=== PATIENT | female | born 1940 | race Caucasian/White ===

== ENCOUNTER → 2017-12-19 09:36 | Outpatient (CLI) | payer SELFPAY ==
--- NOTE | 2017-12-19 09:44 | HPBD_ITS ---
STUDY: DUAL ENERGY X-RAY ABSORPTIOMETRY / DXA REASON FOR EXAM: Female, 77 years old. The patient is postmenopausal. Loss of height. TECHNIQUE: Bone Mineral Density (BMD) measurements of lumbar spine and bilateral hips were obtained. COMPARISON: None. FINDINGS: Lumbar Spine (L1-L4): g/cm2 (1.072) / T-score (-0.8) / Z-score (1.0) Findings are suggestive of normal bone density with a low fracture risk. Left Femur Total: g/cm2 (0.995) / T-score (-0.1) / Z-score (1.9) Left Femoral Neck: g/cm2 (0.841) / T-score (-1.4) / Z-score (0.7) Right Femur Total: g/cm2 (0.965) / T-score (-0.3) / Z-score (1.6) Right Femoral Neck: g/cm2 (0.889) / T-score (-1.1) / Z-score (1.1) HPBD/Dexa Bone Density Study (HP) IMPRESSION: The patient is considered osteopenic as outlined below according to World Carlos Alberto Organization (WHO) criteria with a moderate fracture risk. Reference Information: The T-score is the number of standard deviations above or below the standard which is normal for young adults at their peak bone mineral density. The World Health Organization (WHO) interprets the T-scores as follows: Above -1 Normal bone density Between -1 and -2.5 Osteopenia Equal to / or below -2.5 Osteoporosis As a practical clinical guideline, osteopenia may be graded as follows: Mild -1 through -1.5 Moderate -1.6 through -2.0 Severe -2.1 through -2.4 The Z-score is the number of standard deviations above or below age-matched controls. A Z-score of less than -1.5 would be considered abnormal. References: 1. NIH Osteoporosis and Related Bone Diseases http://www.osteo.org 2. International Society for Clinical Densitometry http://www.iscd.org 3. National Osteoporosis Foundation http://www.nof.org Electronically Signed: Chad Wilkins MD at 15:25 EST Tel [phone], Service support ,
== END ==
PROVIDERS: Family Provider Internal Medicine; PCP Internal Medicine; Visit Provider Internal Medicine
DX: Z78.0 Asymptomatic menopausal state (principal)
CPT/HCPCS: 77080

== ENCOUNTER 2018-01-12 07:02 | Day surgery (SDC) | payer MEDICARE, OTHER, SELFPAY ==
[2017-12-14 15:01] VITALS: BP 157/77; BMI 29.6
--- NOTE | 2018-01-12 | IMM_PTH ---
PATIENT: FARHAD LOPEZ LOC: EN U#:[id number] AGE/SX: 77/F ROOM: RE01/12/[address]: Dr. Chaparro John MD : 1940 BED: DIS: 01/12/2018 SPEC #: [id number] RECD: 01/15/18 11:25 STATUS: BRITTANY REBECCA #: [id number] OTTO: 01/12/18 00:[address]: Chaparro John DEPT: IMMUNOHISTOCHEMISTRY RECD BY: Nathalie Stokes ENTERED: 01/15/18 11:26 SP TYPE: IMMUNO OTHR DR: Dr. Xiomara Do MD Tissues: A - Stomach, NOS B - Stomach, NOS Procedures: H Pylori (initial) PHYSICIAN & [place] [id number] SPECIMEN INFORMATION: Tissue Source: A ? Antral biopsy, B ? Cardia biopsy Clinical Info: GERD, epigastric pain Specimen Number: [id number] A & B CPT code: 96956 x2 METHODOLOGY: Deparaffinized sections of prefer/formalin-fixed tissue or PAP/DQ stained slides are incubated with monoclonal/polyclonal antibodies/oligonucleotide probes. Localization is made via biotin free immunoperoxidase method. Appropriate controls are performed and reacted as expected. Results on target cell population are indicated in the following table: RESULTS: ANTIBODY / CLONE RESULT Block A H Pylori (polyclonal) negative Block B H Pylori (polyclonal) negative These tests were developed and their performance characteristics determined by [facility]. They may not have been cleared or approved by the U.S. Food and Drug Administration. The FDA has determined that such clearance or approval is not necessary. INTERPRETATION: A. Antral biopsy: Negative for Helicobacter pylori organisms. B. Cardia biopsy: Negative for Helicobacter pylori organisms. SJ:ebenezer 01/16/18
[2018-01-12 07:26] VITALS: BP 143/87; PULSE 125; RESP 18; TEMP 36.9; O2SAT 100; BMI 28.6
--- NOTE | 2018-01-12 08:20 | GASB_PTH ---
PATIENT: FARHAD LOPEZ LOC: EN U#:[id number] AGE/SX: 77/F ROOM: RE01/12/[address]: Dr. Chaparro John MD : 1940 BED: DIS: 01/12/2018 SPEC #: [id number] RECD: 01/12/18 11:21 STATUS: BRITTANY REBECCA #: [id number] OTTO: 01/12/18 08:[address]: Chaparro John DEPT: SURGICAL PATHOLOGY RECD BY: Ran Diamond ENTERED: 01/12/18 12:11 SP TYPE: Gastric Bx OTHR DR: Dr. Xiomara Do MD Tissues: A - Gastric mucous membrane B - Cardioesophageal junction C - Gastric mucous membrane D - Esophageal mucous membrane Procedures: Special Stain Group II Special Stain Group I Surgery Specimen Level IV GMS Stain (control) Alcian Blue/PAS (control) HEADER OPERATION: EGD with biopsy PRE-OP DIAGNOSIS: GERD, epigastric pain TISSUE SUBMITTED: A ? Antral biopsy for H. pylori and path, B ? Cardia biopsy, C ? Gastric polyp biopsy, D ? Distal esophagus biopsy MICROSCOPIC DIAGNOSIS A. Antral biopsy: Mild gastritis. B. Cardia, biopsy: Fragments of gastroesophageal mucosa with acute and chronic inflammation. Focal intestinal metaplasia (goblet cell metaplasia) is noted. Special stain for fungi is negative for organisms; matched control is appropriate. C. Gastric polyp, biopsy: Fundic gland polyp. D. Distal esophagus, biopsy: Fragments of squamous epithelium with mild acute and chronic inflammation. Special stain for fungi is negative for organisms; matched control is appropriate. SJ:ebenezer 01/15/18 COMMENT A & B. The results of immunohistochemistry for Helicobacter pylori will be reported separately ([id number]). B. Alcian blue/PAS stain with matched control is used in the evaluation of the specimen. MICROSCOPIC DESCRIPTION Slides are reviewed. A. The specimen shows fragments of gastric mucosa with chronic inflammatory cell infiltrates in the lamina propria consisting of lymphocytes and plasma cells, consistent with mild chronic gastritis. GROSS DESCRIPTION A - Received in fixative is one container labeled with the patient's name and designated antral biopsy. The specimen consists of one irregular fragment of light edmonds soft tissue that measures 0.3 x 0.2 x 0.1 cm. The specimen is totally submitted in one cassette. B - Received in fixative is one container labeled with the patient's name and designated cardia biopsy. The specimen consists of two irregular fragments of light edmonds soft tissue that in aggregate measure 0.3 x 0.2 x 0.1 cm. The specimen is totally submitted in one cassette. C - Received in fixative is one container labeled with the patient's name and designated gastric polyp. The specimen consists of one irregular fragment of light edmonds soft tissue that measures 0.4 x 0.2 x 0.1 cm. The specimen is totally submitted in one cassette. D - Received in fixative is one container labeled with the patient's name and designated distal esophagus. The specimen consists of multiple irregular fragments of light edmonds soft tissue that in aggregate measure 0.5 x 0.5 x 0.1 cm. The specimen is totally submitted in one cassette. / AM:ebenezer 01/12/18 TC:2 CPT: 78735 x4, 94536 x2, 18787
[2018-01-12 08:46] VITALS: BP 107/48; BP 143/87; PULSE 80; RESP 18; TEMP 36.3; O2SAT 90
--- NOTE | 2018-01-12 08:48 | PCM.OPRPT ---
Problem List (1) GERD (gastroesophageal reflux disease) Status: Acute (2) Personal history of colonic polyps Status: Acute (3) Family history of colon cancer in mother Status: Acute Report of Operation Date of Procedure: 01/12/18 Pre-Operative Diagnosis: GERD, personal history of colon polyps, family history of colon cancer in her mother Post-Operative Diagnosis: Large hiatal hernia with severe reflux esophagitis, antral gastritis, gastric polyps, pancolonic diverticulosis Surgery/Procedure Performed:: Esophagogastroduodenoscopy with antral and cardia and distal esophageal biopsies and gastric polyp biopsy. Colonoscopy Description of Surgical Findings:: Timeout and informed consent was obtained. 77-year-old female was taken to the endoscopy suite. Her oropharynx anesthetized with Topex. Throughout both the upper and lower endoscopy she received 100 mg of Demerol and 50 minute micrograms of fentanyl and 5 mg of Versed is intravenous sedation. GIF video gastroscope was inserted and soft line night. Proximal mid esophagus not remarkable. EG junction was only at 33 cm. A large hiatal hernia noted. There are findings consistent with severe reflux esophagitis. The scope was advanced into the stomach antral erythema noted. Gastric fundic polyps noted. The scope was advanced through the pylorus the first and second portion of the duodenum were inspected this was not remarkable. The scope was withdrawn back into the stomach antral biopsy was obtained. The scope was retroflexed and the large hiatal hernia noted. There appear to be some inflammation of the cardia as well. There were some scattered gastric fundic polyps. Antral biopsy was obtained. Biopsy was obtained of the gastric fundic polyps. Biopsy was obtained of the cardia adjacent to the e.g. junction. Then excess fluid and air was aspirated free. The scope was withdrawn to the distal esophagus and distal esophageal biopsies were obtained. Hemostasis was intact the scope was withdrawn without additional abnormality. Digital rectal exam performed. Slightly lax anal tone. Moderate internal and external hemorrhoids. No active bleeding. Flexible C1 scope was inserted into the rectum advanced to a quite tortuous sigmoid colon extensively involved with diverticulosis. The scope was then advanced through the transverse colon into the ascending colon. The cecum ileocecal valve area was nicely achieved. Bowel prep was quite good. The scope was carefully withdrawn from the ascending transverse descending and sigmoid colon. Extensive pancolonic diverticulosis was identified with severe diverticulosis of the sigmoid colon. I did not see any evidence of acute inflammation. No evidence for recurrent polyps. The scope was retroflexed within the rectum hemorrhoidal changes noted. Excess fluid and air was aspirated free the procedure was completed with the patient tolerating it well. Impression Hiatal hernia severe reflux esophagitis. Antral gastritis. Gastric fundic polyps. The patient will be prescribed omeprazole 40 mg daily while awaiting biopsies. Pancolonic diverticulosis. No evidence of recurrent polyps. Previous colonoscopy July 02, 2013. Recommendations The patient will be notified of her upper endoscopy pathology results and any additional treatment recommendations. Follow-up colonoscopy tentatively at 5 years pending her health at that time. Cc: Dr. Do Medications initially given at 0815. Upper scope started 0817. The upper scope completed at 0824. Colonoscopy initiated at 0828. The cecum was reached at 0836.35. The procedure was completed at 0841.58. Chaparro John M.D., F.A.C.S. Type of Anesthesia:: IV Sedation
[2018-01-12 09:01] VITALS: BP 143/87; BP 97/53; PULSE 77; RESP 18; O2SAT 95
[2018-01-12 09:10] VITALS: BP 100/49; BP 143/87; PULSE 76; RESP 18; O2SAT 92
[2018-01-12 09:16] VITALS: BP 102/57; BP 143/87; PULSE 78; RESP 18; TEMP 36.4; O2SAT 95
[2018-01-12 09:28] VITALS: BP 143/87
== END 2018-01-12 10:04 | disposition home or self-care (01) ==
LOC: EN 07:04 → AC 07:04
PROVIDERS: Family Provider Internal Medicine; PCP Internal Medicine; Visit Provider Surgery
PROC: 0DJD8ZZ Inspection of Lower Intestinal Tract, Via Natural or Artificial Opening Endoscopic (ICD-10-PCS; CPT 45378; principal; 2018-01-12 07:55)
DX: K31.7 Polyp of stomach and duodenum (principal); K44.9 Diaphragmatic hernia without obstruction or gangrene; K21.0 Gastro-esophageal reflux disease with esophagitis; I10 Essential (primary) hypertension; K64.4 Residual hemorrhoidal skin tags; K29.50 Unspecified chronic gastritis without bleeding; K57.30 Diverticulosis of large intestine without perforation or abscess without bleeding; Z86.010 Personal history of colon polyps; Z80.0 Family history of malignant neoplasm of digestive organs
CPT/HCPCS: 43239; 45378; 88305; 88312; 88313; 88342; J3010; J7120

== ENCOUNTER → 2018-04-03 10:26 | Outpatient (CLI) | payer MEDICARE, OTHER, SELFPAY ==
[2018-04-03 11:20] LABS: D-Dimer Quantitative (DVT/PE) 1.52 FEU/ug/m (0.27-0.49)
[2018-04-03 11:23] LABS: Anion Gap 12 (5-15); BUN 13 mg/dL (7-18); BUN/Creat Ratio 18.1 RATIO (10-20); Calcium,Total 9.6 mg/dL (8.5-10.1); Chloride 102 mmol/L (98-107); Creatinine, Serum 0.72 mg/dL (0.55-1.02); EST Glomerular Filtration Rate 83 mL/min (>60); Est Glom Filt Rate - Afr Amer 100 mL/min (>60); Glucose 95 mg/dL (74-106); Sodium Level 140 mmol/L (136-145); T4 Free Direct 1.09 ng/dL (0.76-1.46); Thyroid Stim Hormone (TSH) 2.45 uIU/mL (0.358-3.74)
== END ==
PROVIDERS: Family Provider Internal Medicine; PCP Internal Medicine; Visit Provider Internal Medicine
DX: R00.0 Tachycardia, unspecified (principal)
CPT/HCPCS: 80048; 84439; 84443; 84484; 85379

== ENCOUNTER → 2018-04-03 14:52 | Outpatient (CLI) | payer MEDICARE, OTHER, SELFPAY ==
--- NOTE | 2018-04-03 14:58 | CT_ITS ---
STUDY: CTA CHEST REASON FOR EXAM: Female, 77 years old. Elevated d-dimer. Tachycardia. RADIATION DOSAGE (If Supplied By Facility): CTDIvol = ( 9.47 ) mGy, DLP = ( 418.77 ) mGycm TECHNIQUE: The examination was performed with the intravenous administration of 75 ml of Isovue 370 contrast material. Post-processing of the angiographic images was performed, with multiplanar reformation and 3D reconstruction. Individualized dose optimization techniques were used for this CT. COMPARISON: None. FINDINGS: Normal enhancement of the main pulmonary artery and right and left pulmonary arteries. Normal enhancement of the bilateral peripheral pulmonary arteries. There is no demonstrated pulmonary embolism. Normal thoracic aorta and visualized great vessels. There is no demonstrated aortic dissection. Normal heart and pericardium. Normal mediastinum. Normal hilar regions. Normal visualized trachea and bronchi. The lungs are well expanded. Mild degree of increased markings in the left lower lobe with areas of bronchiectasis and scarring in the medial aspect of the left lower lobe. Mild increased markings in the right lower lobe. Normal pleura. Normal chest wall structures. There are degenerative changes of thoracic spine. Moderate sized hiatal hernia. CT/Chest W/WO Contrast IMPRESSION: No evidence of pulmonary. Findings suggestive of scarring in the lower lobes more prominent on the left side. Hiatal hernia. Electronically Signed: Chad Wilkins MD at 15:45 EDT Tel [phone], Service support ,
== END ==
PROVIDERS: Family Provider Internal Medicine; PCP Internal Medicine; Visit Provider Internal Medicine
DX: R79.89 Other specified abnormal findings of blood chemistry (principal); R00.0 Tachycardia, unspecified
CPT/HCPCS: 71270; 80048; 84439; 84443; 84484; 85379; Q9967

== ENCOUNTER → 2018-04-04 11:22 | Outpatient (CLI) | payer MEDICARE, OTHER, SELFPAY | PROVIDERS: Family Provider Internal Medicine; PCP Internal Medicine; Visit Provider Internal Medicine | DX: R00.0 Tachycardia, unspecified (principal) | CPT/HCPCS: 93225; 93226 ==

== ENCOUNTER 2018-05-29 10:30 | Outpatient (RCR) | payer MEDICARE, OTHER, SELFPAY ==
--- NOTE | 2018-04-24 13:00 | HP.PTEVAL_ITS ---
Patient's Visit Information FARHAD LOPEZ is a 77 year old F referred to Physical Therapy by Xiomara Do with a diagnosis of L1 compression fracture. Date of Evaluation: 04/24/18 Physical Therapist: Roberto Oliveros DPT, OC - Visit Plan Frequency: 2x /Week Duration: 4-6 Weeks Plan: 2x/week x 2 weeks in pool to teach hip flexor and quad stretching, core strength and general strength program that patient can do in her friends pool with pics. Then 2x/week for 2 weeks for land based hip flexor stretches, quad stretches andcore strength and return to machine based exercises. Will need to work on L/S flexion at some point. - Subjective Subjective: Wants to get back into activity. Fractured vertebrae(compression) March 16. 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 MRI showed this. Ortho surgeon the next day and given brace which she is now weaning out of, still sleeps with it. No bending or twisting allowed. saw doc last Monday in [place] and [facility] and sent for outpatient as she has been doing HEP sink exercises at home(home health). Pain is very little at this point. Back gets tired if stands still for too long. Can walk without discomfort. Sleeps without pain. Is tight in the mroning but can walk that off. Can do all basic ADLs but is avoiding carrying heavy things. Had someone with her the last 5 weeks but is now on her own. 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 Careful bending forward but does all ADLs, has repositioned things int he house. Is not gardening. Checked for bone density prior and it was fine, was just hard a fall. Wants to get back to walk 2-3 miles and is currently at one mile. wears brace for that. Back gets tired with too much work. Needs to be stronger. Wants to get back to water aerobics. Enjoys the pool. Wants to get back to regular ex program to lose weight. - Objective Walking well and I, trasnfers are I on mat and chair without pain. VOR walking is slow but safe. LE AROM WFL, hip ext mod limited with hip flexor tightness mod(8 degrees) and Min quad tightness. LB AROM Mod limited in extension anensation LE WNL to gross light touch.d SB and flexion NT today. LE strength 4 +/5 without pain except hip flexion gives slight transient LBP. Hip abductiona nd rotators are 4-/5 as is extension. reflexes 2/3 in ppatella and achilles - Balance Scores Functional Gait Assessment Score: 27 % Disability: 10.0000 - Goals Goal 1:: Get back to full LB ROM without pain and good hip flexor flexibility without pain. Goal Time Frame: 4-6 Weeks Goal 2:: Back to 100% activity including pool based ex program and gym exercises without pain. Goal Time Frame: 4-6 Weeks Goal 3:: Pt feel 95% back to normal. Goal Time Frame: 4-6 Weeks Goal 4:: Walk 3 miles without increased pain or fatigue in back. Goal Time Frame: 4-6 Weeks - Rehabilitation Potential Physical Therapy Diagnosis: Compression fracture Rehabilitation Potential: Good - Anticipated Interventions Patient/Client Instruction: Educate patient on: Condition, Plan of Care For the Purpose of:: To increase ROM, To improve muscle performance and motor function, To improve ability of physical actions for home/community/work/leisure Therapeutic Exercise to Include: Strength training, Endurance training, Flexibilty training, Passive ROM, Active ROM For the Purpose of:: To increase ROM, To improve nutrient delivery to tissue, To increase oxygenation perfusion, To improve muscle performance and motor function, To improve ability of physical actions for home/community/work/leisure , To improve gait and locomotor functions Thank you for the opportunity to evaluate your patient. For Medicare and Medicare HMO plans, please review the plan of care and approve it. It will need to be FAXED BACK to us at [phone] for Medicare purposes. Please let me know if there are questions or concerns regarding this plan of care. Physician Signature: Date:
--- NOTE | 2018-05-29 11:28 | HP.PTDCSUM ---
HP - PT D/C Summary It has been my pleasure to treat FARHAD LOPEZ under orders from Xiomara Do, for the diagnosis of L1 compression fracture for a total of 10 visit(s). Discharge Date: 05/29/18 Please see the following information for a summary of their discharge status. - Subjective Subjective: Going the right way. Stretching has helped LE especially gastroc. Plan is to join now and continue with current exercises which are helping. Back is stronger and gets no pain. Tired at end of day. Will continue stretches before getting out of bed in the morning. Getting on and off floor for yoga stretches OK, getting up is not easy but doable and improving. Activities are normal, has modified gardening. To doctor Do in one week and to Dr. Kumar next week. - Overall Improvement % Improvement: 95 - Objective Objective/Function: ext mod limited and slightly centrally oainful, SB are hesitant but decent motion , flexion is full and painfree. Walking is normal and balance is good with VOR and ec. OVERALL PT HAPPY WITH PROGRESS AND DOING WELL. - Goals Goal 1:: Get back to full LB ROM without pain and good hip flexor flexibility without pain. Goal Progress: Goal Met Goal 2:: Back to 100% activity including pool based ex program and gym exercises without pain. Goal Progress: Goal Met Goal 3:: Pt feel 95% back to normal. Goal Progress: Goal Met Goal 4:: Walk 3 miles without increased pain or fatigue in back. Goal Progress: Goal Met - Plan Plan: D/C - D/C Information Discharge Comments: Doing great. Will f/u with doctors next week. Will continue HEP of strength, stretch and pool ex. I have educated her on weaning back to golfing. If there are questions or concerns regarding this patient's physical therapy, please feel free to call me at [phone]. Thank you for the referral of this patient. Sincerely, Roberto Oliveros, DPT, OC
== END 2018-05-29 19:00 | disposition home or self-care (01) ==
LOC: PT 10:30
PROVIDERS: Family Provider Internal Medicine; PCP Internal Medicine; Visit Provider Internal Medicine
DX: S32.019D Unspecified fracture of first lumbar vertebra, subsequent encounter for fracture with routine healing (principal)
CPT/HCPCS: 97110; 97113; 97162; 97530

== ENCOUNTER → 2018-06-19 08:29 | Outpatient (CLI) | payer MEDICARE, OTHER, SELFPAY | PROVIDERS: Family Provider Internal Medicine; PCP Internal Medicine; Visit Provider Orthopaedic Surgery | DX: M54.16 Radiculopathy, lumbar region (principal) | CPT/HCPCS: 72114 ==

== ENCOUNTER → 2018-06-21 07:09 | Outpatient (CLI) | payer MEDICARE, OTHER, SELFPAY ==
--- NOTE | 2018-06-21 19:00 | STRESSREP ---
Stress Test Report Date: 06/21/2018 Procedure: Exercise tolerance test/imaging study Indications: Premature ventricular contractions Consent: Per the patient Procedure: The patient exercised on a Mark protocol for 7 minutes completing Stage 2 and 1 minute of Stage III achieving a peak heart rate of 162 bpm (115 % predicted maximal heart rate) with a peak blood pressure 170/80 mmHg and a peak MET capacity of 8 METs. The baseline ECG demonstrated normal sinus rhythm; PVCs. The peak exercise ECG demonstrated somatic/motion artifact with no obvious ECG changes. There were occasional PVCs pretest, during exercise, and recovery. The functional capacity was considered good. There was no complaint of chest discomfort during exercise or recovery. The examination was discontinued secondary to dyspnea. Impression: 1. Technically adequate (percent predicted maximal heart rate greater than 85%) exercise tolerance test 2. Peak exercise ECG demonstrated somatic/motion artifact with no obvious ECG changes 3. There were occasional PVCs pretest, during exercise, and recovery. 4. Nuclear images pending Myocardial perfusion imaging study: Technique: The patient was injected with 11.8 mCi of technetium 99m Cardiolite and subsequently rest SPECT Cardiolite nuclear imaging was obtained in the horizontal long, vertical long, and short axis views. The patient exercised on a Mark protocol for 7 minutes completing Stage 2 and 1 minute of Stage III achieving a peak heart rate of 162 bpm (115 % predicted maximal heart rate) with a peak blood pressure 170/80 mmHg and a peak MET capacity of 8 METs. The patient was injected with 31.3 mCi of technetium 99m Cardiolite and subsequently stress SPECT Cardiolite nuclear imaging was obtained in the horizontal long, vertical long, and short axis views. A gated Cardiolite study at peak stress was obtained. Interpretation: Rest and stress SPECT Cardiolite nuclear imaging status post realignment, normalization, and attenuation correction, demonstrates the appearance of relative uniform tracer uptake and myocardial perfusion appearing within normal limits. There is end systolic thickening and brightening. The gated Cardiolite study demonstrates myocardial thickening and inward wall motion. The reported LVEF is 57 %. Impression: 1. Rest and stress SPECT Cardiolite nuclear imaging demonstrate relative uniform tracer uptake and myocardial perfusion appearing within normal limits. 2. The gated Cardiolite study reports an LVEF of 57 %. This note was generated with [employer] software. It may contain incorrect words, spelling, and punctuation that were not noted in checking the note before signing.
== END ==
PROVIDERS: Family Provider Internal Medicine; PCP Internal Medicine; Visit Provider Internal Medicine
DX: R06.02 Shortness of breath (principal); I49.3 Ventricular premature depolarization
CPT/HCPCS: 78452; 93017; A9500; A4216

== ENCOUNTER → 2018-09-12 08:14 | Outpatient (CLI) | payer MEDICARE, OTHER, SELFPAY ==
--- NOTE | 2018-09-12 08:16 | BI_ITS ---
MAMMOGRAPHY - BILATERAL SCREENING REASON FOR EXAM: Female, 78 years old. Routine annual screening examination. PERTINENT HISTORY: Non-contributory. Remote right excisional breast biopsy. TECHNIQUE: Digital bilateral breast jasmeet (3D mammographic acquisition) in the CC and MLO projections. 2-D mediolateral oblique (MLO) and craniocaudad (CC) views of both breasts were obtained. CAD: Full Field Digital Mammography with Computer Added Detection was performed. COMPARISON: Comparison is made with prior outside examination dated August 16, 2017. FINDINGS: Breast Composition: There are scattered areas of fibroglandular density. There are no dominant masses or suspicious calcifications. Stable small bilateral axillary lymph nodes. No other significant abnormalities are identified. There has been no significant change since the prior study. BI/SCREENING MAMM (CAD), BILAT IMPRESSION: Stable bilateral screening mammogram. Yearly follow-up mammogram recommended. (A) ASSESSMENT CATEGORY: BIRADS Category 2: Benign. A letter regarding these results will be sent to the patient by the facility within 30 days. Approximately 10% of breast cancers are not detected by mammography. A normal mammogram should not delay biopsy of a clinically suspicious abnormality. [id number] Electronically Signed: Chad Wilkins MD at 11:12 EST Tel [phone], Service support ,
== END ==
PROVIDERS: Family Provider Internal Medicine; PCP Internal Medicine; Visit Provider Internal Medicine
DX: Z12.31 Encounter for screening mammogram for malignant neoplasm of breast (principal)
CPT/HCPCS: 77063; 77067

== ENCOUNTER → 2018-11-22 12:32 | Outpatient (CLI) | payer SELFPAY ==
[2018-10-13 10:08] VITALS: BMI 29.6
--- NOTE | 2018-11-22 12:45 | CT_ITS ---
STUDY: CT CHEST WITHOUT CONTRAST REASON FOR EXAM: Female, 78 years old. Calcium scoring examination. This is a radiology over read examination. RADIATION DOSAGE (If Supplied By Facility): CTDIvol = ( 12.19 ) mGy, DLP = ( 195.04 ) mGycm TECHNIQUE: Transaxial imaging was performed without the administration of intravenous contrast material. Individualized dose optimization techniques were used for this CT. COMPARISON: Comparison is made with prior study dated April 03, 2018. FINDINGS: Stable mild increased markings at the left lung base suggestive of scarring. There is no demonstrated pleural abnormality. There are calcifications of the coronary arteries. There are multiple small lymph nodes within the mediastinum, which are normal in size and morphology most compatible with reactive lymph hyperplasia. Normal hilar regions. Normal unenhanced pulmonary arteries. Normal aorta arch and descending thoracic aorta. There are degenerative changes of the thoracic spine. Moderate sized hiatal hernia. CT/Limited Chest CT w/CCTA IMPRESSION: Findings suggestive scarring at the left lung base. Coronary artery calcification. Moderate hiatal hernia. Electronically Signed: Chad Wilkins MD at 13:04 EST Tel [phone], Service support ,
[2018-11-22 12:52] VITALS: BP 163/84; PULSE 72; RESP 16; TEMP 37; O2SAT 100; BMI 27.6
[2018-11-22 13:11] VITALS: BP 159/65; PULSE 74
[2018-11-22] MEDS: Metoprolol Tartrate 5 MG/5 ML Vial IV (13:11)
[2018-11-22 13:15] VITALS: BP 168/63; PULSE 694; RESP 16; O2SAT 100
[2018-11-22 13:26] VITALS: BP 163/76; PULSE 73; RESP 16; O2SAT 100
--- NOTE | 2018-11-27 08:58 | CA.SCORE ---
Calcium Scoring Date of Study:: 11/27/18 Coronary Calcium Scoring: Total calcium score of 0 Conclusion: Total calcium score of 0 is below the 25th percentile for women over the age of 74. (Exact percentile calculated to be 0%; this means 0% of the population has similar calcium score at 99% of the population has a higher calcium score than this patient.) Results: AGATSTON SCORE BREAKDOWN: LM: 0 LAD:0 LCX: 0 RCA: 0 Total Agatston score:0 Impression: Impression: No identifiable atherosclerotic plaquing. Very low cardiovascular disease risk. Less than 5% chance of presence of coronary artery disease. Essentially negative examination. A full evaluation of cardiac risk should include an assessment of all conventional risk factors, and the scores and percentile ranking is reported herein should be evaluated in this context.
--- OUTSIDE RECORDS SUMMARY | 2019-01-27 04:39 | XMS RPT_ITS | Continuity of Care Document ---
:1940 Author Organization [facility] Address [address] [facility] [address] [place] [address] Phone Care Team Providers Name Role Phone Xiomara Do MD Unavailable Chaparro John MD Unavailable Unavailable Unavailable Problems Name Dates Details Abnormal glucose (Renamed from Abnormal glucose level) (R73.09, 790.29) Status: Active BMI 28.0-28.9,adult (Z68.28, V85.24) Status: Active BMI 29.0-29.9,adult (Z68.29, V85.25) Status: Active BMI 30.0-30.9,adult (Z68.30, V85.30) Status: Active Current nonsmoker (Renamed from Current non-smoker) (Z78.9, V49.89) Status: Active D-dimer, elevated (R79.89, 790.92) Status: Active Deliveries (Parity) Comments: 4 Status: Active Dizziness (R42, 780.4) Status: Active Encounter for screening colonoscopy (Z12.11, V76.51) Status: Active Encounter for screening mammogram for breast cancer (Renamed from Encounter for screening mammogram for malignant neoplasm of breast) (Z12.31, V76.12) Status: Active Encounter for well adult exam with abnormal findings (Z00.01, V70.0) Comments: 12-18 [facility]: MOCA=26/30, PHQ-9=1, A1c=5.4%, colonscopy 3-18 (plan 5 years) derm check Dr Michael HUNG yearly mammo 09-23 BD 12-24 yearly with [facility]. Status: Active Erosive esophagitis (K22.10, 530.19) Comments: EGD 10-[address] John to have rescope 12-24-18 Status: Active Fall at home (W19.XXXA, E888.9) Status: Active Family history of colon cancer in mother (Z80.0, V16.0) Comments: later years of her life 84 years old Status: Active Family history of dementia (Z81.8, V17.2) Status: Active GERD (gastroesophageal reflux disease) (K21.9, 530.81) Comments: EGD 2012, Hpylori neg. biopsy mild gastritis like spicy. worse when travel. eating later. Status: Active Head trauma, subsequent encounter (S09.90XD, V58.89) Comments: no isseu not think need imaged Status: Active Headache (R51, 784.0) Status: Active Hearing loss of left ear, unspecified hearing loss type (H91.92, 389.9) Comments: will get back to Dr. painting Status: Active Hiatal hernia (K44.9, 553.3) Comments: large Status: Active History of nonmelanoma skin cancer (Z85.828, V10.83) Comments: SCC and BCC gets yearly exam Status: Active Hospital discharge follow-up (Z09, V67.59) Comments: low hgb in [facility] in [place] Status: Active Hyperlipidemia (E78.5, 272.4) Comments: reveiwed with patient and good. breakdown great only on lipitor wice weekly really watn to see need Status: Active Hypertension (I10, 401.9) Comments: in past used another medication and changed because still high. talk about weight loss, salt restriction, decrease etoh and exercise first not want more meds Status: Active Iron deficiency anemia (D50.9, 280.9) Comments: from the esophagitis. 09-23 9.1 on iron. will see what hgb is in 6 weeks. if not climbing as should then to heme. Status: Active Laceration of right forearm, sequela (S51.811S, 906.1) Comments: will get surures out in about another week had tetanus 2014 Status: Active Leukopenia, unspecified type (D72.819, 288.50) Status: Active Need for prophylactic vaccination and inoculation against influenza (Renamed from Need for immunization against influenza) (Z23, V04.81) Status: Active Obesity (BMI 30.0-34.9) (E66.9, 278.00) Comments: start after retire. 165 lbs. she willstart exercise, limit wine and watch starches hs limited whine will start [employer] told if not see weight drop log my fitness pal Status: Active Pneumococcal vaccination given (Z23, V06.6) Status: Active Postmenopausal (Renamed from Postmenopausal status) (Z78.0, V49.81) Status: Active Pregnancies () Comments: 4 Status: Active PVC (premature ventricular contraction) (I49.3, 427.69) Comments: sr jerilyn worked up in past stress was negative. had 6-18 when in mist of stress with fracture will have sgtress test before incfreasee exercise no other signs and symptoms Status: Active SOB (shortness of breath) (R06.02, 786.05) Comments: some better withincreae hgb and stress n egatiove. will do echo with tachy. and PVCS and CCTA Status: Active Tachycardia (R00.0, 785.0) Comments: she still contiues even with a good hemoglobulin to have some talk about chycardia the SOB think related to low hg but worth checking echol. Status: Active Upper GI bleed (K92.2, 578.9) Comments: in apst not now. she was in hospital 11-18 hg 6. iron def. willhave her hold ASA because not for secondary preventation. on PPI now stay on. Status: Active Medications Name Dates Details AmLODIPine Besylate 5 MG Oral Tablet 1 (one) Tablet qd for 0 days Quantity: 30 {Tablet} Refills: 7 Ordered:13-Sep-2018 Hi RAMON, Xiomara Delacruz MD, Xiomara Mcdonald Start : 13-Sep-2018 Active Calcium Carbonate 600 MG Oral Tablet 1 qd (600 MG) Active Carafate 1 GM Oral Tablet 1 (one) Tablet Tablet 4 times a day, 1 hr before meals and bedtime for 30 days Quantity: 120 {Tablet} Refills: 3 Ordered:24-Mar-2018 Xiomara Do MD, MD, Dana M Start : 21-Mar-2018 Active Comments:called to Raj [phone] - cmanchak 03/21 CoQ-10 100 MG Oral Capsule Extended Release 1 (one) Capsule qd for 0 days Quantity: 30 {Capsule} Refills: 6 Ordered:05-Oct-2018 Xiomara Do MD, MD, Dana M Start : 05-Oct-2018 Active Ferrous Sulfate 325 (65 Fe) MG Oral Tablet Delayed Release 1 (one) Tablet bid with food for 0 days Quantity: 60 {Tablet} Refills: 7 Ordered:03-Oct-2018 Xiomara Do MD, MD, Dana M Start : 03-Oct-2018 Active Comments:get with vitamin C Lipitor 10 MG Oral Tablet 1 (one) Tablet qd for 0 days Quantity: 30 {Tablet} Refills: 6 Ordered:11-Sep-2018 Xiomara Do MD, MD, Dana M Start : 11-Sep-2018 Active Dispense as Written Comments:LEILA no generic Miacalcin 200 UNIT/ACT Nasal Solution one spray daily alternate nostrils (200 UNIT/ACT) Active Multi Vitamin Daily Oral Tablet 1 (one) Tablet Tablet qd for 0 days Quantity: 30 {Tablet} Refills: 0 Ordered:15-Sep-2017 Xiomara Do MD, MD, Dana M Start : 31-Aug-2017 Active Omeprazole 20 MG Oral Capsule Delayed Release 1 (one) Capsule qd for 0 days Quantity: 30 {Capsule} Refills: 0 Ordered:22-Oct-2018 Xiomara Do MD, MD, Dana M Start : 22-Oct-2018 Active Omeprazole 40 MG Oral Capsule Delayed Release in am (40 MG) Active Spironolactone 50 MG Oral Tablet 1 (one) Tablet qd for 0 days Quantity: 30 {Tablet} Refills: 7 Ordered:03-Oct-2018 Xiomara Do MD, MD, Dana M Start : 03-Oct-2018 Active Tylenol Extra Strength 500 MG Oral Tablet 1 (one) Tablet Tablet tid for 30 days Quantity: 150 {Tablet} Refills: 3 Ordered:17-May-2018 Xiomara Do MD, MD, Dana M Start : 03-Apr-2018 Active Zantac 150 Maximum Strength 150 MG Oral Tablet 1 (one) Tablet in am and before dinner for 0 days Quantity: 60 {Tablet} Refills: 5 Ordered:05-Jun-2018 Xiomara Do MD, MD, Dana M Start : 05-Jun-2018 Active Omeprazole 40 MG Oral Capsule Delayed Release 1 (one) Capsule Capsule qd for 0 days Quantity: 30 {Capsule} Refills: 0 Ordered:24-Mar-2018 Xiomara Do MD, MD, Dana M Start : 12-Jan-2018 End : 24-Mar-2018 Inactive Comments:Dr. john Zithromax Z-Nas 250 MG Oral Tablet uad Tablet until gone for 0 days Quantity: 1 {Package} Refills: 0 Ordered:21-Dec-2017 LATONIA Casanova Start : 16-Nov-2017 End : 21-Dec-2017 Inactive Aspirin Adult Low Dose 81 MG Oral Tablet Delayed Release 1 (one) Tablet qd for 0 days Quantity: 30 {Tablet} Refills: 0 Ordered:03-Oct-2018 Xiomara Do MD, MD, Dana M Start : 03-Oct-2018 End : 03-Oct-2018 Discontinued Comments:add back in 2 weeks Atorvastatin Calcium 10 MG Oral Tablet 1 (one) Tablet qd for 0 days Quantity: 30 {Tablet} Refills: 0 Ordered:15-Sep-2017 Xiomara Do MD, MD, Dana M Start : 15-Sep-2017 End : 15-Sep-2017 Discontinued Protonix 40 MG Oral Tablet Delayed Release 1 (one) Tablet qd for 30 days Quantity: 30 {Tablet} Refills: 3 Ordered:17-May-2018 Xiomara Do MD, MD, Dana M Start : 17-May-2018 End : 17-May-2018 Discontinued Allergies and Adverse Reactions Name Dates Details Adhesive Tape (Allergy) Status: Active Neosporin + Pain Relief Max St *DERMATOLOGICALS* (Allergy) Status: Active Comments: rash Past Medical History Name Dates Details Bronchitis (J40, 490) Status: Resolved as of 21-May-2018 Fracture of L1 vertebra due to fall of 12 feet, with routine healing, subsequent encounter (S32.019D, V54.17) Comments: sheis slowly getting better. pain is good tylenol 3 a day. take brace off few hours a day watch what do wear inbed. PT cames and doing leg exercise. eating well adn BM well. Status: Resolved as of 22-Oct-2018 Hypercalcemia (E83.52, 275.42) Comments: better with one calcium a day Status: Resolved as of 21-Dec-2017 Need for prophylactic vaccination and inoculation against influenza (Renamed from Need for immunization against influenza) (Z23, V04.81) Status: Resolved as of 21-Dec-2017 Right anterior shoulder pain (M25.511, 719.41) Comments: suprasinatis tendonitis to PT tylenol at night maybe nsaid but pt not want yet better with PT better now wtih wtarer therapy Status: Resolved as of 25-Jun-2018 Right hip pain (M25.551, 719.45) Comments: hip bursa tyeno ant tnight to PT better with PT Status: Resolved as of 21-Dec-2017 Viral infection (B34.9, 079.99) Comments: slowly getting better no have signs and symptoms of bacterial infection explainto pt what to look for. willuse advil mucinex humidfier and lots of water. Status: Resolved as of 21-Dec-2017 Procedures Procedure Dates Details Dermoid cyst Completed Comments: removed x2 Hysterectomy; Total Completed Skin cancer Completed Comments: basal cell and squamous cell vascular surgery: venous pooling and Completed valve issue [facility] 2001 Date Value Details 18-Oct-2018 Surgery Visit Report Result: Comments: See Note; NOTES: [facility] [address] [place] [address]. [address] [place] [address] OFFICE VISIT Date of Service: 10/13/18 MR#: [id number] Acct: [id number] Name: FARHAD GLEZ Rep #: [id number] : 1940 Provider: Chaparro John MD Age/Sex: 78/F Location: [facility] Status: Signed with Addenda ADDENDUM by Chaparro John MD on 1 12/19/17 at 1531 Addendum entered and electronically signed by Chaparro John MD 10/18/18 15:31: October 18, 2018. I now have laboratory that was obtained locally on October 09, 2018. BUN is 22 and creatinine 0.81. Liver function tests were normal. Urinalysis was not remarkable. Her white blood cell count was 3.5 with a hemoglobin of 9.1 and hematocrit of 28.9 and a platelet count of 399,000. That is improved over posttransfusion level of 8. Her upper endoscopy performed at [facility] in [place] it suggested grade C erosive esophagitis and a large hiatal hernia. It was felt likely that this was the source of her blood loss. Follow-up endoscopy at 2 months was recommended. The patient was placed on a proton pump inhibitor. The biopsies obtained at the time of that EGD however demonst rates normal mucosa. I can only hypothesize that the actual area of inflammation was not sampled. My recommendations remain consistent with previously discussed in my note. I would consider follow-up u pper endoscopy in 2 months. The patient may additionally consider tertiary referral for repair of her large hiatal hernia. Chaparro John M.D., F.A.C.S. Intake Chief Complaint: anemia Allergies baci tracin [From Polysporin] Allergy (Intermediate, Verified 10/13/18 09:29) rash Latex, Natural Rubber Allergy (Intermediate, Verified 10/13/18 09:29) rash polymyxin B [From Polysporin] Allergy (Intermedia te, Verified 10/13/18 09:29) rash Medications amlodipine 2.5 mg tablet 2.5 mg PO QDAY 12/14/17 [History Confirmed 10/13/18] ascorbate calcium 500 mg tablet 500 mg PO QDAY 12/14/17 [History Confirmed 10/13/18] atorvastatin 10 mg tablet 10 mg PO QDAY 12/14/17 [History Confirmed 10/13/18] coenzyme Q10 100 mg capsule 100 mg PO QDAY 12/14/17 [History Confirmed 10/13/18] multivitamin capsule 1 cap PO QDA Y 12/14/17 [History Confirmed 10/13/18] spironolactone 50 mg tablet 50 mg PO QDAY 12/14/17 [History Confirmed 10/13/18] Omeprazole 40 mg PO DAILY #60 capsule. 01/12/18 [Rx Confirmed 10/13/18] Asse ssment AND Plan Problems 1. Acute blood loss anemia D62 Plan - Chaparro John MD 78-year-old female who was briefly hospitalized in [place] with what appeared to be an acute blood loss anemia. Stool was Hemoccult negative. BUN was normal also somewhat curious as otherwise based upon the information currently available it is suggested that she likely had an upper GI bleed perhaps related to her lar ge hiatal hernia. She is currently on iron supplementation. She has recently had laboratory rechecked and that was sent to lab cor. The patient had been on omeprazole initially after my upper endoscopy demonstrating her active reflux esophagitis and then after appropriate treatment she was converted to ranitidine twice daily. Upon this recent hospitalization she was converted back to omeprazole 40 mg daily. She states that she currently feels normal. She denies abdominal pain or chest pain or current shortness of breath. Her stools are dark but that is secondary to the iron supplementation. My zaheer n of approach will be to obtain records regarding her most recent laboratory and obtain her operative note regarding her a esophagogastroduodenoscopy performed in [place]. Then with that information a t hand I would pursue recommendations for follow-up esophagogastroduodenoscopy. Moreover I have had a discussion with the patient today regarding my recommendations for a tertiary referral because of h er large hiatal hernia. My previous operative note reflected that the EG junction was only at 33 cm. This could require esophageal lengthening if a hiatal hernia repair were to be considered. At age 78 she is enjoying a very high quality of life and I think that tertiary level consultation regarding this as an option would be pertinent. She has had an opportunity to ask and have questions answered. W e will we contact her with additional recommendations once we have information reviewed. CC: Dr. Xiomara John M.D., F.A.C.S. 10/18/18 1531 <Electronically signed by Chaparro John MD> Date Chaparro John MD cc: Xiomara Do MD * Signed Intake Vital Signs10/13/18 Body Mass Index (BMI) 29.6 12/04/18 Body Mass Index (BMI) 29.6 Intake Visit Reasons: Hiatal Hernia Chief Complaint: anemia Classifier Operator Required: No Is patient in pain?: No Allergies bacitracin [From Polysporin] Allergy (Intermediate, Verified 10/13/18 09:29) rash Latex, Natural Rubber Allergy (Intermediate, Verified 10/13/18 09:29) rash polymyxin B [From Polysporin] Allergy (Intermediate, Verified 10/13/18 09:29) rash Medications amlodipine 2.5 m g tablet 2.5 mg PO QDAY 12/14/17 [History Confirmed 10/13/18] ascorbate calcium 500 mg tablet 500 mg PO QDAY 12/14/17 [History Confirmed 10/13/18] atorvastatin 10 mg tablet 10 mg PO QDAY 12/14/17 [Histo ry Confirmed 10/13/18] coenzyme Q10 100 mg capsule 100 mg PO QDAY 12/14/17 [History Confirmed 10/13/18] multivitamin capsule 1 cap PO QDAY 12/14/17 [History Confirmed 10/13/18] spironolactone 50 mg tabl et 50 mg PO QDAY 12/14/17 [History Confirmed 10/13/18] Omeprazole 40 mg PO DAILY #60 capsule. 01/12/18 [Rx Confirmed 10/13/18] Is last menstrual period known: No Post menopausal: Yes Patient pregnan t: No PFSH Medical History Acute blood loss anemia (Acute) Acid reflux (Acute) Anemia (Acute) Hemorrhoids (Acute) Hiatal hernia (Acute) History of hystere ctomy (Acute) Hyperlipidemia (Acute) Hypertension (Chronic) Surgical History History of colonoscopy (Acute 06/2013) History of esophagogastroduodenoscop y (EGD) (Acute) Family History Mother Colon cancer Father Heart disease Sister Skin cancer Social History Smoking Status: Never smoker alcohol intake: c urrent alcohol intake frequency: a few times a month substance use type: does not use HPI HPI HPI: FARHAD GLEZ, is a 78 F who presents to the office today for surgical consultation regarding a rece nt episode of severe anemia. The patient claims that the etiology to her anemia was not determined. She was hospitalized overnight in [facility]. She presented with shortnes s of breath. BUN was 8 and creatinine 0.82. Folate was 66. Vitamin B12 was 433. Her lowest hemoglobin was 6.6 with an hematocrit of 21.2. MCV was 78 low normal. MCH 24.2 low. MCHC 31.1 low. Platelet cou nt 377,000. Differential were normal. Stool for Hemoccult was negative. Liver function panel normal. Urinalysis was normal. On September 28, [address] scan of the abdomen and pelvis was obtained. There is a rounded calcification in the left medial chest base. There is a large hiatal hernia. There are several sub-centimeters lesions consistent with suspected liver cysts. There is L1 compression deformi ty 75% loss of height. The discharge summary suggests that the patient was hospitalized because of back pain and low hemoglobin related to esophagitis. The patient however presents today stating that t here was not a clear etiology to her anemia. On October 03, 2018 she received a note from Dr Bruce Blackman from [facility] suggesting that the results of her upper endoscopy biopsies we re normal esophagus. Recommendations were follow-up EGD in 2 months. The patient is being referred today by her primary care physician Dr. Xiomara Do for surgical consultation regarding what appears to be a report of a normal esophagus with and recommendations for follow-up endoscopy at 2 months. The patient did receive 2 units of blood transfusion while she was there. Hemoglobin most recently was at a high of 8. There is very recent laboratory still pending from . I do not currently have access to the official upper endoscopy surgical report that was performed and [place]. I prev iously saw the patient in the office on December 14, 2017. Her presenting history is as follows: HPI: FARHAD GLEZ, is a 77 F who presents to the office today for surgical consultation regarding colonos copy. October 1998 patient had a colonoscopy per Dr. Iggy Bey with some biopsy showing melanosis coli. More recently July 02, 2013 the patient had a upper and lower endoscopy. The patient has had s ome reflux symptoms. On the esophagogastroduodenoscopy she was noted to have some slight erythema consistent with reflux. A small hiatal hernia. Some slight redness of the stomach. On the colonoscopy francisco javier granger had a diminutive polyp in the mid ascending colon. H. pylori was negative. The distal esophagus showed findings consistent with reflux esophagitis with no evidence of Cochran's. The colon polyp was a tubular adenoma. It is of additional note that the patient has a direct family member i.e. mother who developed colon cancer in her 80s. Subsequently I performed a combined esophagogastroduodenoscop y with biopsy and colonoscopy with operative note to follow: [facility] Medical Records Department [address] [place] [address] Operative Report 01/12/18 0848 MR#: [id number] Name: FARHAD GLEZ #:[id number] : [id number]: Chaparro John MD PCP:Xiomara Do MD Status:REG [facility] Location: [place] [address] Problem List (1) GERD (gastroesophageal reflux diseas e) Status: Acute (2) Personal history of colonic polyps Status: Acute (3) Family history of colon cancer in mother Status: Acute Report of Operation Date of Procedure: 01/12/18 Pre-Operative Diagnosi s: GERD, personal history of colon polyps, family history of colon cancer in her mother Post-Operative Diagnosis: Large hiatal hernia with severe reflux esophagitis, antral gastritis, gastric polyps, pa ncolonic diverticulosis Surgery/Procedure Performed:: Esophagogastroduodenoscopy with antral and cardia and distal esophageal biopsies and gastric polyp biopsy. Colonoscopy Description of Surgical Findi ngs:: Timeout and informed consent was obtained. 77-year-old female was taken to the endoscopy suite. Her oropharynx anesthetized with Topex. Throughout both the upper and lower endoscopy she received 100 mg of Demerol and 50 minute micrograms of fentanyl and 5 mg of Versed is intravenous sedation. GIF video gastroscope was inserted and soft line night. Proximal mid esophagus not remarkable. EG junct ion was only at 33 cm. A large hiatal hernia noted. There are findings consistent with severe reflux esophagitis. The scope was advanced into the stomach antral erythema noted. Gastric fundic polyps not ed. The scope was advanced through the pylorus the first and second portion of the duodenum were inspected this was not remarkable. The scope was withdrawn back into the stomach antral biopsy was obtain ed. The scope was retroflexed and the large hiatal hernia noted. There appear to be some inflammation of the cardia as well. There were some scattered gastric fundic polyps. Antral biopsy was obtained. Biopsy was obtained of the gastric fundic polyps. Biopsy was obtained of the cardia adjacent to the e.g. junction. Then excess fluid and air was aspirated free. The scope was withdrawn to the distal eso phagus and distal esophageal biopsies were obtained. Hemostasis was intact the scope was withdrawn without additional abnormality. Digital rectal exam performed. Slightly lax anal tone. Moderate legal summer intern al and external hemorrhoids. No active bleeding. Flexible C1 scope was inserted into the rectum advanced to a quite tortuous sigmoid colon extensively involved with diverticulosis. The scope was then ad vanced through the transverse colon into the ascending colon. The cecum ileocecal valve area was nicely achieved. Bowel prep was quite good. The scope was carefully withdrawn from the ascending transver se descending and sigmoid colon. Extensive pancolonic diverticulosis was identified with severe diverticulosis of the sigmoid colon. I did not see any evidence of acute inflammation. No evidence for rec urrent polyps. The scope was retroflexed within the rectum hemorrhoidal changes noted. Excess fluid and air was aspirated free the procedure was completed with the patient tolerating it well. Impressio n Hiatal hernia severe reflux esophagitis. Antral gastritis. Gastric fundic polyps. The patient will be prescribed omeprazole 40 mg daily while awaiting biopsies. Pancolonic diverticulosis. No evidenc e of recurrent polyps. Previous colonoscopy July 02, 2013. Recommendations The patient will be notified of her upper endoscopy pathology results and any additional treatment recommendations. Follow -up colonoscopy tentatively at 5 years pending her health at that time. Cc: Dr. Do Medications initially given at 0815. Upper scope started 0817. The upper scope completed at 0824. Colonoscopy in itiated at 0828. The cecum was reached at 0836.35. The procedure was completed at 0841.58. Chaparro John M.D., F.A.C.S. Type of Anesthesia:: IV Sedation 01/12/18 0855<Electronically signed by Chaparro John MD> Date Chaparro John MD CC: Xiomara Do MD; Chaparro John MD Signed MICROSCOPIC DIAGNOSIS A. Antral biopsy:Mild gastritis.B . Cardia, biopsy:Fragments of gastroesophageal mucosa with acute and chronic inflammation.Focal intestinal metaplasia (goblet cell metaplasia) is noted.Special stain for fungi is negative for organisms; matched control is appropriate.C. Gastric polyp, biopsy:Fundic gland polyp.D. Distal esophagus, biopsy:Fragments of squamous epithelium with mild acute and chronic inflammation.Special stain for fungi is negative for organisms. H pylori: Negative [facility] Cardiovascular Services [address] [place] [address] MR#: [id number] Name: FARHAD GLEZ #:[id number] : 1940 78From: Johnson Bird MD Primary Care: Hi RAMON,[place]: REG CLI Ordering Dr: Sex: FC Stress Test Report Date: 06/21/2018 Procedure: Exercise tolerance test/imaging study I ndications: Premature ventricular contractions Consent: Per the patient Procedure: The patient exercised on a Mark protocol for 7 minutes completing Stage 2 and 1 minute of Stage III achieving a pea k heart rate of 162 bpm (115 % predicted maximal heart rate) with a peak blood pressure 170/80 mmHg and a peak MET capacity of 8 METs. The baseline ECG demonstrated normal sinus rhythm; PVCs. The peak exercise ECG demonstrated somatic/motion artifact with no obvious ECG changes. There were occasional PVCs pretest, during exercise, and recovery. The functional capacity was considered good. There wa s no complaint of chest discomfort during exercise or recovery. The examination was discontinued secondary to dyspnea. Impression: 1. Technically adequate (percent predicted maximal heart rate greate r than 85%) exercise tolerance test 2. Peak exercise ECG demonstrated somatic/motion artifact with no obvious ECG changes 3. There were occasional PVCs pretest, during exercise, and recovery. 4. Nuclear images pending Myocardial perfusion imaging study: Technique: The patient was injected with 11.8 mCi of technetium 99m Cardiolite and subsequently rest SPECT Cardiolite nuclear imaging was obtained in the horizontal long, vertical long, and short axis views. The patient exercised on a Mark protocol for 7 minutes completing Stage 2 and 1 minute of Stage III achieving a peak heart rate of 162 bpm ( 115 % predicted maximal heart rate) with a peak blood pressure 170/80 mmHg and a peak MET capacity of 8 METs. The patient was injected with 31.3 mCi of technetium 99m Cardiolite and subsequently stress SPECT Cardiolite nuclear imaging was obtained in the horizontal long, vertical long, and short axis views. A gated Cardiolite study at peak stress was obtained. Interpretation: Rest and stress SPECT C ardiolite nuclear imaging status post realignment, normalization, and attenuation correction, demonstrates the appearance of relative uniform tracer uptake and myocardial perfusion appearing within norm al limits. There is end systolic thickening and brightening. The gated Cardiolite study demonstrates myocardial thickening and inward wall motion. The reported LVEF is 57 %. Impression: 1. Rest and st ress SPECT Cardiolite nuclear imaging demonstrate relative uniform tracer uptake and myocardial perfusion appearing within normal limits. 2. The gated Cardiolite study reports an LVEF of 57 %. This not e was generated with Artspaceation software. It may contain incorrect words, spelling, and punctuation that were not noted in checking the note before signing. 06/21/181903<Electronically signed by Johnson Bird MD> Date Johnson Bird MD ROS General General: No weight change, appetite, fatigue, colon cancer, breast canc er or weakness HEENT HEENT: No difficulty swallowing, eye injury, eye surgery, swollen glands or hoarseness Endo Endocrine: No thyroid disease, diabetes mellitus, thyroid cancer, Hair loss, heat intoler ance or cold intolerance Skin Skin: No rash or changing moles Breast Breast: No left breast lump, right breast lump, nipple discharge, breast pain, abnormal mammogram, abnormal US or breast enlargement Musc Musculoskeletal: No back problems, arthritis, rheumatoid arthritis, gout or joint pain Cardio Cardiovascular: Yes high blood pressure; no murmur, pacemaker, heart disease, atrial fibrillation, hear t attack, heart stent, palpitations, shortness of breat with exertion or chest pain Psych Psychiatric: No depression, anxiety or hearing voices Resp Respiratory: No shortness of breath, No sleep apnea, Yes cough, No COPD, No asthma, No emphysema, No wheezing Gastro Gastrointestinal: No abdominal pain, No nausea or vomiting, No diarrhea, No constipation, No blood in stool, Yes acid reflux, Yes hemorrho ids, No ulcers, No gallbladder problem, No black,tarry stools Hemal Hematologic: No blood thinners, No blood disorders, No bleeding, No anemia, No blood clots Neuro Neurologic: No weakness Exam Chest B reast Palpation: No nipple discharge Cardio Heart Sounds: no murmurs Assessment AND Plan Problems 1. Acute blood loss anemia D62 Plan 78-year-old female who was briefly hospitalized in [place] with what appeared to be an acute blood loss anemia. Stool was Hemoccult negative. BUN was normal also somewhat curious as otherwise based upon the information currently available it is suggested that she denise justice had an upper GI bleed perhaps related to her large hiatal hernia. She is currently on iron supplementation. She has recently had laboratory rechecked and that was sent to lab cor. The patient had been on omeprazole initially after my upper endoscopy demonstrating her active reflux esophagitis and then after appropriate treatment she was converted to ranitidine twice daily. Upon this recent hosp italization she was converted back to omeprazole 40 mg daily. She states that she currently feels normal. She denies abdominal pain or chest pain or current shortness of breath. Her stools are dark but that is secondary to the iron supplementation. My plan of approach will be to obtain records regarding her most recent laboratory and obtain her operative note regarding her a esophagogastroduodenoscop y performed in [place]. Then with that information at hand I would pursue recommendations for follow-up esophagogastroduodenoscopy. Moreover I have had a discussion with the patient today regarding m y recommendations for a tertiary referral because of her large hiatal hernia. My previous operative note reflected that the EG junction was only at 33 cm. This could require esophageal lengthening if a hiatal hernia repair were to be considered. At age 78 she is enjoying a very high quality of life and I think that tertiary level consultation regarding this as an option would be pertinent. She has sainz d an opportunity to ask and have questions answered. We will we contact her with additional recommendations once we have information reviewed. CC: Dr. Xiomara John M.D., F.A.C.S. Co ding Level of Care Code Detailed, Low Diagnoses Acute blood loss anemia D62 25min 10/13/18 1111 <Electronically signed by Chaparro John MD> Date Chaparro John MD Cosigner Signature: Date (if applicable) CC: Xiomara Do MD 13-Oct-2018 Surgery Visit Report Result: Comments: See Note; NOTES: [facility] [address] [place] [address] OFFICE VISIT Date of Service: 10/13/18 MR#: [id number] Acct: [id number] Name: FARHAD GLEZ Rep #: [id number] : 1940 Provider: Chaparro John MD Age/Sex: 78/F Location: [facility] Status: Signed Intake Vital Signs10/13/18 Body Mass Index (B CA) 29.6 10/09/18 Body Mass Index (BMI) 29.6 Intake Visit Reasons: Hiatal Hernia Chief Complaint: anemia Classifier Operator Required: No Is patient in pain?: No Allergies bacitracin [From Polysporin] Allerg y (Intermediate, Verified 10/13/18 09:29) rash Latex, Natural Rubber Allergy (Intermediate, Verified 10/13/18 09:29) rash polymyxin B [From Polysporin] Allergy (Intermediate, Verified 10/13/18 09:29) ra sh Medications amlodipine 2.5 mg tablet 2.5 mg PO QDAY 12/14/17 [History Confirmed 10/13/18] ascorbate calcium 500 mg tablet 500 mg PO QDAY 12/14/17 [History Confirmed 10/13/18] atorvastatin 10 mg ta blet 10 mg PO QDAY 12/14/17 [History Confirmed 10/13/18] coenzyme Q10 100 mg capsule 100 mg PO QDAY 12/14/17 [History Confirmed 10/13/18] multivitamin capsule 1 cap PO QDAY 12/14/17 [History Confirmed 1 12/14/17] spironolactone 50 mg tablet 50 mg PO QDAY 12/14/17 [History Confirmed 10/13/18] Omeprazole 40 mg PO DAILY #60 capsule. 01/12/18 [Rx Confirmed 10/13/18] Is last menstrual period known: No Po st menopausal: Yes Patient : No PFSH Medical History Acute blood loss anemia (Acute) Acid reflux (Acute) Anemia (Acute) Hemorrhoids (Acute) Hiatal hernia (Acute) History of hysterectomy (Acute) Hyperlipidemia (Acute) Hypertension (Chronic) Surgical History History of colonoscopy (Acute 06/2013) Hi story of esophagogastroduodenoscopy (EGD) (Acute) Family History Mother Colon cancer Father Heart disease Sister Skin cancer Social History Smoking Stat us: Never smoker alcohol intake: current alcohol intake frequency: a few times a month substance use type: does not use HPI HPI HPI: FARHAD GLEZ, is a 78 F who presents to the office today for surg ical consultation regarding a recent episode of severe anemia. The patient claims that the etiology to her anemia was not determined. She was hospitalized overnight in [facility]. She presented with shortness of breath. BUN was 8 and creatinine 0.82. Folate was 66. Vitamin B12 was 433. Her lowest hemoglobin was 6.6 with an hematocrit of 21.2. MCV was 78 low normal. MCH 24. 2 low. MCHC 31.1 low. Platelet count 377,000. Differential were normal. Stool for Hemoccult was negative. Liver function panel normal. Urinalysis was normal. On September 28, [address] scan of the abdom en and pelvis was obtained. There is a rounded calcification in the left medial chest base. There is a large hiatal hernia. There are several sub-centimeters lesions consistent with suspected liver cyst s. There is L1 compression deformity 75% loss of height. The discharge summary suggests that the patient was hospitalized because of back pain and low hemoglobin related to esophagitis. The patient how ever presents today stating that there was not a clear etiology to her anemia. On October 03, 2018 she received a note from Dr Bruce Blackman from [facility] suggesting that the results of her upper endoscopy biopsies were normal esophagus. Recommendations were follow- up EGD in 2 months. The patient is being referred today by her primary care physician Dr. Xiomara Do for surgical co nsultation regarding what appears to be a report of a normal esophagus with and recommendations for follow-up endoscopy at 2 months. The patient did receive 2 units of blood transfusion while she was t here. Hemoglobin most recently was at a high of 8. There is very recent laboratory still pending from mid week. I do not currently have access to the official upper endoscopy surgical report that was p [place] and [place]. I previously saw the patient in the office on December 14, 2017. Her presenting history is as follows: HPI: FARHAD GLEZ, is a 77 F who presents to the office today for surgi leanna consultation regarding colonoscopy. October 1998 patient had a colonoscopy per Dr. Iggy Bey with some biopsy showing melanosis coli. More recently July 02, 2013 the patient had a upper and lowe r endoscopy. The patient has had some reflux symptoms. On the esophagogastroduodenoscopy she was noted to have some slight erythema consistent with reflux. A small hiatal hernia. Some slight redness of the stomach. On the colonoscopy she had a diminutive polyp in the mid ascending colon. H. pylori was negative. The distal esophagus showed findings consistent with reflux esophagitis with no evidence of Cochran's. The colon polyp was a tubular adenoma. It is of additional note that the patient has a direct family member i.e. mother who developed colon cancer in her 80s. Subsequently I performed a combined esophagogastroduodenoscopy with biopsy and colonoscopy with operative note to follow: [facility] Medical Records Department [address] [place] [address] Operative Report 01/12/18 0848 MR#: [id number]:[id number] Name: FARHAD GLEZ #:[id number] : [id number]: Chaparro John MD PCP:Xiomara Do MD Status:REG [facility] Location: [facility]29-1 Problem List (1) GE RD (gastroesophageal reflux disease) Status: Acute (2) Personal history of colonic polyps Status: Acute (3) Family history of colon cancer in mother Status: Acute Report of Operation Date of Procedur e: 01/12/18 Pre-Operative Diagnosis: GERD, personal history of colon polyps, family history of colon cancer in her mother Post-Operative Diagnosis: Large hiatal hernia with severe reflux esophagitis, an tral gastritis, gastric polyps, pancolonic diverticulosis Surgery/Procedure Performed:: Esophagogastroduodenoscopy with antral and cardia and distal esophageal biopsies and gastric polyp biopsy. Colonos copy Description of Surgical Findings:: Timeout and informed consent was obtained. 77-year-old female was taken to the endoscopy suite. Her oropharynx anesthetized with Topex. Throughout both the upper and lower endoscopy she received 100 mg of Demerol and 50 minute micrograms of fentanyl and 5 mg of Versed is intravenous sedation. GIF video gastroscope was inserted and soft line night. Proximal mid esophagus not remarkable. EG junction was only at 33 cm. A large hiatal hernia noted. There are findings consistent with severe reflux esophagitis. The scope was advanced into the stomach antral erythem a noted. Gastric fundic polyps noted. The scope was advanced through the pylorus the first and second portion of the duodenum were inspected this was not remarkable. The scope was withdrawn back into th e stomach antral biopsy was obtained. The scope was retroflexed and the large hiatal hernia noted. There appear to be some inflammation of the cardia as well. There were some scattered gastric fundic po lyps. Antral biopsy was obtained. Biopsy was obtained of the gastric fundic polyps. Biopsy was obtained of the cardia adjacent to the e.g. junction. Then excess fluid and air was aspirated free. The sco pe was withdrawn to the distal esophagus and distal esophageal biopsies were obtained. Hemostasis was intact the scope was withdrawn without additional abnormality. Digital rectal exam performed. Sligh tly lax anal tone. Moderate internal and external hemorrhoids. No active bleeding. Flexible C1 scope was inserted into the rectum advanced to a quite tortuous sigmoid colon extensively involved with div erticulosis. The scope was then advanced through the transverse colon into the ascending colon. The cecum ileocecal valve area was nicely achieved. Bowel prep was quite good. The scope was carefully wit hdrawn from the ascending transverse descending and sigmoid colon. Extensive pancolonic diverticulosis was identified with severe diverticulosis of the sigmoid colon. I did not see any evidence of acute inflammation. No evidence for recurrent polyps. The scope was retroflexed within the rectum hemorrhoidal changes noted. Excess fluid and air was aspirated free the procedure was completed with the mariza ent tolerating it well. Impression Hiatal hernia severe reflux esophagitis. Antral gastritis. Gastric fundic polyps. The patient will be prescribed omeprazole 40 mg daily while awaiting biopsies. Mckeon colonic diverticulosis. No evidence of recurrent polyps. Previous colonoscopy July 02, 2013. Recommendations The patient will be notified of her upper endoscopy pathology results and any additional treatment recommendations. Follow-up colonoscopy tentatively at 5 years pending her health at that time. Cc: Dr. Do Medications initially given at 0815. Upper scope started 0817. The upper scope completed at 0824. Colonoscopy initiated at 0828. The cecum was reached at 0836.35. The procedure was completed at 0841.58. Chaparro John M.D., F.A.C.S. Type of Anesthesia:: IV Sedation 01/12/18 0 855<Electronically signed by Chaparro John MD> Date Chaparro John MD CC: Xiomara Do MD; Chaparro John MD Signed MICROSCOPIC DIAGNOSIS A. Antral biopsy:Mild gastritis.B. Cardia, biopsy:Fragments of gastroesophageal mucosa with acute and chronic inflammation.Focal intestinal metaplasia (goblet cell metaplasia) is noted.Special stain fo r fungi is negative for organisms; matched control is appropriate.C. Gastric polyp, biopsy:Fundic gland polyp.D. Distal esophagus, biopsy:Fragments of squamous epithelium with mild acute and chronic inf lammation.Special stain for fungi is negative for organisms. H pylori: Negative [facility] Cardiovascular Services [address] [place] [address] MR#: [id number] Name: FARHAD GLEZ Noah #:[id number] : 1940 78From: Johnson Bird MD Primary Care: Hi RAMON,DanaStatus: REG CLI Ordering Dr: Sex: FC Stress Test Report Date: 06/21/2018 Procedure: Exerci se tolerance test/imaging study Indications: Premature ventricular contractions Consent: Per the patient Procedure: The patient exercised on a Mark protocol for 7 minutes completing Stage 2 and 1 m inute of Stage III achieving a peak heart rate of 162 bpm (115 % predicted maximal heart rate) with a peak blood pressure 170/80 mmHg and a peak MET capacity of 8 METs. The baseline ECG demonstrated no rmal sinus rhythm; PVCs. The peak exercise ECG demonstrated somatic/motion artifact with no obvious ECG changes. There were occasional PVCs pretest, during exercise, and recovery. The functional capac ity was considered good. There was no complaint of chest discomfort during exercise or recovery. The examination was discontinued secondary to dyspnea. Impression: 1. Technically adequate (percent p redicted maximal heart rate greater than 85%) exercise tolerance test 2. Peak exercise ECG demonstrated somatic/motion artifact with no obvious ECG changes 3. There were occasional PVCs pretest, during exercise, and recovery. 4. Nuclear images pending Myocardial perfusion imaging study: Technique: The patient was injected with 11.8 mCi of technetium 99m Cardiolite and subsequently rest SPECT Cardio lite nuclear imaging was obtained in the horizontal long, vertical long, and short axis views. The patient exercised on a Mark protocol for 7 minutes completing Stage 2 and 1 minute of Stage III achiev ing a peak heart rate of 162 bpm (115 % predicted maximal heart rate) with a peak blood pressure 170/80 mmHg and a peak MET capacity of 8 METs. The patient was injected with 31.3 mCi of technetium 99m C ardiolite and subsequently stress SPECT Cardiolite nuclear imaging was obtained in the horizontal long, vertical long, and short axis views. A gated Cardiolite study at peak stress was obtained. Interp retation: Rest and stress SPECT Cardiolite nuclear imaging status post realignment, normalization, and attenuation correction, demonstrates the appearance of relative uniform tracer uptake and myocardi al perfusion appearing within normal limits. There is end systolic thickening and brightening. The gated Cardiolite study demonstrates myocardial thickening and inward wall motion. The reported LVEF is 57 %. Impression: 1. Rest and stress SPECT Cardiolite nuclear imaging demonstrate relative uniform tracer uptake and myocardial perfusion appearing within normal limits. 2. The gated Cardiolite study reports an LVEF of 57 %. This note was generated with Artspaceation software. It may contain incorrect words, spelling, and punctuation that were not noted in checking the note before signing. 4470<Electronically signed by Johnson Bird MD> Date Johnson Bird MD ROS General General: No weight change, appetite, fatigue, colon cancer, breast cancer or weakness HEENT HEENT: No difficulty swallowing, eye injury, eye surgery, swollen glands or hoarseness Endo Endocrine: No thyroid disease, diabetes mellitus, thyro id cancer, Hair loss, heat intolerance or cold intolerance Skin Skin: No rash or changing moles Breast Breast: No left breast lump, right breast lump, nipple discharge, breast pain, abnormal mammogram, abnormal US or breast enlargement Musc Musculoskeletal: No back problems, arthritis, rheumatoid arthritis, gout or joint pain Cardio Cardiovascular: Yes high blood pressure; no murmur, pacemaker, heart disease, atrial fibrillation, heart attack, heart stent, palpitations, shortness of breat with exertion or chest pain Psych Psychiatric: No depression, anxiety or hearing voices Resp Respiratory: No morro rtness of breath, No sleep apnea, Yes cough, No COPD, No asthma, No emphysema, No wheezing Gastro Gastrointestinal: No abdominal pain, No nausea or vomiting, No diarrhea, No constipation, No blood in st ool, Yes acid reflux, Yes hemorrhoids, No ulcers, No gallbladder problem, No black,tarry stools Hemal Hematologic: No blood thinners, No blood disorders, No bleeding, No anemia, No blood clots Neuro Neur ologic: No weakness Exam Chest Breast Palpation: No nipple discharge Cardio Heart Sounds: no murmurs Assessment AND Plan Problems 1. Acute blood loss anemia D62 Plan 78-year-old female who was brie fly hospitalized in [place] with what appeared to be an acute blood loss anemia. Stool was Hemoccult negative. BUN was normal also somewhat curious as otherwise based upon the information currently av ailable it is suggested that she likely had an upper GI bleed perhaps related to her large hiatal hernia. She is currently on iron supplementation. She has recently had laboratory rechecked and that wa s sent to lab cor. The patient had been on omeprazole initially after my upper endoscopy demonstrating her active reflux esophagitis and then after appropriate treatment she was converted to ranitidine twice daily. Upon this recent hospitalization she was converted back to omeprazole 40 mg daily. She states that she currently feels normal. She denies abdominal pain or chest pain or current shortness o f breath. Her stools are dark but that is secondary to the iron supplementation. My plan of approach will be to obtain records regarding her most recent laboratory and obtain her operative note regardi ng her a esophagogastroduodenoscopy performed in [place]. Then with that information at hand I would pursue recommendations for follow-up esophagogastroduodenoscopy. Moreover I have had a discussion with the patient today regarding my recommendations for a tertiary referral because of her large hiatal hernia. My previous operative note reflected that the EG junction was only at 33 cm. This could re quire esophageal lengthening if a hiatal hernia repair were to be considered. At age 78 she is enjoying a very high quality of life and I think that tertiary level consultation regarding this as an opti on would be pertinent. She has had an opportunity to ask and have questions answered. We will we contact her with additional recommendations once we have information reviewed. CC: Dr. Xiomara John M.D., F.A.C.S. Coding Level of Care Code Detailed, Low Diagnoses Acute blood loss anemia D62 25min 10/13/18 1111 <Electronically signed by Chaparro John MD> Date _ Chaparro John MD Cosigner Signature: Date (if applicable) CC: Xiomara Do MD 21-Sep-2018 Orthopedic Visit Report Result: Comments: See Note; NOTES: [facility] [address] [place] [id number] OFFICE VISIT Date of Service: 09/18/18 MR#: [id number] Acct: [id number] Name: FARHAD GLEZ Rep #: [id number] : 1940 Provider: Nae Kumar MD Age/Sex: 78/F Location: [facility] Status: Signed Intake Intake Visit Reasons: Back pain Is patient in pain?: No Allergi es bacitracin [From Polysporin] Allergy (Intermediate, Verified 09/18/18 11:08) rash Latex, Natural Rubber Allergy (Intermediate, Verified 09/18/18 11:08) rash polymyxin B [From Polysporin] Allergy (In termediate, Verified 09/18/18 11:08) rash Medications amlodipine 2.5 mg tablet 2.5 mg PO QDAY 12/14/17 [History Confirmed 12/14/17] ascorbate calcium 500 mg tablet 500 mg PO QDAY 12/14/17 [History Co nfirmed 12/14/17] atorvastatin 10 mg tablet 10 mg PO QDAY 12/14/17 [History Confirmed 12/14/17] coenzyme Q10 100 mg capsule 100 mg PO QDAY 12/14/17 [History Confirmed 12/14/17] losartan 100 mg-hydrochlo rothiazide 25 mg tablet 1 tab PO QDAY 12/14/17 [History Confirmed 12/14/17] multivitamin capsule 1 cap PO QDAY 12/14/17 [History Confirmed 12/14/17] spironolactone 50 mg tablet 50 mg PO QDAY 12/14/17 [H istory Confirmed 12/14/17] Omeprazole 40 mg PO DAILY #60 capsule. 01/12/18 [Rx] PFSH Medical History Acid reflux (Acute) Hemorrhoids (Acute) History of hysterectomy (Acute) Hypertension (Chronic) Surgical History History of colonoscopy (Acute 06/2013) Family History Mother Colon cancer Father Heart disease Sister Skin cancer Social History Smoking Status: Never smoker alcohol intake: cur rent alcohol intake frequency: a few times a month substance use type: does not use HPI Back pain: Details: FARHAD GLEZ is a 78 year old F here today for a followup on her low back compression frac ture at L1 on 03/14/2018 after she fell off a ladder. Patient notes that she is doing well. She has been participating in a stretch and tone class. She has pain when she does sit ups. She has completed ph ysical therapy. Patient does a lot of walking, if she does a lot of activities her pain increases. She states she has intermittent hurtado splints. She denies recurrent falls. She denies any radiating pain. Denies numbness, tingling or other associated symptoms. She feels improved from her last visit and is pleased. ROS Const Reports system reviewed and no additional complaints, except as docu Eyes Reports system reviewed and no additional complaints, except as docu ENT Reports system reviewed and no additional complaints, except as docu Card Reports system reviewed and no additional complaints, except as docu Resp Reports system reviewed and no additional complaints, except as docu GI Reports system reviewed and no additional complaints, except as docu Reports system reviewed an d no additional complaints, except as docu Musc Reports back pain Skin/Breast Reports system reviewed and no additional complaints, except as docu Neuro Yes system reviewed and no additional complaints, except as docu Psych Reports system reviewed and no additional complaints, except as docu Endo Reports system reviewed and no additional complaints, except as docu Ortho Exam Spine Neuro: Yes Straigh t Leg Raise (negative bilaterally) and Martino's (negative bilaterally) General: alert, oriented x3 Capillary Refill <2sec: Yes Gait: normal gait, other (heel and toe walk intact) Motor: strengt h 5/5 throughout Sensory Exam: no sensory deficits noted DTR's: Rt Patellar: 2+, Lt Patellar: 2+, Rt Ankle: 2+, Lt Ankle: 2+ Coordination: tandem gait normal, Romberg test normal SPINE TESTING CERVICAL THORACIC LUMBAR SLR: Negative Musculoskeletal General: Yes normal gait Thoracic/Lumbar Spine: thoraco-lumbar ROM normal, straight leg raise negative bilaterally, other (no significant tenderness through out the lumbar spine) Strength 0=absent - 5=normal R Hip Flexor (L1-3): 5, L Hip Flexor (L1-3): 5, R Quadriceps (L2-4): 5, L Quadriceps (L2-4): 5, R Anterior Tibialis (L4-5): 5, L Anterior Tibialis (L4- 5): 5, R Hamstrings (L5-S1): 5, L Hamstrings (L5-S1): 5, GS (S1): 5, L GS (S1): 5, R Peroneals (S1): 5, L Peroneals (S1): 5 Assessment AND Plan 1. Compression fracture of L1 lumbar vertebra with routi ne healing S32.010D Plan I/R/P: 1. L1 compression fracture 03/14/2018 2. bilateral calf pain, resolved Ms. Glez is doing well. She has completed physical therapy and has been increasing her activities a s tolerated. Follow up as needed. Plan of care discussed. All questions answered. She is in understanding. Coding Level of Care Code Off vis,est,level 4 Diagnoses Compression fracture of L1 lumbar ve rtebra with routine healing S32.010D 09/21/18 1602 <Electronically signed by Nae Kumar MD> Date Nae Kumar MD Cosigner Signat ure: Date (if applicable) CC: Xiomara Do MD 12-Sep-2018 SCREENING MAMM (CAD), BILAT Result: Comments: See Note; NOTES: [facility] Imaging Services [address] [place] [address] SCREENING MAMM (CAD), BILAT MR#: [id number] Acct: [id number] Name: FARHAD GLEZ Rep #: [id number] : 1940 F 78 From: Chad Wilkins MD PCP: Xiomara Do MD Status: [facility] CLI Study: SCREENING MAMM (CAD), BILAT Date of Exam: 09/12/18 Exam# [id number] Ordering Dr: Xiomara Do MD M AMMOGRAPHY - BILATERAL SCREENING REASON FOR EXAM: Female, 78 years old. Routine annual screening examination. PERTINENT HISTORY: Non-contributory. Remote right excisional breast biopsy. TECHNIQUE: Di gital bilateral breast jasmeet (3D mammographic acquisition) in the CC and MLO projections. 2-D mediolateral oblique (MLO) and craniocaudad (CC) views of both breasts were obtained. CAD: Full Field Digital Mammography with Computer Added Detection was performed. COMPARISON: Comparison is made with prior outside examination dated August 16, 2017. FINDINGS: Breast Com position: There are scattered areas of fibroglandular density. There are no dominant masses or suspicious calcifications. Stable small bilateral axillary lymph nodes. No other significant abnormalitie s are identified. There has been no significant change since the prior study. BI/SCREENING MAMM (CAD), BILAT IMPRESSION: Stable bilateral screeni ng mammogram. Yearly follow-up mammogram recommended. (A) ASSESSMENT CATEGORY: BIRADS Category 2: Benign. A letter regarding these results will be sent to the [place] by the facility within 30 days. Approximately 10% of breast cancers are not detected by mammography. A normal mammogram should not delay biopsy of a clinically suspicious abnormality. [id number] Elect ronically Signed: Chad Wilkins MD at 11:12 EST Tel [phone], Service support , CC: Xiomara Do MD Shirt Marker: Signed 21-Jun-2018 Stress Report Result: Comments: See Note; NOTES: [facility] Cardiovascular Services [address] [place] [address] MR#: [id number] Acct: [id number] Name: FARHAD GLEZ Rep #: [id number] : [birth year] 78 From: Johnson Bird MD Primary Care: Xiomara Do MD Status: REG CLI Ordering Dr: Sex: F C Stress Test Report Date: 06/21/2018 Procedure: Exercise tolerance test/imaging study Indication s: Premature ventricular contractions Consent: Per the patient Procedure: The patient exercised on a Mark protocol for 7 minutes completing Stage 2 and 1 minute of Stage III achieving a peak heart r ate of 162 bpm (115 % predicted maximal heart rate) with a peak blood pressure 170/80 mmHg and a peak MET capacity of 8 METs. The baseline ECG demonstrated normal sinus rhythm; PVCs. The peak exercise ECG demonstrated somatic/motion artifact with no obvious ECG changes. There were occasional PVCs pretest, during exercise, and recovery. The functional capacity was considered good. There was no comp laint of chest discomfort during exercise or recovery. The examination was discontinued secondary to dyspnea. Impression: 1. Technically adequate (percent predicted maximal heart rate greater than 85 %) exercise tolerance test 2. Peak exercise ECG demonstrated somatic/motion artifact with no obvious ECG changes 3. There were occasional PVCs pretest, during exercise, and recovery. 4. Nuclear images p ending Myocardial perfusion imaging study: Technique: The patient was injected with 11.8 mCi of technetium 99m Cardiolite and subsequently rest SPECT Cardiolite nuclear imaging was obtained in the ho rizontal long, vertical long, and short axis views. The patient exercised on a Mark protocol for 7 minutes completing Stage 2 and 1 minute of Stage III achieving a peak heart rate of 162 bpm (115 % pre dicted maximal heart rate) with a peak blood pressure 170/80 mmHg and a peak MET capacity of 8 METs. The patient was injected with 31.3 mCi of technetium 99m Cardiolite and subsequently stress SPECT Car diolite nuclear imaging was obtained in the horizontal long, vertical long, and short axis views. A gated Cardiolite study at peak stress was obtained. Interpretation: Rest and stress SPECT Cardiolite nuclear imaging status post realignment, normalization, and attenuation correction, demonstrates the appearance of relative uniform tracer uptake and myocardial perfusion appearing within normal limits . There is end systolic thickening and brightening. The gated Cardiolite study demonstrates myocardial thickening and inward wall motion. The reported LVEF is 57 %. Impression: 1. Rest and stress SPEC T Cardiolite nuclear imaging demonstrate relative uniform tracer uptake and myocardial perfusion appearing within normal limits. 2. The gated Cardiolite study reports an LVEF of 57 %. This note was gen erated with Artspaceation software. It may contain incorrect words, spelling, and punctuation that were not noted in checking the note before signing. 06/21/18 0665 <Electronically signed by Johnson Bird MD> Date Johnson Bird MD CC: Xiomara Do MD Date Dictated: 06/21/181899 Date Transcribed: 06/21/181899 Shirt Marker: PM Signed 20-Jun-2018 Orthopedic Visit Report Result: Comments: See Note; NOTES: [facility] Orthopaedics AND Sports Medicine [address] [place], [place] [id number] OFFICE VISIT Date of Service: 06/19/18 MR#: [id number] Acct: [id number] Name: FARHAD GLEZ Rep #: [id number] : 1940 Provider: Nae Kumar MD Age/Sex: 78/F Location: [facility] [place] Status: Signed Intake Intake Visit Reasons: low back Is patient in pain?: Yes Pain sc carl (1-10): 1 Allergies bacitracin [From Polysporin] Allergy (Intermediate, Verified 12/14/17 15:03) rash Latex, Natural Rubber Allergy (Intermediate, Verified 12/14/17 15:02) rash polymyxin B [From Po lysporin] Allergy (Intermediate, Verified 12/14/17 15:03) rash Medications amlodipine 2.5 mg tablet 2.5 mg PO QDAY 12/14/17 [History Confirmed 12/14/17] ascorbate calcium 500 mg tablet 500 mg PO QDAY 12/14/17 [History Confirmed 12/14/17] atorvastatin 10 mg tablet 10 mg PO QDAY 12/14/17 [History Confirmed 12/14/17] coenzyme Q10 100 mg capsule 100 mg PO QDAY 12/14/17 [History Confirmed 12/14/17] losa rtan 100 mg-hydrochlorothiazide 25 mg tablet 1 tab PO QDAY 12/14/17 [History Confirmed 12/14/17] multivitamin capsule 1 cap PO QDAY 12/14/17 [History Confirmed 12/14/17] spironolactone 50 mg tablet 50 m g PO QDAY 12/14/17 [History Confirmed 12/14/17] Omeprazole 40 mg PO DAILY #60 capsule. 01/12/18 [Rx] PFSH Medical History Acid reflux (Acute) Hemorrhoids (Acute) Hypertension (Chronic) Surgical History History of colonoscopy (Acute 06/2013) History of hysterectomy (Acute) Family History Mother Colon cancer Father Heart disease Sister Skin cancer Social History Smoking Status: Never smoke r alcohol intake: current alcohol intake frequency: a few times a month substance use type: does not use HPI low back: Details: FARHAD GLEZ is a 78 year old RHD F referred by Dr. Do for fol low up of L1 compression fracture sustained on 03/14/2018 after she fell off a ladder onto her buttock. She denies loss of consciousness. She states she went to the couch and had back pain. She then went to the ER 2-3 hours after the fall. She underwent a CT and was found to have a L1 compression fracture. She was treated by a physician at [place] with a brace. She wore the brace for 6 weeks and wa s then cleared to start physical therapy and aqua therapy. She is 100% improved since her injury. She currently complains of bilateral laterla calf pain that started about 2 months ago when she started physical therapy. This has improved since 2 months ago. She states it is worse with laying and improved with walking. She denies bowel or bladder issues, gait instability or bowel or bladder issues. She takes tylenol rarely. She is currently doing therapy and a home exercise program. This helps. She recently flown to [place] as well. She has HTN, h/o skin cancer without metastasis. She takes calcium and vit D and had a DEXA scan last year, which she states was normal. She is retired. She does not smoke. Ortho Exam Spine Neuro: Yes Clonus (none bilaterally), Martino's (negative bilaterally), [place] i (downgoing bilaterally) and Straight Leg Raise (negative bilaterally) General: alert, oriented x3 Skin: Yes dysraphism (none) Capillary Refill <2sec: Yes Palpable Pulses: 2+ dp/pt pulses Gait: normal gait, other (heel and toe walk intact. ) Motor: strength 5/5 throughout Sensory Exam: no sensory deficits noted DTR's: Rt Triceps: 2+, Lt Triceps: 2+, Rt Biceps: 2+, Lt Biceps: 2+, Rt Brachiorad ialis: 2+, Lt Brachioradialis: 2+, Rt Patellar: 2+, Lt Patellar: 2+, Rt Ankle: 2+, Lt Ankle: 2+ Plantar Reflexes: Downgoing: bilateral Coordination: tandem gait normal, Romberg test normal SPINE TESTING CERVICAL THORACIC LUMBAR SLR: Negative Musculoskeletal General: Yes normal gait and normal posture Cervical Spine: cervical ROM normal Thoracic/Lumbar Spine: thoraco-lumbar ROM normal, other (no tender ness to palpation throughout the thoracolumbar spine) Strength 0=absent - 5=normal Deltoid R (C5): 5, Deltoid L (C5): 5, R Bicep (C5-6): 5, L Bicep (C5-6): 5, R Wrist Extensor (C6): 5, L Wrist Extensor (C6): 5, R Tricep (C7): 5, L Tricep (C7): 5, R Finger Flexors (C8): 5, L Finger Flexors (C8): 5, R First Dorsal Interossei (C8): 5, L First Dorsal Interossei (C8): 5, R Hip Flexor (L1-3): 5, L Hip Flexo r (L1-3): 5, R Quadriceps (L2-4): 5, L Quadriceps (L2-4): 5, R Anterior Tibialis (L4-5): 5, L Anterior Tibialis (L4-5): 5, R Hamstrings (L5-S1): 5, L Hamstrings (L5-S1): 5, GS (S1): 5, L GS (S1): 5, R P eroneals (S1): 5, L Peroneals (S1): 5 Assessment AND Plan Problems 1. Closed compression fracture of first lumbar vertebra, initial encounter S32.010A Plan Imaging: XR lumbar spine 06/19/2018 L1 compr ession fracture, diffuse spondylosis CT lumbar spine 03/14/2018 CD L1 compression fracture, stable from printed XR L spine pictures 03/16/2018 I/R/P: 1. L1 compression fracture 2. bilateral calf pain Ms. Glez presents with a healed L1 compression fracture. She has nondermatomal bilateral calf pain that is improving with physical therapy. Recommend continued therapy. Follow up in 4-6 weeks for reevalua tion or sooner if issues arise. Plan of care discussed. All questions answered. She is in understanding. Orders Orders: Coding Level of Care Code Off vis,new,level 4 Diagnoses Closed compression fra cture of first lumbar vertebra, initial encounter S32.010A Encounter type: initial encounter Fracture type: closed 06/20/18 1240 <Electronically signed by Nae Kumar MD> Date Nae Kumar MD Cosigner Signature: Date (if applicable) CC: Xiomara Do MD 19-Jun-2018 L/S Spine w Bend Min 6 Vw Result: Comments: See Note; NOTES: [facility] Imaging Services [address] [place] [address] L/S Spine w Bend Min 6 Vw MR#: [id number] Acct: [id number] Name: FARHAD GLEZ Rep #: [id number] : 1940 F 78 From: Luis Jefferson MD PCP: Xiomara Do MD Status: REG CLI Study: L/S Spine w Bend Min 6 Vw Date of Exam: 06/19/18 Exam# [id number] Ordering Dr: Nae Kumar MD STUDY: X-RAY - LUMBOSACRAL SPINE REASON FOR EXAM: Female, 78 years old. History of L1 fracture x3-4 months, low back pain TECHNIQUE: 6 view(s) of the lumbosacral spine were obtained. COMPARISON: None FINDINGS: Normal lumbar lordosis. There is no substantial scoliosis. There is normal alignment of the vertebrae. The bones are osteopenic. There is diffuse endplate spon dylosis. There is severe compression deformity with anterior wedging of L1, appearing old. There is multi-level degenerative disc disease with multi-level disc space narrowing. Normal bilateral sacral ala, sacroiliac joints, and visualized sacrum. Normal visualized soft tissue structures. RAD/L/S Spine w Bend Min 6 Vw IMPRESSION: Old severe co mpression deformity with anterior wedging of L1. No prior studies are available for comparison. Generalized osteopenia. Diffuse endplate spondylosis. Multilevel degenerative disc disease with multile chris disc space narrowing. There is no evidence of acute fracture, spondylolysis, or spondylolisthesis. Electronically Signed: Luis Jefferson MD at 19:45 EDT , Service s upport , CC: Xiomara Do MD; Nae Kumar MD Shirt Marker: Signed 30-May-2018 PT D/C Summary (1) Result: Comments: See Note; NOTES: [facility] [address] [place], [place] [address] Fax REHABILITATION SERVICES [facility] SUMMARY MR#: [id number] Acct: [id number] Name: FARHAD GLEZ Rep #: [id number] : 1940 78 From: Roberto Oliveros DPT, OCS, CSCS Referring Dr.: Xiomara Do MD Status: REG RCR Insurance: MEDICA RE PART A B [employer] HP - PT D/C Summary It has been my pleasure to treat FARHAD GLEZ under orders from Xiomara Do, for the diagnosis of L1 compression fracture for a total of 10 visit(s). [facility] [place] Date: 05/29/18 Please see the following information for a summary of their discharge status. - Subjective Subjective: Going the right way. Stretching has helped LE especially gastroc. Plan is to j oin now and continue with current exercises which are helping. Back is stronger and gets no pain. Tired at end of day. Will continue stretches before getting out of bed in the morning. Getting on and of f floor for yoga stretches OK, getting up is not easy but doable and improving. Activities are normal, has modified gardening. To doctor Do in one week and to Dr. Kumar next week. - Overall Improveme nt % Improvement: 95 - Objective Objective/Function: ext mod limited and slightly centrally oainful, SB are hesitant but decent motion , flexion is full and painfree. Walking is normal and balance is g ood with VOR and ec. OVERALL PT HAPPY WITH PROGRESS AND DOING WELL. - Goals Goal 1:: Get back to full LB ROM without pain and good hip flexor flexibility without pain. Goal Progress: Goal Met Goal 2:: Back to 100% activity including pool based ex program and gym exercises without pain. Goal Progress: Goal Met Goal 3:: Pt feel 95% back to normal. Goal Progress: Goal Met Goal 4:: Walk 3 miles without i ncreased pain or fatigue in back. Goal Progress: Goal Met - Plan Plan: D/C - D/C Information Discharge Comments: Doing great. Will f/u with doctors next week. Will continue HEP of strength, stretch an d pool ex. I have educated her on weaning back to golfing. If there are questions or concerns regarding this patient's physical therapy, please feel free to call me at [phone]. Thank you for the re ferral of this patient. Sincerely, Roberto Oliveros DPT, OC <Electronically signed by Roberto Oliveros DPT, NEPTALI, CSCS> 05/30/18 0716 CC: Xiomara Do MD EBG Signed 26-Apr-2018 Inital Evaluation (1) - PT Result: Comments: See Note; NOTES: [facility] [address] [place] [address]. [address] [place] [address] Fax REHABILITATION SERVICES INITIAL EVALUATION MR#: [id number] Acct: [id number] Name: FARHAD GLEZ Rep #: [id number] : 1940 77 From: Roberto Oliveros DPT, NEPTALI, CSCS Referring Dr.: Xiomara Do MD Status: REG RCR Insurance: MEDIC ARE PART A B [facility] Patient's Visit Information FARHAD GLEZ is a 77 year old F referred to Physical Therapy by Xiomara Do with a diagnosis of L1 compression fracture. Date of Evaluation: 8 Physical Therapist: Roberto Oliveros DPT, OC - Visit Plan Frequency: 2x /Week Duration: 4-6 Weeks Plan: 2x/week x 2 weeks in pool to teach hip flexor and quad stretching, core strength and general stren gth program that patient can do in her friends pool with pics. Then 2x/week for 2 weeks for land based hip flexor stretches, quad stretches andcore strength and return to machine based exercises. Will n eed to work on L/S flexion at some point. - Subjective Subjective: Wants to get back into activity. Fractured vertebrae(compression) March 16. Was on a ladder cleaning high shelves and fell landing on re ar end and getting L1 comp fracture. MRI showed this. Ortho surgeon the next day and given brace which she is now weaning out of, still sleeps with it. No bending or twisting allowed. saw doc last y in [place] and released to driving and sent for outpatient as she has been doing HEP sink exercises at home(home health). Pain is very little at this point. Back gets tired if stands still for too lo ng. Can walk without discomfort. Sleeps without pain. Is tight in the mroning but can walk that off. Can do all basic ADLs but is avoiding carrying heavy things. Had someone with her the last 5 weeks bu t is now on her own. 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 Careful bending forward but does all ADLs, has repositioned things int he house. Is not gardening. Checked for bone density prior and it was fine , was just hard a fall. Wants to get back to walk 2-3 miles and is currently at one mile. wears brace for that. Back gets tired with too much work. Needs to be stronger. Wants to get back to water aerob ics. Enjoys the pool. Wants to get back to regular ex program to lose weight. - Objective Walking well and I, trasnfers are I on mat and chair without pain. VOR walking is slow but safe. LE AROM WFL, h ip ext mod limited with hip flexor tightness mod(8 degrees) and Min quad tightness. LB AROM Mod limited in extension anensation LE WNL to gross light touch.d SB and flexion NT today. LE strength 4+/5 wi thout pain except hip flexion gives slight transient LBP. Hip abductiona nd rotators are 4-/5 as is extension. reflexes 2/3 in ppatella and achilles - Balance Scores Functional Gait Assessment Score: 2 7 % Disability: 10.0000 - Goals Goal 1:: Get back to full LB ROM without pain and good hip flexor flexibility without pain. Goal Time Frame: 4-6 Weeks Goal 2:: Back to 100% activity including pool base d ex program and gym exercises without pain. Goal Time Frame: 4-6 Weeks Goal 3:: Pt feel 95% back to normal. Goal Time Frame: 4-6 Weeks Goal 4:: Walk 3 miles without increased pain or fatigue in back. G oal Time Frame: 4-6 Weeks - Rehabilitation Potential Physical Therapy Diagnosis: Compression fracture Rehabilitation Potential: Good - Anticipated Interventions Patient/Client Instruction: Educate pat ient on: Condition, Plan of Care For the Purpose of:: To increase ROM, To improve muscle performance and motor function, To improve ability of physical actions for home/community/work/leisure Therapeuti c Exercise to Include: Strength training, Endurance training, Flexibilty training, Passive ROM, Active ROM For the Purpose of:: To increase ROM, To improve nutrient delivery to tissue, To increase oxy[place] perfusion, To improve muscle performance and motor function, To improve ability of physical actions for home/community/work/leisure, To improve gait and locomotor functions Thank you for the opportunity to evaluate your patient. For Medicare and Medicare HMO plans, please review the plan of care and approve it. It will need to be FAXED BACK to us at [phone] ease let me know if there are questions or concerns regarding this plan of care. Physician Signature: Date: <Electronically signed by Roberto Oliveros DPT, OCS, CSCS> 04/26/18 0907 CC: Xiomara Do MD EBG Signed For Medicare only, by signing this I certify the plan of care. Physicians Signature Date 03-Apr-2018 Chest W/WO Contrast Result: Comments: See Note; NOTES: [facility] Imaging Services [address] [place] [address] Chest W/WO Contrast MR#: [id number] Acct: [id number] Name: FARHAD GLEZ Rep #: [id number] : 1940 F 77 From: Chad Wilkins MD PCP: Xiomara Do MD Status: REG CLI Study: Chest W/WO Contrast Date of Exam: 04/03/18 Exam# [id number] Ordering Dr: Xiomara Do MD STUDY: CTA CHEST REASON FOR EXAM: Female, 77 years old. Elevated d-dimer. Tachycardia. RADIATION DOSAGE (If Supplied By Facility): CTDIvol = ( 9.47 ) mGy, DLP = ( 418.77 ) mGycm TECHNIQUE: The examination was perfor med with the intravenous administration of 75 ml of Isovue 370 contrast material. Post-processing of the angiographic images was performed, with multiplanar reformation and 3D reconstruction. Individua lized dose optimization techniques were used for this CT. COMPARISON: None. FINDINGS: Normal enhancement of the main pulmonary artery and right and left pulmonary arteries. Normal enhancement of the bilateral peripheral pulmonary arteries. There is no demonstrated pulmonary embolism. Normal thoracic aorta and visualized great vessels. There is no demonstrated a ortic dissection. Normal heart and pericardium. Normal mediastinum. Normal hilar regions. Normal visualized trachea and bronchi. The lungs are well expanded. Mild degree of increased markings in the left lower lobe with areas of bronchiectasis and scarring in the medial aspect of the left lower lobe. Mild increased markings in the right lower lobe. Normal pleura. Normal chest wall structures. T here are degenerative changes of thoracic spine. Moderate sized hiatal hernia. CT/Chest W/WO Contrast IMPRESSION: No evidence of pulmonary. Find ings suggestive of scarring in the lower lobes more prominent on the left side. Hiatal hernia. Electronically Signed: Chad Wilkins MD at 15:45 EDT Tel [phone], Service support [phone], CC: Xiomara Do MD Shirt Marker: Signed 12-Jan-2018 Operative Report Result: Comments: See Note; NOTES: [facility] Medical Records Department [address] [place] [address] Operative Report 01/12/18 0848 MR#: [id number] Acct: [id number] Name: FARHAD GLEZ Rep #: [id number] : 1940 77 From: Chaparro John MD PCP: Xiomara Do MD Status: REG UTC Y Location: [place] [address] Problem List (1) GERD (gastroesophageal reflux disease) Status: Acute (2) Pe rsonal history of colonic polyps Status: Acute (3) Family history of colon cancer in mother Status: Acute Report of Operation Date of Procedure: 01/12/18 Pre- Operative Diagnosis: GERD, personal histor y of colon polyps, family history of colon cancer in her mother Post-Operative Diagnosis: Large hiatal hernia with severe reflux esophagitis, antral gastritis, gastric polyps, pancolonic diverticulosis Surgery/Procedure Performed:: Esophagogastroduodenoscopy with antral and cardia and distal esophageal biopsies and gastric polyp biopsy. Colonoscopy Description of Surgical Findings:: Timeout and infor med consent was obtained. 77-year-old female was taken to the endoscopy suite. Her oropharynx anesthetized with Topex. Throughout both the upper and lower endoscopy she received 100 mg of Demerol and 50 minute micrograms of fentanyl and 5 mg of Versed is intravenous sedation. GIF video gastroscope was inserted and soft line night. Proximal mid esophagus not remarkable. EG junction was only at 33 cm. A large hiatal hernia noted. There are findings consistent with severe reflux esophagitis. The scope was advanced into the stomach antral erythema noted. Gastric fundic polyps noted. The scope was advanc ed through the pylorus the first and second portion of the duodenum were inspected this was not remarkable. The scope was withdrawn back into the stomach antral biopsy was obtained. The scope was retrof lexed and the large hiatal hernia noted. There appear to be some inflammation of the cardia as well. There were some scattered gastric fundic polyps. Antral biopsy was obtained. Biopsy was obtained of t he gastric fundic polyps. Biopsy was obtained of the cardia adjacent to the e.g. junction. Then excess fluid and air was aspirated free. The scope was withdrawn to the distal esophagus and distal esopha geal biopsies were obtained. Hemostasis was intact the scope was withdrawn without additional abnormality. Digital rectal exam performed. Slightly lax anal tone. Moderate internal and external hemorrho ids. No active bleeding. Flexible C1 scope was inserted into the rectum advanced to a quite tortuous sigmoid colon extensively involved with diverticulosis. The scope was then advanced through the trans verse colon into the ascending colon. The cecum ileocecal valve area was nicely achieved. Bowel prep was quite good. The scope was carefully withdrawn from the ascending transverse descending and sigmoi d colon. Extensive pancolonic diverticulosis was identified with severe diverticulosis of the sigmoid colon. I did not see any evidence of acute inflammation. No evidence for recurrent polyps. The scope was retroflexed within the rectum hemorrhoidal changes noted. Excess fluid and air was aspirated free the procedure was completed with the patient tolerating it well. Impression Hiatal hernia severe reflux esophagitis. Antral gastritis. Gastric fundic polyps. The patient will be prescribed omeprazole 40 mg daily while awaiting biopsies. Pancolonic diverticulosis. No evidence of recurrent polyps. P revious colonoscopy July 02, 2013. Recommendations The patient will be notified of her upper endoscopy pathology results and any additional treatment recommendations. Follow-up colonoscopy tentativ ida at 5 years pending her health at that time. Cc: Dr. Do Medications initially given at 0815. Upper scope started 0817. The upper scope completed at 0824. Colonoscopy initiated at 0828. The cec um was reached at 0836.35. The procedure was completed at 0841.58. Chaparro John M.D., F.A.C.S. Type of Anesthesia:: IV Sedation 01/12/18 0855 <Electronically signed by Chaparro John MD&am p;#62; Date Chaparro John MD CC: Xiomara Do MD; Chaparro John MD Signed 19-Dec-2017 Dexa Bone Density Study (HP) Result: Comments: See Note; NOTES: [facility] Imaging Services [address] [place] [address] Dexa Bone Density Study (HP) MR#: [id number] Acct: [id number] Name: FARHAD GLEZ Rep #: [id number] : 1940 F 77 From: Chad Wilkins MD PCP: Xiomara Do MD Status: REG CLI Study: Dexa Bone Density Study (HP) Date of Exam: 12/19/17 Exam# [id number] Ordering Dr: Xiomara Do MD STUDY: DUAL ENERGY X-RAY ABSORPTIOMETRY / DXA REASON FOR EXAM: Female, 77 years old. The patient is postmenopausal. Loss of height. TECHNIQUE: Bone Mineral Density (BMD) measurements of lumbar spine and bilateral hips were obtained. COMPARISON: None. FINDINGS: Lumbar Spine (L1-L4): g/cm2 (1.072) / T-score (-0.8) / Z-score (1.0) Findings are suggestive of norm al bone density with a low fracture risk. Left Femur Total: g/cm2 (0.995) / T- score (-0.1) / Z-score (1.9) Left Femoral Neck: g/cm2 (0.841) / T-score (-1.4) / Z-score (0.7) Right Femur Total: g/cm2 (0. 965) / T-score (-0.3) / Z-score (1.6) Right Femoral Neck: g/cm2 (0.889) / T-score (-1.1) / Z-score (1.1) 0004 HPBD/Dexa Bone Density Study (HP) IMPRE SSION: The patient is considered osteopenic as outlined below according to World Carlos Alberto Organization (WHO) criteria with a moderate fracture risk. Reference Informat ion: The T-score is the number of standard deviations above or below the standard which is normal for young adults at their peak bone mineral density. The World Health Organization (WHO) interprets the T-scores as follows: Above -1 Normal bone density Between -1 and -2.5 Osteopenia Equal to / or below -2.5 Osteoporosis As a practical clinical guideline, osteopenia may be graded as follows: Mild -1 t hrough -1.5 Moderate -1.6 through -2.0 Severe -2.1 through -2.4 The Z-score is the number of standard deviations above or below age-matched controls. A Z- score of less than -1.5 would be considered abn ormal. References: 1. NIH Osteoporosis and Related Bone Diseases http://www.osteo.org 2. International Society for Clinical Densitometry http://www.iscd.org 3. National Osteoporosis Foundation http://w ww.nof.org Electronically Signed: Chad Wilkins MD at 15:25 EST Tel [phone], Service support , CC: Xiomara Do MD Shirt Marker: Signed 14-Dec-2017 Surgery Visit Report Result: Comments: See Note; NOTES: [facility] [address] [place] [address] OFFICE VISIT Date of Service: 12/14/17 MR#: [id number] Acct: [id number] Name: NELLIE CHERRYELISJacinto Bunch Rep #: [id number] : 1940 Provider: Chaparro John MD Age/Sex: 77/F Location: [facility] Status: Signed Intake Vital Signs12/14/17 Height 5 ft 5 in 12/14/17 Weight: 178 lb Intake Visit Reasons: FAMILY HX OF COLON CA Classifier Operator Required: No Is patient in pain?: No Allergies bacitracin [From Polysporin] Allergy (Intermediate, Verified 12/14/17 15:03) rash Latex, Natural Rubber Allerg y (Intermediate, Verified 12/14/17 15:02) rash polymyxin B [From Polysporin] Allergy (Intermediate, Verified 12/14/17 15:03) rash Medications amlodipine 2.5 mg tablet 2.5 mg PO QDAY 12/14/17 [History Confirmed 12/14/17] ascorbate calcium 500 mg tablet 500 mg PO QDAY 12/14/17 [History Confirmed 12/14/17] atorvastatin 10 mg tablet 10 mg PO QDAY 12/14/17 [History Confirmed 12/14/17] coenzyme Q10 100 m g capsule 100 mg PO QDAY 12/14/17 [History Confirmed 12/14/17] losartan 100 mg- hydrochlorothiazide 25 mg tablet 1 tab PO QDAY 12/14/17 [History Confirmed 12/14/17] multivitamin capsule 1 cap PO QDAY 06/23 [History Confirmed 12/14/17] spironolactone 50 mg tablet 50 mg PO QDAY 12/14/17 [History Confirmed 12/14/17] PFSH Medical History Acid reflux (Acute ) Hemorrhoids (Acute) Hypertension (Chronic) Surgical History History of colonoscopy (Acute 06/2013) History of hysterectomy (Acute) Family History Moth er Colon cancer Father Heart disease Sister Skin cancer Social History Smoking Status: Never smoker alcohol intake: current alcohol intake frequency: a few times a month substance use type: does not use HPI HPI HPI: FARHAD GLEZ, is a 77 F who presents to the office today for surgical consultation regarding colonoscopy. October 1998 patient had a colonoscopy per Dr. Iggy Bey with some biop sy showing melanosis coli. More recently July 02, 2013 the patient had a upper and lower endoscopy. The patient has had some reflux symptoms. On the esophagogastroduodenoscopy she was noted to have so me slight erythema consistent with reflux. A small hiatal hernia. Some slight redness of the stomach. On the colonoscopy she had a diminutive polyp in the mid ascending colon. H. pylori was negative. Th e distal esophagus showed findings consistent with reflux esophagitis with no evidence of Cochran's. The colon polyp was a tubular adenoma. It is of additional note that the patient has a direct family member i.e. mother who developed colon cancer in her 80s. Fortunately the patient currently is without symptoms. She denies bright red blood per rectum or melena. Weight has been stable. No change in bowel habits. ROS General General: No weight change, appetite, fatigue, colon cancer, breast cancer or weakness HEENT HEENT: No difficulty swallowing, eye injury, eye surgery, swollen glands or hoars eness Endo Endocrine: No thyroid disease, diabetes mellitus, thyroid cancer, Hair loss, heat intolerance or cold intolerance Skin Skin: No rash or changing moles Breast Breast: No left breast lump, righ t breast lump, nipple discharge, breast pain, abnormal mammogram, abnormal US or breast enlargement Musc Musculoskeletal: No back problems, arthritis, rheumatoid arthritis, gout or joint pain Cardio Car diovascular: Yes high blood pressure; no murmur, pacemaker, heart disease, atrial fibrillation, heart attack, heart stent, palpitations, shortness of breat with exertion or chest pain Psych Psychiatric: No depression, anxiety or hearing voices Resp Respiratory: No shortness of breath, No sleep apnea, Yes cough, No COPD, No asthma, No emphysema, No wheezing Gastro Gastrointestinal: No abdominal pain, N o nausea or vomiting, No diarrhea, No constipation, No blood in stool, Yes acid reflux, Yes hemorrhoids, No ulcers, No gallbladder problem, No black,tarry stools Hemal Hematologic: No blood thinners, No blood disorders, No bleeding, No anemia, No blood clots Neuro Neurologic: No system reviewed and no additional complaints, except as docu, No as per HPI, No abnormal walking, No abnormal hearing, No abn ormal movements, No abnormal speech, No behavioral changes, No burning sensations, No confusion, No seizure-like activity, No unsteadiness, No dizziness, No localized weakness, No frequent falls, No hea dache(s), No lack of coordination, No loss of vision, No memory loss, No numbness, No other visual disturbances, No radiating pain, No restless legs, No sensory deficit, No fainting, No tingling, No guero mor(s), No weakness, No other Exam Const General: healthy appearing [facility] Head: normal to inspection Eyes General: appearance normal, both eyes and all related structures Neck Neck: normal visual insp ection Chest Chest palpation AND inspection: normal inspection of the chest Breast Palpation: No nipple discharge Resp Auscultation: clear to auscultation bilaterally Cardio Rate: regular rate Rhythm: r egular rhythm Heart Sounds: no murmurs GI Palpation: soft, no hepatosplenomegaly Neuro Cranial Nerves: CN's II-XI intact bilaterally Extrem General: no calf tenderness Psych Affect: normal affect Asse ssment AND Plan 1. Personal history of colonic polyps Z86.010 2. Family history of colon cancer in mother Z80.0 Plan 77-year-old female who enjoys a very high quality of life. She has a personal histor y of tubular adenoma of the colon and she has a family history in her mother who had colon cancer. I am recommending to the patient a colonoscopy with possible biopsy or polypectomy is indicated. Mariposa bunch has had an opportunity to ask and have questions answered. We will plan for MiraLAX split prep. We will proceed at her discretion. Cc: Dr. Hi John M.D., F.A.C.S. Coding Level of Care Code Off vis,new,level 2 Diagnoses Personal history of colonic polyps Z86.010 Family history of colon cancer in mother Z80.0 12/14/17 1614 <Electronically signed by Chaparro John MD&a mp;#62; Date Chaparro John MD Cosigner Signature: Date (if applicable) CC: Xiomara Do MD 24-Oct-2017 PT D/C Summary (1) Result: Comments: See Note; NOTES: [facility] [address] [place] [address]. [address] [place], [place] [address] Fax REHABILITATION SERVICES DISCHAR SUMMARY MR#: [id number] Acct: [id number] Name: FARHAD GLEZ Rep #: [id number] : 1940 77 From: Riya Kraft PT, Cert. MDT Referring DrHu: Xiomara Do MD Status: REG RCR Insurance: MEDICA RE PART A B [employer] HP - PT D/C Summary It has been my pleasure to treat FARHAD GLEZ under orders from Xiomara Do, for the diagnosis of RIGHT HIP BURSITIS AND RIGHT ROTATOR CUFF STRAIN for a total of 9 visit(s). Discharge Date: Please see the following information for a summary of their discharge status. - Subjective Subjective: PATIENT REPORTS IT HAS BEEN AMAZING HOW THE WATER EX HAS HELPED HER. SHE REPORTS HER SHOULDER IS MUCH BETTER AND IT IS NO LONGER CLICKING. SHE STATES HER HIP IS BETTER TOO AND SHE IS PLEASANTLY SURPRISED. SHE STATES SHE WILL BE TRAVELING FOR A FEW WEEKS NOW. SHE RE PORTS SHE WOULD LIKE TO TRY TO DEVELOP MORE STRENGTH IN HER ARMS AND LEGS ON LAND. - Overall Improvement % Improvement: 90 - Objective Objective/Function: PATIENT MAY BENEFIT FROM FORMAL PT ON LAND AF TER RETURN FROM TRAVELING. SHE REALLY LIKES THE WATER AND IT WOULD BE GOOD FOR HER TO CONTINUE HER WATER PROGRAM INDEP'LY. Motor deficit: JOSEPH UE STRENGTH WFL EXCEPT JOSEPH SHOULDS AND HIPS. RIGHT HIP AND S HOULDER WEAKER THAN LEFT. RIGHT SHOULDER: FLEX 4-/5, ABD 3+/5, IR 5/5, ER 3-/5. LEFT SHOULDER: FLEX 4/5, ABD 4/5, IR 5/5, ER 3+/5. RIGHT HIP 4-/5, LEFT HIP 4/5. Sensory deficit: JOSEPH UE AND LE LIGHT TOUC H SENSATION INTACT AND SYMMETRICAL. ROM deficit: JOSEPH UE ROM WFL NOW. Lumbar mvmt loss: flex - NIL. ext - CALVIN. R SG - MOD. L SG - MOD. CERVICAL MVMT LOSS: FLEX - NIL, PRO - NIL, EXT - MOD, RET - CALVIN, JOSEPH ROT - MOD, JOSEPH SB - MOD TO CALVIN. CERVICAL AND LUMBAR ROM TESTING DO NOT PROVOKE C/O EXTREMITY SX'S. Core strength: POOR. Palpation: NO SPINAL, HIP OR SHOULDER LOCALIZED TENDERNESS RIGHT > LEFT T LOULOU. INCREASED MUSCLE TONE OF PARASPINALS THROUGHOUT. OTHER: RIGHT SHOULDER ROM AND STRENGTH TESTING DOES NOT PROVOKES RIGHT SHOULDER PAIN. - Goals Goal 1:: DECREASE C/O RIGHT HIP PAIN Goal Progress: Goal Met Goal 2:: DECREASE C/O RIGHT SHOULDER PAIN Goal Progress: Goal Met Goal 3:: IMRPOVE REACHING, LIFTING, STANDING, WALKING, ADL AND LEISURE FUNCTION Goal Progress: Goal Met Goal 4:: INDEP HEP Goal Progress: Goal Met - Plan Plan: D/C TO INDEP POOL PROGRAM AT THIS TIME. PATIENT IS AGREEABLE. - D/C Information If there are questions or concerns regarding this patient's physical therapy, please fe el free to call me at [phone]. Thank you for the referral of this patient. Sincerely, Riya Kraft <Electronically signed by Riya Kraft PT, MDT> 10/24/17 1135 CC: Xiomara Do MD EMMANUEL Signed 22-Sep-2017 Inital Evaluation (1) - PT Result: Comments: See Note; NOTES: [facility] [address] [place], [place] [address] Fax REHABILITATION SERVICES INITIAL EVALUATION MR#: [id number] Acct: [id number] Name: FARHAD GLEZ Rep #: [id number] : 1940 77 From: Riya Kraft PT, Cert. RAMONT Referring Dr.: Xiomara Do MD Status: REG RCR Insurance: MEDIC ARE PART A B [facility] Patient's Visit Information FARHAD GLEZ is a 77 year old F referred to Physical Therapy by Xiomara Do with a diagnosis of RIGHT HIP BURSITIS AND RIGHT ROTATOR CUFF STRAIN. Da te of Evaluation: 09/22/17 Physical Therapist: Riya Kraft - Visit Plan Frequency: 2-3x /Week Duration: 4-6 Weeks Plan: AQUATIC THERPAY FOR CORE, HIP AND SHOULDER ROM, STRETCHING AND STRENGTHEING. PO STURE CORRECTION/STRENGTHENING, INSTRUCTION IN APPROPRIATE BODY MECHANICS AND ACTIVITY MODIFICATIONS. DLS STARTING WITH A NEUTRAL SPINE PROGRESSING ROM TOLERATED. HEP INSTRUCTION. *THIS THERAPIST FOR GOT TO GIVE PATIENT POOL PAPERWORK. 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 Disability: NO. Present symptoms: RIGHT SHOULDER. RIGHT UPPER ARM PAIN TOO BUT NO NUMBNESS OR TINGLING IN THE RIGHT UE. SOME JOSEPH NECK PAIN. SOMETIMES SHOULDER CLICKS WHEN BRINGING ARM DOWN. RIGHT HIP PAIN. NO RADIATING PAIN, NUMBNESS OR TINGLING DOWN THE RIGHT LE. CURRENTLY NO LOW BACK PAIN. RIGHT HIP CLICKS S OMETIMES TOO. Present since: RIGHT SHOULDER PAIN FLARED UP ABOUT 6 WEEKS. RIGHT HIP PAIN ALSO STARTED ABOUT 6 WEEKS AGO. Pain Scale: RIGHT SHOULDER PAIN AT WORST IS 5/10, LEAST 0/10. RIGHT HIP PAIN AT W ORST 5/10, LEAST 0/10. Currently: 0/10 RIGHT SHOULDER AND HIP. Commenced as a result of: TRANSPORTING HEAVY LUGGAGE IN AND OUT OF TRUCK AND HOTEL WHILE TRAVELING - SHOULDER. LOTS OF WALKING ABOUT 6 WEEK S AGO WITH POSSIBLE WRONG SHOES MIGHT HAVE PROVOKED HIP. Symptoms at onset: RIGHT SHOULDER AND RIGHT HIP. Worse: SHOULDER - REACHING OVER HEAD DURING THE DAY OR AT NIGHT, BLOWING HAIR DRY. RIGHT HIP - S TEPS. Better: BRINGING ARM DOWN. HIP - CHIRO. Disturbed sleep: YES. Previous history/Previous treatment: RIGHT SHOULDER PT ABOUT 10 YEARS AGO AND ORTHO CONSULT WITH DX OF ROTATOR CUFF ISSUES. RIGHT HIP - NO PRIOR TREATMENT. Coughing/sneezing/straining: NEGATIVE. Gait: NO AD'S. Difficulty initiating urinatin: NO. Accidents: NO. Unexplained weight loss: NO. Imaging: NONE. PMH: HTN. Recent major surgery: UNREMARKABLE - Objective Sitting Posture: POOR. Standing Posture: POOR. Lordosis: REDUCED. Lateral shift: NO. Relevant shift: N/A. Active Correction of posture: NE. Other Observations: POOR BODY MECHA NICS. INDEP GAIT INTO PT WITHOUT AD OR LOB NOTED. INDEP SIT TO STAND WITHOUT UE ASSIST. Motor deficit: JOSEPH UE STRENGTH WFL EXCEPT JOSEPH SHOULDS AND HIPS. RIGHT HIP AND SHOULDER WEAKER THAN LEFT. RIGHT MORRO ULDER: FLEX 3+/5, ABD 3+/5, IR 5/5, ER 2+/5. LEFT SHOULDER: FLEX 4-/5, ABD 4-/5, IR 5/5, ER 3-/5. RIGHT HIP 4-/5, LEFT HIP 4/5. Sensory deficit: JOSEPH UE AND LE LIGHT TOUCH SENSATION INTACT AND SYMMETRICA L. ROM deficit: JOSEPH SHOULDER 25%. Lumbar mvmt loss: flex - NIL. ext - CALVIN. R SG - MOD. L SG - MOD. CERVICAL MVMT LOSS: FLEX - NIL, PRO - NIL, EXT - MOD, RET - CALVIN, JOSEPH ROT - MOD, JOSEPH SB - MOD TO CALVIN. CE RVICAL AND LUMBAR ROM TESTING DO NOT PROVOKE C/O EXTREMITY SX'S. Core strength: POOR. Palpation: NO SPINAL, HIP OR SHOULDER LOCALIZED TENDERNESS RIGHT > LEFT TODAY. INCREASED MUSCLE TONE OF PARA SPINALS THROUGHOUT. OTHER: RIGHT SHOULDER ROM AND STRENGTH TESTING PROVOKES RIGHT SHOULDER PAIN. - Goals Goal 1:: DECREASE C/O RIGHT HIP PAIN Goal Time Frame: 4-6 Weeks Goal 2:: DECREASE C/O RIGHT SHOU LDER PAIN Goal Time Frame: 4-6 Weeks Goal 3:: IMRPOVE REACHING, LIFTING, STANDING, WALKING, ADL AND LEISURE FUNCTION Goal Time Frame: 4-6 Weeks Goal 4:: INDEP HEP Goal Time Frame: 4-6 Weeks - Rehabilit ation Potential Rehabilitation Potential: Fair - Anticipated Interventions Patient/Client Instruction: Educate patient on: Condition, Plan of Care, Risk Factors, Benefits of Fitness Program For the Pur pose of:: To improve self management Therapeutic Exercise to Include: Strength training, Body mechanics, Postural training, Flexibilty training, In an aquatic setting, Active ROM, Amy gladys Lumbar Stabilization, Scapular Strength/Stabilization For the Purpose of:: To improve ability of physical actions for home/community/work/leisure Thank you for the opportunity to evaluate your p atient. For Medicare and Medicare HMO plans, please review the plan of care and approve it. It will need to be FAXED BACK to us at [phone] for Medicare purposes. Please let me know if there are questions or concerns regarding this plan of care. Physician Signature: Date: <Electronically signed by Riya Kraft PT, Cert. MDT > 09/22/17 1104 CC: Xiomara Do MD EMMANUEL Signed For Medicare only, by signing this I certify the plan of care. Physicians Signature Date Immunization Name Dates Details Hep A, adult on: Dec-2014 Comments: ANABELL diaz Pneumococcal conjugate vaccine, 13 valent, IM on: Dec-2014 Comments: ANABELL Diaz Tdap (7 years and up) on: Dec-2014 Comments: ANABELL Diaz Family History Unknown Family Member Name Dates Details Brother 1 Comments: hearing loss Status: Active Brother 2 Comments: Varicose veins, heart disease (angiplasty, stents) Status: Active cousing breast cancer 30's Status: Active Father Comments: heart disease, [place] age 58 Status: Active Mother Comments: Alzheimer's/dementia 80's, anemia, colon cancer 85 yo Status: Active Sister 1 Comments: Skin cancer/melanoma Status: Active Social History Name Dates Details Alcohol Use Comments: 2 beers q weekly 7 glasses of wine q weekly does realize little too much Status: Active Caffeine Use Comments: 3 cups coffee 1 soda per day Status: Active Current Work/Study Status Comments: 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 grew up in [place] Status: Active Exercise History: Exercises regularly. Comments: [facility] membership. Status: Active Living Situation: Lives alone. Comments: divorce in 's Anant and he 8-17. 18 years. Status: Active No Drug Use Status: Active Non Smoker/No Tobacco Use Status: Active nutrition Comments: egg for breakfast not snacker, eat alot veggies, eat chicken fish salmon Status: Active Vital Signs Date Test Result Details :09 Pulse 72 /min Comments: Pattern: Regular Respiration Rate 16 /min Comments: Pattern: Unlabored BP Systolic 144 mm[Hg] Comments: Patient Position: Sitting; Cuff Location: Left Arm; Cuff Size: Standard BP Diastolic 78 mm[Hg] Comments: Patient Position: Sitting; Cuff Location: Left Arm; Cuff Size: Standard Weight 170 lb Height 64.8 in Body Mass Index Calculated 28.46 kg/m2 Body Surface Area Calculated 1.84 m2 [id number] BP Systolic 130 mm[Hg] Comments: Patient Position: Sitting BP Diastolic 82 mm[Hg] Comments: Patient Position: Sitting :14 Temperature 97.9 f Comments: Method: Temporal Pulse 110 /min Comments: Pattern: Regular Respiration Rate 20 /min Comments: Pattern: Unlabored O2 SAT 98 % Comments: Room air BP Systolic 160 mm[Hg] Comments: Patient Position: Sitting; Cuff Location: Left Arm; Cuff Size: Standard BP Diastolic 100 mm[Hg] Comments: Patient Position: Sitting; Cuff Location: Left Arm; Cuff Size: Standard Weight 170 lb Height 64.8 in Body Mass Index Calculated 28.46 kg/m2 Body Surface Area Calculated 1.84 m2 :27 Temperature 97.9 f Comments: Method: Temporal Pulse 92 /min Comments: Pattern: Regular Respiration Rate 20 /min Comments: Pattern: Unlabored O2 SAT 97 % Comments: Room air BP Systolic 120 mm[Hg] Comments: Patient Position: Sitting; Cuff Location: Left Arm; Cuff Size: Standard BP Diastolic 70 mm[Hg] Comments: Patient Position: Sitting; Cuff Location: Left Arm; Cuff Size: Standard Weight 169 lb Height 64.8 in Body Mass Index Calculated 28.3 kg/m2 Body Surface Area Calculated 1.84 m2 :01 Temperature 97.8 f Comments: Method: Temporal Pulse 74 /min Comments: Pattern: Regular Respiration Rate 20 /min Comments: Pattern: Unlabored O2 SAT 98 % Comments: Room air BP Systolic 122 mm[Hg] Comments: Patient Position: Sitting; Cuff Location: Left Arm; Cuff Size: Standard BP Diastolic 76 mm[Hg] Comments: Patient Position: Sitting; Cuff Location: Left Arm; Cuff Size: Standard Weight 172 lb Height 64.8 in Body Mass Index Calculated 28.8 kg/m2 Body Surface Area Calculated 1.85 m2 :21 Pulse 94 /min Comments: Pattern: Regular :49 Pulse 109 /min Comments: Pattern: Regular Respiration Rate 16 /min Comments: Pattern: Unlabored O2 SAT 96 % Comments: Room air BP Systolic 122 mm[Hg] Comments: Patient Position: Sitting; Cuff Location: Left Arm; Cuff Size: Standard BP Diastolic 78 mm[Hg] Comments: Patient Position: Sitting; Cuff Location: Left Arm; Cuff Size: Standard Weight 179 lb Height 64.8 in Body Mass Index Calculated 29.97 kg/m2 Body Surface Area Calculated 1.88 m2 :30 Temperature 97.1 f Comments: Method: Oral Pulse 76 /min Comments: Pattern: Regular Respiration Rate 18 /min O2 SAT 98 % Comments: Room air BP Systolic 124 mm[Hg] Comments: Patient Position: Sitting BP Diastolic 82 mm[Hg] Comments: Patient Position: Sitting :06 Temperature 97.9 f Comments: Method: Temporal Pulse 78 /min Comments: Pattern: Regular Respiration Rate 20 /min Comments: Pattern: Unlabored O2 SAT 98 % Comments: Room air BP Systolic 122 mm[Hg] Comments: Patient Position: Sitting; Cuff Location: Left Arm; Cuff Size: Standard BP Diastolic 82 mm[Hg] Comments: Patient Position: Sitting; Cuff Location: Left Arm; Cuff Size: Standard Weight 182 lb Height 64.8 in Body Mass Index Calculated 30.47 kg/m2 Body Surface Area Calculated 1.9 m2 :33 Temperature 97.9 f Comments: Method: Temporal Pulse 86 /min Comments: Pattern: Regular Respiration Rate 20 /min Comments: Pattern: Unlabored O2 SAT 98 % Comments: Room air BP Systolic 124 mm[Hg] Comments: Patient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 instructions. Current medication use: no side effects and compliant with dosing reg End: 17-May-2018 10:52 imen. Patient sleeps 7 hours per night. Impact of disease: emotional impact-moderate. Nutrition: balanced diet and supplemental vitamins. The medical issues the patient is following up for include other (back fx./physical therapy). Encounter Diagnosis: BMI 28.0-28.9,adult, Current nonsmoker (Renamed from Current non-smoker), Fracture of L1 vertebra due to fall of 12 feet, with routine healing, subsequent encounter, Hypertension, GERD (gastroesophageal reflux disease), Upper GI bleed, PVC (premature ventricular contraction) [facility] Annotation/Addendum On: 03-Apr-2018 16:18 Encounter Diagnosis: Tachycardia End: 03-Apr-2018 16:19 [facility] Annotation/Addendum On: 03-Apr-2018 12:54 Encounter Diagnosis: D-dimer, elevated End: 03-Apr-2018 13:04 [facility] Office Visit On: 03-Apr-2018 8:49 Encounter Reason: Follow up for chronic medical issues - The patient feels well with minor complaints, has good energy level and is sleeping well. Patient has been compliant with instructions. Current medication use: no End: 03-Apr-2018 15:20 side effects, compliant with dosing regimen and considered effective by patient. Patient sleeps 7 hours per night. Impact of disease: emotional impact-moderate. Nutrition: balanced diet and supplemental vitamins. The medical issues the patient is following up for include cardiac issues, gastric reflux, high blood pressure and high cholesterol.Encounter Diagnosis: BMI 29.0-29.9,adult, Current nonsmoker (Renamed from Current non-smoker), Fracture of L1 vertebra due to fall of 12 feet, with routine healing, subsequent encounter, Tachycardia [facility] Office Visit On: 24-Mar-2018 8:56 Encounter Diagnosis: GERD (gastroesophageal reflux disease), Upper GI bleed, Current nonsmoker (Renamed from Current non-smoker), Family history of colon cancer in mother, Abnormal glucose (Renamed from Abnormal glucose level), End: 27-Mar-2018 6:19 Postmenopausal (Renamed from Postmenopausal status), BMI 30.0-30.9,adult, Hearing loss of left ear, unspecified hearing loss type, History of nonmelanoma skin cancer, Family history of dementia, Hypertension, Head trauma, subsequent encounter, Right anterior shoulder pain, Headache, Fall at home, Hyperlipidemia, Annual Medicare Physical (Renamed from Medicare annual wellness visit, subsequent), Leukopenia, unspecified type, Obesity (BMI 30.0-34.9), Laceration of right forearm, sequela, Fracture of L1 vertebra due to fall of 12 feet, with routine healing, subsequent encounter [facility] Phone Encounter On: 21-Mar-2018 11:41 Encounter Diagnosis: GERD (gastroesophageal reflux disease) End: 21-Mar-2018 11:58 [facility] Phone Encounter On: 15-Mar-2018 15:03 Encounter Diagnosis: Headache, Dizziness End: 15-Mar-2018 15:05 [facility] Phone Encounter On: 15-Mar-2018 11:43 Encounter Diagnosis: Fall at home End: 15-Mar-2018 11:51 [facility] Office Visit On: 05-Mar-2018 9:25 Encounter Diagnosis: GERD (gastroesophageal reflux disease), Head trauma, subsequent encounter, Laceration of right forearm, sequela End: 05-Mar-2018 9:45 [facility] Phone Encounter On: 12-Jan-2018 13:23 Encounter Diagnosis: GERD (gastroesophageal reflux disease) End: 12-Jan-2018 13:26 [facility] Lab Order On: 27-Dec-2017 14:08 Encounter Diagnosis: Hyperlipidemia End: 27-Dec-2017 14:11 [facility] Phone Encounter On: 21-Dec-2017 11:19 Encounter Diagnosis: Abnormal glucose (Renamed from Abnormal glucose level) End: 21-Dec-2017 11:20 [facility] Office Visit On: 21-Dec-2017 10:05 Encounter Reason: Follow up for chronic medical issues - The patient feels well with minor complaints, has good energy level and is sleeping well. Patient has been compliant with instructions. Current medication use: no End: 21-Dec-2017 10:57 side effects, compliant with dosing regimen and considered effective by patient. Patient sleeps 7 hours per night. Impact of disease: emotional impact-moderate. Nutrition: balanced diet and supplemental vitamins. The medical issues the patient is following up for include cardiac issues, gastric reflux, high blood pressure and high cholesterol.Encounter Diagnosis: BMI 30.0-30.9,adult, Current nonsmoker (Renamed from Current non-smoker), Abnormal glucose (Renamed from Abnormal glucose level), Family history of colon cancer in mother, Hearing loss of left ear, unspecified hearing loss type, Annual Medicare Physical (Renamed from Medicare annual wellness visit, subsequent), Obesity (BMI 30.0-34.9), History of nonmelanoma skin cancer, Family history of dementia, Hypertension, Right anterior shoulder pain, Hypercalcemia, Postmenopausal (Renamed from Postmenopausal status), GERD (gastroesophageal reflux disease), Leukopenia, unspecified type, Hyperlipidemia, Bronchitis, Right hip pain [facility] Phone Encounter On: 16-Nov-2017 11:32 Encounter Diagnosis: Bronchitis End: 16-Nov-2017 11:34 [facility] Office Visit On: 13-Nov-2017 9:33 Encounter Reason: Cough - The last clinic visit was 5 day(s) ago. Symptoms include cough and runny nose.Encounter Diagnosis: Viral infection End: 13-Nov-2017 9:54 [facility] Historical Summary On: 20-Oct-2017 8:06 Encounter Diagnosis: Annual Medicare Physical (Renamed from Medicare annual wellness visit, subsequent) End: 20-Oct-2017 8:09 [facility] Office Visit On: 15-Sep-2017 6:33 Encounter Reason: Physical female exam - Last seen between 1-3 months ago. General health: feels well with minor complaints, has decreased energy level and is sleeping well. The patient's appetite is normal. Nutrition: n End: 18-Sep-2017 12:53 ormal/adequate. Exercises 3 days per week. Sleeps on average 8 hours per night. Elimination problems include urinary frequency (nocturia). Safety measures include appropriate use of safety belts and carlos e smoke detectors. Current emotional problems include anxiety. screening, colonoscopy (Due June 2018), screening, mammography (2017 (Dr. Keane)) and screening, Pap smear (hx. total hysterectomy).Encounter Diagnosis: Annual Medicare Physical (Renamed from Medicare annual wellness visit, subsequent), Current nonsmoker (Renamed from Current non-smoker), BMI 30.0-30.9,adult, Hyperlipidemia, Hypertension, GERD (gastroesophageal reflux disease), Encounter for screening colonoscopy, Family history of colon cancer in mother, Right anterior shoulder pain, Right hip pain, Family history of dementia, History of nonmelanoma skin cancer, Obesity (BMI 30.0-34.9), Postmenopausal (Renamed from Postmenopausal status), Hypercalcemia, Leukopenia, unspecified type, Hearing loss of left ear, unspecified hearing loss type [facility] Phone Encounter On: 31-Aug-2017 11:54 Encounter Diagnosis: Hyperlipidemia, Hypertension, GERD (gastroesophageal reflux disease) End: 31-Aug-2017 12:00 [facility] Office Visit On: 22-Aug-2017 14:26 Encounter Reason: Injections - The medication the patient is here to receive is other (quad flu).Encounter Diagnosis: Need for prophylactic vaccination and inoculation against influenza (Renamed from Need for immunization against influenza) End: 24-Aug-2017 11:00 [facility] Office Visit On: 27-Apr-2017 8:22 [facility] End: 27-Apr-2017 9:22 Payers MedicareCignaMARIAN CROPP; christofer guarantor
--- OUTSIDE RECORDS SUMMARY | 2019-01-27 04:39 | XMS RPT_ITS | Continuity of Care Document ---
:1940 Author Organization [facility] Address [address] [facility] [address] [place] [address] Phone Care Team Providers Name Role Phone [...] yearly mammo 09-23 BD 12-24 yearly with [facility]. Status: Active Erosive esophagitis (K22.10, 530.19) [...] follow-up (Z09, V67.59) Comments: low hgb in [facility] in [place] Status: Active Hyperlipidemia (E78.5, 272.4) Comments: reveiwed [...] Start : 21-Mar-2018 Active Comments:called to Raj [phone] - cmanchak 03/21 CoQ-10 100 MG Oral [...] Dana M Start : 31-Aug-2017 Active Omeprazole 40 MG Oral Capsule Delayed Release 1 (one) Capsule qd for 0 days Quantity: 30 {Capsule} Refills: 6 Ordered:23-Oct-2018 Xiomara Do MD, MD, Dana M Start : 23-Oct-2018 Active Spironolactone 50 MG Oral Tablet 1 [...] days Quantity: 60 {Tablet} Refills: 5 Ordered:05-Jun-2018 Xiomraa Do MD, MD, Dana M Start : 05-Jun-2018 Active Omeprazole 40 MG Oral Capsule Delayed Release 1 (one) Capsule Capsule qd for 0 days Quantity: 30 {Capsule} Refills: 0 Ordered:24-Mar-2018 Xiomara Do MD, MD, Dana M Start : 12-Jan-2018 End : 24-Mar-2018 Inactive Comments:Dr. john Omeprazole 40 MG Oral Capsule Delayed Release in am (40 MG) Inactive Zithromax Z-Nas 250 MG Oral Tablet uad [...] Visit Report Result: Comments: See Note; NOTES: [facility] [address] [place] [address]. [address] [place] [address] OFFICE VISIT Date of Service: 10/13/18 MR#: [id number] Acct: [id number] Name: FARHAD GLEZ Rep #: [id number] : 1940 Provider: Chaparro John MD Age/Sex: 78/F Location: [facility].WSA Status: Signed with Addenda ADDENDUM by Chaparro [...] of 8. Her upper endoscopy performed at [facility] in [place] it suggested grade C erosive esophagitis and [...] 78-year-old female who was briefly hospitalized in [place] with what appeared to be an acute [...] note regarding her a esophagogastroduodenoscopy performed in [place]. Then with that information a t hand [...] Visit Reasons: Hiatal Hernia Chief Complaint: anemia Rejogger Required: No Is patient in pain?: No [...] not determined. She was hospitalized overnight in [facility]. She presented with shortnes s of [...] a note from Dr Bruce Blackman from [facility] suggesting that the results of her upper [...] endoscopy surgical report that was performed and [place]. I prev iously saw the patient in [...] and colonoscopy with operative note to follow: [facility] Medical Records Department [address] [place] [address] Operative Report 01/12/18 0848 MR#: [id number] :[id number] Name: FARHAD GLEZ #:[id number] : [id number]: Chaparro John MD PCP:Xiomara Do MD Status:[facility] Location: [place] [address] Problem List (1) GERD (gastroesophageal reflux diseas [...] exam performed. Slightly lax anal tone. 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 No active bleeding. [...] IV Sedation 01/12/18 0855<Electronically signed by Chaparro oJhn MD> Date Chaparro John MD CC: Xiomara [...] is negative for organisms. H pylori: Negative [facility] Cardiovascular Services [address] [place] [address] MR#: [id number]:[id number] Name: FARHAD GLEZ #:[id number] : 1940 [...] %. This not e was generated with AktiV[employer] software. It may contain incorrect words, spelling, [...] 78-year-old female who was briefly hospitalized in [place] with what appeared to be an acute [...] regarding her a esophagogastroduodenoscop y performed in [place]. Then with that information at hand I [...] Visit Report Result: Comments: See Note; NOTES: [facility] [address] [place] [address] OFFICE VISIT Date of Service: 10/13/18 MR#: [id number] Acct: [id number] Name: FARHAD GLEZ Rep #: [id number] : 1940 Provider: Chaparro John MD Age/Sex: 78/F Location: [facility] Status: Signed Intake Vital Signs10/13/18 Body Mass Index (B [place]) 29.6 10/09/18 Body Mass Index (BMI) 29.6 Intake Visit Reasons: Hiatal Hernia Chief Complaint: anemia Rejogger Required: No Is patient in pain?: No [...] not determined. She was hospitalized overnight in [facility]. She presented with shortness of breath. BUN [...] a note from Dr Bruce Blackman from [facility] suggesting that the results of [...] surgical report that was p zoya and [place]. I previously saw the patient in the [...] and colonoscopy with operative note to follow: [facility] Medical Records Department [address] [place] [address] Operative Report 01/12/18 0848 MR#: [id number]:[id number] Name: FARHAD GLEZ #:[id number] : [id number]: Chaparro John MD PCP:Xiomara Do MD Status:REG [facility] Location: [id number] Problem List (1) GE RD (gastroesophageal reflux [...] is negative for organisms. H pylori: Negative [facility] Cardiovascular Services [address] [place] [address] MR#: [id number]:[id number] Name: FARHAD GLEZ Noah #:[id number] : 1940 78From: Johnson Bird MD Primary [...] 57 %. This note was generated with AktiVaxation software. It may contain incorrect words, spelling, and punctuation that were not noted in checking the note before signing. 4921<Electronically signed by Johnson Bird MD> Date Johnson [...] female who was brie fly hospitalized in [place] with what appeared to be an acute [...] regardi ng her a esophagogastroduodenoscopy performed in [place]. Then with that information at hand I [...] Visit Report Result: Comments: See Note; NOTES: [facility] Orthopaedics AND Sports Medicine [address] [place] [address] OFFICE VISIT Date of Service: 09/18/18 MR#: [id number] Acct: [id number] Name: FARHAD GLEZ Rep #: [id number] : 1940 Provider: Nae Kumar MD Age/Sex: [...] (CAD), BILAT Result: Comments: See Note; NOTES: [facility] Imaging Services [address] [place] [address] SCREENING MAMM (CAD), BILAT MR#: [id number] Acct: [id number] Name: FARHAD GLEZ Rep #: [id number] : 1940 F 78 From: Chad Wilkins MD PCP: Xiomara Do MD Status: [facility] CLI Study: SCREENING MAMM (CAD), BILAT Date of Exam: 09/12/18 Exam# [id number] Ordering Dr: Xiomara Do MD M AMMOGRAPHY [...] these results will be sent to the [facility] by the facility within 30 days. Approximately 10% of breast cancers are not detected by mammography. A normal mammogram should not delay biopsy of a clinically suspicious abnormality. [id number] Elect ronically Signed: Chad Wilkins MD at 11:12 EST Tel [phone], Service support , CC: Xiomara Do MD Analytics Developer: Signed 21-Jun-2018 Stress Report Result: Comments: See Note; NOTES: [facility] Cardiovascular Services [address] [place] [address] MR#: [id number] Acct: [id number] Name: FARHAD GLEZ Rep #: [id number] : [birth year] 78 From: Johnson Bird MD [...] %. This note was gen erated with AktiVaxation software. It may contain incorrect words, spelling, and punctuation that were not noted in checking the note before signing. 06/21/18 1151 <Electronically signed by Johnson Bird MD> Date Johnson Bird MD CC: Xiomara Do MD Date Dictated: 06/21/181899 Date Transcribed: 06/21/181899 Analytics Developer: PM Signed 20-Jun-2018 Orthopedic Visit Report Result: Comments: See Note; NOTES: [facility] Orthopaedics AND Sports Medicine [address] [place], [place] [address] OFFICE VISIT Date of Service: 06/19/18 MR#: [id number] Acct: [id number] Name: FARHAD GLEZ Rep #: [id number] : 1940 Provider: Nae Kumar MD Age/Sex: 78/F Location: [facility].SMO Status: Signed Intake Intake Visit Reasons: low [...] She was treated by a physician at [facility] with a brace. She wore the brace [...] program. This helps. She recently flown to [place] as well. She has HTN, h/o skin [...] 6 Vw Result: Comments: See Note; NOTES: [facility] Imaging Services [address] [place] [address] L/S Spine w Bend Min 6 Vw MR#: [id number] Acct: [id number] Name: FARHAD GLEZ Rep #: [id number] : 1940 F 78 From: Luis Jefferson MD PCP: Xiomara Do MD Status: REG CLI Study: L/S Spine w Bend Min 6 Vw Date of Exam: 06/19/18 Exam# [id number] Ordering Dr: Nae Kumar MD STUDY: X-RAY [...] CC: Xiomara Do MD; Nae Kumar MD Analytics Developer: Signed 30-May-2018 PT D/C Summary (1) Result: Comments: See Note; NOTES: [facility] [address] [facility] [place], [place] [address] Fax REHABILITATION SERVICES [facility] SUMMARY MR#: [id number] Acct: [id number] Name: FARHAD GLEZ Rep #: [id number] : 1940 78 From: Roberto Oliveros DPT, OCS, CSCS Referring Dr.: Xiomara Do MD Status: REG RCR Insurance: MEDICA RE PART A B CIG[employer] HP - PT D/C Summary It has been my pleasure to treat FARHAD GLEZ under orders from Xiomara Do, for the diagnosis of L1 compression fracture for a total of 10 visit(s). [facility] Date: 05/29/18 Please see the following information [...] please feel free to call me at [phone]. Thank you for the re ferral of this patient. Sincerely, Roberto Oliveros DPT, OC <Electronically signed by Roberto Oliveros DPT, NEPTALI, CSCS> 05/30/18 0716 CC: Xiomara Do MD EBG Signed 26-Apr-2018 Inital Evaluation (1) - PT Result: Comments: See Note; NOTES: [facility] [address] [place] [address]. [address] [place] [address] Fax REHABILITATION SERVICES INITIAL EVALUATION MR#: [id number] Acct: [id number] Name: FARHAD GLEZ Rep #: [id number] : 1940 77 From: Roberto Oliveros DPT, NEPTALI, CSCS Referring Dr.: Xiomara Do MD Status: REG RCR Insurance: MEDIC ARE PART A B [facility] Patient's Visit Information FARHAD GLEZ is a [...] twisting allowed. saw doc last y in [place] and released to driving and sent for [...] to be FAXED BACK to us at [phone] ease let me know if there are questions or concerns regarding this plan of care. Physician Signature: Date: <Electronically signed by oRberto Oliveros DPT, OCS, CSCS> 04/26/18 0907 CC: Xiomara Do MD EBG Signed For Medicare only, by signing this I certify the plan of care. Physicians Signature Date 03-Apr-2018 Chest W/WO Contrast Result: Comments: See Note; NOTES: [facility] Imaging Services [address] [place] [address] Chest W/WO Contrast MR#: [id number] Acct: [id number] Name: FARHAD GLEZ Rep #: [id number] : 1940 F 77 From: Chad Wilkins MD PCP: Xiomara Do MD Status: REG CLI Study: Chest W/WO Contrast Date of Exam: 04/03/18 Exam# [id number] Ordering Dr: Xiomara Do MD STUDY: CTA [...] Chad Wilkins MD at 15:45 EDT Tel [phone], Service support [phone], CC: Xiomara Do MD Analytics Developer: Signed 12-Jan-2018 Operative Report Result: Comments: See Note; NOTES: [facility] Medical Records Department [address] [place] [address] Operative Report 01/12/18 0848 MR#: [id number] Acct: [id number] Name: FARHAD GLEZ Rep #: [id number] : 1940 77 From: Chaparro John MD PCP: Xiomara Do MD Status: REG [facility] Location: [place] [address] Problem List (1) GERD (gastroesophageal reflux disease) [...] Study (HP) Result: Comments: See Note; NOTES: [facility] Imaging Services [address] [place] [address] Dexa Bone Density Study (HP) MR#: [id number] Acct: [id number] Name: FARHAD GLEZ Rep #: [id number] : 1940 F 77 From: Chad Wilkins MD PCP: Xiomara Do MD Status: REG CLI Study: Dexa Bone Density Study (HP) Date of Exam: 12/19/17 Exam# [id number] Ordering Dr: Xiomara Do MD STUDY: DUAL [...] Chad Wilkins MD at 15:25 EST Tel [phone], Service support , CC: Xiomara Do MD Analytics Developer: Signed 14-Dec-2017 Surgery Visit Report Result: Comments: See Note; NOTES: [facility] [address] [place] [address] OFFICE VISIT Date of Service: 12/14/17 MR#: [id number] Acct: [id number] Name: NELLIE CHERRYELISJacinto Bunch Rep #: [id number] : 1940 Provider: Chaparro John MD Age/Sex: 77/F Location: [facility] Status: Signed Intake Vital Signs12/14/17 Height 5 ft 5 in 12/14/17 Weight: 178 lb Intake Visit Reasons: FAMILY HX OF COLON CA Rejogger Required: No Is patient in pain?: No [...] No other Exam Const General: healthy appearing [facility] Head: normal to inspection Eyes General: appearance [...] Summary (1) Result: Comments: See Note; NOTES: [facility] [address] [place] [address]. [address] [place], [place] [address] Fax REHABILITATION SERVICES DISCHAR SUMMARY MR#: [id number] Acct: [id number] Name: FARHAD GLEZ Rep #: [id number] [...] fe el free to call me at [phone]. Thank you for the referral of this patient. Sincerely, Riya Kraft <Electronically signed by Riya Kraft PT, MDT> 10/24/17 1135 CC: Xiomara Do MD EMMANUEL Signed 22-Sep-2017 Inital Evaluation (1) - PT Result: Comments: See Note; NOTES: [facility] [address] [facility] [address] [facility] [place], [place] [address] Fax REHABILITATION SERVICES INITIAL EVALUATION MR#: [id number] Acct: [id number] Name: FARHAD GLEZ Rep #: [id number] : 1940 77 From: Riya Kraft PT, Cert. RAMONT Referring Dr.: Xiomara Do MD Status: REG RCR Insurance: MEDIC ARE PART A B [facility] Patient's Visit Information FARHAD GLEZ is a [...] to be FAXED BACK to us at [phone] for Medicare purposes. 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 grew up in [place] Status: Active Exercise History: Exercises regularly. Comments: [...] kg/m2 Body Surface Area Calculated 1.84 m2 40-Nsn-265760:13 BP Systolic 130 mm[Hg] Comments: Patient Position: [...] Microscopic Examination Comments: PATIENT NOT FASTINGPERFORMED BY: [employer] [facility] [id number] Bacteria Few (Normal) Mucus Threads Present (Normal) Cast Type Hyaline casts (Normal) Casts Present {/lpf} (Abnormal) Epithelial Cells (non renal) 0-10 {/hpf} (Normal) Range: 0 - 10 RBC 0-2 {/hpf} (Normal) Range: 0 - 2 WBC 0-5 {/hpf} (Normal) Range: 0 - 5 5-Oym-885133:02 MICROALBUMIN: CREATININE RATIO Comments: PATIENT NOT FASTINGPERFORMED BY: [employer] [facility] [id number] (28243) AND (68774) Alb/Creat Ratio 138.3 {mg/g_creat} (Abnormal) Range: 0.0-30.0 Comments: Normal: 0.0 - 30.0 Albuminuria: 31.0 - 300.0 Clinical albuminuria: >300.0 Albumin, Urine 152.4 ug/mL (Normal) Creatinine, Urine 110.2 mg/dL (Normal) 4-Hhu-311871:02 URINALYSIS (00088) Comments: PATIENT NOT FASTINGPERFORMED BY: [employer] Pxvplv4545 [facility] [id number] Microscopic Examination See below: (Normal) Comments: Microscopic was indicated and was performed. Nitrite, Urine Negative (Normal) Urobilinogen,Semi-Qn 0.2 mg/dL (Normal) Range: 0.2-1.0 Bilirubin Negative (Normal) Occult Blood Negative (Normal) Ketones Negative (Normal) Glucose Negative (Normal) Protein 1+ (Abnormal) WBC Esterase Negative (Normal) Appearance Clear (Normal) Urine-Color Yellow (Normal) pH 6.5 (Normal) Range: 5.0-7.5 Specific Hendley 1.022 (Normal) Range: 1.005-1.030 9-Meb-422175:02 Metabolic Panel, Comments: PATIENT NOT FASTINGPERFORMED BY: [employer] [facility] [id number] Information: NURSE DRAW Comprehensive (61075) ALT (SGPT) 22 [iU]/L (Normal) Range: 0-32 [...] 8-27 Glucose 92 mg/dL (Normal) Range: 65-99 14-Jjc-847901:16 CBC (Auto) (54223) Comments: now and in 6 weeks; PATIENT NOT FASTINGPERFORMED BY: [facility] Raccft18[address] [facility] [id number] Platelets 399 {x10E3/uL} (Abnormal) Range: 150-379 RDW [...] Date: 04/03/18Order Info: 0667-1 - BMPOrder Info: 66389-7 - TROPOrder Info: 3016-3 - TSHOrder Info: 3024-7 - T4F'TROP' Serial specimen #1, #2, #3, or #4: 1[facility] [address] [place], [address] GAP 12 (Normal) Range: 5-15 [...] Comments: Please note revised GLUCOSE reference range czdbwxmyb52/02/2018. :52 D-Dimer Quantitative (DVT/PE) Comments: Order Date: 04/03/18Order Info: 15133-4 - [facility] [address] [place], [address] D-DIMER QUANT 1.52 {FEU/ug/m} (Abnormal) Range: 0.27-0.49 Comments: D-Dimer ELEVATED (>0.49): Additional studies and clinicalassessments are indicated to conclude diagnosis of:Deep Vein Thrombosis (DVT) or Pulmonary Embolism (PE)CRITICAL VALUE VERIFIED. [facility]04/03/18 Renetta Wyatt.RESULTS READ BACK BY SAME . :52 Thyroid Stim Hormone (TSH) Comments: Order Date: 04/03/18Order Info: 0667-1 - BMPOrder Info: 28022-6 - TROPOrder Info: 3016-3 - TSHOrder Info: 3024-7 - T4F'TROP' Serial specimen #1, #2, #3, or #4: [address] [place] [address] [place], [place], [address] TSH 2.45 {uIU/mL} (Normal) Range: 0.358-3.74 :52 Troponin-I Comments: Order Date: 04/03/18Order Info: 666-11 - BMPOrder Info: 37498-1 - TROPOrder Info: 3016-3 - TSHOrder Info: 3024-7 - T4F'TROP' Serial specimen #1, #2, #3, or #4: [address] [place] [address] [place], [place], [address] TROPONIN-I < 0.015 ng/mL (Normal) Comments: TROPONIN-I EXPECTED VALUES <0.045 Negative 0.045 - 0.590 Consistent with Cardiac Damage > OR = 0.600 Critical Value Not every elevated troponin is indicative of [place]. T hesevalues should be used with clinical judgement in examiningthe patient's clinical picture for diagnosis. To establisha diagnosis of [place] versus myocardial injury, there must be ademonstrated rise and/ or fall in the troponin values, inaddition to ischemic symptoms, EKG changes, new regionalwall motion abnormality, and/or angiographical evidence. PLEASE NOTE: REFERENCE RANGES EDITED 18:52 T4, FREE (THYROXINE) (91370) Comments: Order Date: 04/03/18Order Info: 0667- - BMPOrder Info: 98627-7 - TROPOrder Info: 3016-3 - TSHOrder Info: 3024-7 - T4F'TROP' Serial specimen #1, #2, #3, or #4: 1[facility] [address] [place], [address] T4 FREE DIRECT 1.09 ng/dL (Normal) Range: 0.76-1.46 : Gastric Biopsy See Note (Normal) Comments: [facility] [address] [place], [address] 20 Comments: Patient: FARHAD GLEZ : 1940 (77/F) Acct Num: [id number] Phys: Dora RAMON,Chaparro Unit Num: [id number] Loc: EN Specimen: [id number] Received: 01/12/181120 Spec Type: Gastri c Bx TISSUES TISSUES: A. Gastric mucous membrane B. Cardioesophageal junction C. Gastric mucous membrane D. Esophageal mucous membrane COMMENT A AND B. The results of immunohistochemistry for Helicobacter pylori will be reported separately ([id number]). B. Alcian blue/PAS stain with matched control [...] one cassette. / AM:ebenezer 01/12/18 TC:2 CPT: 89993 x4, 03858 x2, 44432 HEADER OPERAT ION: EGD with biopsy PRE-OP [...] Fragments of gastroesophageal mucosa with acute and haircutter mandi inflammation. Focal intestinal metaplasia (goblet cell [...] file> : IMMUNOHISTOCHEMISTRY See Note (Normal) Comments: [facility] [address] [place], [address] 00 Comments: Patient: FARHAD GLEZ : 1940 (77/F) Acct Num: [id number] Phys: Dora RAMON,Chaparro Unit Num: [id number] Loc: EN Specimen: [id number] Received: 01/15/181124 Spec Type: IMMUN O TISSUES TISSUES: A. Stomach, NOS B. Stomach, NOS SPECIMEN INFORMATION: Tissue Source: A Antral biopsy, B Cardia biopsy Clinical Info: GERD, epigast josee pain Specimen Number: [id number] A AND B CPT code: 37997 x2 METHODOLOGY: Deparaffinized sections of prefer/formalin-fixed tissue [...] developed and their performance characteristics determined by [facility]. They may not have been cleared or approved by the U.S. Food and Drug Adm inistration. The FDA has determined that such clearance or approval is not necessary. INTERPRETATION: A. Antral biopsy: Negative for Helicobacter pylori organisms. B. Cardia biopsy: Negati ve for Helicobacter pylori organisms. SJ:ebenezer 01/16/18 PHYSICIAN AND INSTITUTION [place] [address] Signed Jeovanny Stinson 01/16/18 <signature on file> 19-Hhn-354836:19 HgA1C , Office (59133) HgA1C , Office 5.3 % (Normal) Range: 4.6 - 7.1 :56 METABOLIC PANEL, Comments: PATIENT WAS FASTINGPERFORMED BY: BN [facility] [address] [id number] BY: CB [facility] Aydsat59[address] [facility] [id number] COMPREHENSIVE (17428) ALT (SGPT) 17 [iU]/L (Normal) Range: 0-32 [...] Glucose, Serum 107 mg/dL (Abnormal) Range: 65-99 05-Ket-68380:56 LIPOPROTEIN, BLD, BY NMR Comments: PATIENT WAS FASTINGPERFORMED BY: BN [facility] Sjwgitwrbv6060 [facility] [id number] BY: CB [facility] Hmcqtc044[address] [facility] [id number] (87390) LP-IR Score <25 (Normal) Comments: INSULIN RESISTANCE MARKER <--Insulin Sensitive Insulin Resistant--> Percentile in Reference PopulationInsulin Resistance ScoreLP-IR Score Low 25th 50th 75th High <27 27 45 63 >63LP-IR Score is inaccurate if patient is non-fasting. .The LP-IR score is a laboratory developed i [facility] that has beenassociated with insulin resistance and [...] were developed and their performance characteristicsdetermined by [facility]. These assays have not been cleared by [...] 1600 - 2000 Very High > 2000 50-Ylr-69444:56 CALCIUM, IONIZED (30925) Comments: PATIENT WAS FASTINGPERFORMED BY: BN [facility] [address] [id number] BY: CB [facility] Jgagas56[address] [facility] [id number] Calcium, Ionized, Serum 5.2 mg/dL (Normal) Range: 4.5-5.6 Plan of Care Name Dates Details Instructions Current nonsmoker (Renamed from Current non-smoker) : Eprescribed prescriptions (G8553) Indication: Current nonsmoker (Renamed from Current non-smoker) Planned Observations CBC WITH MANUAL DIFF (60923)Indication: Iron deficiency anemia On: 72-Zym-346272:55 Request Comments: recheck in 6 weeks approx. 11-12-2018 Ferritin (60549)Indication: Upper GI bleed On: 30-Jfc-429467:57 Request Comments: in 6 weeks CBC, Platelets & Auto Diff (72111)Indication: Tachycardia On: 19-Zqa-00622:51 Request Metabolic Panel, Basic (84143)Indication: Tachycardia On: :51 Request TSH (36022)Indication: Tachycardia On: :51 Request D-Dimer (31446)Indication: Tachycardia On: :50 Request Troponin I (60534)Indication: Tachycardia On: :50 Request LIPOPROTEIN, BLD, BY NMR (48897)Indication: Hypertension On: 97-Iaf-327079:53 Request CBC W/AUTO DIFF WBC (75570)Indication: Hypertension On: 08-Xsz-413773:53 Request METABOLIC PANEL, COMPREHENSIVE (79759)Indication: Hypertension On: 76-Yva-040706:53 Request HGB A1C (77347)Indication: Abnormal glucose (Renamed from Abnormal glucose level) On: 77-Dbe-214658:42 Request Planned Encounters Medical; [facility] 1 Month FU - On: 23-Nov-2018 8:00 [facility] Hi RAMON, Xiomara Parker MD Planned Procedures Echo CompleteBy: Xiomara Do MD On: 22-Oct-2018 Intent Xiomara Do MD PNEUM VAC ADLT/IMUMNOSPR, SBC/INTRM On: 22-Oct-2018 Intent (90221)By: Xiomara Do MD Comments: Lot #[id number]-L arm, dltd, IMDose-prefilled syringegiven by:MARSHA Lindsey signed Xiomara Do MD Flu Vaccine (Quadrivalent) 07506Aq: On: 05-Sep-2018 Intent Xiomara Do MD, MD, Dana Comments: Lot #[id number]/30/2019Site-L dltd, IMDose prefilled syringegiven by: MARSHA HUMPHREY reviewed and ABN signed M SCREENING DIGITAL TOMOSYNTHESIS OF On: 25-Jun-2018 Intent BREAST (51919)By: Xiomara Do MD, MD, Dana M Nuclear Stress Test/Stress On: 17-May-2018 Intent SPECT/TreadmillBy: Xiomara Do MD Comments: plan mid june Xiomara Do MD 24 HOUR HOLTER MONITORING WITH On: 03-Apr-2018 Intent INTERPRETATION AND REPORT BY PHYSICIAN ([id number])By: Xiomara Do MD, MD, Dana M CTA CHEST W/W/O CONTRAST ([id number])By: On: 03-Apr-2018 Intent Xiomara Do MD, MD, Dana Comments: STAT STAT STAT STAT!! M ELECTROCARDIOGRAM, COMPLETE (ECG) On: 03-Apr-2018 Intent ([id number])By: Xiomara Do MD Comments: see scanned document of test done to see results reviewed today with patient Xiomara Do MD CT - Brain/Head (Without On: 15-Mar-2018 Intent Contrast)By: Xiomara Do MD, MD, Dana M CT - Brain/Head (Without On: 15-Mar-2018 Intent Contrast)By: Xiomara Do MD Comments: daughter will call to set up Xiomara Do MD Ear Irrigation ([id number])By: Hi On: 15-Sep-2017 Xiomara Hernández MD, MD, Dana M Comments: irrigated left ear without difficult, mild amount of yellow/brown was expelled from the ear, wax currette used DEXA SCAN AXIAL SKELETON ([id number])By: On: 15-Sep-2017 Xiomara Landry MD, MD, Dana M Flu Vaccine (Quadrivalent) [id number]: On: 22-Aug-2017 Xiomara Landry MD, MD, Dana Comments: QUAD flu shotlot number: [id number]: 02/2018L Deltoid IMAD TUBULAR STOCK GLASS BULB MACHINE FORMER M Instructions Name Dates Details Hospital discharge [...] Advance Directives Name Dates Details Immunization Registry [place] - Effective on Effective: 20-Oct-201710/20/2017. 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 The patient has noticed [...]
--- OUTSIDE RECORDS SUMMARY | 2019-01-27 04:40 | XMS RPT_ITS | Continuity of Care Document ---
:1940 Author Organization [facility] Address [address] [facility] [address] [place] [address] Phone Care Team Providers Name Role Phone Hi RAMON, Xiomara Mcdonald Unavailable Dora RAMON, Chaparro Lal Unavailable LATONIA Casanova Unavailable Unavailable Carolee Houston Unavailable Unavailable Unavailable Unavailable Problems Name Dates Details Abnormal glucose (Renamed from Abnormal glucose level) (R73.09, 790.29) Status: Active Annual Medicare Physical (Renamed from Medicare annual wellness visit, subsequent) (Z00.00, V70.0) Comments: 09-15-17 [facility]: MOCA=26/30, PHQ-9=1, A1c=5.4%, due for colonoscopy scheduled 3-18 (goes q 5 years) found in [facility] [place] done 8-[address] [facility] yearly due mammo do yearly with [facility]. Status: Active BMI 28.0-28.9,adult (Z68.28, V85.24) Status: [...] neoplasm of breast) (Z12.31, V76.12) Status: Active Fall at home (W19.XXXA, E888.9) Status: Active Family history of colon cancer in mother (Z80.0, V16.0) Comments: later years of her life 84 years old Status: Active Family history of dementia (Z81.8, V17.2) Status: Active Fracture of L1 vertebra due to fall of 12 feet, with routine healing, subsequent encounter (S32.019D, V54.17) Comments: sheis slowly getting better. pain is good tylenol 3 a day. take brace off few hours a day watch what do wear inbed. PT cames and doing leg exercise. eating well adn BM well. Status: Active GERD (gastroesophageal reflux disease) (K21.9, 530.81) Comments: EGD 2012, 3- 18 Hpylori neg. biopsy mild gastritis like spicy. worse when travel. eating later. Status: Active Head trauma, subsequent encounter (S09.90XD, V58.89) Comments: no isseu not think need imaged Status: Active Headache (R51, 784.0) Status: Active Hearing loss of left ear, unspecified hearing loss type (H91.92, 389.9) Comments: will get back to Dr. painting Status: Active History of nonmelanoma skin cancer (Z85.828, V10.83) Comments: SCC and BCC gets yearly exam Status: Active Hyperlipidemia (E78.5, 272.4) Comments: reveiwed with patient and good. breakdown great only on lipitor wice weekly really watn to see need Status: Active Hypertension (I10, 401.9) Comments: in past used another medication and changed because still high. talk about weight loss, salt restriction, decrease etoh and exercise first not want more meds Status: Active Laceration of right forearm, sequela [...] drop log my fitness pal Status: Active Postmenopausal (Renamed from Postmenopausal status) (Z78.0, V49.81) Status: Active Pregnancies () Comments: 4 Status: Active PVC (premature ventricular contraction) (I49.3, 427.69) Comments: sr jerilyn worked up in past stress was negative. had 6-18 when in mist of stress with fracture will have sgtress test before incfreasee exercise no other signs and symptoms Status: Active Tachycardia (R00.0, 785.0) Comments: had at home also when PT was there. next day was lower shwe is not in pain right now. no CP or SOB no PE signs and symptoms willcheck EKG some irregular. looks atrial not cinus. HR 90-100. will get o ld EKG to see if same P waves or was she in sinus and now atrial. right now good. Status: Active Medications Name Dates Details AmLODIPine Besylate 5 MG Oral Tablet 1 (one) Tablet qd for 0 days Quantity: 30 {Tablet} Refills: 7 Ordered:21-Dec-2017 Xiomara Do MD, MD, Dana M Start : 21-Dec-2017 Active Aspirin Adult Low Dose 81 MG Oral Tablet Delayed Release 1 (one) Tablet qd for 0 days Quantity: 30 {Tablet} Refills: 0 Ordered:24-Mar-2018 Xiomara Do MD, MD, Dana M Start : 24-Mar-2018 Active Comments:add back in 2 weeks Calcium Carbonate 600 MG Oral Tablet 1 qd (600 MG) Active Carafate 1 GM Oral Tablet 1 (one) Tablet Tablet 4 times a day, 1 hr before meals and bedtime for 30 days Quantity: 120 {Tablet} Refills: 3 Ordered:24-Mar-2018 Xiomara Do MD, MD, Dana M Start : 21-Mar-2018 Active Comments:called to Raj [phone] - cmanchak 5/16 Lipitor 10 MG Oral Tablet 1 (one) Tablet qd for 0 days Quantity: 30 {Tablet} Refills: 3 Ordered:23-May-2018 Francois Shellie HOWARD Start : 23-May-2018 Active Dispense as Written Comments:LEILA no generic Miacalcin 200 UNIT/ACT Nasal Solution one spray daily alternate nostrils (200 UNIT/ACT) Active Multi Vitamin Daily Oral Tablet 1 (one) Tablet Tablet qd for 0 days Quantity: 30 {Tablet} Refills: 0 Ordered:15-Sep-2017 Xiomara Do MD, MD, Dana M Start : 31-Aug-2017 Active Spironolactone 50 MG Oral Tablet 1 (one) Tablet qd for 0 days Quantity: 30 {Tablet} Refills: 7 Ordered:21-Dec-2017 Xiomara Do MD, MD, Dana M Start : 21-Dec-2017 Active Tylenol Extra Strength 500 MG Oral [...] MD, Dana M Start : 05-Jun-2018 Active CoQ-10 100 MG Oral Capsule Extended Release 1 (one) Capsule Capsule qd for 0 days Quantity: 30 {Capsule} Refills: 0 Ordered:21-Dec-2017 LATONIA Casanova Start : 31-Aug-2017 End : 21-Dec-2017 Inactive Omeprazole 40 MG Oral Capsule Delayed Release 1 (one) Capsule Capsule qd for 0 days Quantity: 30 {Capsule} Refills: 0 Ordered:24-Mar-2018 Xiomara Do MD, MD, Dana M Start : 12-Jan-2018 End : 24-Mar-2018 Inactive Comments:Dr. john Zithromagreg Z-Nas 250 MG Oral Tablet uad Tablet until gone for 0 days Quantity: 1 {Package} Refills: 0 Ordered:21-Dec-2017 Edilberto LATONIA Start : 16-Nov-2017 End : 21-Dec-2017 Inactive Atorvastatin Calcium 10 MG Oral Tablet 1 (one) Tablet qd for 0 days Quantity: 30 {Tablet} Refills: 0 Ordered:15-Sep-2017 Xiomara Do MD, MD, Dana M Start : 15-Sep-2017 End : 15-Sep-2017 Discontinued Omeprazole 20 MG Oral Capsule Delayed Release 1 (one) Capsule qd for 0 days Quantity: 30 {Capsule} Refills: 0 Ordered:15-Sep-2017 Xiomara Do MD, MD, [...] (J40, 490) Status: Resolved as of 21-May-2018 Hypercalcemia (E83.52, 275.42) Comments: better with one [...] with PT Status: Resolved as of 21-Dec-2017 Upper GI bleed (K92.2, 578.9) Comments: in apst not now. dPPI for month. Status: Resolved as of 17-May-2018 Viral infection (B34.9, 079.99) Comments: slowly getting [...] valve issue [facility] 2001 Date Value Details 21-Jun-2018 Stress Report Result: Comments: See Note; NOTES: [facility] Cardiovascular Services [address] [place] [address] MR#: [id number] Acct: [id number] Name: FARHAD GLEZ Rep #: [id number] : [birth year] 78 From: Johnson Bird MD [...] %. This note was gen erated with Expedit.usation software. It may contain incorrect words, spelling, and punctuation that were not noted in checking the note before signing. 06/21/181903 <Electronically signed by Johnson Bird MD> Date Johnson Bird MD CC: Xiomara Do MD Date Dictated: 06/21/181899 Date Transcribed: 06/21/181899 Glory Hole Tender: PM Signed 20-Jun-2018 Orthopedic Visit Report Result: Comments: See Note; NOTES: [facility] Orthopaedics AND Sports Medicine [address] [place] [address] OFFICE VISIT Date of Service: 06/19/18 MR#: [id number] Acct: [id number] Name: FARHAD GLEZ Rep #: [id number] : 1940 Provider: Nae Kumar MD Age/Sex: 78/F [place] [facility] [place] Status: Signed Intake Intake Visit Reasons: low [...] mg PO DAILY #60 capsule. 01/12/18 [Rx] [facility] Medical History Acid reflux (Acute) Hemorrhoids (Acute) [...] She was treated by a physician at [facility] with a brace. She wore the brace [...] program. This helps. She recently flown to [place] as well. She has HTN, h/o skin [...] 6 Vw Result: Comments: See Note; NOTES: [facility] Imaging Services [address] [place] [address] L/S Spine w Bend Min 6 Vw MR#: [id number] Acct: [id number] Name: FARHAD GLEZ Rep #: [id number] : 1940 F 78 From: Luis Jefferson MD PCP: Xiomara Do MD Status: REG CLI Study: L/S Spine w Bend Min 6 Vw Date of Exam: 06/19/18 Exam# [id number] Ordering Dr: Nae Kumar MD STUDY: X-RAY [...] CC: Xiomara Do MD; Nae Kumar MD Glory Hole Tender: Signed 30-May-2018 PT D/C Summary (1) Result: Comments: See Note; NOTES: [facility] Physical Therapy [facility] [address] [place] [address]. [address] [place], [place] [id number] Fax REHABILITATION SERVICES DISCHIL GE SUMMARY MR#: [id number] Acct: [id number] Name: FARHAD GLEZ Rep #: [id number] : 1940 78 From: Roberto Oliveros DPT, OCS, CSCS Referring Dr.: Xiomara Do MD Status: REG RCR Insurance: MEDICA RE PART A B CIGNA HP - PT D/C Summary It has been my pleasure to treat FARHAD GLEZ under orders from Xiomara Do, for the diagnosis of L1 compression fracture for a total of 10 visit(s). Dischar ge Date: 05/29/18 Please see the following information [...] please feel free to call me at [phone]. Thank you for the re ferral of this patient. Sincerely, Roberto Oliveros DPT, OC <Electronically signed by Roberto Oliveros DPT, NEPTALI, CSCS> 05/30/18 0716 CC: Xiomara Do MD EBG Signed 26-Apr-2018 Inital Evaluation (1) - PT Result: Comments: See Note; NOTES: [facility] Physical Therapy [facility] [address] [place] [address] Fax REHABILITATION SERVICES INITIAL EVALUATION MR#: [id number] Acct: [id number] Name: FARHAD GLEZ Rep #: [id number] : 1940 77 From: Roberto Oliveros DPT, NEPTALI, CSCS Referring Dr.: Xiomara Do MD Status: REG RCR Insurance: MEDIC ARE PART A B CIGNA Patient's Visit Information FARHAD GLEZ is a [...] twisting allowed. saw doc last y in [place] [facility] as she has [...] with her the last 5 weeks bu alivia is now on her own. Not employed, [...] to be FAXED BACK to us at [phone] ease let me know if there are questions or concerns regarding this plan of care. Physician Signature: Date: <Electronically signed by Roberto Oliveros DPT, OCS, CSCS> 04/26/18 0907 CC: Xiomara Do MD EBG Signed For Medicare only, by signing this I certify the plan of care. Physicians Signature Date 03-Apr-2018 Chest W/WO Contrast Result: Comments: See Note; NOTES: [facility] Imaging Services [address] [place] [address] Chest W/WO Contrast MR#: [id number] Acct: [id number] Name: FARHAD GLEZ Rep #: [id number] : 1940 F 77 From: Chad Wilkins MD PCP: Xiomara Do MD Status: REG CLI Study: Chest W/WO Contrast Date of Exam: 04/03/18 Exam# [id number] Ordering Dr: Xiomara Do MD STUDY: CTA [...] Chad Wilkins MD at 15:45 EDT Tel [phone], Service support [phone], CC: Xiomara Do MD Glory Hole Tender: Signed 12-Jan-2018 Operative Report Result: Comments: See Note; NOTES: [facility] Medical Records Department [facility] [place] [address] Operative Report 01/12/18 0848 MR#: [id number] Acct: [id number] Name: FARHAD GLEZ Rep #: [id number] : 1940 77 From: Chaparro John MD PCP: Xiomara Do MD [place] [facility] [place]: [place] [address] Problem List (1) GERD (gastroesophageal reflux disease) [...] Study (HP) Result: Comments: See Note; NOTES: [facility] Imaging Services [address] [place] [address] Dexa Bone Density Study (HP) MR#: [id number] Acct: [id number] Name: FARHAD GLEZ Rep #: [id number] : 1940 F 77 From: Chad Wilkins MD PCP: Xiomara Do MD Status: [facility] Study: Dexa Bone Density Study (HP) Date of Exam: 12/19/17 Exam# [id number] Ordering Dr: Xiomara Do MD STUDY: DUAL [...] Chad Wilkins MD at 15:25 EST Tel [phone], Service support , CC: Xiomara Do MD Glory Hole Tender: Signed 14-Dec-2017 Surgery Visit Report Result: Comments: See Note; NOTES: [facility] [address] [place] [address] [place] [address] OFFICE VISIT Date of Service: 12/14/17 MR#: [id number] Acct: [id number] Name: NELLIE CHERRYFARHAD Rep #: [id number] : 1940 Provider: Chaparro John MD Age/Sex: 77/F Location: [facility] Status: Signed Intake Vital Signs12/14/17 Height 5 ft 5 in 12/14/17 Weight: 178 lb Intake Visit Reasons: FAMILY HX OF COLON CA Caterer Helper Required: No Is patient in pain?: No [...] No other Exam Const General: healthy appearing [facility] Head: normal to inspection Eyes [...] Result: Comments: See Note; NOTES: [facility] Physical Therapy [facility] [address] [place] [address]. [address] [place], [place] [id number] Fax REHABILITATION SERVICES DISCHAR SUMMARY MR#: [id number] Acct: [id number] Name: FARHAD GLEZ Rep #: [id number] : 1940 77 From: Riya Kraft PT, Cert. MDT Referring Dr.: Xiomara Do MD Status: REG RCR Insurance: MEDICA RE PART A B CIGNA - PT D/C Summary It has been [...] fe el free to call me at [phone]. Thank you for the referral of this patient. Sincerely, Riya Kraft <Electronically signed by Riya Kraft PT, Cert. MDT> 10/24/17 1135 CC: Xiomara Do MD EMMANUEL Signed 22-Sep-2017 Inital Evaluation (1) - PT Result: Comments: See Note; NOTES: [facility] Physical Therapy [facility] [address] [place] [address]. [address] [place] [address] Fax REHABILITATION SERVICES INITIAL EVALUATION MR#: [id number] Acct: [id number] Name: FARHAD GLEZ Rep #: [id number] : 1940 77 From: Riya Kraft PT, Cert. MDT Referring Dr.: Xiomara Do MD Status: REG RCR Insurance: MEDIC ARE PART A B CIGNA Patient's Visit Information FARHAD GLEZ is a 77 year old F referred to Physical Therapy by Ximoara Do with a diagnosis of RIGHT HIP [...] to be FAXED BACK to us at [phone] for Medicare purposes. 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 grew up in [place] Status: Active Exercise History: Exercises regularly. Comments: [facility] membership. Status: Active Living Situation: Lives alone. Comments: divorce in 60's Anant and he 8-17. 16 years. Status: Active No Drug Use Status: Active Non Smoker/No Tobacco Use Status: Active nutrition Comments: egg for breakfast not snacker, eat alot veggies, eat chicken fish salmon Status: Active Vital Signs Date Test Result Details 66-Hag-776304:27 Temperature 97.9 f Comments: Method: Temporal Pulse [...] Height 64.8 in Body Mass Index Calculated .97 kg/m2 Body Surface Area Calculated 1.88 m2 [...] Size: Standard Results Date Description Value Details :52 Basic Metabolic Profile (BMP) Comments: Order Date: 04/03/18Order Info: 0667-1 - BMPOrder Info: 35903-8 - TROPOrder Info: 3016-3 - TSHOrder Info: 3024-7 - T4F'TROP' Serial specimen #1, #2, #3, or #4: 1[facility] [address] [place], [address] GAP 12 (Normal) Range: 5-15 [...] Comments: Please note revised GLUCOSE reference range ehsayntes92/02/2018. 58-Pfk-65877:52 D-Dimer Quantitative (DVT/PE) Comments: Order Date: 04/03/18Order Info: 14802-9 - [facility] [address] [place], [address] D-DIMER QUANT 1.52 {FEU/ug/m} (Abnormal) Range: 0.27-0.49 Comments: D-Dimer ELEVATED (>0.49): Additional studies and clinicalassessments are indicated to conclude diagnosis of:Deep Vein Thrombosis (DVT) or Pulmonary Embolism (PE)CRITICAL VALUE VERIFIED. CALLED TO [facility]04/03/18 1119 Jaelyn Edmundo.RESULTS READ BACK BY SAME . :52 Thyroid Stim Hormone (TSH) Comments: Order Date: 04/03/18Order Info: 0667-1 - BMPOrder Info: 68086-9 - TROPOrder Info: 3 - TSHOrder Info: 302-7 - T4F'TROP' Serial specimen #1, #2, #3, or #4: [address] [place] [address] [place], [address] TSH 2.45 {uIU/mL} (Normal) Range: 0.358-3.74 :52 Troponin-I Comments: Order Date: 04/03/18Order Info: 666-11 - BMPOrder Info: 44764-4 - TROPOrder Info: 3 - TSHOrder Info: 302-7 - T4F'TROP' Serial specimen #1, #2, #3, or #4: [address] [place] [address] [place], [address] TROPONIN-I < 0.015 ng/mL (Normal) Comments: TROPONIN-I EXPECTED VALUES <0.045 Negative 0.045 - 0.590 Consistent with Cardiac Damage > OR = 0.600 Critical Value Not every elevated troponin is indicative of [place]. T hesevalues should be used with clinical judgement in examiningthe patient's clinical picture for diagnosis. To establisha diagnosis of [place] versus myocardial injury, there must be ademonstrated rise and/ or fall in the troponin values, inaddition to ischemic symptoms, EKG changes, new regionalwall motion abnormality, and/or angiographical evidence. PLEASE NOTE: REFERENCE RANGES EDITED 18:52 T4, FREE (THYROXINE) (06364) Comments: Order Date: 04/03/18Order Info: 0667-1 - BMPOrder Info: 88145-6 - TROPOrder Info: 3 - TSHOrder Info: 302-7 - T4F'TROP' Serial specimen #1, #2, #3, or #4: 1[facility] [address] [place], [address] T4 FREE DIRECT 1.09 ng/dL (Normal) Range: 0.76-1.46 : Gastric Biopsy See Note (Normal) Comments: [facility] [address] [place], [address] 20 Comments: Patient: FARHAD GLEZ : 1940 (77/F) Acct Num: [id number] Phys: Dora RAMON,Chaparro Unit Num: [id number] Loc: EN Specimen: [id number] Received: 01/12/181120 Spec Type: Gastri c Bx TISSUES TISSUES: A. Gastric mucous membrane B. Cardioesophageal junction C. Gastric mucous membrane D. Esophageal mucous membrane COMMENT A AND B. The results of immunohistochemistry for Helicobacter pylori will be reported separately ([id number]). B. Alcian blue/PAS stain with matched control is used in the evaluation of alivia kerndane. GROSS DESCRIPTION A - Received in fixative [...] is totally submitted in one cassette. / AM:rg 01/12/18 TC:2 CPT: 83965 x4, 05207 x2, 98836 HEADER OPERAT ION: EGD with biopsy PRE-OP [...] Fragments of gastroesophageal mucosa with acute and conference services director mandi inflammation. Focal intestinal metaplasia (goblet cell [...] IMMUNOHISTOCHEMISTRY See Note (Normal) Comments: [facility] [address] [place], [address] 00 Comments: Patient: FARHAD GLEZ : 1940 (77/F) Acct Num: [id number] Phys: Dora RAMON,Chaparro Unit Num: [id number] Loc: EN Specimen: [id number] Received: 01/15/181124 Spec Type: IMMUN O TISSUES TISSUES: A. Stomach, NOS B. Stomach, NOS SPECIMEN INFORMATION: Tissue Source: A Antral biopsy, B Cardia biopsy Clinical Info: GERD, epigast josee pain Specimen Number: [id number] A AND B CPT code: 15271 x2 METHODOLOGY: Deparaffinized sections of prefer/formalin-fixed tissue [...] their performance characteristics determined by [facility]. They may not have been cleared or approved by the U.S. Food and Drug Adm inistration. The FDA has determined that such clearance or approval is not necessary. INTERPRETATION: A. Antral biopsy: Negative for Helicobacter pylori organisms. B. Cardia biopsy: Negati ve for Helicobacter pylori organisms. SJ:ebenezer 01/16/18 PHYSICIAN AND INSTITUTION [place] [address] Signed Jeovanny Stinson 01/16/18 <signature on file> 44-Xma-004143:19 HgA1C , Office (67539) HgA1C , Office 5.3 % (Normal) Range: 4.6 - 7.1 :56 METABOLIC PANEL, Comments: PATIENT WAS FASTINGPERFORMED BY: BN [facility] [id number] [facility] [id number] BY: CB [facility] [id number] [facility] [id number] COMPREHENSIVE (23931) ALT (SGPT) 17 [iU]/L (Normal) Range: 0-32 [...] Glucose, Serum 107 mg/dL (Abnormal) Range: 65-99 69-Ext-49874:56 LIPOPROTEIN, BLD, BY NMR Comments: PATIENT WAS FASTINGPERFORMED BY: BN [facility] [address] [id number] BY: CB [facility] [id number] [facility] [id number] (78336) LP-IR Score <25 (Normal) Comments: INSULIN RESISTANCE MARKER <--Insulin Sensitive Insulin Resistant--> Percentile in Reference PopulationInsulin Resistance ScoreLP-IR Score Low 25th 50th 75th High <27 27 45 63 >63LP-IR Score is inaccurate if patient is non-fasting. .The LP-IR score is a laboratory developed i [facility] that has beenassociated with insulin resistance and [...] were developed and their performance characteristicsdetermined by [facility]. These assays have not been cleared by [...] 1600 - 2000 Very High > 2000 39-Xss-59887:56 CALCIUM, IONIZED (36341) Comments: PATIENT WAS FASTINGPERFORMED BY: BN [facility] [address] [id number] BY: CB [facility] Himbri8463 [facility] [id number] Calcium, Ionized, Serum 5.2 mg/dL (Normal) Range: 4.5-5.6 Plan of Care Name Dates Details Instructions Current nonsmoker (Renamed from Current non-smoker) : Eprescribed prescriptions (G8553) Indication: Current nonsmoker (Renamed from Current non-smoker) Planned Observations CBC, Platelets & Auto Diff (09242)Indication: Tachycardia On: 88-Tnz-12579:51 Request Metabolic Panel, Basic (87687)Indication: Tachycardia On: 95-Fwh-41157:51 Request TSH (50859)Indication: Tachycardia On: 38-Vfg-69885:51 Request D-Dimer (26785)Indication: Tachycardia On: 15-Ker-72175:50 Request Troponin I (83063)Indication: Tachycardia On: 79-Fyn-25102:50 Request LIPOPROTEIN, BLD, BY NMR (83673)Indication: Hypertension On: 86-Btm-962075:53 Request CBC W/AUTO DIFF WBC (47668)Indication: Hypertension On: 33-Xev-207860:53 Request METABOLIC PANEL, COMPREHENSIVE (05868)Indication: Hypertension On: 08-Twe-503735:53 Request HGB A1C (61125)Indication: Abnormal glucose (Renamed from Abnormal glucose level) On: 63-Gsx-784441:42 Request Planned Encounters Medical; [facility] Pre Wellness Exam (DB Nurse) - On: 09-Oct-2018 11:00 [facility] LATONIA Casanova; [facility] Wellness Exam (Doctor) - On: 22-Oct-2018 8:00 [facility] Xiomara Do MD, MD, Dana M Planned Procedures Flu Vaccine (Quadrivalent) On: 05-Sep-2018 Intent 86024Qw: Xiomara Do MD Comments: Lot #[id number]/30/2019Site-L dltd, IMDose prefilled syringegiven by: TLOCKLEAR,LPNVIS reviewed and ABN signed Xiomara Do MD SCREENING DIGITAL On: 25-Jun-2018 Intent TOMOSYNTHESIS OF BREAST (01412)By: Xiomara Do MD, MD, Dana M Nuclear Stress Test/Stress On: 17-May-2018 Intent SPECT/TreadmillBy: Hi Comments: plan mid june Xiomara RAMON MD, Dana M 24 HOUR HOLTER MONITORING On: 03-Apr-2018 Intent WITH INTERPRETATION AND REPORT BY PHYSICIAN (54418)By: Xiomara Do MD, MD, Dana M CTA CHEST W/W/O CONTRAST On: 03-Apr-2018 Intent (07793)By: Xiomara Do MD Comments: STAT STAT STAT STAT!! Xiomara Do MD ELECTROCARDIOGRAM, COMPLETE On: 03-Apr-2018 Intent (ECG) (47053)By: Hi RAMON, Comments: see scanned document of test done to see results reviewed today with patient Xiomara Parker MD CT - Brain/Head (Without On: 15-Mar-2018 Intent Contrast)By: Xiomara Do MD, MD, Dana M CT - Brain/Head (Without On: 15-Mar-2018 Intent Contrast)By: Xiomara Do MD Comments: daughter will call to set up Xiomara Jara MD Ear Irrigation (22596)By: On: 15-Sep-2017 Intent Xiomara Do MD Comments: irrigated left ear without difficult, mild amount of yellow/brown was expelled from the ear, wax currette used Xiomara RAMON DEXA SCAN AXIAL SKELETON On: 15-Sep-2017 Intent (87566)By: Xiomara Do MD, MD, Dana M Flu Vaccine (Quadrivalent) On: 22-Aug-2017 Intent 31245Nq: Xiomara Do MD Comments: QUAD flu shotlot number: [id number]: 02/2018L Deltoid IMAD [employer]NER Xiomara Do MD Instructions Name Dates Details BMI 28.0-28.9,adult : How to access health [...] 30.0-30.9,adult : Patient Instructions Indication: BMI 30.0-30.9,adult Annual Medicare Physical (Renamed from Medicare annual wellness visit, subsequent) : How to access health information online Indication: Annual Medicare Physical (Renamed from Medicare annual wellness visit, subsequent) Annual Medicare Physical (Renamed from Medicare annual wellness visit, subsequent) : How to access health information online - Detail Indication: Annual Medicare Physical (Renamed from Medicare annual wellness visit, subsequent) Annual Medicare Physical (Renamed from Medicare annual wellness visit, subsequent) : Patient Instructions Indication: Annual Medicare Physical (Renamed from Medicare annual wellness visit, subsequent) Advance Directives Name Dates Details Immunization Registry [place] - Effective on Effective: 20-Oct-201710/20/2017. Expiration date unspecified Encounters Office Visit On: 05-Sep-2018 10:45 Encounter Reason: [...] The patient does have durable power of attorney lawyer and living will. The patient has noticed noth ing from the geriatic depression scale. Other providers contributing to the patient's care are other: (eye ??will get baseline hearing test). Encounter Diagnosis: [...]
--- OUTSIDE RECORDS SUMMARY | 2019-01-27 04:40 | XMS RPT_ITS | Continuity of Care Document ---
:1940 Author Organization [facility] Address [address] [place] [address] Phone Care Team Providers Name Role Phone Hi RAMON, Xiomara Mcdonald Unavailable Chaparro John MD Unavailable Unavailable Unavailable Problems Name Dates Details Abnormal glucose (Renamed from Abnormal glucose level) (R73.09, 790.29) Status: Active Annual Medicare Physical (Renamed from Medicare annual wellness visit, subsequent) (Z00.00, V70.0) Comments: 09-15-17 [facility] Wellness: MOCA=, PHQ-9=1, A1c=5.4%, due for colonoscopy scheduled 3-18 (goes q 5 years) found in [facility] [place] done 8-[address] [facility] yearly due mammo do yearly with [facility]. Status: Active BMI 28.0-28.9,adult (Z68.28, V85.24) Status: [...] follow-up (Z09, V67.59) Comments: low hgb in [facility] [place] Status: Active Hyperlipidemia (E78.5, 272.4) Comments: reveiwed with patient and good. breakdown great only on lipitor wice weekly really watn to see need Status: Active Hypertension (I10, 401.9) Comments: in past used another medication and changed because still high. talk about weight loss, salt restriction, decrease etoh and exercise first not want more meds Status: Active Iron deficiency anemia (D50.9, 280.9) Comments: slow bleed from stomach off asa and etoh for now no snsaids. recheck scope in 6-8 weeks. follow iron. if not improve as think then to Heme Status: Active Laceration of right forearm, sequela [...] (premature ventricular contraction) (I49.3, 427.69) Comments: sr jean-baptiste worked up in past stress was negative. [...] now atrial. right now good. Status: Active Upper GI bleed (K92.2, 578.9) [...] M Start : 21-Mar-2018 Active Comments[phone] [place] cmanchak 03/21 Ferrous Sulfate 325 (65 Fe) MG Oral [...] Quantity: 30 {Tablet} Refills: 3 Ordered:17-May-2018 Xiomara oD MD, MD, Dana M Start : 17-May-2018 [...] valve issue [facility] 2001 Date Value Details 21-Sep-2018 Orthopedic Visit Report Result: Comments: See Note; NOTES: [facility] Orthopaedics AND Sports Medicine [address] [place] [address] OFFICE VISIT Date of Service: 09/18/18 MR#: [id number] Acct: [id number] Name: FARHAD GLEZ Rep #: [id number] : 1940 Provider: Nae Kumar MD Age/Sex: 78/F Location: [facility] Status: Signed Intake Intake Visit Reasons: Back [...] signed by Nae Kumar MD> Date Nae Alegria ure: Date (if applicable) CC: Xiomara Do MD 12-Sep-2018 SCREENING MAMM (CAD), BILAT Result: Comments: See Note; NOTES: [facility] Imaging Services [address] [place] [address] SCREENING MAMM (CAD), BILAT MR#: [id number] Acct: [id number] Name: FARHAD GLEZ Rep #: [id number] : 1940 F 78 From: Cahd Wilkins MD PCP: Xiomara Do MD Status: REG CLI Study: SCREENING MAMM (CAD), BILAT Date of Exam: 09/12/18 Exam# [id number] Ordering Dr: Xiomara Do MD M AMMOGRAPHY [...] these results will be sent to the [facility] by the facility within 30 days. Approximately 10% of breast cancers are not detected by mammography. A normal mammogram should not delay biopsy of a clinically suspicious abnormality. SG7241 Elect ronically Signed: Chad Wilkins MD at 11:12 EST Tel [phone], Service support , CC: Xiomara Do MD Fitter'S Assistant: Signed 21-Jun-2018 Stress Report Result: Comments: See Note; NOTES: [facility] Cardiovascular Services [address] [place] [address] MR#: [id number] Acct: [id number] Name: FARHAD GLEZ Rep #: [id number] : [birth year] 78 From: Johnson Bird MD [...] %. This note was gen erated with SHERPA assistantation software. It may contain incorrect words, spelling, and punctuation that were not noted in checking the note before signing. 06/21/181903 <Electronically signed by Johnson Bird MD> Date Johnson Bird MD CC: Xiomara Do MD Date Dictated: 06/21/181899 Date Transcribed: 06/21/181899 Fitter'S Assistant: PM Signed 20-Jun-2018 Orthopedic Visit Report Result: Comments: See Note; NOTES: [facility] Orthopaedics AND Sports Medicine [address] [place] [address] OFFICE VISIT Date of Service: 06/19/18 MR#: [id number] Acct: [id number] Name: FARHAD GLEZ Rep #: [id number] : 1940 Provider: Nae Kumar MD Age/Sex: 78/F Location: [facility] [place] Status: Signed Intake Intake Visit Reasons: low [...] She was treated by a physician at [facility] with a brace. She wore the brace [...] program. This helps. She recently flown to [place] as well. She has HTN, h/o skin [...] 6 Vw Result: Comments: See Note; NOTES: [facility] Imaging Services [address] [place] [address] L/S Spine w Bend Min 6 Vw MR#: [id number] Acct: [id number] Name: FARHAD GLEZ Rep #: [id number] : 1940 F 78 From: Luis Jefferson MD PCP: Xiomara Do MD Status: REG CLI Study: L/S Spine w Bend Min 6 Vw Date of Exam: 06/19/18 Exam# [id number] Ordering Dr: Nae Kumar MD STUDY: X-RAY [...] CC: Xiomara Do MD; Nae Kumar MD Fitter'S Assistant: Signed 30-May-2018 PT D/C Summary (1) Result: Comments: See Note; NOTES: [facility] Physical Therapy [facility] [address] [place] [address] Fax REHABILITATION SERVICES DISCHAR GE SUMMARY MR#: [id number] Acct: [id number] Name: FARHAD GLEZ Rep #: [id number] [...] for a total of 10 visit(s). Dischar Date: 05/29/18 Please see the following information [...] please feel free to call me at [phone]. Thank you for the re ferral of this patient. Sincerely, Roberto Oliveros DPT, OC <Electronically signed by Roberto Oliveros DPT, NEPTALI, CSCS> 05/30/18 0716 CC: Xiomara Do MD EBG Signed 26-Apr-2018 Inital Evaluation (1) - PT Result: Comments: See Note; NOTES: [facility] [address] [place], [place] [address] Fax REHABILITATION SERVICES INITIAL EVALUATION MR#: [id number] Acct: [id number] Name: FARHAD GLEZ Rep #: [id number] : 1940 77 From: Roberto Oliveros DPT, NEPTALI, CSCS Referring Dr.: Xiomara Do MD Status: REG RCR Insurance: MEDIC ARE PART A B [facility] Patient's Visit Information FARHAD GLEZ is a [...] twisting allowed. saw doc last y in [place] and released to driving and sent for [...] to be FAXED BACK to us at [phone] ease let me know if there are questions or concerns regarding this plan of care. Physician Signature: Date: <Electronically signed by Roberto Oliveros DPT, OCS, CSCS> 04/26/18 0907 CC: Xiomara Do MD EBG Signed For Medicare only, by signing this I certify the plan of care. Physicians Signature Date 03-Apr-2018 Chest W/WO Contrast Result: Comments: See Note; NOTES: [facility] Imaging Services [address] [place] [address] Chest W/WO Contrast MR#: [id number] Acct: [id number] Name: FARHAD GLEZ Rep #: [id number] : 1940 F 77 From: Chad Wilkins MD PCP: Xiomara Do MD Status: REG CLI Study: Chest W/WO Contrast Date of Exam: 04/03/18 Exam# [id number] Ordering Dr: Xiomara Do MD STUDY: CTA [...] Chad Wilkins MD at 15:45 EDT Tel [phone], Service support [phone], CC: Xiomara Do MD Fitter'S Assistant: Signed 12-Jan-2018 Operative Report Result: Comments: See Note; NOTES: [facility] Medical Records Department [address] [place] [address] Operative Report 01/12/18 0848 MR#: [id number] Acct: [id number] Name: FARHAD GLEZ #: [id number] : 1940 77 From: Chaparro John MD PCP: Xiomara Do MD Status: REG SD Y Location: [place] [address] Problem List (1) GERD (gastroesophageal reflux disease) [...] Study (HP) Result: Comments: See Note; NOTES: [facility] Imaging Services [address] [place] [address] Dexa Bone Density Study (HP) MR#: [id number] Acct: [id number] Name: FARHAD GLEZ Rep #: [id number] : 1940 F 77 From: Chad Wilkins MD PCP: Xiomara Do MD Status: REG CLI Study: Dexa Bone Density Study () Date of Exam: 12/19/17 Exam# [id number] Ordering Dr: Xiomara Do MD STUDY: DUAL [...] Z-score (1.1) 0004 HPBD/Dexa Bone Density Study () IMPRE SSION: The patient is considered osteopenic [...] National [employer] [email or web address] [email or web address].nof.org Electronically Signed: Cahd Wilkins MD at 15:25 EST Tel [phone], Service support , CC: Xiomara Do MD Fitter'S Assistant: Signed 14-Dec-2017 Surgery Visit Report Result: Comments: See Note; NOTES: [place] [address] OFFICE VISIT Date of Service: 12/14/17 MR#: [id number] Acct: [id number] Name: FARHAD GUTIERREZ Rep #: [id number] : 1940 Provider: Chaparro John MD Age/Sex: 77/F Location: [facility] Status: Signed Intake Vital Signs12/14/17 Height 5 ft 5 in 12/14/17 Weight: 178 lb Intake Visit Reasons: FAMILY HX OF COLON [place] Windows And Doors Installer Required: No Is patient in pain?: No [...] Exam Const General: healthy appearing [facility] Head: normal to inspection Eyes [...] Summary (1) Result: Comments: See Note; NOTES: [facility] [address] [place] [address]. [address] [place] [address] Fax REHABILITATION SERVICES [facility] SUMMARY MR#: [id number] Acct: [id number] Name: FARHAD GLEZ Rep #: [id number] [...] fe el free to call me at [phone]. Thank you for the referral of this patient. Sincerely, Riya Kraft <Electronically signed by Riya Kraft PT, Cert. MDT> 10/24/17 1135 CC: Xiomara Do MD EMMANUEL Signed 22-Sep-2017 Inital Evaluation (1) - PT Result: Comments: See Note; NOTES: [facility] Physical [facility] [address] [place] [address] Fax REHABILITATION SERVICES INITIAL EVALUATION MR#: [id number] Acct: [id number] Name: FARHAD GLEZ Rep #: [id number] : 1940 77 From: Riya Kraft PT, CertHu RAMONT Referring Dr.: Xiomara Do MD Status: REG RCR Insurance: MEDIC ARE PART A B [employer] Patient's Visit Information FARHAD GLEZ is a [...] to be FAXED BACK to us at [phone] for Medicare purposes. Please let me know [...] 30's Status: Active Father Comments: heart disease, [place] age 58 Status: Active Mother Comments: Alzheimer's/dementia [...] with NAUN in education programming. 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 grew up in [place] Status: Active Exercise History: Exercises regularly. Comments: [employer] membership. Status: Active Living Situation: Lives alone. Comments: divorce in 's [place] and he 8-17. 16 years. Status: Active No Drug Use Status: Active Non Smoker/No Tobacco Use Status: Active nutrition Comments: egg for breakfast not snacker, eat alot veggies, eat chicken fish salmon Status: Active Vital Signs Date Test Result Details :13 BP Systolic 130 mm[Hg] Comments: Patient Position: [...] kg/m2 Body Surface Area Calculated 1.84 m2 75-Rnn-627626:27 Temperature 97.9 f Comments: Method: Temporal Pulse [...] Size: Standard Results Date Description Value Details 24-Rrh-988110:16 CBC (Auto) (69163) Comments: now and in 6 weeks; PATIENT NOT FASTINGPERFORMED BY: [facility] [id number] Platelets 399 {x10E3/uL} (Abnormal) Range: 150-379 RDW [...] Date: 04/03/18Order Info: 0667-1 - BMPOrder Info: 60427-8 - TROPOrder Info: 3016-3 - TSHOrder Info: 3024-7 - T4F'TROP' Serial specimen #1, #2, #3, or #4: 1[facility] [address] [place], [place], [address] GAP 12 (Normal) Range: 5-15 CO2 26.0 [...] Comments: Please note revised GLUCOSE reference range rjouwgqbt18/02/2018. :52 D-Dimer Quantitative (DVT/PE) Comments: Order Date: 04/03/18Order Info: 41420-7 - [facility] [address] [place], [place], [address] D-DIMER QUANT 1.52 {FEU/ug/m} (Abnormal) Range: 0.27-0.49 Comments: D-Dimer ELEVATED (>0.49): Additional studies and clinicalassessments are indicated to conclude diagnosis of:Deep Vein Thrombosis (DVT) or Pulmonary Embolism (PE)CRITICAL VALUE VERIFIED. [facility]18 1119 Jaelyn Wyatt.RESULTS READ BACK BY SAME . :52 Thyroid Stim Hormone (TSH) Comments: Order Date: 04/03/18Order Info: 0667-1 - BMPOrder Info: 64064-5 - TROPOrder Info: 3016-3 - TSHOrder Info: 3024-7 - T4F'TROP' Serial specimen #1, #2, #3, or #4: [address] [place] [address] [place], [place], [id number] TSH 2.45 {uIU/mL} (Normal) Range: 0.358-3.74 :52 Troponin-I Comments: Order Date: 04/03/18Order Info: 0667-1 - BMPOrder Info: 37504-6 - TROPOrder Info: 3016-3 - TSHOrder Info: 3024-7 - T4F'TROP' Serial specimen #1, #2, #3, or #4: [address] [place] [address] [place], [place], [address] TROPONIN-I < 0.015 ng/mL (Normal) Comments: TROPONIN-I EXPECTED VALUES <0.045 Negative 0.045 - 0.590 Consistent with Cardiac Damage > OR = 0.600 Critical Value Not every elevated troponin is indicative of [place]. T hesevalues should be used with clinical judgement in examiningthe patient's clinical picture for diagnosis. To establisha diagnosis of FL versus myocardial injury, there must be ademonstrated rise and/ or fall in the troponin values, inaddition to ischemic symptoms, EKG changes, new regionalwall motion abnormality, and/or angiographical evidence. PLEASE NOTE: REFERENCE RANGES EDITED 18:52 T4, FREE (THYROXINE) (88439) Comments: Order Date: 04/03/18Order Info: 0667-1 - BMPOrder Info: 65406-2 - TROPOrder Info: 3016-3 - TSHOrder Info: 3024-7 - T4F'TROP' Serial specimen #1, #2, #3, or #4: [address] [place] [address] [place], [address] T4 FREE DIRECT 1.09 ng/dL (Normal) Range: 0.76-1.46 : Gastric Biopsy See Note (Normal) Comments: [facility] [address] [place], [address] 20 Comments: Patient: FARHAD GLEZ : 1940 (77/F) Acct Num: [id number] Phys: Dora RAMON,Chaparro Unit Num: [id number] Loc: EN Specimen: [id number] Received: 01/12/181120 Spec Type: Gastri c Bx TISSUES TISSUES: A. Gastric mucous membrane B. Cardioesophageal junction C. Gastric mucous membrane D. Esophageal mucous membrane COMMENT A AND B. The results of immunohistochemistry for Helicobacter pylori will be reported separately (HT25882). B. Alcian blue/PAS stain with matched control is used in the evaluation of alivia yanique. GROSS DESCRIPTION A - Received in fixative [...] one cassette. / AM:ebenezer 01/12/18 TC:2 CPT: 42998 x4, 95877 x2, 52315 HEADER OPERAT ION: EGD with biopsy PRE-OP [...] Fragments of gastroesophageal mucosa with acute and lunchroom food service supervisor mandi inflammation. Focal intestinal metaplasia (goblet cell [...] file> : IMMUNOHISTOCHEMISTRY See Note (Normal) Comments: [facility] [address] [place], [address] 00 Comments: Patient: FARHAD GLEZ : 1940 (77/F) Acct Num: [id number] Phys: Dora RAMON,Chaparro Unit Num: [id number] Loc: EN Specimen: [id number] Received: 01/15/181124 Spec Type: IMMUN O TISSUES TISSUES: A. Stomach, NOS B. Stomach, NOS SPECIMEN INFORMATION: Tissue Source: A Antral biopsy, B Cardia biopsy Clinical Info: GERD, epigast josee pain Specimen Number: [id number] A AND B CPT code: 90078 x2 METHODOLOGY: Deparaffinized sections of prefer/formalin-fixed tissue [...] developed and their performance characteristics determined by [facility]. They may not have been cleared or approved by the U.S. Food and Drug Adm inistration. The FDA has determined that such clearance or approval is not necessary. INTERPRETATION: A. Antral biopsy: Negative for Helicobacter pylori organisms. B. Cardia biopsy: Negati ve for Helicobacter pylori organisms. SJ:ebenezer 01/16/18 PHYSICIAN AND INSTITUTION [place] [address] Signed Jeovanny Stinson 01/16/18 <signature on file> 72-Cop-645790:19 HgA1C , Office (16641) HgA1C , Office 5.3 % (Normal) Range: 4.6 - 7.1 :56 METABOLIC PANEL, Comments: PATIENT WAS FASTINGPERFORMED BY: [facility] [address] [id number] BY: CB [facility] [id number] [facility] [id number] COMPREHENSIVE (99516) ALT (SGPT) 17 [iU]/L (Normal) Range: 0-32 [...] Glucose, Serum 107 mg/dL (Abnormal) Range: 65-99 65-Xqk-31822:56 LIPOPROTEIN, BLD, BY NMR Comments: PATIENT WAS FASTINGPERFORMED BY: BN [facility] [address] [id number] BY: CB [facility] [id number] [facility] [id number] (23741) LP-IR Score <25 (Normal) Comments: INSULIN RESISTANCE MARKER <--Insulin Sensitive Insulin Resistant--> Percentile in Reference PopulationInsulin Resistance ScoreLP-IR Score Low 25th 50th 75th High <27 27 45 63 >63LP-IR Score is inaccurate if patient is non-fasting. .The LP-IR score is a laboratory developed i [facility] that has beenassociated with insulin resistance [...] were developed and their performance characteristicsdetermined by [facility]. These assays have not been cleared by [...] 1600 - 2000 Very High > 2000 55-Clb-01867:56 CALCIUM, IONIZED (54849) Comments: PATIENT WAS FASTINGPERFORMED BY: BN [facility] Ycuvonhnsq5468 [facility] [id number] BY: CB [facility] [id number] [facility] [id number] Calcium, Ionized, Serum 5.2 mg/dL (Normal) Range: 4.5-5.6 Plan of Care Name Dates Details Instructions Current nonsmoker (Renamed from Current non-smoker) : Eprescribed prescriptions (G8553) Indication: Current nonsmoker (Renamed from Current non-smoker) Planned Observations Ferritin (73085)Indication: Upper GI bleed On: 20-Rqy-393733:57 Request Comments: in 6 weeks CBC, Platelets & Auto Diff (46875)Indication: Tachycardia On: 82-Vjk-53752:51 Request Metabolic Panel, Basic (47789)Indication: Tachycardia On: 39-Hwa-96799:51 Request TSH (10592)Indication: Tachycardia On: 34-Uni-14705:51 Request D-Dimer (17842)Indication: Tachycardia On: 20-Utc-40921:50 Request Troponin I (94869)Indication: Tachycardia On: 74-Hwr-40888:50 Request LIPOPROTEIN, BLD, BY NMR (84901)Indication: Hypertension On: 61-Pyb-555237:53 Request CBC W/AUTO DIFF WBC (97549)Indication: Hypertension On: 77-Ylg-405426:53 Request METABOLIC PANEL, COMPREHENSIVE (43977)Indication: Hypertension On: 74-Hry-311175:53 Request HGB A1C (42774)Indication: Abnormal glucose (Renamed from Abnormal glucose level) On: 19-Mzq-991559:42 Request Planned Encounters Medical; [facility] Pre Wellness Exam (DB Nurse) - On: 09-Oct-2018 11:00 [facility] LATONIA Casanova; [facility] Wellness Exam (Doctor) - On: 22-Oct-2018 8:00 [facility] Hi RAMON, Xiomara Parker MD Planned Procedures Flu Vaccine (Quadrivalent) On: 05-Sep-2018 Intent 53358Qm: Xiomara Do MD Comments: Lot #[id number]/30/2019Site-L dltd, IMDose prefilled syringegiven by: TLOCKLEAR,LPNVIS reviewed and ABN signed Xiomara Do MD SCREENING DIGITAL On: 25-Jun-2018 Intent TOMOSYNTHESIS OF BREAST (43289)By: Xiomara Do MD, MD, Dana M Nuclear Stress Test/Stress On: 17-May-2018 Intent SPECT/TreadmillBy: Hi Comments: plan mid june , Xiomara Parker MD 24 HOUR HOLTER MONITORING On: 03-Apr-2018 Intent WITH INTERPRETATION AND REPORT BY PHYSICIAN (65552)By: Xiomara Do MD, MD, Dana M CTA CHEST W/W/O CONTRAST On: 03-Apr-2018 Intent (20378)By: Xiomara Do MD Comments: STAT STAT STAT STAT!! Xiomara Do MD ELECTROCARDIOGRAM, COMPLETE On: 03-Apr-2018 Intent (ECG) (84888)By: Hi RAMON, Comments: see scanned document of test done to see results reviewed today with patient Xiomara Parker MD CT - Brain/Head (Without On: 15-Mar-2018 Intent Contrast)By: Xiomara Do MD, MD, Dana M CT - Brain/Head (Without On: 15-Mar-2018 Intent Contrast)By: Xiomara Do MD Comments: daughter will call to set up Xiomara Jara MD Ear Irrigation (01259)By: On: 15-Sep-2017 Intent Xiomara Do MD Comments: irrigated left ear without difficult, mild amount of yellow/brown was expelled from the ear, wax currette Xiomara monahan MD DEXA SCAN AXIAL SKELETON On: 15-Sep-2017 Intent (05251)By: Xiomara Do MD, MD, Dana M Flu Vaccine (Quadrivalent) On: 22-Aug-2017 Intent 76743Xy: Xiomara Do MD Comments: QUAD flu shotlot number: [id number]: 02/2018L Deltoid IMAD DATA ARCHITECT Xiomara Do MD Instructions Name Dates Details Hospital discharge follow-up [...] Advance Directives Name Dates Details Immunization Registry [place] - Effective on Effective: 20-Oct-201710/20/2017. Expiration date unspecified Encounters Office Visit On: 03-Oct-2018 11:14 Encounter Reason: [...] The patient does have durable power of assistant city attorney and living will. The patient has noticed [...] [facility] End: 27-Apr-2017 9:22 Payers MedicareCignHoracio beaulieu guarantor"
--- OUTSIDE RECORDS SUMMARY | 2019-01-27 04:40 | XMS RPT_ITS | Continuity of Care Document ---
:1940 Author Organization [facility] Address [address] [facility] [address] [place] [address] Phone Care Team Providers Name Role Phone [...] [facility] yearly due mammo do yearly with [facility]. Status: Active BMI 28.0-28.9,adult (Z68.28, V85.24) Status: [...] days Quantity: 30 {Tablet} Refills: 7 Ordered:13-Sep-2018 Xiomara Do MD, MD, Dana M Start : 13-Sep-2018 Active Aspirin Adult Low Dose 81 MG [...] M Start : 21-Mar-2018 Active Comments:called to [place] [address] - cmanchak 5/16 Lipitor 10 MG Oral [...] 12-Jan-2018 End : 24-Mar-2018 Inactive Comments:Dr. john Zithrnazia Z-Nas 250 MG Oral Tablet uad Tablet [...] valve issue [facility] 2001 Date Value Details 12-Sep-2018 SCREENING MAMM (CAD), BILAT Result: Comments: See Note; NOTES: [facility] Imaging Services [address] [place] [address] SCREENING MAMM (CAD), BILAT MR#: [id number] Acct: [id number] Name: FARHAD GLEZ Rep #: [id number] : 1940 F 78 From: Chad Wilkins MD PCP: Xiomara Do MD Status: REG CLI Study: SCREENING MAMM (CAD), BILAT Date of Exam: 09/12/18 Exam# [id number] Ordering Dr: Xiomara Do MD M AMMOGRAPHY [...] these results will be sent to the [facility] nt by the facility within 30 days. Approximately 10% of breast cancers are not detected by mammography. A normal mammogram should not delay biopsy of a clinically suspicious abnormality. [id number] Elect ronically Signed: Chad Wilkins MD at 11:12 EST Tel [phone], Service support , CC: Xiomara Do MD Avionics Mechanic: Signed 21-Jun-2018 Stress Report Result: Comments: See Note; NOTES: [facility] Cardiovascular Services [address] [place] [address] MR#: [id number] Acct: [id number] Name: FARHAD GLEZ Rep #: [id number] : [birth year] 78 From: Johnson Bird MD [...] %. This note was gen erated with Capt[employer] Systemsation software. It may contain incorrect words, spelling, and punctuation that were not noted in checking the note before signing. 06/21/181903 <Electronically signed by Johnson Bird MD> Date Johnson Bird MD CC: Xiomara Do MD Date Dictated: 06/21/181899 Date Transcribed: 06/21/181899 Avionics Mechanic: PM Signed 20-Jun-2018 Orthopedic Visit Report Result: Comments: See Note; NOTES: [facility] Orthopaedics AND Sports Medicine [address] [place], [place] [id number] OFFICE VISIT Date of Service: 06/19/18 MR#: [id number] Acct: [id number] Name: FARHAD GLEZ Rep #: [id number] : 1940 Provider: Nae Kumar MD Age/Sex: 78/F Location: [facility] Status: Signed Intake Intake Visit Reasons: low [...] She was treated by a physician at [place] with a brace. She wore the brace [...] program. This helps. She recently flown to [place] as well. She has HTN, h/o skin [...] 6 Vw Result: Comments: See Note; NOTES: [facility] Imaging Services [address] [place] [address] L/S Spine w Bend Min 6 Vw MR#: [id number] Acct: [id number] Name: FARHAD GLEZ Rep #: [id number] : 1940 F 78 From: Luis Jefferson MD PCP: Xiomara Do MD Status: REG CLI Study: L/S Spine w Bend Min 6 Vw Date of Exam: 06/19/18 Exam# [id number] Ordering Dr: Nae Kumar MD STUDY: X-RAY [...] CC: Xiomara Do MD; Nae Kumar MD Avionics Mechanic: Signed 30-May-2018 PT D/C Summary (1) Result: Comments: See Note; NOTES: [facility] Physical [facility] [address] [place] [address] Fax REHABILITATION SERVICES DISCHAR SUMMARY MR#: [id number] Acct: [id number] Name: FARHAD GLEZ Rep #: [id number] [...] please feel free to call me at [phone]. Thank you for the re ferral of this patient. Sincerely, Roberto Oliveros DPT, OC <Electronically signed by Roberto Oliveros DPT, OCS, CSCS> 05/30/18 0716 CC: Xiomara Do MD EBG Signed 26-Apr-2018 Inital Evaluation (1) - PT Result: Comments: See Note; NOTES: [facility] [facility] [place] [address] Fax REHABILITATION SERVICES INITIAL EVALUATION MR#: [id number] Acct: [id number] Name: FARHAD GLEZ Rep #: [id number] : 1940 77 From: Roberto Oliveros DPT, OCS, CSCS Referring Dr.: Xiomara Do MD Status: REG RCR Insurance: MEDIC ARE PART A B [facility] Patient's Visit Information FARHAD GLEZ is a [...] twisting allowed. saw doc last y in [place] and released to driving and sent for [...] to be FAXED BACK to us at [phone] ease let me know if there are questions or concerns regarding this plan of care. Physician Signature: Date: <Electronically signed by Roberto Oliveros DPT, OCS, CSCS> 04/26/18 0907 CC: Xiomara Do MD EBG Signed For Medicare only, by signing this I certify the plan of care. Physicians Signature Date 03-Apr-2018 Chest W/WO Contrast Result: Comments: See Note; NOTES: [facility] Imaging Services [address] [place] [address] Chest W/WO Contrast MR#: [id number] Acct: [id number] Name: FARHAD GLEZ Rep #: [id number] : 1940 F 77 From: Chad Wilkins MD PCP: Xiomara Do MD Status: REG CLI Study: Chest W/WO Contrast Date of Exam: 04/03/18 Exam# [id number] Ordering Dr: Xiomara oD MD STUDY: CTA CHEST REASON FOR EXAM: [...] Chad Wilkins MD at 15:45 EDT Tel [phone], Service support [phone], CC: Xiomara Do MD Avionics Mechanic: Signed 12-Jan-2018 Operative Report Result: Comments: See Note; NOTES: [facility] Medical Records Department [address] [place] [address] Operative Report 01/12/18 0848 MR#: [id number] Acct: [id number] Name: FARHAD GLEZ Rep #: [id number] : 1940 77 From: Chaparro John MD PCP: Xiomara Do MD Status: REG SDC Y Location: [place] [address] Problem List (1) GERD (gastroesophageal reflux disease) [...] Study (HP) Result: Comments: See Note; NOTES: [facility] Imaging Services [address] [place] [address] Dexa Bone Density Study (HP) MR#: [id number] Acct: [id number] Name: FARHAD GLEZ Rep #: [id number] : 1940 F 77 From: Chad Wilkins MD PCP: Xiomara Do MD Status: REG CLI Study: Dexa Bone Density Study (HP) Date of Exam: 12/19/17 Exam# [id number] Ordering Dr: Xiomara Do MD STUDY: DUAL [...] Chad Wilkins MD at 15:25 EST Tel [phone], Service support , CC: Xiomara Do MD Avionics Mechanic: Signed 14-Dec-2017 Surgery Visit Report Result: Comments: See Note; NOTES: [place] [address] OFFICE VISIT Date of Service: 12/14/17 MR#: [id number] Acct: [id number] Name: NELLIE FARHAD CHERRY Rep #: [id number] : 1940 Provider: Chaparro John MD Age/Sex: 77/F Location: [facility] Status: Signed Intake Vital Signs12/14/17 Height 5 ft 5 in 12/14/17 Weight: 178 lb Intake Visit Reasons: FAMILY HX OF COLON CA Depalletizer Operator Required: No Is patient in pain?: [...] No other Exam Const General: healthy appearing [facility] Head: normal to inspection Eyes [...] Summary (1) Result: Comments: See Note; NOTES: [facility] [address] [place] [address]. [address] [place], [place] [address] Fax [facility] MR#: [id number] Acct: [id number] Name: FARHAD GLEZ Rep #: [id number] [...] fe el free to call me at [phone]. Thank you for the referral of this patient. Sincerely, Riya Kraft <Electronically signed by Riya Kraft PT, Cert. MDT> 10/24/17 1183 CC: Xiomara Do MD EMMANUEL Signed 22-Sep-2017 Inital Evaluation (1) - PT Result: Comments: See Note; NOTES: [facility] [address] [place] [address] Fax REHABILITATION SERVICES INITIAL EVALUATION MR#: [id number] Acct: [id number] Name: FARHAD GLEZ Rep #: [id number] : 1940 77 From: Riya Kraft PT, Cert. MDT Referring Dr.: Xiomara Do MD Status: REG RCR Insurance: MEDIC ARE PART A B [employer] Patient's Visit Information FARHAD GLEZ is a [...] to be FAXED BACK to us at [phone] for Medicare purposes. 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 grew up in [place] Status: Active Exercise History: Exercises regularly. Comments: [employer] membership. Status: Active Living Situation: Lives alone. Comments: divorce in 's [place] and he 8-17. 16 years. Status: Active No Drug Use Status: Active Non Smoker/No Tobacco Use Status: Active nutrition Comments: egg for breakfast not snacker, eat alot veggies, eat chicken fish salmon Status: Active Vital Signs Date Test Result Details 21-Jym-306932:27 Temperature 97.9 f Comments: Method: Temporal Pulse [...] Date: 04/03/18Order Info: 0667-1 - BMPOrder Info: 10259-2 - TROPOrder Info: 3016-3 - TSHOrder Info: 3024-7 - T4F'TROP' Serial specimen #1, #2, #3, or #4: 1[facility] [address] [place], [address] GAP 12 (Normal) Range: 5-15 CO2 26.0 [...] Comments: Please note revised GLUCOSE reference range vaogugogo00/02/2018. :52 D-Dimer Quantitative (DVT/PE) Comments: Order Date: 04/03/18Order Info: 90883-6 - [facility] [address] [place], [place], [address] D-DIMER QUANT 1.52 {FEU/ug/m} (Abnormal) Range: 0.27-0.49 Comments: D-Dimer ELEVATED (>0.49): Additional studies and clinicalassessments are indicated to conclude diagnosis of:Deep Vein Thrombosis (DVT) or Pulmonary Embolism (PE)CRITICAL VALUE VERIFIED. [facility]04/03/18 1119 Jaelyn Escalerano.RESULTS READ BACK BY SAME . :52 Thyroid Stim Hormone (TSH) Comments: Order Date: 04/03/18Order Info: 0667-1 - BMPOrder Info: 00116-7 - TROPOrder Info: 3016-3 - TSHOrder Info: 3024-7 - T4F'TROP' Serial specimen #1, #2, #3, or #4: [address] [place] [address] [address] [place], [place], [address] TSH 2.45 {uIU/mL} (Normal) Range: 0.358-3.74 :52 Troponin-I Comments: Order Date: 04/03/18Order Info: 0667-1 - BMPOrder Info: 59867-3 - TROPOrder Info: 3016-3 - TSHOrder Info: 3024-7 - T4F'TROP' Serial specimen #1, #2, #3, or #4: [address] [place] [address] [address] [place], [place], [address] TROPONIN-I < 0.015 ng/mL (Normal) Comments: TROPONIN-I EXPECTED VALUES <0.045 Negative 0.045 - 0.590 Consistent with Cardiac Damage > OR = 0.600 Critical Value Not every elevated troponin is indicative of VT. T hesevalues should be used with clinical judgement in examiningthe patient's clinical picture for diagnosis. To establisha diagnosis of VT versus myocardial injury, there must be ademonstrated rise and/ or fall in the troponin values, inaddition to ischemic symptoms, EKG changes, new regionalwall motion abnormality, and/or angiographical evidence. PLEASE NOTE: REFERENCE RANGES EDITED 18:52 T4, FREE (THYROXINE) (34749) Comments: Order Date: 04/03/18Order Info: 0667-1 - BMPOrder Info: 24435-1 - TROPOrder Info: 3016-3 - TSHOrder Info: 3024-7 - T4F'TROP' Serial specimen #1, #2, #3, or #4: 1[facility] [address] [place], [place], [address] T4 FREE DIRECT 1.09 ng/dL (Normal) Range: 0.76-1.46 : Gastric Biopsy See Note (Normal) Comments: [facility] [address] [place], [place], [address] 20 Comments: Patient: FARHAD GLEZ : 1940 (77/F) Acct Num: [id number] Phys: Dora RAMON,Chaparro Unit Num: [id number] Loc: EN Specimen: [id number] Received: 01/12/181120 Spec Type: Gastri c Bx TISSUES TISSUES: A. Gastric mucous membrane B. Cardioesophageal junction C. Gastric mucous membrane D. Esophageal mucous membrane COMMENT A AND B. The results of immunohistochemistry for Helicobacter pylori will be reported separately ([id number]). B. Alcian blue/PAS stain with matched control is used in the evaluation of t erlinimen. GROSS DESCRIPTION A - Received in fixative [...] one cassette. / AM:ebenezer 01/12/18 TC:2 CPT: 23228 x4, 13404 x2, 34078 HEADER OPERAT ION: EGD with biopsy PRE-OP [...] Fragments of gastroesophageal mucosa with acute and bill peddler mandi inflammation. Focal intestinal metaplasia (goblet cell [...] file> : IMMUNOHISTOCHEMISTRY See Note (Normal) Comments: [facility] [address] [facility] [place], [address] 00 Comments: Patient: FARHAD GLEZ : 1940 (77/F) Acct Num: [id number] Phys: Dora RAMON,Chaparro Unit Num: [id number] Loc: EN Specimen: [id number] Received: 01/15/181124 Spec Type: IMMUN O TISSUES TISSUES: A. Stomach, NOS B. Stomach, NOS SPECIMEN INFORMATION: Tissue Source: A Antral biopsy, B Cardia biopsy Clinical Info: GERD, epigast josee pain Specimen Number: [id number] A AND B CPT code: 66814 x2 METHODOLOGY: Deparaffinized sections of prefer/formalin-fixed tissue [...] developed and their performance characteristics determined by [facility]. They may not have been cleared or approved by the U.S. Food and Drug Adm inistration. The FDA has determined that such clearance or approval is not necessary. INTERPRETATION: A. Antral biopsy: Negative for Helicobacter pylori organisms. B. Cardia biopsy: Negati ve for Helicobacter pylori organisms. SJ:ebenezer 01/16/18 PHYSICIAN AND INSTITUTION [place] [address] Signed Jeovanny Stinson 01/16/18 <signature on file> 15-Vgy-091822:19 HgA1C , Office (47493) HgA1C , Office 5.3 % (Normal) Range: 4.6 - 7.1 81-Jes-24852:56 METABOLIC PANEL, Comments: PATIENT WAS FASTINGPERFORMED BY: [facility] [address] [id number] BY: [facility] [id number] [facility] [id number] COMPREHENSIVE (00875) ALT (SGPT) 17 [iU]/L (Normal) Range: 0-32 [...] Glucose, Serum 107 mg/dL (Abnormal) Range: 65-99 92-Skv-94657:56 LIPOPROTEIN, BLD, BY NMR Comments: PATIENT WAS FASTINGPERFORMED BY: BN [facility] [address] [id number] BY: CB [facility] [id number] [facility] [id number] (39746) LP-IR Score <25 (Normal) Comments: INSULIN RESISTANCE MARKER <--Insulin Sensitive Insulin Resistant--> Percentile in Reference PopulationInsulin Resistance ScoreLP-IR Score Low 25th 50th 75th High <27 27 45 63 >63LP-IR Score is inaccurate if patient is non-fasting. .The LP-IR score is a laboratory developed i [facility] that has beenassociated with insulin [...] were developed and their performance characteristicsdetermined by [facility]. These assays have not been cleared by [...] High 1600 - 2000 Very High > 19-Dec-20179:56 CALCIUM, IONIZED (51959) Comments: PATIENT WAS FASTINGPERFORMED BY: [facility] Yalzbmaoxp2475 [facility] [id number] BY: [facility] Dgnwro4858 [facility] [id number] Calcium, Ionized, Serum 5.2 mg/dL (Normal) Range: 4.5-5.6 Plan of Care Name Dates Details Instructions Current nonsmoker (Renamed from Current non-smoker) : Eprescribed prescriptions (G8553) Indication: Current nonsmoker (Renamed from Current non-smoker) Planned Observations CBC, Platelets & Auto Diff (01619)Indication: Tachycardia On: 59-Lem-68269:51 Request Metabolic Panel, Basic (67278)Indication: Tachycardia On: :51 Request TSH (81074)Indication: Tachycardia On: :51 Request D-Dimer (40995)Indication: Tachycardia On: :50 Request Troponin I (38639)Indication: Tachycardia On: :50 Request LIPOPROTEIN, BLD, BY NMR (38087)Indication: Hypertension On: 71-Xyx-324305:53 Request CBC W/AUTO DIFF WBC (61345)Indication: Hypertension On: :53 Request METABOLIC PANEL, COMPREHENSIVE (06310)Indication: Hypertension On: 10-Lgc-288879:53 Request HGB A1C (10211)Indication: Abnormal glucose (Renamed from Abnormal glucose level) On: 67-Jyw-222566:42 Request Planned Encounters Medical; [facility] Pre Wellness Exam (DB Nurse) - On: 09-Oct-2018 11:00 [facility] LATONIA Casanova; [facility] Wellness Exam (Doctor) - On: 22-Oct-2018 8:00 [facility] Hi RAMON, Xiomara Parker MD Planned Procedures Flu Vaccine (Quadrivalent) On: 05-Sep-2018 Intent 49206Mh: Xiomara Do MD Comments: Lot #[id number]-7/30/2019Site-L dltd, IMDose prefilled syringegiven by: ANGELA HUMPHREYVIS reviewed and ABN signed Xiomara Do MD SCREENING DIGITAL On: 25-Jun-2018 Intent TOMOSYNTHESIS OF BREAST (44173)By: Hi RAMON, Xiomara Parker MD Nuclear Stress Test/Stress On: 17-May-2018 Intent SPECT/TreadmillBy: Hi Comments: plan mid june , Xiomara Parker MD 24 HOUR HOLTER MONITORING On: 03-Apr-2018 Intent WITH INTERPRETATION AND REPORT BY PHYSICIAN (73744)By: Xiomara Do MD, MD, Dana M CTA CHEST W/W/O CONTRAST On: 03-Apr-2018 Intent (14492)By: Xiomara Do MD Comments: STAT STAT STAT STAT!! Xiomara Do MD ELECTROCARDIOGRAM, COMPLETE On: 03-Apr-2018 Intent (ECG) (64369)By: Hi RAMON, Comments: see scanned document of test done to see results reviewed today with patient Xiomara Parker MD CT - Brain/Head (Without On: 15-Mar-2018 Intent Contrast)By: Xiomara Do MD, MD, Dana M CT - Brain/Head (Without On: 15-Mar-2018 Intent Contrast)By: Xiomara Do MD Comments: daughter will call to set up Xiomara Jara MD Ear Irrigation (75719)By: On: 15-Sep-2017 Intent Xiomara Do MD Comments: irrigated left ear without difficult, mild amount of yellow/brown was expelled from the ear, wax Xiomara hernandez MD DEXA SCAN AXIAL SKELETON On: 15-Sep-2017 Intent (17095)By: Xiomara Do MD, MD, Dana M Flu Vaccine (Quadrivalent) On: 22-Aug-2017 Intent 40019Hm: Xiomara Do MD Comments: QUAD flu shotlot number: [id number]: 02/2018L Deltoid IMAD SALESPERSON FLYING SQUAD Xiomara Do MD Instructions Name Dates Details [...] Advance Directives Name Dates Details Immunization Registry [place] - Effective on Effective: 20-Oct-201710/20/2017. Expiration date [...] Yes the patient did have (do yearly 09-23 and good) a mini mental status exam [...] The patient does have durable power of environmental attorney and living will. The patient has [...] screening, colonoscopy (Due June 2018), screening, mammography (2016 (Dr. Keane)) and screening, Pap smear (hx. [...] [facility] End: 27-Apr-2017 9:22 Payers MedicareCignaMANEREYDA GLEZ; christofer guarantor
--- OUTSIDE RECORDS SUMMARY | 2019-01-27 04:41 | XMS RPT_ITS | Continuity of Care Document ---
:1940 Author Organization [facility] Address [address] [facility] [address] [place] [address] Phone Care Team Providers Name Role Phone [...] follow-up (Z09, V67.59) Comments: low hgb in [facility] in [place] Status: Active Hyperlipidemia (E78.5, 272.4) Comments: reveiwed [...] symptoms Status: Active Tachycardia (R00.0, 785.0) Comments: she [...] {Tablet} Refills: 7 Ordered:13-Sep-2018 Hi RAMON, Xiomara Tong MD Start : 13-Sep-2018 Active Calcium Carbonate 600 MG Oral Tablet 1 qd (600 MG) Active Carafate 1 GM Oral Tablet 1 (one) Tablet Tablet 4 times a day, 1 hr before meals and bedtime for 30 days Quantity: 120 {Tablet} Refills: 3 Ordered:24-Mar-2018 Hi RAMON, Xiomara Tong MD Start : 21-Mar-2018 Active Comments:called to [facility] [phone] - cmanchak 03/21 CoQ-10 100 MG Oral [...] Dana M Start : 23-Oct-2018 Active Spironolactone 25 MG Oral Tablet 1 (one) Tablet qd for 0 days Quantity: 30 {Tablet} Refills: 7 Ordered:03-Oct-2018 Xiomara Do MD, MD, Dana M Start : 03-Oct-2018 Active Tylenol Extra Strength 500 MG Oral Tablet 1 (one) Tablet Tablet tid for 30 days Quantity: 150 {Tablet} Refills: 3 Ordered:17-May-2018 Xiomara Do MD, MD, Dana M Start : 03-Apr-2018 Active Omeprazole 40 MG Oral Capsule Delayed [...] Start : 17-May-2018 End : 17-May-2018 Discontinued Zantac 150 Maximum Strength 150 MG Oral Tablet 1 (one) Tablet in am and before dinner for 0 days Quantity: 60 {Tablet} Refills: 5 Ordered:05-Jun-2018 Xiomara Do MD, MD, Dana M Start : 05-Jun-2018 End : 22-Oct-2018 Discontinued Allergies and Adverse Reactions Name Dates [...] with PT Status: Resolved as of 21-Dec-2017 SOB (shortness of breath) (R06.02, 786.05) Comments: some better withincreae hgb and stress n egatiove. will do echo with tachy. and PVCS and CCTA Status: Resolved as of 19-Nov-2018 Viral infection (B34.9, 079.99) Comments: slowly getting [...] Visit Report Result: Comments: See Note; NOTES: [facility] [address] [place] [address] OFFICE VISIT Date of Service: 10/13/18 MR#: [id number] Acct: [id number] Name: FARHAD GLEZ Rep #: [id number] : 1940 Provider: Chaparro John MD Age/Sex: 78/F Location: [facility] Status: Signed with Addenda ADDENDUM by Chaparro John MD on 12/19/17 at 1531 Addendum entered and electronically [...] of 8. Her upper endoscopy performed at [facility] in [place] it suggested grade C erosive esophagitis and [...] 78-year-old female who was briefly hospitalized in [place] with what appeared to be an acute [...] note regarding her a esophagogastroduodenoscopy performed in [place]. Then with that information a t hand [...] CC: Dr. Xiomara John M.D., F.A.C.S. 10/18/18 1261 <Electronically signed by Chaparro John MD> Date Chaparro John MD cc: Xiomara Do MD * Signed Intake Vital Signs12/08/18 Body Mass Index (BMI) 29.6 10/09/18 Body Mass Index (BMI) 29.6 Intake Visit Reasons: Hiatal Hernia Chief Complaint: anemia Cleaners Required: No Is patient in pain?: No [...] not determined. She was hospitalized overnight in [facility]. She presented with shortnes s [...] a note from Dr Bruce Blackman from [facility] suggesting that the results of her [...] endoscopy surgical report that was performed and [place]. I prev iously saw the patient in [...] and colonoscopy with operative note to follow: [facility] Medical Records Department [address] [place] [address] Operative Report 01/12/18 0848 MR#: [id number] :[id number] Name: FARHAD GLEZ #:[id number] : [id number]: Chaparro John MD PCP:Xiomara Do MD Status:[facility] Location: [place] [address] Problem List (1) GERD (gastroesophageal reflux diseas [...] exam performed. Slightly lax anal tone. Moderate actuarial internship al and external hemorrhoids. No active bleeding. [...] 0836.35. The procedure was completed at 0841.58. Chaaprro John M.D., F.A.C.S. Type of Anesthesia:: IV [...] is negative for organisms. H pylori: Negative [facility] Cardiovascular Services [address] [place] [address] MR#: [id number]:[id number] Name: FARHAD GLEZ #:[id number] : 1940 [...] %. This not e was generated with [employer] software. It may contain incorrect words, spelling, [...] 78-year-old female who was briefly hospitalized in [place] with what appeared to be an acute [...] regarding her a esophagogastroduodenoscop y performed in [place]. Then with that information at hand I [...] Visit Report Result: Comments: See Note; NOTES: [facility] [address] [place] [address] OFFICE VISIT Date of Service: 10/13/18 MR#: [id number] Acct: [id number] Name: FARHAD GLEZ Rep #: [id number] : 1940 Provider: Chaparro John MD Age/Sex: 78/F Location: [facility] Status: Signed Intake Vital Signs10/13/18 Body Mass Index (B GA) 29.6 10/09/18 Body Mass Index (BMI) 29.6 Intake Visit Reasons: Hiatal Hernia Chief Complaint: anemia Cleaners Required: No Is patient in pain?: No [...] 10/13/18] multivitamin capsule 1 cap PO QDAY 02/08/18 [History Confirmed 1 12/14/17] spironolactone 50 mg [...] not determined. She was hospitalized overnight in [facility]. She presented with shortness of breath. BUN [...] a note from Dr Bruce Blackman from [facility] care suggesting that the results of [...] is very recent laboratory still pending from week. I do not currently have access to the official upper endoscopy surgical report that was p [facility] and [place]. I previously saw the patient in the [...] and colonoscopy with operative note to follow: [facility] Medical Records Department [address] [place] [address] Operative Report 01/12/18 0848 MR#: [id number] Name: FARHAD GLEZ #:[id number] : 111130Jcyt: Chaparro John MD PCP:Xiomara Do MD Status:[facility] Location: [place] [address] Problem List (1) GE RD (gastroesophageal reflux [...] is negative for organisms. H pylori: Negative [facility] Cardi[facility] Services [address] [place] [address] MR#: [id number]:[id number] Name: FARHAD GLEZ #:[id number] : 1940 78From: Johnson Bird MD Primary [...] 57 %. This note was generated with [employer] software. It may contain incorrect words, spelling, and punctuation that were not noted in checking the note before signing. 1903<Electronically signed by Johnsno Bird MD> Date Johnson Bird MD ROS [...] female who was brie fly hospitalized in [place] with what appeared to be an acute [...] regardi ng her a esophagogastroduodenoscopy performed in [place]. Then with that information at hand I [...] Visit Report Result: Comments: See Note; NOTES: [facility] [address] [place], [place] [address] OFFICE VISIT Date of Service: 09/18/18 MR#: [id number] Acct: [id number] Name: FARHAD GLEZ Rep #: [id number] : 1940 Provider: Nae Kumar MD Age/Sex: 78/F Location: [facility].SMO Status: Signed Intake Intake Visit Reasons: Back [...] (CAD), BILAT Result: Comments: See Note; NOTES: [facility] Imaging Services [address] [place] [address] SCREENING MAMM (CAD), BILAT MR#: [id number] Acct: [id number] Name: FARHAD GLEZ Rep #: [id number] : 1940 F 78 From: Chad Wilkins MD PCP: Xiomara Do MD Status: [facility] Study: SCREENING MAMM (CAD), BILAT Date of Exam: 09/12/18 Exam# [id number] Ordering Dr: Xiomara Do MD AMMOGRAPHY - BILATERAL SCREENING REASON FOR EXAM: [...] these results will be sent to the [facility] nt by the facility within 30 days. Approximately 10% of breast cancers are not detected by mammography. A normal mammogram should not delay biopsy of a clinically suspicious abnormality. [id number] Elect ronically Signed: Chad Wilkins MD at 11:12 EST Tel [phone], Service support , CC: Xiomara Do MD Dress Cutter: Signed 21-Jun-2018 Stress Report Result: Comments: See Note; NOTES: [facility] Cardiovascular Services [address] [place] [address] MR#: [id number] Acct: [id number] Name: FARHAD GLEZ Rep #: [id number] : [birth year] 78 From: Johnson Bird MD [...] %. This note was gen erated with [employer] software. It may contain incorrect words, spelling, and punctuation that were not noted in checking the note before signing. 06/21/18 5902 <Electronically signed by Johnson Bird MD> Date Johnson Bird MD CC: Xiomara Do MD Date Dictated: 06/21/181899 Date Transcribed: 06/21/181899 Dress Cutter: PM Signed 20-Jun-2018 Orthopedic Visit Report Result: Comments: See Note; NOTES: [facility] [address] [place] [address] OFFICE VISIT Date of Service: 06/19/18 MR#: [id number] Acct: [id number] Name: FARHAD GLEZ Rep #: [id number] : 1940 Provider: Nae Kumar MD Age/Sex: 78/F Location: [facility].SMO Status: Signed Intake Intake Visit Reasons: low [...] She was treated by a [place] with [place]. She wore the brace [...] program. This helps. She recently flown to [place] as well. She has HTN, h/o skin [...] 6 Vw Result: Comments: See Note; NOTES: [facility] Imaging Services [address] [place] [address] L/S Spine w Bend Min 6 Vw MR#: [id number] Acct: [id number] Name: FARHAD GLEZ Rep #: [id number] : 1940 F 78 From: Luis Jefferson MD PCP: Xiomara Do MD Status: REG CLI Study: L/S Spine w Bend Min 6 Vw Date of Exam: 06/19/18 Exam# [id number] Ordering Dr: Nae Kumar MD STUDY: X-RAY [...] CC: Xiomara Do MD; Nae Kumar MD Dress Cutter: Signed 30-May-2018 PT D/C Summary (1) Result: Comments: See Note; NOTES: [facility] [address] [place] [address] Fax REHABILITATION SERVICES [facility] SUMMARY MR#: [id number] Acct: [id number] Name: FARHAD GLEZ Rep #: [id number] : 1940 78 From: Roberto Oliveros DPT, OCS, CSCS Referring Dr.: Xiomara Do MD Status: REG RCR Insurance: MEDICA RE PART A B [employer] - PT D/C Summary It has been my pleasure to treat FARHAD GLEZ under orders from Xiomara Do, for the diagnosis of L1 compression fracture for a total of 10 visit(s). [facility] Date: 05/29/18 Please see the following information [...] please feel free to call me at [phone]. Thank you for the re ferral of this patient. Sincerely, Roberto Oliveros DPT, OC <Electronically signed by Roberto Oliveros DPT, NEPTALI, CSCS> 05/30/18 0716 CC: Xiomara Do MD EBG Signed 26-Apr-2018 Inital Evaluation (1) - PT Result: Comments: See Note; NOTES: [facility] [address] [place] [address]. [address] [place] [address] Fax REHABILITATION SERVICES INITIAL EVALUATION MR#: [id number] Acct: [id number] Name: FARHAD GLEZ Rep #: [id number] [...] twisting allowed. saw doc last y in [place] and released to driving and sent for [...] to be FAXED BACK to us at [phone] ease let me know if there are questions or concerns regarding this plan of care. Physician Signature: Date: <Electronically signed by Roberto Oliveros DPT, OCS, CSCS> 04/26/18 0907 CC: Xiomara Do MD CARLOS Signed For Medicare only, by signing this I certify the plan of care. Physicians Signature Date 03-Apr-2018 Chest W/WO Contrast Result: Comments: See Note; NOTES: [facility] Imaging Services [address] [place] [address] Chest W/WO Contrast MR#: [id number] Acct: [id number] Name: FARHAD GLEZ Rep #: [id number] : 1940 F 77 From: Chad Wilkins MD PCP: Xiomara Do MD Status: REG CLI Study: Chest W/WO Contrast Date of Exam: 04/03/18 Exam# [id number] Ordering Dr: Xiomara Do MD STUDY: CTA [...] Chad Wilkins MD at 15:45 EDT Tel [phone], Service support [phone], CC: Xiomara Do MD Dress Cutter: Signed 12-Jan-2018 Operative Report Result: Comments: See Note; NOTES: [facility] Medical Records Department [address] [place] [address] Operative Report 01/12/18 0848 MR#: [id number] Acct: [id number] Name: FARHAD GLEZ Rep #: [id number] : 1940 77 From: Chaparro John MD PCP: Xiomara Do MD Status: [facility] Location: [place] [address] Problem List (1) GERD (gastroesophageal reflux disease) [...] Study (HP) Result: Comments: See Note; NOTES: [facility] Imaging Services [address] [place] [address] Dexa Bone Density Study (HP) MR#: [id number] Acct: [id number] Name: FARHAD GLEZ Rep #: [id number] : 1940 F 77 From: Chad Wilkins MD PCP: Xiomara Do MD Status: REG CLI Study: Dexa Bone Density Study (HP) Date of Exam: 12/19/17 Exam# [id number] Ordering Dr: Xiomara Do MD STUDY: DUAL [...] Chad Wilkins MD at 15:25 EST Tel [phone], Service support , CC: Xiomara Do MD Dress Cutter: Signed 14-Dec-2017 Surgery Visit Report Result: Comments: See Note; NOTES: [facility] [address] [place] [address] OFFICE VISIT Date of Service: 12/14/17 MR#: [id number] Acct: [id number] Name: NELLIE CHERRYFARHAD Rep #: [id number] : 1940 Provider: Chaparro John MD Age/Sex: 77/F Location: [facility] Status: Signed Intake Vital Signs12/14/17 Height 5 ft 5 in 12/14/17 Weight: 178 lb Intake Visit Reasons: FAMILY HX OF COLON CA Cleaners Required: No Is patient in pain?: No [...] No other Exam Const General: healthy appearing [facility] Head: normal to inspection Eyes [...] Result: Comments: See Note; NOTES: [facility] [address] [place] [address]. [address] [place] [address] Fax REHABILITATION SERVICES AGUILARAR SUMMARY MR#: [id number] Acct: [id number] Name: FARHAD GLEZ Rep #: [id number] [...] fe el free to call me at [phone]. Thank you for the referral of this patient. Sincerely, Riya Kraft <Electronically signed by Riya Kraft PT, CertHu MDT> 10/24/17 1135 CC: Xiomara Do MD EMMANUEL Signed 22-Sep-2017 Inital Evaluation (1) - PT Result: Comments: See Note; NOTES: [facility] [place] [address] Fax REHABILITATION SERVICES INITIAL EVALUATION MR#: [id number] Acct: [id number] Name: FARHAD GLEZ Rep #: [id number] : 1940 77 From: Riya Kraft PT, CertHu MDT Referring Dr.: Xiomara Do MD Status: REG RCR Insurance: MEDIC ARE PART A B [facility] Patient's Visit Information FARHAD GLEZ is a [...] to be FAXED BACK to us at [phone] for Medicare purposes. 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 grew up in [place] Status: Active Exercise History: Exercises regularly. Comments: [...] kg/m2 Body Surface Area Calculated 1.84 m2 32-Mhx-697297:13 BP Systolic 130 mm[Hg] Comments: Patient Position: [...] Microscopic Examination Comments: PATIENT NOT FASTINGPERFORMED BY: [employer] Teblfs8029 [facility] [id number] Bacteria Few (Normal) Mucus Threads Present (Normal) Cast Type Hyaline casts (Normal) Casts Present {/lpf} (Abnormal) Epithelial Cells (non renal) 0-10 {/hpf} (Normal) Range: 0 - 10 RBC 0-2 {/hpf} (Normal) Range: 0 - 2 WBC 0-5 {/hpf} (Normal) Range: 0 - 5 9-Erw-891326:02 MICROALBUMIN: CREATININE RATIO Comments: PATIENT NOT FASTINGPERFORMED BY: [employer] kompany [facility] [id number] (83398) AND (97512) Alb/Creat Ratio 138.3 {mg/g_creat} (Abnormal) Range: 0.0-30.0 Comments: Normal: 0.0 - 30.0 Albuminuria: 31.0 - 300.0 Clinical albuminuria: >300.0 Albumin, Urine 152.4 ug/mL (Normal) Creatinine, Urine 110.2 mg/dL (Normal) :02 URINALYSIS (71023) Comments: PATIENT NOT FASTINGPERFORMED BY: [facility] CenterFcggyq5158 [facility] [id number] Microscopic Examination See below: (Normal) Comments: Microscopic was indicated and was performed. Nitrite, Urine Negative (Normal) Urobilinogen,Semi-Qn 0.2 mg/dL (Normal) Range: 0.2-1.0 Bilirubin Negative (Normal) Occult Blood Negative (Normal) Ketones Negative (Normal) Glucose Negative (Normal) Protein 1+ (Abnormal) WBC Esterase Negative (Normal) Appearance Clear (Normal) Urine-Color Yellow (Normal) pH 6.5 (Normal) Range: 5.0-7.5 Specific [place] 1.022 (Normal) Range: 1.005-1.030 0-Chm-221351:02 Metabolic Panel, Comments: PATIENT NOT FASTINGPERFORMED BY: [facility] CenterJfuvhn9383 [facility] [id number] Information: NURSE DRAW Comprehensive (67102) ALT (SGPT) 22 [iU]/L (Normal) Range: 0-32 [...] 8-27 Glucose 92 mg/dL (Normal) Range: 65-99 0-Kfw-121712:37 CBC WITH MANUAL DIFF (36545) Comments: recheck in 6 weeks approx. 11-12-2018; PATIENT NOT FASTINGPERFORMED BY: [facility]6[address] [facility] [id number] Hematology Comments: Note: (Normal) Comments: Verified by microscopic examination. Immature Grans (Abs) 0.0 {x10E3/uL} (Normal) Range: 0.0-0.1 Immature Granulocytes 0 % (Normal) Baso (Absolute) 0.0 {x10E3/uL} (Normal) Range: 0.0-0.2 Eos (Absolute) 0.1 {x10E3/uL} (Normal) Range: 0.0-0.4 Monocytes(Absolute) 0.7 {x10E3/uL} (Normal) Range: 0.1-0.9 Lymphs (Absolute) 0.9 {x10E3/uL} (Normal) Range: 0.7-3.1 Neutrophils (Absolute) 4.7 {x10E3/uL} (Normal) Range: 1.4-7.0 Basos 1 % (Normal) Eos 1 % (Normal) Monocytes 10 % (Normal) Lymphs 15 % (Normal) Neutrophils 73 % (Normal) Platelets 268 {x10E3/uL} (Normal) Range: 150-379 MCHC 31.6 g/dL (Normal) Range: 31.5-35.7 MCH 29.6 pg (Normal) Range: 26.6-33.0 MCV 94 fL (Normal) Range: 79-97 Hematocrit 37.3 % (Normal) Range: 34.0-46.6 Hemoglobin 11.8 g/dL (Normal) Range: 11.1-15.9 RBC 3.99 {x10E6/uL} (Normal) Range: 3.77-5.28 Comments: Target cells present.Anisocytosis present. WBC 6.3 {x10E3/uL} (Normal) Range: 3.4-10.8 86-Qao-155904:16 CBC (Auto) (16416) Comments: now and in 6 weeks; PATIENT NOT FASTINGPERFORMED BY: [facility] CenterFfutrs5185 [facility] [id number] Platelets 399 {x10E3/uL} (Abnormal) Range: 150-379 RDW 17.6 % (Abnormal) Range: 12.3-15.4 MCHC 31.5 g/dL (Normal) Range: 31.5-35.7 MCH 26.0 pg (Abnormal) Range: 26.6-33.0 MCV 83 fL (Normal) Range: 79-97 Hematocrit 28.9 % (Abnormal) Range: 34.0-46.6 Hemoglobin 9.1 g/dL (Abnormal) Range: 11.1-15.9 RBC 3.50 {x10E6/uL} (Abnormal) Range: 3.77-5.28 WBC 3.5 {x10E3/uL} (Normal) Range: 3.4-10.8 76-Jxy-72765:52 Basic Metabolic Profile (BMP) Comments: Order Date: 04/03/18Order Info: 0667-1 - BMPOrder Info: 09917-5 - TROPOrder Info: 3016-3 - TSHOrder Info: 3024-7 - T4F'TROP' Serial specimen #1, #2, #3, or #4: 1[facility] [address] [place], [address] GAP 12 (Normal) Range: 5-15 [...] Comments: Please note revised GLUCOSE reference range asdjcievb29/02/2018. 54-Kec-17801:52 D-Dimer Quantitative (DVT/PE) Comments: Order Date: 04/03/18Order Info: 12433-0 - [facility] [address] [place], [address] D-DIMER QUANT 1.52 {FEU/ug/m} (Abnormal) Range: 0.27-0.49 Comments: D-Dimer ELEVATED (>0.49): Additional studies and clinicalassessments are indicated to conclude diagnosis of:Deep Vein Thrombosis (DVT) or Pulmonary Embolism (PE)CRITICAL VALUE VERIFIED. CALLED TO [facility]04/03/18 1119 Jaelyn Wyatt.RESULTS READ BACK BY SAME . :52 Thyroid Stim Hormone (TSH) Comments: Order Date: 04/03/18Order Info: 0667-1 - BMPOrder Info: 60382-9 - TROPOrder Info: 6-3 - TSHOrder Info: 3024-7 - T4F'TROP' Serial specimen #1, #2, #3, or #4: [address] [place] [address] [place], [address] TSH 2.45 {uIU/mL} (Normal) Range: 0.358-3.74 :52 Troponin-I Comments: Order Date: 04/03/18Order Info: 0667 - BMPOrder Info: 33941-9 - TROPOrder Info: 3016-3 - TSHOrder Info: 3024-7 - T4F'TROP' Serial specimen #1, #2, #3, or #4: [address] [place] [address] [place], [place], [address] TROPONIN-I < 0.015 ng/mL (Normal) Comments: TROPONIN-I EXPECTED VALUES <0.045 Negative 0.045 - 0.590 Consistent with Cardiac Damage > OR = 0.600 Critical Value Not every elevated troponin is indicative of GA. T hesevalues should be used with clinical judgement in examiningthe patient's clinical picture for diagnosis. To establisha diagnosis of GA versus myocardial injury, there must be ademonstrated rise and/ or fall in the troponin values, inaddition to ischemic symptoms, EKG changes, new regionalwall motion abnormality, and/or angiographical evidence. PLEASE NOTE: REFERENCE RANGES EDITED 18:52 T4, FREE (THYROXINE) (43107) Comments: Order Date: 04/03/18Order Info: 0667-1 - BMPOrder Info: 70151-6 - TROPOrder Info: 3016-3 - TSHOrder Info: 3024-7 - T4F'TROP' Serial specimen #1, #2, #3, or #4: [address] [place] [address] [place], [address] T4 FREE DIRECT 1.09 ng/dL (Normal) Range: 0.76-1.46 : Gastric Biopsy See Note (Normal) Comments: [facility] [address] [place], [address] 20 Comments: Patient: FARHAD GLEZ : 1940 (77/F) Acct Num: [id number] Phys: Dora RAMON,Chaparro Unit Num: [id number] Loc: EN Specimen: [id number] Received: 01/12/18 - 1120 Spec Type: Gastri c Bx TISSUES TISSUES: A. Gastric mucous membrane B. Cardioesophageal junction C. Gastric mucous membrane D. Esophageal mucous membrane COMMENT A AND B. The results of immunohistochemistry for Helicobacter pylori will be reported separately ([id number]). B. Alcian blue/PAS stain with matched control is used in the evaluation of t hespecimen. GROSS DESCRIPTION A - Received in fixative [...] one cassette. 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 Focal intestinal metaplasia (goblet cell [...] IMMUNOHISTOCHEMISTRY See Note (Normal) Comments: [facility] [address] [facility] [place], [place], [address] 00 Comments: Patient: FARHAD GLEZ : 1940 (77/F) Acct Num: [id number] Phys: Dora RAMON,Chaparro Unit Num: [id number] Loc: EN Specimen: [id number] Received: 01/15/181124 Spec Type: IMMUN O TISSUES TISSUES: A. Stomach, NOS B. Stomach, NOS SPECIMEN INFORMATION: Tissue Source: A Antral biopsy, B Cardia biopsy Clinical Info: GERD, epigast josee pain Specimen Number: [id number] A AND B CPT code: 62888 x2 METHODOLOGY: Deparaffinized sections of prefer/formalin-fixed tissue [...] their performance characteristics determined by [facility]. They may not have been cleared or approved by the U.S. Food and Drug Adm inistration. The FDA has determined that such clearance or approval is not necessary. INTERPRETATION: A. Antral biopsy: Negative for Helicobacter pylori organisms. B. Cardia biopsy: Negati ve for Helicobacter pylori organisms. SJ:ebenezer 01/16/18 PHYSICIAN AND INSTITUTION [place] [address] Signed Jeovanny Stinson 01/16/18 <signature on file> 53-Pdr-687198:19 HgA1C , Office (70496) HgA1C , Office 5.3 % (Normal) Range: 4.6 - 7.1 :56 METABOLIC PANEL, Comments: PATIENT WAS FASTINGPERFORMED BY: [facility] [address] [id number] BY: CB [facility] Wxkpnp4074 [facility] [id number] COMPREHENSIVE (53427) ALT (SGPT) 17 [iU]/L (Normal) Range: 0-32 [...] Glucose, Serum 107 mg/dL (Abnormal) Range: 65-99 09-Yqk-04848:56 LIPOPROTEIN, BLD, BY NMR Comments: PATIENT WAS FASTINGPERFORMED BY: BN [facility] Bjgybhatnc6371 [facility] [id number] BY: CB [facility] Xbcnys5030 [facility] [id number] (33334) LP-IR Score <25 (Normal) Comments: INSULIN RESISTANCE MARKER <--Insulin Sensitive Insulin Resistant--> Percentile in Reference PopulationInsulin Resistance ScoreLP-IR Score Low 25th 50th 75th High <27 27 45 63 >63LP-IR Score is inaccurate if patient is non-fasting. .The LP-IR score is a laboratory developed i [facility] that has beenassociated with insulin [...] were developed and their performance characteristicsdetermined by [employer]. These assays have not been cleared by [...] 1600 - 2000 Very High > 2000 79-Mfy-22925:56 CALCIUM, IONIZED (86076) Comments: PATIENT WAS FASTINGPERFORMED BY: BN [facility] [address] [id number] BY: CB [facility] [address] [id number] Calcium, Ionized, Serum 5.2 mg/dL (Normal) Range: 4.5-5.6 Plan of Care Name Dates Details Instructions Current nonsmoker (Renamed from Current non-smoker) : Eprescribed prescriptions (G8553) Indication: Current nonsmoker (Renamed from Current non-smoker) Planned Observations Ferritin ([id number])Indication: Upper GI bleed On: 40-Sdh-632072:57 Request Comments: in 6 weeks CBC, Platelets & Auto Diff (90067)Indication: Tachycardia On: :51 Request Metabolic Panel, Basic ([id number])Indication: Tachycardia On: 33-Kib-00676:51 Request TSH ([id number])Indication: Tachycardia On: 41-Lnj-88394:51 Request D-Dimer (11943)Indication: Tachycardia On: 53-Tjq-15099:50 Request Troponin I ([id number])Indication: Tachycardia On: 97-Edg-49726:50 Request LIPOPROTEIN, BLD, BY NMR ([id number])Indication: Hypertension On: 29-Kwc-140920:53 Request CBC W/AUTO DIFF WBC (60206)Indication: Hypertension On: 72-Yix-489821:53 Request METABOLIC PANEL, COMPREHENSIVE ([id number])Indication: Hypertension On: 40-Wur-301549:53 Request HGB A1C (77172)Indication: Abnormal glucose (Renamed from Abnormal glucose level) On: 61-Qum-449941:42 Request Planned Encounters Medical; [facility] 1 Month FU - On: 23-Nov-2018 8:00 [facility] Xoimara Do MD, MD, Dana M Planned Procedures Echo CompleteBy: Xiomara Do MD On: 22-Oct-2018 Intent Xiomara Do MD PNEUM VAC ADLT/IMUMNOSPR, SBC/INTRM On: 22-Oct-2018 Intent ([id number])By: Xiomara Do MD Comments: Lot #[id number]-L arm, dltd, IMDose-prefilled syringegiven by:MARSHA Lindsey signed Xiomara Do MD Flu Vaccine (Quadrivalent) [id number]: On: 05-Sep-2018 Intent Xiomara Do MD, MD, Dana Comments: Lot #[id number]-L dltd, IMDose prefilled syringegiven by: MARSHA HUMPHREY reviewed and ABN signed Harry SCREENING DIGITAL TOMOSYNTHESIS OF On: 25-Jun-2018 Intent BREAST ([id number])By: Xiomara Do MD, MD, Dana M Nuclear Stress Test/Stress On: 17-May-2018 Intent SPECT/TreadmillBy: Xiomara Do MD Comments: naeem mid june M Xiomara Do MD 24 HOUR HOLTER MONITORING WITH On: 03-Apr-2018 Intent INTERPRETATION AND REPORT BY PHYSICIAN ([id number])By: Xiomara Do MD, MD, Dana M CTA CHEST W/W/O CONTRAST ([id number])By: On: 03-Apr-2018 Intent Xiomara Do MD, MD, Dana Comments: STAT STAT STAT STAT!! M ELECTROCARDIOGRAM, COMPLETE (ECG) On: 03-Apr-2018 Intent ([id number])By: Xiomara Do MD Comments: see scanned document of test done to see results reviewed today with patient Xiomara Do MD CT - Brain/Head (Without On: 15-Mar-2018 Intent Contrast)By: Xiomara Do MD, MD, Dana M CT - Brain/Head (Without On: 15-Mar-2018 Intent Contrast)By: Xiomara Do MD Comments: daughter will call to set up Xiomara Do MD Ear Irrigation ([id number])By: Hi On: 15-Sep-2017 Xiomara Hernández MD, MD, Dana M Comments: irrigated left ear without difficult, mild amount of yellow/brown was expelled from the ear, wax currette used DEXA SCAN AXIAL SKELETON ([id number])By: On: 15-Sep-2017 Xiomara Landry MD, MD, Dana M Flu Vaccine (Quadrivalent) [id number]: On: 22-Aug-2017 Xiomara Landry MD, MD, Dana Comments: QUAD flu shotlot number: [id number]: 02/2018L 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 Expiration date unspecified Encounters Office Visit On: 22-Oct-2018 8:07 Encounter Diagnosis: Encounter for well adult exam with abnormal findings, Hiatal hernia, Erosive esophagitis, Iron deficiency anemia, Tachycardia, GERD (gastroesophageal reflux disease), BMI 28.0-28.9,adult, End: 23-Oct-2018 20:07 Fracture of L1 vertebra due to fall [...] The patient does have durable power of tax attorney and living will. The patient has [...] Internal Medicine End: 27-Apr-2017 9:22 Payers MedicareCignaMANEREYDA beaulieu guarantor
--- OUTSIDE RECORDS SUMMARY | 2019-01-27 04:41 | XMS RPT_ITS | Continuity of Care Document ---
:1940 Author Organization [facility] Address [address] [facility] [address] [place] [address] Phone Care Team Providers Name Role Phone [...] yearly mammo 09-23 BD 12-24 yearly with [facility]. Status: Active Erosive esophagitis (K22.10, 530.19) [...] follow-up (Z09, V67.59) Comments: low hgb in [facility] in [place] Status: Active Hyperlipidemia (E78.5, 272.4) Comments: reveiwed [...] Start : 21-Mar-2018 Active Comments:called to Raj [phone] - cmanchak 03/21 CoQ-10 100 MG Oral [...] Visit Report Result: Comments: See Note; NOTES: [facility] [address] [place] [address]. [address] [place] [address] OFFICE VISIT Date of Service: 10/13/18 MR#: [id number] Acct: [id number] Name: FARHAD GLEZ Rep #: [id number] : 1940 Provider: Chaparro John MD Age/Sex: 78/F [place] [facility] [place] Status: Signed with Addenda ADDENDUM by Chaparro John MD on 12/19/17 at 1531 Addendum entered and electronically signed by Chaparor John MD 10/18/18 15:31: October 18, 2018. [...] of 8. Her upper endoscopy performed at [facility] in [place] it suggested grade C erosive esophagitis and [...] 78-year-old female who was briefly hospitalized in [place] with what appeared to be an acute [...] note regarding her a esophagogastroduodenoscopy performed in [place]. Then with that information a t hand [...] Vital Signs10/13/18 Body Mass Index (BMI) 29.6 10/09/18 Body Mass Index (BMI) 29.6 Intake Visit Reasons: Hiatal Hernia Chief Complaint: anemia Client Services Vice President Required: No Is patient in pain?: No [...] not determined. She was hospitalized overnight in [facility]. She presented with shortnes s of breath. [...] a note from Dr Bruce Blackman from [place] [facility] suggesting that the results of her upper [...] endoscopy surgical report that was performed and [place]. I prev iously saw the patient in [...] redness of the stomach. On the colonoscopy sh e had a diminutive polyp in the mid [...] and colonoscopy with operative note to follow: [facility] Medical Records Department [address] [place] [address] Operative Report 01/12/18 0848 MR#: [id number] :[id number] Name: FARHAD GLEZ #:[id number] : [id number]: Chaparro John MD PCP:Xiomara Do MD Status:REG SD Location: [place] [address] Problem List (1) GERD (gastroesophageal reflux diseas [...] exam performed. Slightly lax anal tone. Moderate nutrition internship al and external hemorrhoids. No active [...] is negative for organisms. H pylori: Negative [facility] Cardiovascular Services [address] [place] [address] MR#: [id number]:[id number] Name: FARHAD GLEZ #:[id number] : 1940 [...] %. This not e was generated with Earnestation software. It may contain incorrect words, spelling, [...] 78-year-old female who was briefly hospitalized in [place] with what appeared to be an acute [...] regarding her a esophagogastroduodenoscop y performed in [place]. Then with that information at hand I [...] Diagnoses Acute blood loss anemia D62 25min 12/08/18 1111 <Electronically signed by Chaparro John MD> Date Chaparro John MD Cosigner Signature: Date (if applicable) CC: Xiomara Do MD 13-Oct-2018 Surgery Visit Report Result: Comments: See Note; NOTES: [facility] [address] [place] [address] OFFICE VISIT Date of Service: 10/13/18 MR#: [id number] Acct: [id number] Name: FARHAD GLEZ Rep #: [id number] : 1940 Provider: Chaparro John MD Age/Sex: 78/F Location: [facility] Status: Signed Intake Vital Signs10/13/18 Body Mass Index (B SC) 29.6 10/09/18 Body Mass Index (BMI) 29.6 Intake Visit Reasons: Hiatal Hernia Chief Complaint: anemia Client Services Vice President Required: No Is patient in pain?: No [...] a note from Dr Bruce Blackman from [place] [facility] suggesting that the results of her upper [...] official upper endoscopy surgical report that was [facility] and [place]. I previously saw the patient in the [...] and colonoscopy with operative note to follow: [facility] Medical Records Department [address] [place] [address] Operative Report 01/12/18 0848 MR#: [id number] Name: FARHAD GLEZ #:[id number] : [id number]: Chaparro John MD PCP:Xiomara Do MD Status:REG [facility] Location: SWOL78-6 Problem List (1) GE RD (gastroesophageal reflux [...] is negative for organisms. H pylori: Negative [facility] Cardiovascular Services [address] [place] [address] MR#: [id number]:[id number] Name: FARHAD GLEZ #:[id number] : 1940 78From: Johnson Bird MD Primary [...] 57 %. This note was generated with Earnestation software. It may contain incorrect words, spelling, and punctuation that were not noted in checking the note before signing. 1467<Electronically signed by Johnson Bird MD> Date Johnson [...] female who was brie fly hospitalized in [place] with what appeared to be an acute [...] regardi ng her a esophagogastroduodenoscopy performed in [place]. Then with that information at hand I [...] Visit Report Result: Comments: See Note; NOTES: [facility] Orthopaedics AND Sports Medicine [address] [place] [address] [id number] OFFICE VISIT Date of Service: 09/18/18 MR#: [id number] Acct: [id number] Name: FARHAD GLEZ Rep #: [id number] : 1940 Provider: Nae Kumar MD Age/Sex: 78/F [place] [facility] [place] Status: Signed Intake Intake Visit Reasons: Back [...] mg PO DAILY #60 capsule. 01/12/18 [Rx] [facility] Medical History Acid reflux (Acute) Hemorrhoids (Acute) [...] <Electronically signed by Nae Kumar MD> Date Nea Kumar MD Cosigner Signat ure: Date (if applicable) CC: Xiomara Do MD 12-Sep-2018 SCREENING MAMM (CAD), BILAT Result: Comments: See Note; NOTES: [facility] Imaging Services [address] [place] [address] SCREENING MAMM (CAD), BILAT MR#: [id number] Acct: [id number] Name: FARHAD GLEZ Rep #: [id number] : 1940 F 78 From: Chad Wilkins MD PCP: Xiomara Do MD Status: [facility] Study: SCREENING MAMM (CAD), BILAT Date of Exam: 09/12/18 Exam# [id number] Ordering Dr: Xiomara Do MD M AMMOGRAPHY [...] these results will be sent to the [facility] by the facility within 30 days. Approximately 10% of breast cancers are not detected by mammography. A normal mammogram should not delay biopsy of a clinically suspicious abnormality. [id number] Elect ronically Signed: Chad Wilkins MD at 11:12 EST Tel [phone], Service support , CC: Xiomara Do MD Special Education Tutor: Signed 21-Jun-2018 Stress Report Result: Comments: See Note; NOTES: [facility] Cardiovascular Services [address] [place] [address] MR#: [id number] Acct: [id number] Name: FARHAD GLEZ Rep #: [id number] : [birth year] 78 From: Johnson Bird MD [...] %. This note was gen erated with Earnestation software. It may contain incorrect words, spelling, and punctuation that were not noted in checking the note before signing. 06/21/18 2657 <Electronically signed by Johnson Bird MD> Date Johnson Bird MD CC: Xiomara Do MD Date Dictated: 06/21/181899 Date Transcribed: 06/21/181899 Special Education Tutor: PM Signed 20-Jun-2018 Orthopedic Visit Report Result: Comments: See Note; NOTES: [facility] Orthopaedics AND Sports Medicine [address] [place] [address] OFFICE VISIT Date of Service: 06/19/18 MR#: [id number] Acct: [id number] Name: FARHAD GLEZ Rep #: [id number] : 1940 Provider: Nae Kumar MD Age/Sex: [...] She was treated by a physician at [facility] with a brace. She wore the brace [...] program. This helps. She recently flown to [place] as well. She has HTN, h/o skin [...] 6 Vw Result: Comments: See Note; NOTES: [facility] Imaging Services [address] [place] [address] L/S Spine w Bend Min 6 Vw MR#: [id number] Acct: [id number] Name: FARHAD GLEZ Rep #: [id number] : 1940 F 78 From: Luis Jefferson MD PCP: Xiomara Do MD Status: REG CLI Study: L/S Spine w Bend Min 6 Vw Date of Exam: 06/19/18 Exam# [id number] Ordering Dr: Nae Kumar MD STUDY: X-RAY [...] CC: Xiomara Do MD; Nae Kumar MD Special Education Tutor: Signed 30-May-2018 PT D/C Summary (1) Result: Comments: See Note; NOTES: [facility] [address] [place] [address] Fax REHABILITATION SERVICES [facility] SUMMARY MR#: [id number] Acct: [id number] Name: FARHAD GLEZ Rep #: [id number] : 1940 78 From: Roberto Oliveros DPT, OCS, CSCS Referring Dr.: Xiomara Do MD Status: REG RCR Insurance: MEDICA RE PART A B [employer] HP - PT D/C Summary It has been my pleasure to treat FARHAD GLEZ under orders from Xiomara Do, for the diagnosis of L1 compression fracture for a total of 10 visit(s). [facility] Date: 05/29/18 Please see the following information [...] please feel free to call me at [phone]. Thank you for the re ferral of this patient. Sincerely, Roberto Oliveros DPT, OC <Electronically signed by Roberto Oliveros DPT, NEPTALI, CSCS> 05/30/18 0716 CC: Xiomara Do MD EBG Signed 26-Apr-2018 Inital Evaluation (1) - PT Result: Comments: See Note; NOTES: [facility] [address] [place] [address]. [address] [place] [address] Fax REHABILITATION SERVICES INITIAL EVALUATION MR#: [id number] Acct: [id number] Name: FARHAD GLEZ Rep #: [id number] : 1940 77 From: NEPTALI Maier DPT, CSCS Referring Dr.: Xiomara Do MD Status: [...] twisting allowed. saw doc last y in [place] and released to driving and sent for [...] Wants to get back to water aerob Loc[employer] Special Diet. Enjoys the pool. Wants to get back [...] to be FAXED BACK to us at [phone] ease let me know if there are questions or concerns regarding this plan of care. Physician Signature: Date: <Electronically signed by Roberto Oliveros DPT, OCS, CSCS> 04/26/18 0907 CC: Xiomara Do MD EBG Signed For Medicare only, by signing this I certify the plan of care. Physicians Signature Date 03-Apr-2018 Chest W/WO Contrast Result: Comments: See Note; NOTES: [facility] Imaging Services [address] [place] [address] Chest W/WO Contrast MR#: [id number] Acct: [id number] Name: FARHAD GLEZ Rep #: [id number] : 1940 F 77 From: Chad Wilkins MD PCP: Xiomara Do MD Status: REG CLI Study: Chest W/WO Contrast Date of Exam: 04/03/18 Exam# [id number] Ordering Dr: Xiomara Do MD STUDY: CTA [...] Chad Wilkins MD at 15:45 EDT Tel [phone], Service support [phone], CC: Xiomara Do MD Special Education Tutor: Signed 12-Jan-2018 Operative Report Result: Comments: See Note; NOTES: [facility] Medical Records Department [address] [place] [address] Operative Report 01/12/18 0848 MR#: [id number] Acct: [id number] Name: FARHAD GLEZ Rep #: [id number] : 1940 77 From: Chaparro John MD PCP: Xiomara Do MD Status: REG [facility] Location: [place] [address] Problem List (1) GERD (gastroesophageal reflux disease) [...] 01/12/18 0855 <Electronically signed by Chaparro John MD&jerry mckenzie;#62; Date Chaparro John MD CC: Xiomara Do MD; Chaparro John MD Signed 19-Dec-2017 Dexa Bone Density Study (HP) Result: Comments: See Note; NOTES: [facility] Imaging Services [address] [place] [address] Dexa Bone Density Study (HP) MR#: [id number] Acct: [id number] Name: FARHAD GLEZ Rep #: [id number] : 1940 F 77 From: Chad Wilkins MD PCP: Xiomara Do MD Status: REG CLI Study: Dexa Bone Density Study (HP) Date of Exam: 12/19/17 Exam# [id number] Ordering Dr: Xiomara Do MD STUDY: DUAL [...] Chad Wilkins MD at 15:25 EST Tel [phone], Service support , CC: Xiomara Do MD Special Education Tutor: Signed 14-Dec-2017 Surgery Visit Report Result: Comments: See Note; NOTES: [facility] [address] [place] [address] OFFICE VISIT Date of Service: 12/14/17 MR#: [id number] Acct: [id number] Name: NELLIE CHERRYFARHAD Rep #: [id number] : 1940 Provider: Chaparro John MD Age/Sex: 77/F Location: [facility] Status: Signed Intake Vital Signs12/14/17 Height 5 ft 5 in 12/14/17 Weight: 178 lb Intake Visit Reasons: FAMILY HX OF COLON CA Client Services Vice President Required: No Is patient in pain?: No [...] No other Exam Const General: healthy appearing [facility] Head: normal to inspection Eyes General: appearance [...] Summary (1) Result: Comments: See Note; NOTES: [facility] [address] [place] [address]. [address] [place] [address] Fax REHABILITATION SERVICES [facility] SUMMARY MR#: [id number] Acct: [id number] Name: FARHAD GLEZ Rep #: [id number] [...] fe el free to call me at [phone]. Thank you for the referral of this patient. Sincerely, Riya Kraft <Electronically signed by Riya Kraft PT, CertHu MDT> 10/24/17 1135 CC: Xiomara Do MD EMMANUEL Signed 22-Sep-2017 Inital Evaluation (1) - PT Result: Comments: See Note; NOTES: [facility] [address] [place] [address] Fax REHABILITATION SERVICES INITIAL EVALUATION MR#: [id number] Acct: [id number] Name: FARHAD GLEZ Rep #: [id number] : 1940 77 From: Riya Kraft PT, CertHu MDT Referring Dr.: Xiomara Do MD Status: REG RCR Insurance: MEDIC ARE PART A B [facility] Patient's Visit Information FARHAD GLEZ is [...] to be FAXED BACK to us at [phone] for Medicare purposes. 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 grew up in [place] Status: Active Exercise History: Exercises regularly. Comments: [employer] membership. Status: Active Living Situation: Lives [...] kg/m2 Body Surface Area Calculated 1.84 m2 64-Sqr-235307:13 BP Systolic 130 mm[Hg] Comments: Patient Position: [...] Microscopic Examination Comments: PATIENT NOT FASTINGPERFORMED BY: [facility] Data[facility] HospitalHxwhhr1030 [facility] [id number] Bacteria Few (Normal) Mucus Threads Present (Normal) Cast Type Hyaline casts (Normal) Casts Present {/lpf} (Abnormal) Epithelial Cells (non renal) 0-10 {/hpf} (Normal) Range: 0 - 10 RBC 0-2 {/hpf} (Normal) Range: 0 - 2 WBC 0-5 {/hpf} (Normal) Range: 0 - 5 2-Uph-468556:02 MICROALBUMIN: CREATININE RATIO Comments: PATIENT NOT FASTINGPERFORMED BY: [facility] HospitalPfgbgn2547 [facility] [id number] (47967) AND (63061) Alb/Creat Ratio 138.3 {mg/g_creat} (Abnormal) Range: 0.0-30.0 Comments: Normal: 0.0 - 30.0 Albuminuria: 31.0 - 300.0 Clinical albuminuria: >300.0 Albumin, Urine 152.4 ug/mL (Normal) Creatinine, Urine 110.2 mg/dL (Normal) 7-Gcc-053677:02 URINALYSIS (46957) Comments: PATIENT NOT FASTINGPERFORMED BY: [facility] Data[facility] HospitalVrclop237[address] [place] [address] [id number] Microscopic Examination See below: (Normal) Comments: Microscopic was indicated and was performed. Nitrite, Urine Negative (Normal) Urobilinogen,Semi-Qn 0.2 mg/dL (Normal) Range: 0.2-1.0 Bilirubin Negative (Normal) Occult Blood Negative (Normal) Ketones Negative (Normal) Glucose Negative (Normal) Protein 1+ (Abnormal) WBC Esterase Negative (Normal) Appearance Clear (Normal) Urine-Color Yellow (Normal) pH 6.5 (Normal) Range: 5.0-7.5 Specific Cavalier 1.022 (Normal) Range: 1.005-1.030 5-Xkj-641309:02 Metabolic Panel, Comments: PATIENT NOT FASTINGPERFORMED BY: [facility]6370 [facility] [id number] Information: NURSE DRAW Comprehensive (70794) ALT (SGPT) 22 [iU]/L (Normal) Range: 0-32 [...] 8-27 Glucose 92 mg/dL (Normal) Range: 65-99 06-Xau-812429:16 CBC (Auto) (71282) Comments: now and in 6 weeks; PATIENT NOT FASTINGPERFORMED BY: MAHI [facility] Wtfcee4811 [facility] [id number] Platelets 399 {x10E3/uL} (Abnormal) Range: 150-379 RDW [...] Date: 04/03/18Order Info: 0667-1 - BMPOrder Info: 40505-1 - TROPOrder Info: 3016-3 - TSHOrder Info: 3024-7 - T4F'TROP' Serial specimen #1, #2, #3, or #4: 1[facility] B[address]gkyr[address] [place], [address] GAP 12 (Normal) Range: 5-15 [...] Comments: Please note revised GLUCOSE reference range heodzuldr43/02/2018. :52 D-Dimer Quantitative (DVT/PE) Comments: Order Date: 04/03/18Order Info: 08736-7 - [facility]ER[facility] [address] [place], [address] D-DIMER QUANT 1.52 {FEU/ug/m} (Abnormal) Range: 0.27-0.49 Comments: D-Dimer ELEVATED (>0.49): Additional studies and clinicalassessments are indicated to conclude diagnosis of:Deep Vein Thrombosis (DVT) or Pulmonary Embolism (PE)CRITICAL VALUE VERIFIED. CALLED TO [facility]04/03/18 1119 Jaelyn Wyatt.RESULTS READ BACK BY SAME . :52 Thyroid Stim Hormone (TSH) Comments: Order Date: 04/03/18Order Info: 0667-1 - BMPOrder Info: 34183-0 - TROPOrder Info: 3016-3 - TSHOrder Info: 3024-7 - T4F'TROP' Serial specimen #1, #2, #3, or #4: [address] [place] [address] [place], [place], [address] TSH 2.45 {uIU/mL} (Normal) Range: 0.358-3.74 :52 Troponin-I Comments: Order Date: 04/03/18Order Info: 0667- - BMPOrder Info: 97737-1 - TROPOrder Info: 3016-3 - TSHOrder Info: 3024-7 - T4F'TROP' Serial specimen #1, #2, #3, or #4: [address] [place] [address] [place], [place], [address] TROPONIN-I < 0.015 ng/mL (Normal) Comments: TROPONIN-I EXPECTED VALUES <0.045 Negative 0.045 - 0.590 Consistent with Cardiac Damage > OR = 0.600 Critical Value Not every elevated troponin is indicative of SC. T hesevalues should be used with clinical judgement in examiningthe patient's clinical picture for diagnosis. To establisha diagnosis of SC versus myocardial injury, there must be ademonstrated rise and/ or fall in the troponin values, inaddition to ischemic symptoms, EKG changes, new regionalwall motion abnormality, and/or angiographical evidence. PLEASE NOTE: REFERENCE RANGES EDITED 18:52 T4, FREE (THYROXINE) (25526) Comments: Order Date: 04/03/18Order Info: 0667-1 - BMPOrder Info: 69441-1 - TROPOrder Info: 3016-3 - TSHOrder Info: 3024-7 - T4F'TROP' Serial specimen #1, #2, #3, or #4: [address] [place] [address] [address] [place], [address] T4 FREE DIRECT 1.09 ng/dL (Normal) Range: 0.76-1.46 : Gastric Biopsy See Note (Normal) Comments: [facility] [address] [place], [address] 20 Comments: Patient: FARHAD GLEZ : 1940 (77/F) Acct Num: [id number] Phys: Dora RAMON,Chaparro Unit Num: [id number] Loc: EN Specimen: [id number] Received: 01/12/181120 Spec Type: Gastri c Bx TISSUES TISSUES: A. Gastric mucous membrane B. Cardioesophageal junction C. Gastric mucous membrane D. Esophageal mucous membrane COMMENT A AND B. The results of immunohistochemistry for Helicobacter pylori will be reported separately ([id number]). B. Alcian blue/PAS stain with matched control [...] one cassette. / AM:ebenezer 01/12/18 TC:2 CPT: 87725 x4, 65286 x2, 71575 HEADER OPERAT ION: EGD with biopsy PRE-OP [...] Fragments of gastroesophageal mucosa with acute and head of acquisitions mandi inflammation. Focal intestinal metaplasia (goblet cell [...] file> : IMMUNOHISTOCHEMISTRY See Note (Normal) Comments: [facility] [address] [facility] [place], [address] 00 Comments: Patient: FARHAD GLEZ : 1940 (77/F) Acct Num: [id number] Phys: Dora RAMON,Chaparro Unit Num: [id number] Loc: EN Specimen: [id number] Received: 01/15/181124 Spec Type: IMMUN O TISSUES TISSUES: A. Stomach, NOS B. Stomach, NOS SPECIMEN INFORMATION: Tissue Source: A Antral biopsy, B Cardia biopsy Clinical Info: GERD, epigast josee pain Specimen Number: [id number] A AND B CPT code: 88661 x2 METHODOLOGY: Deparaffinized sections of prefer/formalin-fixed tissue [...] developed and their performance characteristics determined by [facility]. They may not have been cleared or approved by the U.S. Food and Drug Adm inistration. The FDA has determined that such clearance or approval is not necessary. INTERPRETATION: A. Antral biopsy: Negative for Helicobacter pylori organisms. B. Cardia biopsy: Negati ve for Helicobacter pylori organisms. SJ:ebenezer 01/16/18 PHYSICIAN AND INSTITUTION [place] [address] Signed Jeovanny Stinson 01/16/18 <signature on file> 36-Gqq-581022:19 HgA1C , Office (39744) HgA1C , Office 5.3 % (Normal) Range: 4.6 - 7.1 :56 METABOLIC PANEL, Comments: PATIENT WAS FASTINGPERFORMED BY: [facility] [address] [id number] BY: [facility] Ksazyi0627 [facility] [id number] COMPREHENSIVE (21488) ALT (SGPT) 17 [iU]/L (Normal) Range: 0-32 [...] Glucose, Serum 107 mg/dL (Abnormal) Range: 65-99 12-Cvp-69205:56 LIPOPROTEIN, BLD, BY NMR Comments: PATIENT WAS FASTINGPERFORMED BY: BN [facility] Ovnvsxcbyk6869 [facility] [id number] BY: CB [facility] Iyczzy2637 [facility] [id number] (54434) LP-IR Score <25 (Normal) Comments: INSULIN RESISTANCE MARKER <--Insulin Sensitive Insulin Resistant--> Percentile in Reference PopulationInsulin Resistance ScoreLP-IR Score Low 25th 50th 75th High <27 27 45 63 >63LP-IR Score is inaccurate if patient is non-fasting. .The LP-IR score is a laboratory developed i [facility] that has beenassociated with [...] were developed and their performance characteristicsdetermined by [employer]. These assays have not been cleared by [...] 1600 - 2000 Very High > 2000 16-Dto-35311:56 CALCIUM, IONIZED (15820) Comments: PATIENT WAS FASTINGPERFORMED BY: BN [facility] [address] [id number] BY: CB [facility] Ildygs2050 [facility] [id number] Calcium, Ionized, Serum 5.2 mg/dL (Normal) Range: 4.5-5.6 Plan of Care Name Dates Details Instructions Current nonsmoker (Renamed from Current non-smoker) : Eprescribed prescriptions (G8553) Indication: Current nonsmoker (Renamed from Current non-smoker) Planned Observations CBC WITH MANUAL DIFF (50608)Indication: Iron deficiency anemia On: 18-Isk-693065:55 Request Comments: recheck in 6 weeks approx. 11-12-2018 Ferritin (22376)Indication: Upper GI bleed On: 42-Dof-310735:57 Request Comments: in 6 weeks CBC, Platelets & Auto Diff (56319)Indication: Tachycardia On: 71-Ast-54767:51 Request Metabolic Panel, Basic (37647)Indication: Tachycardia On: :51 Request TSH (29780)Indication: Tachycardia On: :51 Request D-Dimer (83825)Indication: Tachycardia On: :50 Request Troponin I (12457)Indication: Tachycardia On: :50 Request LIPOPROTEIN, BLD, BY NMR (44019)Indication: Hypertension On: 88-Dtf-170156:53 Request CBC W/AUTO DIFF WBC (27310)Indication: Hypertension On: 47-Lbj-560132:53 Request METABOLIC PANEL, COMPREHENSIVE (43791)Indication: Hypertension On: 92-Atq-867893:53 Request HGB A1C (57397)Indication: Abnormal glucose (Renamed from Abnormal glucose level) On: 34-Gvb-734467:42 Request Planned Encounters Medical; [facility] 1 Month FU - On: 23-Nov-2018 8:00 [facility] Hi RAMON, Xiomara Parker MD Planned Procedures Echo CompleteBy: Xiomara Do MD On: 22-Oct-2018 Intent Xiomara Do MD PNEUM VAC ADLT/IMUMNOSPR, SBC/INTRM On: 22-Oct-2018 Intent (60161)By: Xiomara Do MD Comments: Lot #[id number]-L arm, dltd, IMDose-prefilled syringegiven by:MARSHA Lindsey signed Xiomara Do MD Flu Vaccine (Quadrivalent) 39869Qf: On: 05-Sep-2018 Intent Xiomara Do MD, MD, Dana Comments: Lot #[id number]-L dltd, IMDose prefilled syringegiven by: MARSHA HUMPHREY reviewed and ABN signed M SCREENING DIGITAL TOMOSYNTHESIS OF On: 25-Jun-2018 Intent BREAST (54339)By: Xiomara Do MD, MD, Dana M Nuclear Stress Test/Stress On: 17-May-2018 Intent SPECT/TreadmillBy: Xiomara Do MD Comments: plan mid june M Xiomara Do MD 24 HOUR HOLTER MONITORING WITH On: 03-Apr-2018 Intent INTERPRETATION AND REPORT BY PHYSICIAN (46260)By: Xiomara Do MD, MD, Dana M CTA CHEST W/W/O CONTRAST (71330)By: On: 03-Apr-2018 Intent Xiomara Do MD, MD, Dana Comments: STAT STAT STAT STAT!! M ELECTROCARDIOGRAM, COMPLETE (ECG) On: 03-Apr-2018 Intent (52529)By: Xiomara Do MD Comments: see scanned document of test done to see results reviewed today with patient Xiomara Do MD CT - Brain/Head (Without On: 15-Mar-2018 Intent Contrast)By: Xiomara Do MD, MD, Dana M CT - Brain/Head (Without On: 15-Mar-2018 Intent Contrast)By: Xiomara Do MD Comments: daughter will call to set up Xiomara Do MD Ear Irrigation (84272)By: Hi On: 15-Sep-2017 Xiomara Hernández MD, MD, Dana M Comments: irrigated left ear without difficult, mild amount of yellow/brown was expelled from the ear, wax currette used DEXA SCAN AXIAL SKELETON (45909)By: On: 15-Sep-2017 Xiomara Landry MD, MD, Dana M Flu Vaccine (Quadrivalent) [id number]: On: 22-Aug-2017 Xiomara Landry MD, MD, Dana Comments: QUAD flu shotlot number: [id number]: 02/2018L Deltoid IMAD ANGELA Mcdonald Instructions Name Dates Details Hospital discharge follow-up [...] Advance Directives Name Dates Details Immunization Registry [place] - Effective on Effective: 20-Oct-201710/20/2017. Expiration date [...] The patient does have durable power of consumer attorney and living will. The patient has [...]
--- OUTSIDE RECORDS SUMMARY | 2019-01-27 04:42 | XMS RPT_ITS | Continuity of Care Document ---
:1940 Author Organization [facility] Address [address] [place] [address] Phone Care Team Providers Name Role Phone Hi RMAON, Xiomara Mcdonald Unavailable Dora RAMON, Chaparro Lal Unavailable LATONIA Casanova Unavailable Unavailable Unavailable Unavailable Problems Name Dates [...] [facility] yearly due mammo do [facility] with [facility]. Status: Active BMI 28.0-28.9,adult (Z68.28, V85.24) Status: [...] reflux disease) (K21.9, 530.81) Comments: EGD 2012, 3 18 Hpylori neg. biopsy mild gastritis like [...] follow-up (Z09, V67.59) Comments: low hgb in [facility] in [place] Status: Active Hyperlipidemia (E78.5, 272.4) Comments: reveiwed [...] M Start : 21-Mar-2018 Active Comments:[phone] Ferrous Sulfate 325 (65 Fe) MG [...] Visit Report Result: Comments: See Note; NOTES: [facility] [address] [place] [address] OFFICE VISIT Date of Service: 09/18/18 MR#: [id number] Acct: [id number] Name: FARHAD GLEZ Rep #: [id number] : 1940 Provider: Nae Kumar MD Age/Sex: 78/F Location: [facility] Status: Signed Intake Intake Visit Reasons: Back [...] an d no additional [facility], [facility] Mus[facility] Reports back pain Skin/Breast Reports system reviewed and no additional complaints, [facility] Neuro Yes system reviewed and no additional complaints, [facility] Psych Reports system reviewed and no additional complaints, [facility] Endo Reports system reviewed and no additional [...] BILAT Result: Comments: See Note; NOTES: [facility] Imaging Services [address] [place] [address] SCREENING MAMM (CAD), BILAT MR#: [id number] Acct: [id number] Name: FARHAD GLEZ Rep #: [id number] : 1940 F 78 From: Chad Wilkins MD PCP: Xiomara Do MD Status: REG CLI Study: SCREENING MAMM (CAD), BILAT Date of Exam: 09/12/18 Exam# [id number] Ordering Dr: Xiomara Do MD M AMMOGRAPHY [...] these results will be sent to the [facility] by the facility within 30 days. Approximately 10% of breast cancers are not detected by mammography. A normal mammogram should not delay biopsy of a clinically suspicious abnormality. [id number] Elect ronically Signed: Chad Wilkins MD at 11:12 EST Tel [phone], Service support , CC: Xiomara Do MD Wood Engraver: Signed 21-Jun-2018 Stress Report Result: Comments: See Note; NOTES: [facility] Cardiovascular Services [address] [place] [address] MR#: [id number] Acct: [id number] Name: FARHAD GLEZ Rep #: [id number] : [birth year] 78 From: Johnson Bird MD [...] %. This note was gen erated with nlighten Technologiesation software. It may contain incorrect words, spelling, and punctuation that were not noted in checking the note before signing. 06/21/181903 <Electronically signed by Johnson Bird MD> Date Johnson Bird MD CC: Xiomara Do MD Date Dictated: 06/21/181899 Date Transcribed: 06/21/181899 Wood Engraver: PM Signed 20-Jun-2018 Orthopedic Visit Report Result: Comments: See Note; NOTES: [facility] [address] [place] [address] OFFICE VISIT Date of Service: 06/19/18 MR#: [id number] Acct: [id number] Name: FARHAD GLEZ Rep #: [id number] : 1940 Provider: Nae Kumar MD Age/Sex: 78/F Location: [facility] Status: Signed Intake Intake Visit Reasons: low [...] She was treated by a physician at [place] with a brace. She wore the brace [...] program. This helps. She recently flown to [place] as well. She has HTN, h/o skin [...] type: initial encounter Fracture type: closed 06/20/18 0940 <Electronically signed by Nae Kumar MD> Date Nae Kumar MD Cosigner Signature: Date (if applicable) CC: Xiomara Do MD 19-Jun-2018 L/S Spine w Bend Min 6 Vw Result: Comments: See Note; NOTES: [facility] Imaging Services [address] [place] [address] L/S Spine w Bend Min 6 Vw MR#: [id number] Acct: [id number] Name: FARHAD GLEZ Rep #: [id number] : 1940 F 78 From: Luis Jefferson MD PCP: Xiomara Do MD Status: REG CLI Study: L/S Spine w Bend Min 6 Vw Date of Exam: 06/19/18 Exam# [id number] Ordering Dr: Nae Kumar MD STUDY: X-RAY [...] CC: Xiomara Do MD; Nae Kumar MD Wood Engraver: Signed 30-May-2018 PT D/C Summary (1) Result: Comments: See Note; NOTES: [facility] [address] [place] [address] Fax REHABILITATION SERVICES DISCHAR SUMMARY MR#: [id number] Acct: [id number] Name: FARHAD GLEZ Rep #: [id number] [...] please feel free to call me at [phone]. Thank you for the re ferral of this patient. Sincerely, Roberto Oliveros DPT, OC <Electronically signed by Roberto Oliveros DPT, NEPTALI, CSCS> 05/30/18 0716 CC: Xiomara Do MD EBG Signed 26-Apr-2018 Inital Evaluation (1) - PT Result: Comments: See Note; NOTES: [facility] [address] [place], [place] [id number] Fax REHABILITATION SERVICES INITIAL EVALUATION MR#: [id number] Acct: [id number] Name: FARHAD GLEZ Rep #: [id number] : 1940 77 From: Roberto Oliveros DPT, NEPTALI, CSCS Referring Dr.: Xiomara Do MD Status: REG RCR Insurance: MEDIC ARE PART A B [facility] Patient's Visit Information FARHAD GLEZ [...] twisting allowed. saw doc last y in [place] and released to driving and sent for [...] to be FAXED BACK to us at [phone] ease let me know if there are questions or concerns regarding this plan of care. Physician Signature: Date: <Electronically signed by Roberto Oliveros DPT, OCS, CSCS> 04/26/18 0907 CC: Xiomara Do MD EBG Signed For Medicare only, by signing this I certify the plan of care. Physicians Signature Date 03-Apr-2018 Chest W/WO Contrast Result: Comments: See Note; NOTES: [facility] Imaging Services [address] [place] [address] Chest W/WO Contrast MR#: [id number] Acct: [id number] Name: FARHAD GLEZ Rep #: [id number] : 1940 F 77 From: Chad Wilkins MD PCP: Xiomara Do MD Status: REG CLI Study: Chest W/WO Contrast Date of Exam: 04/03/18 Exam# [id number] Ordering Dr: Xiomara Do MD STUDY: CTA [...] Chad Wilkins MD at 15:45 EDT Tel [phone], Service support [phone], CC: Xiomara Do MD Wood Engraver: Signed 12-Jan-2018 Operative Report Result: Comments: See Note; NOTES: [facility] Medical Records Department [address] [place] [address] Operative Report 01/12/18 0848 MR#: [id number] Acct: [id number] Name: FARHAD GLEZ Rep #: [id number] : 1940 77 From: Chaparro John MD PCP: Xiomara Do MD Status: REG [facility] Location: [place] [address] Problem List (1) GERD (gastroesophageal reflux disease) [...] (HP) Result: Comments: See Note; NOTES: [facility] Imaging Services [address] [place] [address] Dexa Bone Density Study (HP) MR#: [id number] Acct: [id number] Name: FARHAD GLEZ Rep #: [id number] : 1940 F 77 From: Chad Wilkins MD PCP: Xiomara Do MD Status: REG CLI Study: Dexa Bone Density Study () Date of Exam: 12/19/17 Exam# [id number] Ordering Dr: Xiomara Do MD STUDY: DUAL [...] Chad Wilkins MD at 15:25 EST Tel [phone], Service support , CC: Xiomara Do MD Wood Engraver: Signed 14-Dec-2017 Surgery Visit Report Result: Comments: See Note; NOTES: [facility] [address] [place] [address] OFFICE VISIT Date of Service: 12/14/17 MR#: [id number] Acct: [id number] Name: FARHAD GUTIERREZ Rep #: [id number] : 1940 Provider: Chaparro John MD Age/Sex: 77/F Location: [facility] Status: Signed Intake Vital Signs12/14/17 Height 5 ft 5 in 12/14/17 Weight: 178 lb Intake Visit Reasons: FAMILY HX OF COLON CA Cut Out Operator Required: No Is patient in pain?: [...] No other Exam Const General: healthy appearing [facility] Head: normal to inspection Eyes General: [...] Summary (1) Result: Comments: See Note; NOTES: [facility] [place] [address] Fax REHABILITATION SERVICES DISCHAR SUMMARY MR#: [id number] Acct: [id number] Name: FARHAD GLEZ Rep #: [id number] [...] fe el free to call me at [phone]. Thank you for the referral of this patient. Sincerely, Riya Kraft <Electronically signed by Riya Kraft PT, Cert. MDT> 10/24/17 1135 CC: Xiomara Do MD EMMANUEL Signed 22-Sep-2017 Inital Evaluation (1) - PT Result: Comments: See Note; NOTES: [facility] [address] [place], [place] [address] Fax REHABILITATION SERVICES INITIAL EVALUATION MR#: [id number] Acct: [id number] Name: FARHAD GLEZ Rep #: [id number] : 1940 77 From: Riya Kraft PT, Cert. MDT Referring Dr.: Xiomara Do MD Status: REG RCR Insurance: MEDIC ARE PART A B [employer] Patient's Visit Information FARHAD GLEZ is a [...] to be FAXED BACK to us at [phone] for Medicare purposes. 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 grew up in [place] Status: Active Exercise History: Exercises regularly. Comments: [...] Size: Standard Results Date Description Value Details 19-Usz-265589:16 CBC (Auto) (11822) Comments: now and in 6 weeks; PATIENT NOT FASTINGPERFORMED BY: [facility] [facility] [id number] Platelets 399 {x10E3/uL} (Abnormal) Range: 150-379 RDW [...] Date: 04/03/18Order Info: 0667-1 - BMPOrder Info: 02768-8 - TROPOrder Info: 3016-3 - TSHOrder Info: 3024-7 - T4F'TROP' Serial specimen #1, #2, #3, or #4: [facility] [address] [place], [address] GAP 12 (Normal) Range: 5-15 [...] Comments: Please note revised GLUCOSE reference range hxplstnxa01/02/2018. 81-Osw-72447:52 D-Dimer Quantitative (DVT/PE) Comments: Order Date: 04/03/18Order Info: 79549-1 - [facility]ER[facility] [address]klssvxgwe[address] [place], [place], [address] D-DIMER QUANT 1.52 {FEU/ug/m} (Abnormal) Range: 0.27-0.49 Comments: D-Dimer ELEVATED (>0.49): Additional studies and clinicalassessments are indicated to conclude diagnosis of:Deep Vein Thrombosis (DVT) or Pulmonary Embolism (PE)CRITICAL VALUE VERIFIED. [facility] Torsten9 Jaelyn Escalerano.RESULTS READ BACK BY SAME . :52 Thyroid Stim Hormone (TSH) Comments: Order Date: 04/03/18Order Info: 0667-1 - BMPOrder Info: 70270-0 - TROPOrder Info: 3016-3 - TSHOrder Info: 3024-7 - T4F'TROP' Serial specimen #1, #2, #3, or #4: [address] [place] [address] [place], [place], [address] TSH 2.45 {uIU/mL} (Normal) Range: 0.358-3.74 :52 Troponin-I Comments: Order Date: 04/03/18Order Info: 0667-1 - BMPOrder Info: 28371-8 - TROPOrder Info: 3016-3 - TSHOrder Info: 3024-7 - T4F'TROP' Serial specimen #1, #2, #3, or #4: [address] [place] [address] [place], [place], [address] TROPONIN-I < 0.015 ng/mL (Normal) Comments: TROPONIN-I EXPECTED VALUES <0.045 Negative 0.045 - 0.590 Consistent with Cardiac Damage > OR = 0.600 Critical Value Not every elevated troponin is indicative of [place]. T hesevalues should be used with clinical judgement in examiningthe patient's clinical picture for diagnosis. To establisha diagnosis of [place] versus myocardial injury, there must be ademonstrated rise and/ or fall in the troponin values, inaddition to ischemic symptoms, EKG changes, new regionalwall motion abnormality, and/or angiographical evidence. PLEASE NOTE: REFERENCE RANGES EDITED 18:52 T4, FREE (THYROXINE) (39739) Comments: Order Date: 04/03/18Order Info: 0667-1 - BMPOrder Info: 15916-0 - TROPOrder Info: 3016-3 - TSHOrder Info: 3024-7 - T4F'TROP' Serial specimen #1, #2, #3, or #4: [address] [place] [address] [address] [place], [address] T4 FREE DIRECT 1.09 ng/dL (Normal) Range: 0.76-1.46 : Gastric Biopsy See Note (Normal) Comments: [facility] [address] [place], [address] 20 Comments: Patient: FARHAD GLEZ : 1940 (77/F) Acct Num: [id number] Phys: Dora RAMON,Chaparro Unit Num: [id number] Loc: EN Specimen: [id number] Received: 01/12/181120 Spec Type: Gastri c Bx TISSUES TISSUES: A. Gastric mucous membrane B. Cardioesophageal junction C. Gastric mucous membrane D. Esophageal mucous membrane COMMENT A AND B. The results of immunohistochemistry for Helicobacter pylori will be reported separately ([id number]). B. Alcian blue/PAS stain with matched control [...] one cassette. / AM:rg 01/12/18 TC:2 CPT: 37451 x4, 84431 x2, 00055 HEADER OPERAT ION: EGD with biopsy PRE-OP [...] Fragments of gastroesophageal mucosa with acute and sexual assault counselor mandi inflammation. Focal intestinal metaplasia (goblet cell [...] file> : IMMUNOHISTOCHEMISTRY See Note (Normal) Comments: [facility] [address] [facility] [place], [address] 00 Comments: Patient: FARHAD GLEZ : 1940 (77/F) Acct Num: [id number] Phys: Dora RAMON,Chaparro Unit Num: [id number] Loc: EN Specimen: [id number] Received: 01/15/181124 Spec Type: IMMUN O TISSUES TISSUES: A. Stomach, NOS B. Stomach, NOS SPECIMEN INFORMATION: Tissue Source: A Antral biopsy, B Cardia biopsy Clinical Info: GERD, epigast josee pain Specimen Number: [id number] A AND B CPT code: 04438 x2 METHODOLOGY: Deparaffinized sections of prefer/formalin-fixed tissue [...] developed and their performance characteristics determined by [facility]. They may not have been cleared or approved by the U.S. Food and Drug Adm inistration. The FDA has determined that such clearance or approval is not necessary. INTERPRETATION: A. Antral biopsy: Negative for Helicobacter pylori organisms. B. Cardia biopsy: Negati ve for Helicobacter pylori organisms. SJ:ebenezer 01/16/18 PHYSICIAN AND INSTITUTION [place] [id number] Signed Jeovanny Stinson 01/16/18 <signature on file> 05-Nxl-444489:19 HgA1C , Office (46680) HgA1C , Office 5.3 % (Normal) Range: 4.6 - 7.1 44-Bgt-49153:56 METABOLIC PANEL, Comments: PATIENT WAS FASTINGPERFORMED BY: [facility] Tjznymsmzb9828 [facility] [id number] BY: [facility] Sfnxws9799 [facility] [id number] COMPREHENSIVE (27022) ALT (SGPT) 17 [iU]/L (Normal) Range: 0-32 [...] Glucose, Serum 107 mg/dL (Abnormal) Range: 65-99 87-Eqe-21571:56 LIPOPROTEIN, BLD, BY NMR Comments: PATIENT WAS FASTINGPERFORMED BY: BN [facility] Aljvilskom9842 [facility] [id number] BY: CB [facility] Akvjuw6233 [facility] [id number] (37728) LP-IR Score <25 (Normal) Comments: INSULIN RESISTANCE MARKER <--Insulin Sensitive Insulin Resistant--> Percentile in Reference PopulationInsulin Resistance ScoreLP-IR Score Low 25th 50th 75th High <27 27 45 63 >63LP-IR Score is inaccurate if patient is non-fasting. .The LP-IR score is a laboratory developed i [facility] that has beenassociated with insulin [...] were developed and their performance characteristicsdetermined by [facility]. These assays have not been cleared by [...] 1600 - 2000 Very High > 2000 72-Myu-93992:56 CALCIUM, IONIZED (59548) Comments: PATIENT WAS FASTINGPERFORMED BY: BN [facility] Hgpqexojba7634 [facility] [id number] BY: CB [facility] Dljatj5842 [facility] [id number] Calcium, Ionized, Serum 5.2 mg/dL (Normal) Range: 4.5-5.6 Plan of Care Name Dates Details Instructions Current nonsmoker (Renamed from Current non-smoker) : Eprescribed prescriptions (G8553) Indication: Current nonsmoker (Renamed from Current non-smoker) Planned Observations CBC WITH MANUAL DIFF (93501)Indication: Iron deficiency anemia On: 89-Sqw-180103:55 Request Comments: recheck in 6 weeks approx. 11-12-2018 Ferritin (28762)Indication: Upper GI bleed On: 98-Kiy-382871:57 Request Comments: in 6 weeks CBC, Platelets & Auto Diff (71362)Indication: Tachycardia On: 78-Yht-56924:51 Request Metabolic Panel, Basic (99709)Indication: Tachycardia On: :51 Request TSH (88155)Indication: Tachycardia On: 60-Xdn-21309:51 Request D-Dimer (09476)Indication: Tachycardia On: :50 Request Troponin I (31900)Indication: Tachycardia On: :50 Request LIPOPROTEIN, BLD, BY NMR (91724)Indication: Hypertension On: 34-Gno-768742:53 Request CBC W/AUTO DIFF WBC (89963)Indication: Hypertension On: 36-Evq-051419:53 Request METABOLIC PANEL, COMPREHENSIVE (01019)Indication: Hypertension On: 03-Gzt-664410:53 Request HGB A1C (41129)Indication: Abnormal glucose (Renamed from Abnormal glucose level) On: 68-Rqi-273903:42 Request Planned Encounters Medical; [facility] Pre Wellness Exam (DB Nurse) - On: 09-Oct-2018 11:00 [facility] LATONIA Casanova; [facility] Wellness Exam (Doctor) - On: 22-Oct-2018 8:00 [facility] Hi RAMON, Xiomara Parker MD Planned Procedures Flu Vaccine (Quadrivalent) On: 05-Sep-2018 Intent 48210Vy: Xiomara Do MD Comments: Lot #[id number]-2/30/2019Site-L dltd, IMDose prefilled syringegiven by: MARSHA HUMPHREY reviewed and ABN signed Xiomara Do MD SCREENING DIGITAL On: 25-Jun-2018 Intent TOMOSYNTHESIS OF BREAST (51603)By: Hi RAMON, Xiomara Parker MD Nuclear Stress Test/Stress On: 17-May-2018 Intent SPECT/TreadmillBy: Hi Comments: plan june , Xiomara Parker MD 24 HOUR HOLTER MONITORING On: 03-Apr-2018 Intent WITH INTERPRETATION AND REPORT BY PHYSICIAN (43409)By: Xiomara Do MD, MD, Dana M CTA CHEST W/W/O CONTRAST On: 03-Apr-2018 Intent (85881)By: Xiomara Do MD Comments: STAT STAT STAT STAT!! Xiomara Do MD ELECTROCARDIOGRAM, COMPLETE On: 03-Apr-2018 Intent (ECG) (92231)By: Hi RAMON, Comments: see scanned document of test done to see results reviewed today with patient Xiomara Parker MD CT - Brain/Head (Without On: 15-Mar-2018 Intent Contrast)By: Xiomara Do MD, MD, Dana M CT - Brain/Head (Without On: 15-Mar-2018 Intent Contrast)By: Xiomara Do MD Comments: daughter will call to set up M Xiomara Do MD Ear Irrigation (28040)By: On: 15-Sep-2017 Intent Xiomara Do MD Comments: irrigated left ear without difficult, mild amount of yellow/brown was expelled from the ear, wax currXiomara torres MD DEXA SCAN AXIAL SKELETON On: 15-Sep-2017 Intent (71738)By: Xiomara Do MD, MD, Dana M Flu Vaccine (Quadrivalent) On: 22-Aug-2017 Intent 07715Jz: Xiomara Do MD Comments: QUAD flu shotlot number: [id number]: 02/2018L Deltoid IMAD ELECTROPHYSIOLOGIST Xiomara Do MD Instructions Name Dates Details [...] Advance Directives Name Dates Details Immunization Registry [place] - Effective on Effective: 20-Oct-201710/20/2017. Expiration date unspecified Encounters Lab Order On: 04-Oct-2018 14:54 Encounter Diagnosis: [...] The patient does have durable power of commercial litigation attorney and living will. The patient has [...] Medicine End: 27-Apr-2017 9:22 Payers MedicareCignaMARIAN CROPP; a guarantor
--- OUTSIDE RECORDS SUMMARY | 2019-01-27 04:42 | XMS RPT_ITS | Continuity of Care Document ---
:1940 Author Organization [facility] Address [address] [place] [address] Phone Care Team Providers Name Role Phone [...] [facility] yearly due mammo do yearly with [facility]. Status: Active BMI 28.0-28.9,adult (Z68.28, V85.24) [...] follow-up (Z09, V67.59) Comments: low hgb in [facility] in [place] Status: Active Hyperlipidemia (E78.5, 272.4) Comments: reveiwed [...] M Start : 21-Mar-2018 Active Comments:called to [facility] [phone] - cmanck 03/21 CoQ-10 100 MG Oral Capsule Extended [...] Visit Report Result: Comments: See Note; NOTES: [facility] [address] [place] [address] OFFICE VISIT Date of Service: 09/18/18 MR#: [id number] Acct: [id number] Name: FARHAD GLEZ Rep #: [id number] : 1940 Provider: Nae Kumar MD Age/Sex: 78/F Location: [facility] Status: Signed Intake Intake Visit Reasons: Back [...] an d no additional complaints, except [facility] Musc Reports back pain Skin/Breast Reports system reviewed and no additional complaints, except as [facility] Neuro Yes system reviewed and no additional complaints, except as [facility] Psych Reports system reviewed and no additional complaints, except as [facility] Endo Reports system reviewed and no additional [...] (CAD), BILAT Result: Comments: See Note; NOTES: [facility] Imaging Services [address] [place] [address] SCREENING MAMM (CAD), BILAT MR#: [id number] Acct: [id number] Name: FARHAD GLEZ Rep #: [id number] : 1940 F 78 From: Chad Wilkins MD PCP: Xiomara Do MD Status: REG CLI Study: SCREENING MAMM (CAD), BILAT Date of Exam: 09/12/18 Exam# [id number] Ordering Dr: Xiomara oD MD M AMMOGRAPHY - BILATERAL SCREENING REASON [...] these results will be sent to the [facility] nt by the facility within 30 days. Approximately 10% of breast cancers are not detected by mammography. A normal mammogram should not delay biopsy of a clinically suspicious abnormality. [id number] Elect ronically Signed: Chad Wilkins MD at 11:12 EST Tel [phone], Service support , CC: Xiomara Do MD Cream Ripener: Signed 21-Jun-2018 Stress Report Result: Comments: See Note; NOTES: [facility] Cardiovascular Services [address] [place] [address] MR#: [id number] Acct: [id number] Name: FARHAD GLEZ Rep #: [id number] : [birth year] 78 From: Johnson Bird MD [...] %. This note was gen erated with Flubit Limitedation software. It may contain incorrect words, spelling, and punctuation that were not noted in checking the note before signing. 06/21/181903 <Electronically signed by Johnson Bird MD> Date Johnson Bird MD CC: Xiomara Do MD Date Dictated: 06/21/181899 Date Transcribed: 06/21/181899 Cream Ripener: PM Signed 20-Jun-2018 Orthopedic Visit Report Result: Comments: See Note; NOTES: [facility] [address] [place] [address] OFFICE VISIT Date of Service: 06/19/18 MR#: [id number] Acct: [id number] Name: FARHAD GLEZ Rep #: [id number] : 1940 Provider: Nae Kumar MD Age/Sex: [...] mg PO DAILY #60 capsule. 01/12/18 [Rx] [facility] Medical History Acid reflux (Acute) Hemorrhoids (Acute) [...] She was treated by a physician at [facility] with a brace. She wore the brace [...] program. This helps. She recently flown to [place] as well. She has HTN, h/o skin [...] type: initial encounter Fracture type: closed 06/20/18 4020 <Electronically signed by Nae Kumar MD> Date Nae Kumar MD Cosigner Signature: Date (if applicable) CC: Xiomara Do MD 19-Jun-2018 L/S Spine w Bend Min 6 Vw Result: Comments: See Note; NOTES: [facility] Imaging Services [address] [place] [address] L/S Spine w Bend Min 6 Vw MR#: [id number] Acct: [id number] Name: FARHAD GLEZ Rep #: [id number] : 1940 F 78 From: Luis Jefferson MD PCP: Xiomara Do MD Status: REG CLI Study: L/S Spine w Bend Min 6 Vw Date of Exam: 06/19/18 Exam# [id number] Ordering Dr: Nae Kumar MD STUDY: X-RAY [...] CC: Xiomara Do MD; Nae Kumar MD Cream Ripener: Signed 30-May-2018 PT D/C Summary (1) Result: Comments: See Note; NOTES: [facility] [address] [place] [address] Fax [facility]ITATION [facility] SUMMARY MR#: [id number] Acct: [id number] Name: FARHAD GLEZ Rep #: [id number] : 1940 78 From: Roberto Oliveros DPT, OCS, CSCS Referring Dr.: Xiomara Do MD Status: REG RCR Insurance: MEDICA RE PART A B [employer] HP - PT D/C Summary It has been my pleasure to treat FARHAD GLEZ under orders from Xiomara Do, for the diagnosis of L1 compression fracture for a total of 10 visit(s). [facility] Date: 05/29/18 Please see the following information [...] please feel free to call me at [phone]. Thank you for the re ferral of this patient. Sincerely, Roberto Oliveros DPT, OC <Electronically signed by Roberto Oliveros DPT, NEPTALI, CSCS> 05/30/18 0716 CC: Xiomara Do MD EBG Signed 26-Apr-2018 Inital Evaluation (1) - PT Result: Comments: See Note; NOTES: [facility] [address] [place] [address] Fax REHABILITATION SERVICES INITIAL EVALUATION MR#: [id number] Acct: [id number] Name: FARHAD GLEZ Rep #: [id number] : 1940 77 From: Roberto Oliveros DPT, NEPTALI, CSCS Referring Dr.: Xiomara Do MD Status: REG RCR Insurance: MEDIC ARE PART A B [facility] Patient's Visit Information FARHAD GLEZ is a [...] twisting allowed. 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 Enjoys the pool. Wants to get back [...] to be FAXED BACK to us at [phone] ease let me know if there are questions or concerns regarding this plan of care. Physician Signature: Date: <Electronically signed by Roberto Oliveros DPT, OCS, CSCS> 04/26/18 0907 CC: Xiomara Do MD EBG Signed For Medicare only, by signing this I certify the plan of care. Physicians Signature Date 03-Apr-2018 Chest W/WO Contrast Result: Comments: See Note; NOTES: [facility] Imaging Services [address] [place] [address] Chest W/WO Contrast MR#: [id number] Acct: [id number] Name: FARHAD GLEZ Rep #: [id number] : 1940 F 77 From: Chad Wilkins MD PCP: Xiomara Do MD Status: REG CLI Study: Chest W/WO Contrast Date of Exam: 04/03/18 Exam# [id number] Ordering Dr: Xiomara Do MD STUDY: CTA [...] Chad Wilkins MD at 15:45 EDT Tel [phone], Service support [phone], CC: Xiomara Do MD Cream Ripener: Signed 12-Jan-2018 Operative Report Result: Comments: See Note; NOTES: [facility] Medical Records Department [address] [place] [address] Operative Report 01/12/18 0848 MR#: [id number] Acct: [id number] Name: FARHAD GLEZ Rep #: [id number] : 1940 77 From: Chaparro John MD PCP: Xiomara Do MD Status: REG SD Y Location: [place] [address] Problem List (1) GERD (gastroesophageal reflux disease) [...] Study (HP) Result: Comments: See Note; NOTES: [facility] Imaging Services [address] [place] [address] Dexa Bone Density Study (HP) MR#: [id number] Acct: [id number] Name: FARHAD GLEZ Rep #: [id number] : 1940 F 77 From: Chad Wilkins MD PCP: Xiomara Do MD Status: REG CLI Study: Dexa Bone Density Study () Date of Exam: 12/19/17 Exam# [id number] Ordering Dr: Xiomara Do MD STUDY: DUAL [...] Chad Wilkins MD at 15:25 EST Tel [phone], Service support , CC: Xiomara Do MD Cream Ripener: Signed 14-Dec-2017 Surgery Visit Report Result: Comments: See Note; NOTES: [facility] [place] [address] OFFICE VISIT Date of Service: 12/14/17 MR#: [id number] Acct: [id number] Name: NELLIE FARHAD CHERRY Rep #: [id number] : 1940 Provider: Chaparro John MD Age/Sex: 77/F Location: [facility] Status: Signed Intake Vital Signs12/14/17 Height 5 ft 5 in 12/14/17 Weight: 178 lb Intake Visit Reasons: FAMILY HX OF COLON [place] Curriculum Advisory Teacher Required: No Is patient in pain?: No [...] No other Exam Const General: healthy appearing [facility] Head: normal to inspection Eyes General: [...] Summary (1) Result: Comments: See Note; NOTES: [facility] [address] [place] [address]. [address] [place] [address] Fax REHABILITATION SERVICES DISCHAR SUMMARY MR#: [id number] Acct: [id number] Name: FARHAD GLEZ Rep #: [id number] [...] fe el free to call me at [phone]. Thank you for the referral of this patient. Sincerely, Riya Kraft <Electronically signed by Riya Kraft PTCert. RAMONT> 10/24/17 1135 CC: Xiomara Do MD EMMANUEL Signed 22-Sep-2017 Inital Evaluation (1) - PT Result: Comments: See Note; NOTES: [facility] [address] [place], [place] [address] Fax REHABILITATION SERVICES INITIAL EVALUATION MR#: [id number] Acct: [id number] Name: FARHAD GLEZ Rep #: [id number] : 1940 77 From: Cert. YENNY Mcclain PTT Referring Dr.: Xiomara Do MD Status: REG [...] to be FAXED BACK to us at [phone] for Medicare purposes. 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 grew up in [place] Status: Active Exercise History: Exercises regularly. Comments: [...] Size: Standard Results Date Description Value Details 39-Eza-824713:16 CBC (Auto) (02123) Comments: now and in 6 weeks; PATIENT NOT FASTINGPERFORMED BY: [facility] [id number] Platelets 399 {x10E3/uL} (Abnormal) Range: 150-379 RDW [...] Date: 04/03/18Order Info: 0667-1 - BMPOrder Info: 58577-3 - TROPOrder Info: 3016-3 - TSHOrder Info: 3024-7 - T4F'TROP' Serial specimen #1, #2, #3, or #4: 1[facility] [address] [place], [address] GAP 12 (Normal) Range: 5-15 [...] Comments: Please note revised GLUCOSE reference range /02/2018. 82-Kgk-18670:52 D-Dimer Quantitative (DVT/PE) Comments: Order Date: 04/03/18Order Info: 39016-9 - [facility] [address]zkvmikf[address] [place], [place], [address] D-DIMER QUANT 1.52 {FEU/ug/m} (Abnormal) Range: 0.27-0.49 Comments: D-Dimer ELEVATED (>0.49): Additional studies and clinicalassessments are indicated to conclude diagnosis of:Deep Vein Thrombosis (DVT) or Pulmonary Embolism (PE)CRITICAL VALUE VERIFIED. [facility]04/03/18 1119 Jaelyn Wyatt.RESULTS READ BACK BY SAME . :52 Thyroid Stim Hormone (TSH) Comments: Order Date: 04/03/18Order Info: 0667-1 - BMPOrder Info: 93473-2 - TROPOrder Info: 3016-3 - TSHOrder Info: 3024-7 - T4F'TROP' Serial specimen #1, #2, #3, or #4: [address] [place] [address] [place], [place], [address] TSH 2.45 {uIU/mL} (Normal) Range: 0.358-3.74 :52 Troponin-I Comments: Order Date: 04/03/18Order Info: 0667- - BMPOrder Info: 68008-3 - TROPOrder Info: 30163 - TSHOrder Info: 302-7 - T4F'TROP' Serial specimen #1, #2, #3, or #4: [address] [place] [address] [place], [place], [address] TROPONIN-I < 0.015 ng/mL (Normal) Comments: TROPONIN-I EXPECTED VALUES <0.045 Negative 0.045 - 0.590 Consistent with Cardiac Damage > OR = 0.600 Critical Value Not every elevated troponin is indicative of [place]. T hesevalues should be used with clinical judgement in examiningthe patient's clinical picture for diagnosis. To establisha diagnosis of [place] versus myocardial injury, there must be ademonstrated rise and/ or fall in the troponin values, inaddition to ischemic symptoms, EKG changes, new regionalwall motion abnormality, and/or angiographical evidence. PLEASE NOTE: REFERENCE RANGES EDITED 18:52 T4, FREE (THYROXINE) (71610) Comments: Order Date: 04/03/18Order Info: 0667-1 - BMPOrder Info: 15253-1 - TROPOrder Info: 3016-3 - TSHOrder Info: 3024-7 - T4F'TROP' Serial specimen #1, #2, #3, or #4: 1[facility] [address] [place], [address] T4 FREE DIRECT 1.09 ng/dL (Normal) Range: 0.76-1.46 : Gastric Biopsy See Note (Normal) Comments: [facility] [address] [place], [address] 20 Comments: Patient: FARHAD GLEZ : 1940 (77/F) Acct Num: [id number] Phys: Dora RAMON,Chaparro Unit Num: [id number] Loc: EN Specimen: [id number] Received: 01/12/181120 Spec Type: Gastri c Bx TISSUES TISSUES: A. Gastric mucous membrane B. Cardioesophageal junction C. Gastric mucous membrane D. Esophageal mucous membrane COMMENT A AND B. The results of immunohistochemistry for Helicobacter pylori will be reported separately ([id number]). B. Alcian blue/PAS stain with matched control [...] one cassette. / AM:ebenezer 01/12/18 TC:2 CPT: 20196 x4, 13522 x2, 11813 HEADER OPERAT ION: EGD with biopsy PRE-OP [...] Fragments of gastroesophageal mucosa with acute and quill worker mandi inflammation. Focal intestinal metaplasia (goblet [...] file> : IMMUNOHISTOCHEMISTRY See Note (Normal) Comments: [facility] [address] [facility] [place], [address] 00 Comments: Patient: FARHAD GLEZ : 1940 (77/F) Acct Num: [id number] Phys: Dora RAMON,Chaparro Unit Num: [id number] Loc: EN Specimen: [id number] Received: 01/15/181124 Spec Type: IMMUN O TISSUES TISSUES: A. Stomach, NOS B. Stomach, NOS SPECIMEN INFORMATION: Tissue Source: A Antral biopsy, B Cardia biopsy Clinical Info: GERD, epigast josee pain Specimen Number: [id number] A AND B CPT code: 78240 x2 METHODOLOGY: Deparaffinized sections of prefer/formalin-fixed tissue [...] developed and their performance characteristics determined by [facility]. They may not have been cleared or approved by the U.S. Food and Drug Adm inistration. The FDA has determined that such clearance or approval is not necessary. INTERPRETATION: A. Antral biopsy: Negative for Helicobacter pylori organisms. B. Cardia biopsy: Negati ve for Helicobacter pylori organisms. SJ:ebenezer 01/16/18 PHYSICIAN AND INSTITUTION [address] [address] Signed Jeovanny Stinson 01/16/18 <signature on file> 00-Tdx-188162:19 HgA1C , Office (91458) HgA1C , Office 5.3 % (Normal) Range: 4.6 - 7.1 :56 METABOLIC PANEL, Comments: PATIENT WAS FASTINGPERFORMED BY: [facility] Geciiysnmy4575 [facility] [id number] BY: [facility] Ptyedf5292 [facility] [id number] COMPREHENSIVE (59534) ALT (SGPT) 17 [iU]/L (Normal) Range: 0-32 [...] Glucose, Serum 107 mg/dL (Abnormal) Range: 65-99 49-Xzw-56781:56 LIPOPROTEIN, BLD, BY NMR Comments: PATIENT WAS FASTINGPERFORMED BY: BN [facility] [address] [id number] BY: CB [facility] Knvekn7334 [facility] [id number] (23944) LP-IR Score <25 (Normal) Comments: INSULIN RESISTANCE MARKER <--Insulin Sensitive Insulin Resistant--> Percentile in Reference PopulationInsulin Resistance ScoreLP-IR Score Low 25th 50th 75th High <27 27 45 63 >63LP-IR Score is inaccurate if patient is non-fasting. .The LP-IR score is a laboratory developed i [facility] that has beenassociated with insulin resistance and [...] were developed and their performance characteristicsdetermined by [facility]. These assays have not been cleared by [...] 1600 - 2000 Very High > 2000 04-Gbi-48717:56 CALCIUM, IONIZED (53655) Comments: PATIENT WAS FASTINGPERFORMED BY: BN [facility] [address] [id number] BY: [facility] Psexdh6382 [facility] [id number] Calcium, Ionized, Serum 5.2 mg/dL (Normal) Range: 4.5-5.6 Plan of Care Name Dates Details Instructions Current nonsmoker (Renamed from Current non-smoker) : Eprescribed prescriptions (G8553) Indication: Current nonsmoker (Renamed from Current non-smoker) Planned Observations MICROALBUMIN: CREATININE RATIO (10109) AND (34656)Indication: Hypertension On: 0-Mxh-871917:16 Request URINALYSIS (91245)Indication: Hypertension On: 5-Ckf-416158:16 Request Metabolic Panel, Comprehensive (01601)Indication: Hypertension On: 5-Eye-849438:16 Request CBC WITH MANUAL DIFF (34745)Indication: Iron deficiency anemia On: 29-Sla-397847:55 Request Comments: recheck in 6 weeks approx. 11-12-2018 Ferritin (14920)Indication: Upper GI bleed On: 35-Tno-957815:57 Request Comments: in 6 weeks CBC, Platelets & Auto Diff (31049)Indication: Tachycardia On: :51 Request Metabolic Panel, Basic (21361)Indication: Tachycardia On: :51 Request TSH (52175)Indication: Tachycardia On: :51 Request D-Dimer (50985)Indication: Tachycardia On: :50 Request Troponin I (61962)Indication: Tachycardia On: :50 Request LIPOPROTEIN, BLD, BY NMR (26329)Indication: Hypertension On: 77-Blw-223596:53 Request CBC W/AUTO DIFF WBC (45567)Indication: Hypertension On: 69-Pqe-197170:53 Request METABOLIC PANEL, COMPREHENSIVE (40422)Indication: Hypertension On: 94-Hkt-960868:53 Request HGB A1C (05037)Indication: Abnormal glucose (Renamed from Abnormal glucose level) On: 15-Pzn-151058:42 Request Planned Encounters Medical; [facility] Exam (Doctor) - On: 22-Oct-2018 8:00 [facility] Hi RAMON, Xiomara Parker MD Planned Procedures Flu Vaccine (Quadrivalent) On: 05-Sep-2018 Intent 03576Dz: Xiomara Do MD Comments: Lot #[id number]/30/2019Site-L dltd, IMDose prefilled syringegiven by: MILAGROLPNVIS reviewed and ABN signed Xiomara Do MD SCREENING DIGITAL On: 25-Jun-2018 Intent TOMOSYNTHESIS OF BREAST (78829)By: Hi RAMON, Xiomara Parker MD Nuclear Stress Test/Stress On: 17-May-2018 Intent SPECT/TreadmillBy: Hi Comments: plan mid june , XiomaraXiomara Stern MD 24 HOUR HOLTER MONITORING On: 03-Apr-2018 Intent WITH INTERPRETATION AND REPORT BY PHYSICIAN (83600)By: Xiomara Do MD, MD, Dana M CTA CHEST W/W/O CONTRAST On: 03-Apr-2018 Intent (05964)By: Xiomara Do MD Comments: STAT STAT STAT STAT!! Xiomara Do MD ELECTROCARDIOGRAM, COMPLETE On: 03-Apr-2018 Intent (ECG) (89802)By: Hi RAMON, Comments: see scanned document of test done to see results reviewed today with patient Xiomara Parker MD CT - Brain/Head (Without On: 15-Mar-2018 Intent Contrast)By: Xiomara Do MD, MD, Dana M CT - Brain/Head (Without On: 15-Mar-2018 Intent Contrast)By: Xiomara Do MD Comments: daughter will call to hermelinda up Xiomara Jara MD Ear Irrigation (19023)By: On: 15-Sep-2017 Intent Xiomara Do MD Comments: irrigated left ear without difficult, mild amount of yellow/brown was expelled from the ear, wax Xiomara hernandez MD DEXA SCAN AXIAL SKELETON On: 15-Sep-2017 Intent (33968)By: Xiomara Do MD, MD, Dana M Flu Vaccine (Quadrivalent) On: 22-Aug-2017 Intent 85047Wo: Xiomara Do MD Comments: QUAD flu shotlot number: [id number]: 02/2018L Deltoid IMAD AUDIO VISUAL MANAGER Xiomara Do MD Instructions Name Dates Details [...] Advance Directives Name Dates Details Immunization Registry [place] - Effective on Effective: 20-Oct-201710/20/2017. Expiration date unspecified Encounters Lab Order On: 08-Oct-2018 17:13 Encounter Diagnosis: [...] patient does have durable power of attorney recruiter and living will. The patient has noticed [...] Internal Medicine End: 27-Apr-2017 9:22 Payers MedicareCignHoracio GLEZ; christofer guarantor
--- OUTSIDE RECORDS SUMMARY | 2019-01-27 04:42 | XMS RPT_ITS | Continuity of Care Document ---
:1940 Author Organization [facility] Address [address] [place] [address] Phone Care Team Providers Name Role Phone [...] [facility] yearly due [facility]o [facility] Status: Active BMI 28.0-28.9,adult (Z68.28, V85.24) Status: [...] M Start : 21-Mar-2018 Active Comments:called to [place] [address] - cmanchak /16 Lipitor 10 MG Oral Tablet 1 (one) [...] 0 days Quantity: 30 {Tablet} Refills: 7 Ordered:17-Sep-2018 Xiomara Do MD, MD, Dana M Start : 17-Sep-2018 Active Tylenol Extra Strength 500 MG Oral [...] (CAD), BILAT Result: Comments: See Note; NOTES: [facility] Imaging Services [address] [place] [address] SCREENING MAMM (CAD), BILAT MR#: [id number] Acct: [id number] Name: FARHAD GLEZ Rep #: [id number] : 1940 F 78 From: Chad Wilkins MD PCP: Xiomara Do MD Status: REG CLI Study: SCREENING MAMM (CAD), BILAT Date of Exam: 09/12/18 Exam# [id number] Ordering Dr: Xiomara Do MD M AMMOGRAPHY [...] these [facility] by the facility within 30 days. Approximately 10% of breast cancers are not detected by mammography. A normal mammogram should not delay biopsy of a clinically suspicious abnormality. [id number] Elect ronically Signed: Chad Wilkins MD at 11:12 EST Tel [phone], Service support , CC: Xiomara Do MD Named Account Executive: Signed 21-Jun-2018 Stress Report Result: Comments: See Note; NOTES: [facility] Cardiovascular Services [address] [place] [address] MR#: [id number] Acct: [id number] Name: FARHAD GLEZ Rep #: [id number] : [birth year] 78 From: Johnson Bird MD [...] %. This note was gen erated with ShopSueyation software. It may contain incorrect words, spelling, and punctuation that were not noted in checking the note before signing. 06/21/181903 <Electronically signed by Johnson Bird MD> Date Johnson Bird MD CC: Xiomara Do MD Date Dictated: 06/21/181899 Date Transcribed: 06/21/181899 Named Account Executive: PM Signed 20-Jun-2018 Orthopedic Visit Report Result: Comments: See Note; NOTES: [facility] Orthopaedics AND Sports Medicine [address] [place] [address] OFFICE VISIT Date of Service: 06/19/18 MR#: [id number] Acct: [id number] Name: FARHAD GLEZ Rep #: [id number] : 1940 Provider: Nae Kumar MD Age/Sex: 78/F Location: [facility].SMO Status: Signed Intake Intake Visit Reasons: low [...] She was treated by a physician at [place] with a brace. She wore the brace [...] program. This helps. She recently flown to [place] as well. She has HTN, h/o skin [...] 6 Vw Result: Comments: See Note; NOTES: [facility] Imaging Services [address] [place] [address] L/S Spine w Bend Min 6 Vw MR#: [id number] Acct: [id number] Name: FARHAD GLEZ Rep #: [id number] : 1940 F 78 From: Luis Jefferson MD PCP: Xiomara Do MD Status: REG CLI Study: L/S Spine w Bend Min 6 Vw Date of Exam: 06/19/18 Exam# [id number] Ordering Dr: Nae Kumar MD STUDY: X-RAY [...] CC: Xiomara Do MD; Nae Kumar MD Named Account Executive: Signed 30-May-2018 PT D/C Summary (1) Result: Comments: See Note; NOTES: [facility] [address] [place] [address] Fax REHABILITATION SERVICES DISCHAR GE SUMMARY MR#: [id number] Acct: [id number] Name: FARHAD GLEZ Rep #: [id number] [...] please feel free to call me at [phone]. Thank you for the re ferral of this patient. Sincerely, Roberto Oliveros DPT, OC <Electronically signed by Roberto Oliveros DPT, OCS, CSCS> 05/30/18 0716 CC: Xiomara Do MD EBG Signed 26-Apr-2018 Inital Evaluation (1) - PT Result: Comments: See Note; NOTES: [facility] [address] [place] [address] Fax REHABILITATION SERVICES INITIAL EVALUATION MR#: [id number] Acct: [id number] Name: FARHAD GLEZ Rep #: [id number] : 1940 77 From: Roberto Oliveros DPT, OCS, CSCS Referring Dr.: Xiomara Do MD Status: REG RCR Insurance: MEDIC ARE PART A B [facility] Patient's Visit Information FARHAD GLEZ [...] twisting allowed. saw doc last y in [place] and released to driving and sent for [...] to be FAXED BACK to us at [phone] ease let me know if there are questions or concerns regarding this plan of care. Physician Signature: Date: <Electronically signed by Roberto Oliveros DPT, OCS, CSCS> 04/26/18 0907 CC: Xiomara Do MD EBG Signed For Medicare only, by signing this I certify the plan of care. Physicians Signature Date 03-Apr-2018 Chest W/WO Contrast Result: Comments: See Note; NOTES: [facility] Imaging Services [address] [place] [address] Chest W/WO Contrast MR#: [id number] Acct: [id number] Name: FARHAD GLEZ Rep #: [id number] : 1940 F 77 From: Chad Wilkins MD PCP: Xiomara Do MD Status: REG CLI Study: Chest W/WO Contrast Date of Exam: 04/03/18 Exam# [id number] Ordering Dr: Xiomara Do MD STUDY: CTA [...] Chad Wilkins MD at 15:45 EDT Tel [phone], Service support [phone], CC: Xiomara Do MD Named Account Executive: Signed 12-Jan-2018 Operative Report Result: Comments: See Note; NOTES: [facility] Medical Records Department [address] [place] [address] Operative Report 01/12/18 0848 MR#: [id number] Acct: [id number] Name: FARHAD GLEZ Rep #: [id number] : 1940 77 From: Chaparro John MD PCP: Xiomara Do MD Status: REG SDC Y Location: [place] [address] Problem List (1) GERD (gastroesophageal reflux disease) [...] Study (HP) Result: Comments: See Note; NOTES: [facility] Imaging Services [address] [place] [address] Dexa Bone Density Study (HP) MR#: [id number] Acct: [id number] Name: FARHAD GLEZ Rep #: [id number] : 1940 F 77 From: Chad Wilkins MD PCP: Xiomara Do MD Status: REG CLI Study: Dexa Bone Density Study (HP) Date of Exam: 12/19/17 Exam# [id number] Ordering Dr: Xiomara Do MD STUDY: DUAL [...] Chad Wilkins MD at 15:25 EST Tel [phone], Service support , CC: Xiomara Do MD Named Account Executive: Signed 14-Dec-2017 Surgery Visit Report Result: Comments: See Note; NOTES: [place] [address] OFFICE VISIT Date of Service: 12/14/17 MR#: [id number] Acct: [id number] Name: NELLIE KUMARFARHAD Rodriguez Rep #: [id number] : 1940 Provider: Chaparro John MD Age/Sex: 77/F Location: [facility] Status: Signed Intake Vital Signs12/14/17 Height 5 ft 5 in 12/14/17 Weight: 178 lb Intake Visit Reasons: FAMILY HX OF COLON CA Nanny/Household Manager Required: No Is patient in pain?: No [...] No other Exam Const General: healthy appearing [facility] Head: normal to inspection Eyes General: [...] Summary (1) Result: Comments: See Note; NOTES: [facility] [address] [place] [address]. [address] [place], [place] [address] Fax [facility] MR#: [id number] Acct: [id number] Name: FARHAD GLEZ Rep #: [id number] [...] fe el free to call me at [phone]. Thank you for the referral of this patient. Sincerely, Riya Kraft <Electronically signed by Riya Kraft PT, Cert. MDT> 10/24/17 4063 CC: Xiomara Do MD EMMANUEL Signed 22-Sep-2017 Inital Evaluation (1) - PT Result: Comments: See Note; NOTES: [facility] [address] [place] [address] Fax REHABILITATION SERVICES INITIAL EVALUATION MR#: [id number] Acct: [id number] Name: FARHAD GLEZ Rep #: [id number] [...] to be FAXED BACK to us at [phone] for Medicare purposes. 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 grew up in [place] Status: Active Exercise [...] Active Vital Signs Date Test Result Details 09-Lmx-342748:27 Temperature 97.9 f Comments: Method: Temporal Pulse [...] kg/m2 Body Surface Area Calculated 1.84 m2 31-Cur-876101:01 Temperature 97.8 f Comments: Method: Temporal Pulse [...] Date: 04/03/18Order Info: 0667-1 - BMPOrder Info: 51983-9 - TROPOrder Info: 3016-3 - TSHOrder Info: 3024-7 - T4F'TROP' Serial specimen #1, #2, #3, or #4: [address] [place], [address] GAP 12 (Normal) Range: 5-15 CO2 26.0 [...] Please note revised GLUCOSE reference range /02/2018. :52 D-Dimer Quantitative (DVT/PE) Comments: Order Date: 04/03/18Order Info: 02292-1 - D-DIMER [id number] [place], [address] D-DIMER QUANT 1.52 {FEU/ug/m} (Abnormal) Range: 0.27-0.49 Comments: D-Dimer ELEVATED (>0.49): Additional studies and clinicalassessments are indicated to conclude diagnosis of:Deep Vein Thrombosis (DVT) or Pulmonary Embolism (PE)CRITICAL VALUE VERIFIED. CALLED TO [facility]04/03/18 1119 Jaelyn Escalerano.RESULTS READ BACK BY SAME . :52 Thyroid Stim Hormone (TSH) Comments: Order Date: 04/03/18Order Info: 0667-1 - BMPOrder Info: 03049-8 - TROPOrder Info: 3016-3 - TSHOrder Info: 3024-7 - T4F'TROP' Serial specimen #1, #2, #3, or #4: [address] [place] [address] [address] [place], [address] TSH 2.45 {uIU/mL} (Normal) Range: 0.358-3.74 :52 Troponin-I Comments: Order Date: 04/03/18Order Info: 0667-1 - BMPOrder Info: 46789-7 - TROPOrder Info: 3016-3 - TSHOrder Info: 3024-7 - T4F'TROP' Serial specimen #1, #2, #3, or #4: [address] [place] [address] [address] [place], [place], [address] TROPONIN-I < 0.015 ng/mL (Normal) Comments: TROPONIN-I EXPECTED VALUES <0.045 Negative 0.045 - 0.590 Consistent with Cardiac Damage > OR = 0.600 Critical Value Not every elevated troponin is indicative of MD. T hesevalues should be used with clinical judgement in examiningthe patient's clinical picture for diagnosis. To establisha diagnosis of MD versus myocardial injury, there must be ademonstrated rise and/ or fall in the troponin values, inaddition to ischemic symptoms, EKG changes, new regionalwall motion abnormality, and/or angiographical evidence. PLEASE NOTE: REFERENCE RANGES EDITED 18:52 T4, FREE (THYROXINE) (74278) Comments: Order Date: 04/03/18Order Info: 0667-1 - BMPOrder Info: 67593-6 - TROPOrder Info: 3016-3 - TSHOrder Info: 3024-7 - T4F'TROP' Serial specimen #1, #2, #3, or #4: 1 [address] [place], [place], [address] T4 FREE DIRECT 1.09 ng/dL (Normal) Range: 0.76-1.46 : Gastric Biopsy See Note (Normal) Comments: [id number] [place], [place], [address] 20 Comments: Patient: FARHAD GELZ : 1940 (77/F) Acct Num: [id number] Phys: Dora RAMON,Chaparro Unit Num: [id number] Loc: EN Specimen: [id number] Received: 01/12/181120 Spec Type: Gastri c Bx TISSUES TISSUES: A. Gastric mucous membrane B. Cardioesophageal junction C. Gastric mucous membrane D. Esophageal mucous membrane COMMENT A AND B. The results of immunohistochemistry for Helicobacter pylori will be reported separately ([id number]). B. Alcian blue/PAS stain with matched control [...] one cassette. / AM:ebenezer 01/12/18 TC:2 CPT: 61728 x4, 61860 x2, 61996 HEADER OPERAT ION: EGD with biopsy PRE-OP [...] Fragments of gastroesophageal mucosa with acute and medical engineer mandi inflammation. Focal intestinal metaplasia (goblet cell [...] file> : IMMUNOHISTOCHEMISTRY See Note (Normal) Comments: [id number] [facility] [place], [place], [address] 00 Comments: Patient: FARHAD GLEZ : 1940 (77/F) Acct Num: [id number] Phys: Dora RAMON,Chaparro Unit Num: [id number] Loc: EN Specimen: [id number] Received: 01/15/181124 Spec Type: IMMUN O TISSUES TISSUES: A. Stomach, NOS B. Stomach, NOS SPECIMEN INFORMATION: Tissue Source: A Antral biopsy, B Cardia biopsy Clinical Info: GERD, epigast josee pain Specimen Number: [id number] A AND B CPT code: 13421 x2 METHODOLOGY: Deparaffinized sections of prefer/formalin-fixed tissue [...] developed and their performance characteristics determined by Laboratory. They may not have been cleared or approved by the U.S. Food and Drug Adm inistration. The FDA has determined that such clearance or approval is not necessary. INTERPRETATION: A. Antral biopsy: Negative for Helicobacter pylori organisms. B. Cardia biopsy: Negati ve for Helicobacter pylori organisms. SJ:ebenezer 01/16/18 PHYSICIAN AND INSTITUTION [place] [address] Signed Jeovanny Stinson 01/16/18 <signature on file> 29-Fyi-871237:19 HgA1C , Office (50525) HgA1C , Office 5.3 % (Normal) Range: 4.6 - 7.1 58-Fje-37245:56 METABOLIC PANEL, Comments: PATIENT WAS FASTINGPERFORMED BY: [facility] [address] [id number] BY: [facility] [id number] [facility] [id number] COMPREHENSIVE (41344) ALT (SGPT) 17 [iU]/L (Normal) Range: 0-32 [...] Glucose, Serum 107 mg/dL (Abnormal) Range: 65-99 53-Elm-32311:56 LIPOPROTEIN, BLD, BY NMR Comments: PATIENT WAS FASTINGPERFORMED BY: BN [facility] [address] [id number] BY: CB [facility] [id number] [facility] [id number] (02386) LP-IR Score <25 (Normal) Comments: INSULIN RESISTANCE MARKER <--Insulin Sensitive Insulin Resistant--> Percentile in Reference PopulationInsulin Resistance ScoreLP-IR Score Low 25th 50th 75th High <27 27 45 63 >63LP-IR Score is inaccurate if patient is non-fasting. .The LP-IR score is a laboratory developed i [facility] that has beenassociated with insulin resistance [...] were developed and their performance characteristicsdetermined by [facility]. These assays have not been cleared by [...] 2000 Very High > 19-Dec-20179:56 CALCIUM, IONIZED (57813) Comments: PATIENT WAS FASTINGPERFORMED BY: [facility] [id number] [facility] [id number] BY: [facility] Ehpfyc5608 [facility] [id number] Calcium, Ionized, Serum 5.2 mg/dL (Normal) Range: 4.5-5.6 Plan of Care Name Dates Details Instructions Current nonsmoker (Renamed from Current non-smoker) : Eprescribed prescriptions (G8553) Indication: Current nonsmoker (Renamed from Current non-smoker) Planned Observations CBC, Platelets & Auto Diff (26349)Indication: Tachycardia On: 29-Erg-87455:51 Request Metabolic Panel, Basic (54000)Indication: Tachycardia On: :51 Request TSH (86820)Indication: Tachycardia On: :51 Request D-Dimer (70785)Indication: Tachycardia On: :50 Request Troponin I (34740)Indication: Tachycardia On: :50 Request LIPOPROTEIN, BLD, BY NMR (35013)Indication: Hypertension On: 14-Tyt-867880:53 Request CBC W/AUTO DIFF WBC (16279)Indication: Hypertension On: 13-Nxt-825578:53 Request METABOLIC PANEL, COMPREHENSIVE (43700)Indication: Hypertension On: 61-Emn-300518:53 Request HGB A1C (31909)Indication: Abnormal glucose (Renamed from Abnormal glucose level) On: 03-Elj-695766:42 Request Planned Encounters Medical; [facility] Pre Wellness Exam (DB Nurse) - On: 09-Oct-2018 11:00 [facility] LATONIA Casanova Medical; [facility] Wellness Exam (Doctor) - On: 22-Oct-2018 8:00 [facility] Hi RAMON, Xiomara Parker MD Planned Procedures Flu Vaccine (Quadrivalent) On: 05-Sep-2018 Intent 86295Co: Xiomara Do MD Comments: Lot #[id number]/30/2019Site-L dltd, IMDose prefilled syringegiven by: ANGELA HUMPHREYVIS reviewed and ABN signed Xiomara Do MD SCREENING DIGITAL On: 25-Jun-2018 Intent TOMOSYNTHESIS OF BREAST (07499)By: Xiomara Do MD, MD, Dana M Nuclear Stress Test/Stress On: 17-May-2018 Intent SPECT/TreadmillBy: Hi Comments: plan june , Xiomara Parker MD 24 HOUR HOLTER MONITORING On: 03-Apr-2018 Intent WITH INTERPRETATION AND REPORT BY PHYSICIAN (89792)By: Xiomara Do MD, MD, Dana M CTA CHEST W/W/O CONTRAST On: 03-Apr-2018 Intent (00703)By: Xiomara Do MD Comments: STAT STAT STAT STAT!! Xiomara Do MD ELECTROCARDIOGRAM, COMPLETE On: 03-Apr-2018 Intent (ECG) (88149)By: Hi RAMON, Comments: see scanned document of test done to see results reviewed today with patient Xiomara Parker MD CT - Brain/Head (Without On: 15-Mar-2018 Intent Contrast)By: Xiomara Do MD, MD, Dana M CT - Brain/Head (Without On: 15-Mar-2018 Intent Contrast)By: Xiomara Do MD Comments: daughter will call to set up Xiomara Jara MD Ear Irrigation (47203)By: On: 15-Sep-2017 Intent Xiomara Do MD Comments: irrigated left ear without difficult, mild amount of yellow/brown was expelled from the ear, wax Xiomara hernandez MD DEXA SCAN AXIAL SKELETON On: 15-Sep-2017 Intent (62448)By: Xiomara Do MD, MD, Dana M Flu Vaccine (Quadrivalent) On: 22-Aug-2017 Intent 30098Vg: Xiomara Do MD Comments: QUAD flu shotlot number: [id number]: 02/2018L Deltoid IMAD PLASTIC SHAPER Xiomara Do MD Instructions Name Dates Details [...] Advance Directives Name Dates Details Immunization Registry [place] - Effective on Effective: 20-Oct-201710/20/2017. Expiration date [...] Yes the patient did have (do yearly - and good) a mini mental status exam [...] The patient does have durable power of humidifier operator and living will. The patient has [...]
--- OUTSIDE RECORDS SUMMARY | 2019-01-27 04:42 | XMS RPT_ITS | Continuity of Care Document ---
:1940 Author Organization [facility] Address [address] [place] [address] Phone Care Team Providers Name Role Phone [...] [facility] yearly due mammo do yearly with [facility]. Status: Active BMI 28.0-28.9,adult (Z68.28, [...] follow-up (Z09, V67.59) Comments: low hgb in [facility] in [place] Status: Active Hyperlipidemia (E78.5, 272.4) Comments: reveiwed [...] M Start : 21-Mar-2018 Active Comments:called to [facility] [phone] - cmanck 03/21 CoQ-10 100 MG Oral [...] Note; NOTES: [facility] [address] [place] [address] OFFICE VISIT Date of Service: 09/18/18 MR#: [id number] Acct: [id number] Name: FARHAD GLEZ Rep #: [id number] : 1940 Provider: Nae Kumar MD Age/Sex: 78/F [place] [facility] [place] [place]: Signed Intake Intake Visit Reasons: Back [...] an d no additional complaints, [facility] Musc Reports back pain Skin/Breast Reports system reviewed and no additional complaints, except as [facility] Neuro Yes system reviewed and no additional complaints, except as [facility] Psych Reports system reviewed and no additional complaints, except as [facility] Endo Reports system reviewed and no additional [...] (CAD), BILAT Result: Comments: See Note; NOTES: [facility] Imaging Services [address] [place] [address] SCREENING MAMM (CAD), BILAT MR#: [id number] Acct: [id number] Name: FARHAD GLEZ Rep #: [id number] : 1940 F 78 From: Chad Wilkins MD PCP: Xiomara Do MD Status: REG CLI Study: SCREENING MAMM (CAD), BILAT Date of Exam: 09/12/18 Exam# [id number] Ordering Dr: Xiomara Do MD M AMMOGRAPHY [...] these results will be sent to the [facility] nt by the facility within 30 days. Approximately 10% of breast cancers are not detected by mammography. A normal mammogram should not delay biopsy of a clinically suspicious abnormality. [id number] Elect ronically Signed: Chad Wilkins MD at 11:12 EST Tel [phone], Service support , CC: Xiomara Do MD Bottling Supervisor: Signed 21-Jun-2018 Stress Report Result: Comments: See Note; NOTES: [facility] Cardiovascular Services [address] [place] [address] MR#: [id number] Acct: [id number] Name: FARHAD GLEZ Rep #: [id number] : [birth year] 78 From: Johnson Bird MD [...] %. This note was gen erated with TOBESOFTation software. It may contain incorrect words, spelling, and punctuation that were not noted in checking the note before signing. 06/21/181903 <Electronically signed by Johnson Bird MD> Date Johnson Bird MD CC: Xiomara Do MD Date Dictated: 06/21/181899 Date Transcribed: 06/21/181899 Bottling Supervisor: PM Signed 20-Jun-2018 Orthopedic Visit Report Result: Comments: See Note; NOTES: [facility] [address] [place] [address] OFFICE VISIT Date of Service: 06/19/18 MR#: [id number] Acct: [id number] Name: FARHAD GLEZ Rep #: [id number] : 1940 Provider: Nae Kumar MD Age/Sex: [...] mg PO DAILY #60 capsule. 01/12/18 [Rx] [facility] Medical History Acid reflux (Acute) [...] She was treated by a physician at [place] with a brace. She wore the brace [...] program. This helps. She recently flown to [place] as well. She has HTN, h/o skin [...] type: initial encounter Fracture type: closed 06/20/18 4150 <Electronically signed by Nae Kumar MD> Date Nae Kumar MD Cosigner Signature: Date (if applicable) CC: Xiomara Do MD 19-Jun-2018 L/S Spine w Bend Min 6 Vw Result: Comments: See Note; NOTES: [facility] Imaging Services [address] [place] [address] L/S Spine w Bend Min 6 Vw MR#: [id number] Acct: [id number] Name: FARHAD GLEZ Rep #: [id number] : 1940 F 78 From: Luis Jefferson MD PCP: Xiomara Do MD Status: REG CLI Study: L/S Spine w Bend Min 6 Vw Date of Exam: 06/19/18 Exam# [id number] Ordering Dr: Nae Kumar MD STUDY: X-RAY [...] CC: Xiomara Do MD; Nae Kumar MD Bottling Supervisor: Signed 30-May-2018 PT D/C Summary (1) Result: Comments: See Note; NOTES: [facility] [address] [place] [address] Fax REHABILITATION SERVICES [facility] SUMMARY MR#: [id number] Acct: [id number] Name: FARHAD GLEZ Rep #: [id number] : 1940 78 From: Roberto Oliveros DPT, OCS, CSCS Referring Dr.: Xiomara Do MD Status: REG RCR Insurance: MEDICA RE PART A B [employer] HP - PT D/C Summary It has been my pleasure to treat FARHAD GLEZ under orders from Xiomara Do, for the diagnosis of L1 compression fracture for a total of 10 visit(s). [facility] Date: 05/29/18 Please see the following information [...] please feel free to call me at [phone]. Thank you for the re ferral of this patient. Sincerely, Roberto Oliveros DPT, OC <Electronically signed by Roberto Oliveros DPT, NEPTALI, CSCS> 05/30/18 0716 CC: Xiomara Do MD EBG Signed 26-Apr-2018 Inital Evaluation (1) - PT Result: Comments: See Note; NOTES: [facility] [address] [place] [address] Fax REHABILITATION SERVICES INITIAL EVALUATION MR#: [id number] Acct: [id number] Name: FARHAD GLEZ Rep #: [id number] : 1940 77 From: Roberto Oliveros DPT, NEPTALI, CSCS Referring Dr.: Xiomara Do MD Status: REG RCR Insurance: MEDIC ARE PART A B [facility] Patient's Visit Information FARHAD GLEZ is [...] twisting allowed. saw doc last y in [place] and released to driving and sent for [...] Wants to get back to water aerob 99tests. Enjoys the pool. Wants to get back [...] to be FAXED BACK to us at [phone] ease let me know if there are questions or concerns regarding this plan of care. Physician Signature: Date: <Electronically signed by Roberto Oliveros DPT, OCS, CSCS> 04/26/18 0907 CC: Xiomara Do MD EBG Signed For Medicare only, by signing this I certify the plan of care. Physicians Signature Date 03-Apr-2018 Chest W/WO Contrast Result: Comments: See Note; NOTES: [facility] Imaging Services [address] [place] [address] Chest W/WO Contrast MR#: [id number] Acct: [id number] Name: FARHAD GLEZ Rep #: [id number] : 1940 F 77 From: Chad Wilkins MD PCP: Xiomara Do MD Status: REG CLI Study: Chest W/WO Contrast Date of Exam: 04/03/18 Exam# [id number] Ordering Dr: Xiomara Do MD STUDY: CTA [...] Chad Wilkins MD at 15:45 EDT Tel [phone], Service support [phone], CC: Xiomara Do MD Bottling Supervisor: Signed 12-Jan-2018 Operative Report Result: Comments: See Note; NOTES: [facility] Medical Records Department [address] [place] [address] Operative Report 01/12/18 0848 MR#: [id number] Acct: [id number] Name: FARHAD GLEZ Rep #: [id number] : 1940 77 From: Chaparro John MD PCP: Xiomara Do MD Status: REG SD Y Location: [place] [address] Problem List (1) GERD (gastroesophageal reflux disease) [...] her health at that time. Cc: Dr. oD Medications initially given at 0815. Upper scope [...] Study (HP) Result: Comments: See Note; NOTES: [facility] Imaging Services [address] [facility] [place] [address] Dexa Bone Density Study (HP) MR#: [id number] Acct: [id number] Name: FARHAD GLEZ Rep #: [id number] : 1940 F 77 From: Chad Wilkins MD PCP: Xiomara Do MD Status: REG CLI Study: Dexa Bone Density Study () Date of Exam: 12/19/17 Exam# [id number] Ordering Dr: Xiomara Do MD STUDY: DUAL [...] Chad Wilkins MD at 15:25 EST Tel [phone], Service support , CC: Xiomara Do MD Bottling Supervisor: Signed 14-Dec-2017 Surgery Visit Report Result: Comments: See Note; NOTES: [facility] [place] [address] OFFICE VISIT Date of Service: 12/14/17 MR#: [id number] Acct: [id number] Name: NELLIE FARHAD CHERRY Rep #: [id number] : 1940 Provider: Chaparro John MD Age/Sex: 77/F Location: [facility] Status: Signed Intake Vital Signs12/14/17 Height 5 ft 5 in 12/14/17 Weight: 178 lb Intake Visit Reasons: FAMILY HX OF COLON CA Filter Press Supervisor Required: No Is patient in pain?: No [...] No other Exam Const General: healthy appearing [facility] Head: normal to inspection Eyes General: [...] Summary (1) Result: Comments: See Note; NOTES: [facility] [address] [place] [address]. [address] [place] [address] Fax REHABILITATION SERVICES DISCHAR SUMMARY MR#: [id number] Acct: [id number] Name: FARHAD GLEZ Rep #: [id number] [...] fe el free to call me at [phone]. Thank you for the referral of this patient. Sincerely, Riya Kraft <Electronically signed by Riya Kraft PTCert. RAMONT> 10/24/17 1135 CC: Xiomara Do MD EMMANUEL Signed 22-Sep-2017 Inital Evaluation (1) - PT Result: Comments: See Note; NOTES: [facility] [address] [place], [place] [address] Fax REHABILITATION SERVICES INITIAL EVALUATION MR#: [id number] Acct: [id number] Name: FARHAD GLEZ Rep #: [id number] [...] to be FAXED BACK to us at [phone] for Medicare purposes. 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 grew up in [place] Status: Active Exercise History: Exercises regularly. Comments: [...] Size: Standard Results Date Description Value Details 18-Ylv-630844:16 CBC (Auto) (08658) Comments: now and in 6 weeks; PATIENT NOT FASTINGPERFORMED BY: [facility] [facility] [id number] Platelets 399 {x10E3/uL} (Abnormal) Range: 150-379 RDW [...] Date: 04/03/18Order Info: 0667-1 - BMPOrder Info: 95596-3 - TROPOrder Info: 3016-3 - TSHOrder Info: 3024-7 - T4F'TROP' Serial specimen #1, #2, #3, or #4: 1[facility] [address] [place], [address] GAP 12 (Normal) Range: 5-15 [...] Comments: Please note revised GLUCOSE reference range cynxgufbs92/02/2018. 81-Mme-14460:52 D-Dimer Quantitative (DVT/PE) Comments: Order Date: 04/03/18Order Info: 22260-9 - [facility] [address], [place], [address] D-DIMER QUANT 1.52 {FEU/ug/m} (Abnormal) Range: 0.27-0.49 Comments: D-Dimer ELEVATED (>0.49): Additional studies and clinicalassessments are indicated to conclude diagnosis of:Deep Vein Thrombosis (DVT) or Pulmonary Embolism (PE)CRITICAL VALUE VERIFIED. CALL[facility] TO [facility]04/03/18 1119 Jaelyn Wyatt.RESULTS READ BACK BY SAME . :52 Thyroid Stim Hormone (TSH) Comments: Order Date: 04/03/18Order Info: 0667-1 - BMPOrder Info: 54002-5 - TROPOrder Info: 3016-3 - TSHOrder Info: 3024-7 - T4F'TROP' Serial specimen #1, #2, #3, or #4: [address] [place] [address] [place], [place], [address] TSH 2.45 {uIU/mL} (Normal) Range: 0.358-3.74 :52 Troponin-I Comments: Order Date: 04/03/18Order Info: 0667- - BMPOrder Info: 82691-3 - TROPOrder Info: 30163 - TSHOrder Info: 302-7 - T4F'TROP' Serial specimen #1, #2, #3, or #4: [address] [place] [address] [place], [place], [address] TROPONIN-I < 0.015 ng/mL (Normal) Comments: TROPONIN-I EXPECTED VALUES <0.045 Negative 0.045 - 0.590 Consistent with Cardiac Damage > OR = 0.600 Critical Value Not every elevated troponin is indicative of WI. T hesevalues should be used with clinical judgement in examiningthe patient's clinical picture for diagnosis. To establisha diagnosis of WI versus myocardial injury, there must be ademonstrated rise and/ or fall in the troponin values, inaddition to ischemic symptoms, EKG changes, new regionalwall motion abnormality, and/or angiographical evidence. PLEASE NOTE: REFERENCE RANGES EDITED 18:52 T4, FREE (THYROXINE) (23569) Comments: Order Date: 04/03/18Order Info: 0667-1 - BMPOrder Info: 03631-1 - TROPOrder Info: 3016-3 - TSHOrder Info: 3024-7 - T4F'TROP' Serial specimen #1, #2, #3, or #4: 1[facility] [address] [place], [address] T4 FREE DIRECT 1.09 ng/dL (Normal) Range: 0.76-1.46 : Gastric Biopsy See Note (Normal) Comments: [facility] [address] [place], [address] 20 Comments: Patient: FARHAD GLEZ : 1940 (77/F) Acct Num: [id number] Phys: Dora RAMON,Chaparro Unit Num: [id number] Loc: EN Specimen: [id number] Received: 01/12/181120 Spec Type: Gastri c Bx TISSUES TISSUES: A. Gastric mucous membrane B. Cardioesophageal junction C. Gastric mucous membrane D. Esophageal mucous membrane COMMENT A AND B. The results of immunohistochemistry for Helicobacter pylori will be reported separately ([id number]). B. Alcian blue/PAS stain with matched control [...] one cassette. / AM:ebenezer 01/12/18 TC:2 CPT: 16878 x4, 74559 x2, 69585 HEADER OPERAT ION: EGD with biopsy PRE-OP [...] Fragments of gastroesophageal mucosa with acute and rib matcher and fitter mandi inflammation. Focal intestinal metaplasia (goblet cell [...] file> : IMMUNOHISTOCHEMISTRY See Note (Normal) Comments: [facility] [address] [facility] [place], [address] 00 Comments: Patient: FARHAD GLEZ : 1940 (77/F) Acct Num: [id number] Phys: Dora RAMON,Chaparro Unit Num: [id number] Loc: EN Specimen: [id number] Received: 01/15/181124 Spec Type: IMMUN O TISSUES TISSUES: A. Stomach, NOS B. Stomach, NOS SPECIMEN INFORMATION: Tissue Source: A Antral biopsy, B Cardia biopsy Clinical Info: GERD, epigast josee pain Specimen Number: [id number] A AND B CPT code: 25913 x2 METHODOLOGY: Deparaffinized sections of prefer/formalin-fixed tissue [...] developed and their performance characteristics determined by [facility]. They may not have been cleared or approved by the U.S. Food and Drug Adm inistration. The FDA has determined that such clearance or approval is not necessary. INTERPRETATION: A. Antral biopsy: Negative for Helicobacter pylori organisms. B. Cardia biopsy: Negati ve for Helicobacter pylori organisms. SJ:ebenezer 01/16/18 PHYSICIAN AND INSTITUTION [address] [address] Signed Jeovanny Stinson 01/16/18 <signature on file> 90-Xbb-092327:19 HgA1C , Office (21012) HgA1C , Office 5.3 % (Normal) Range: 4.6 - 7.1 :56 METABOLIC PANEL, Comments: PATIENT WAS FASTINGPERFORMED BY: [facility] Qfjbgiepal4507 [facility] [id number] BY: [facility] Cypsyg2563 [facility] [id number] COMPREHENSIVE (20034) ALT (SGPT) 17 [iU]/L (Normal) Range: 0-32 [...] Glucose, Serum 107 mg/dL (Abnormal) Range: 65-99 82-Xsf-63066:56 LIPOPROTEIN, BLD, BY NMR Comments: PATIENT WAS FASTINGPERFORMED BY: BN [facility] [address] [id number] BY: CB [facility] [id number] [facility] [id number] (76740) LP-IR Score <25 (Normal) Comments: INSULIN RESISTANCE MARKER <--Insulin Sensitive Insulin Resistant--> Percentile in Reference PopulationInsulin Resistance ScoreLP-IR Score Low 25th 50th 75th High <27 27 45 63 >63LP-IR Score is inaccurate if patient is non-fasting. .The LP-IR score is a laboratory developed i [facility] that has beenassociated with insulin [...] were developed and their performance characteristicsdetermined by [facility]. These assays have not been cleared by [...] 1600 - 2000 Very High > 2000 25-Mru-31903:56 CALCIUM, IONIZED (92935) Comments: PATIENT WAS FASTINGPERFORMED BY: BN [facility] [address] [id number] BY: CB [facility] [id number] [facility] [id number] Calcium, Ionized, Serum 5.2 mg/dL (Normal) Range: 4.5-5.6 Plan of Care Name Dates Details Instructions Current nonsmoker (Renamed from Current non-smoker) : Eprescribed prescriptions (G8553) Indication: Current nonsmoker (Renamed from Current non-smoker) Planned Observations CBC WITH MANUAL DIFF (39021)Indication: Iron deficiency anemia On: 35-Ntx-073879:55 Request Comments: recheck in 6 weeks approx. 11-12-2018 Ferritin (24971)Indication: Upper GI bleed On: 39-Ixp-313529:57 Request Comments: in 6 weeks CBC, Platelets & Auto Diff (94260)Indication: Tachycardia On: 20-Rsg-99792:51 Request Metabolic Panel, Basic (22317)Indication: Tachycardia On: 17-Avo-08793:51 Request TSH (10429)Indication: Tachycardia On: 81-Fow-36872:51 Request D-Dimer (67757)Indication: Tachycardia On: 62-Mqz-76205:50 Request Troponin I (50438)Indication: Tachycardia On: :50 Request LIPOPROTEIN, BLD, BY NMR (89290)Indication: Hypertension On: 73-Epm-781460:53 Request CBC W/AUTO DIFF WBC (71208)Indication: Hypertension On: 59-Jhj-283026:53 Request METABOLIC PANEL, COMPREHENSIVE (86473)Indication: Hypertension On: 27-Hyr-466270:53 Request HGB A1C (14098)Indication: Abnormal glucose (Renamed from Abnormal glucose level) On: 40-Ips-544880:42 Request Planned Encounters Medical; [facility] Pre Wellness Exam (DB Nurse) - On: 09-Oct-2018 11:00 [facility] LATONIA Casanova; [facility] Wellness Exam (Doctor) - On: 22-Oct-2018 8:00 [facility] Hi RAMON, Xiomara Parker MD Planned Procedures Flu Vaccine (Quadrivalent) On: 05-Sep-2018 Intent 22058Vl: Xiomara Do MD Comments: Lot #[id number]/30/2019Site-L dltd, IMDose prefilled syringegiven by: KORIN HUMPHREYNVIS reviewed and ABN signed Xiomara Do MD SCREENING DIGITAL On: 25-Jun-2018 Intent TOMOSYNTHESIS OF BREAST (45780)By: Hi RAMON, Xiomara Parker MD Nuclear Stress Test/Stress On: 17-May-2018 Intent SPECT/TreadmillBy: Hi Comments: plan mid june , Xiomara Parker MD 24 HOUR HOLTER MONITORING On: 03-Apr-2018 Intent WITH INTERPRETATION AND REPORT BY PHYSICIAN (73089)By: Xiomara Do MD, MD, Dana M CTA CHEST W/W/O CONTRAST On: 03-Apr-2018 Intent (46039)By: Xiomara Do MD Comments: STAT STAT STAT STAT!! Xiomara Do MD ELECTROCARDIOGRAM, COMPLETE On: 03-Apr-2018 Intent (ECG) (28186)By: Hi RAMON, Comments: see scanned document of test done to see results reviewed today with patient Xiomara Parker MD CT - Brain/Head (Without On: 15-Mar-2018 Intent Contrast)By: Xiomara Do MD, MD, Dana M CT - Brain/Head (Without On: 15-Mar-2018 Intent Contrast)By: Xiomara Do MD Comments: daughter will call to set up M Xiomara Do MD Ear Irrigation (48261)By: On: 15-Sep-2017 Intent Xiomara Do MD Comments: irrigated left ear without difficult, mild amount of yellow/brown was expelled from the ear, wax currette Xiomara monahan MD DEXA SCAN AXIAL SKELETON On: 15-Sep-2017 Intent (41091)By: Xiomara Do MD, MD, Dana M Flu Vaccine (Quadrivalent) On: 22-Aug-2017 Intent 43098Ld: Xiomara Do MD Comments: QUAD flu shotlot number: [id number]: 02/2018L Deltoid IMAD INCUBATOR OPERATOR Xiomara Do MD Instructions Name Dates Details [...] Advance Directives Name Dates Details Immunization Registry [place] - Effective on Effective: 20-Oct-201710/20/2017. Expiration date [...] The patient does have durable power of family law attorney and living will. The patient has [...]
--- OUTSIDE RECORDS SUMMARY | 2019-01-27 04:43 | XMS RPT_ITS | Continuity of Care Document ---
:1940 Author Organization [facility] Address [address] [facility] [address] [place] [address] Phone Care Team Providers Name Role Phone [...] [facility] yearly due mammo do [facility]. Status: Active BMI 28.0-28.9,adult [...] Start : 21-Mar-2018 Active Comments:called to Raj [phone] - cmanchak 5/16 Lipitor 10 MG Oral [...] Stress Report Result: Comments: See Note; NOTES: [facility] Cardiovascular Services [address] [place] [address] MR#: [id number] Acct: [id number] Name: FARHAD GLEZ Rep #: [id number] : [birth year] 78 From: Johnson Bird MD [...] %. This note was gen erated with LifeBookation software. It may contain incorrect words, spelling, and punctuation that were not noted in checking the note before signing. 06/21/181903 <Electronically signed by Johnson Bird MD> Date Johnson Bird MD CC: Xiomara Do MD Date Dictated: 06/21/181899 Date Transcribed: 06/21/181899 Electronic Warfare Linguist: PM Signed 20-Jun-2018 Orthopedic Visit Report Result: Comments: See Note; NOTES: [facility] Orthopaedics AND Sports Medicine [address] [place] [address] OFFICE VISIT Date of Service: 06/19/18 MR#: [id number] Acct: [id number] Name: FARHAD GLEZ Rep #: [id number] : 1940 Provider: Nae Kumar MD Age/Sex: 78/F Location: [facility].S[facility] Status: Signed Intake Intake Visit Reasons: low [...] mg PO DAILY #60 capsule. 01/12/18 [Rx] PFS Medical History Acid reflux (Acute) Hemorrhoids (Acute) [...] She was treated by a physician at [place] with a brace. She wore the brace [...] program. This helps. She recently flown to [place] as well. She has HTN, h/o skin [...] 6 Vw Result: Comments: See Note; NOTES: [facility] Imaging Services [address] [place] [address] L/S Spine w Bend Min 6 Vw MR#: [id number] Acct: [id number] Name: FARHAD GLEZ Rep #: [id number] : 1940 F 78 From: Luis Jefferson MD PCP: Xiomara Do MD Status: REG CLI Study: L/S Spine w Bend Min 6 Vw Date of Exam: 06/19/18 Exam# [id number] Ordering Dr: Nae Kumar MD STUDY: X-RAY [...] CC: Xiomara Do MD; Nae Kumar MD Electronic Warfare Linguist: Signed 30-May-2018 PT D/C Summary (1) Result: Comments: See Note; NOTES: [facility] Physical Therapy [facility] [address] [place] [address]. [address] [place] [address] Fax [facility]IT[facility] SUMMARY MR#: [id number] Acct: [id number] Name: FARHAD GLEZ Rep #: [id number] : 1940 78 From: Roberto Oliveros DPT, OCS, CSCS Referring Dr.: Xiomara Do MD Status: REG RCR Insurance: MEDICA RE PART A B CIG[employer] HP - PT D/C Summary It has been my pleasure to treat FARHAD GLEZ under orders from Xiomara Do, for the diagnosis of L1 compression fracture for a total of 10 visit(s). [facility] Date: 05/29/18 Please see the following information [...] please feel free to call me at [phone]. Thank you for the re ferral of this patient. Sincerely, Roberto Oliveros DPT, OC <Electronically signed by Roberto Oliveros DPT, NEPTALI, CSCS> 05/30/18 0716 CC: Xiomara Do MD EBG Signed 26-Apr-2018 Inital Evaluation (1) - PT Result: Comments: See Note; NOTES: [facility] Physical Therapy [facility] [address] [facility] [address] [facility] [place], [place] [address] Fax REHABILITATION SERVICES INITIAL EVALUATION MR#: [id number] Acct: [id number] Name: FARHAD GLEZ Rep #: [id number] [...] twisting allowed. saw doc last y in [place] and released to driving and sent for [...] to be FAXED BACK to us at [phone] ease let me know if there are questions or concerns regarding this plan of care. Physician Signature: Date: <Electronically signed by Roberto Oliveros DPT, OCS, CSCS> 04/26/18 0907 CC: Xiomara Do MD EBG Signed For Medicare only, by signing this I certify the plan of care. Physicians Signature Date 03-Apr-2018 Chest W/WO Contrast Result: Comments: See Note; NOTES: [facility] Imaging Services [address] [place] [address] Chest W/WO Contrast MR#: [id number] Acct: [id number] Name: FARHAD GLEZ Rep #: [id number] : 1940 F 77 From: Chad Wilkins MD PCP: Xiomara Do MD Status: REG CLI Study: Chest W/WO Contrast Date of Exam: 04/03/18 Exam# [id number] Ordering Dr: Xiomara Do MD STUDY: CTA [...] Chad Wilkins MD at 15:45 EDT Tel [phone], Service support [phone], CC: Xiomara Do MD Electronic Warfare Linguist: Signed 12-Jan-2018 Operative Report Result: Comments: See Note; NOTES: [facility] Medical Records Department [address] [place] [address] Operative Report 01/12/18 0848 MR#: [id number] Acct: [id number] Name: FARHAD GLEZ Rep #: [id number] : 1940 77 From: Chaparro John MD PCP: Xiomara Do MD Status: REG [facility] Location: [place] [address] Problem List (1) GERD (gastroesophageal reflux disease) [...] and any additional treatment recommendations. Follow-up colonoscopy teresa prieto at 3 years pending her health at [...] Study (HP) Result: Comments: See Note; NOTES: [facility] Imaging Services [address] [place] [address] Dexa Bone Density Study () MR#: [id number] Acct: [id number] Name: FARHAD GLEZ Rep #: [id number] : 1940 F 77 From: Chad Wilkins MD PCP: Xiomara Do MD Status: REG CLI Study: Dexa Bone Density Study (HP) Date of Exam: 12/19/17 Exam# [id number] Ordering Dr: Xiomara Do MD STUDY: DUAL [...] Chad Wilkins MD at 15:25 EST Tel [phone], Service support , CC: Xiomara Do MD Electronic Warfare Linguist: Signed 14-Dec-2017 Surgery Visit Report Result: Comments: See Note; NOTES: [facility] [address] [place] [address] [place] [address] OFFICE VISIT Date of Service: 12/14/17 MR#: [id number] Acct: [id number] Name: NELLIE KUMARFARHAD Rodriguez Rep #: [id number] : 1940 Provider: Chaparro John MD Age/Sex: 77/F Location: [facility] Status: Signed Intake Vital Signs12/14/17 Height 5 ft 5 in 12/14/17 Weight: 178 lb Intake Visit Reasons: FAMILY 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 [place] [address] Fax REHABILITATION SERVICES DISCHAR GE SUMMARY MR#: [id number] Acct: [id number] Name: FARHAD GLEZ Rep #: [id number] [...] fe el free to call me at [phone]. Thank you for the referral of this patient. Sincerely, Riya Kraft <Electronically signed by Riya Kraft PT, Cert. MDT> 10/24/17 1135 CC: Xiomara Do MD EMMANUEL Signed 22-Sep-2017 Inital Evaluation (1) - PT Result: Comments: See Note; NOTES: [facility] Physical Therapy [facility] [address] [place] [address]. [address] [place] [address] Fax REHABILITATION SERVICES INITIAL EVALUATION MR#: [id number] Acct: [id number] Name: FARHAD GLEZ Rep #: [id number] [...] to be FAXED BACK to us at [phone] for Medicare purposes. 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 grew up in [place] Status: Active Exercise History: Exercises regularly. Comments: [facility] membership. Status: Active Living Situation: Lives alone. Comments: divorce in 60's Anant and he 8-17. 16 years. Status: Active No Drug Use Status: Active Non Smoker/No Tobacco Use Status: Active nutrition Comments: egg for breakfast not snacker, eat alot veggies, eat chicken fish salmon Status: Active Vital Signs Date Test Result Details 88-Sab-858779:27 Temperature 97.9 f Comments: Method: Temporal Pulse [...] Date: 04/03/18Order Info: 0667-1 - BMPOrder Info: 04422-8 - TROPOrder Info: 3016-3 - TSHOrder Info: 3024-7 - T4F'TROP' Serial specimen #1, #2, #3, or #4: 1[facility] [address] [place], [address] GAP 12 (Normal) Range: 5-15 [...] Comments: Please note revised GLUCOSE reference range vqtzndeei04/02/2018. 91-Hwk-60300:52 D-Dimer Quantitative (DVT/PE) Comments: Order Date: 04/03/18Order Info: 95439-7 - [facility]ER[facility] [address] [place], [address] D-DIMER QUANT 1.52 {FEU/ug/m} (Abnormal) Range: 0.27-0.49 Comments: D-Dimer ELEVATED (>0.49): Additional studies and clinicalassessments are indicated to conclude diagnosis of:Deep Vein Thrombosis (DVT) or Pulmonary Embolism (PE)CRITICAL VALUE VERIFIED. [facility]04/03[facility]18 Renetta Wyatt.RESULTS READ BACK BY SAME . :52 Thyroid Stim Hormone (TSH) Comments: Order Date: 04/03/18Order Info: 0667-1 - BMPOrder Info: 77795-6 - TROPOrder Info: 3 - TSHOrder Info: 302-7 - T4F'TROP' Serial specimen #1, #2, #3, or #4: [address] [place] [address] [place], [address] TSH 2.45 {uIU/mL} (Normal) Range: 0.358-3.74 :52 Troponin-I Comments: Order Date: 04/03/18Order Info: 666-11 - BMPOrder Info: 06162-4 - TROPOrder Info: 3 - TSHOrder Info: 3027 - T4F'TROP' Serial specimen #1, #2, #3, or #4: [address] [place] [address] [place], [place], [address] TROPONIN-I < 0.015 ng/mL (Normal) Comments: TROPONIN-I [...] REFERENCE RANGES EDITED 18:52 T4, FREE (THYROXINE) (44289) Comments: Order Date: 04/03/18Order Info: 0667- - BMPOrder Info: 03641-1 - TROPOrder Info: 63 - TSHOrder Info: 3027 - T4F'TROP' Serial specimen #1, #2, #3, or #4: [facility] Ayccxstcrb[address] [place], [address] T4 FREE DIRECT 1.09 ng/dL (Normal) Range: 0.76-1.46 : Gastric Biopsy See Note (Normal) Comments: [facility] [address] [place], [address] 20 Comments: Patient: FARHAD GLEZ : 1940 (77/F) Acct Num: [id number] Phys: Dora RAMON,Chaparro Unit Num: [id number] Loc: EN Specimen: [id number] Received: 01/12/181120 Spec Type: Gastri c Bx TISSUES TISSUES: A. Gastric mucous membrane B. Cardioesophageal junction C. Gastric mucous membrane D. Esophageal mucous membrane COMMENT A AND B. The results of immunohistochemistry for Helicobacter pylori will be reported separately ([id number]). B. Alcian blue/PAS stain with matched control [...] one cassette. / AM:ebenezer 01/12/18 TC:2 CPT: 92139 x4, 43902 x2, 16026 HEADER OPERAT ION: EGD with biopsy PRE-OP [...] Fragments of gastroesophageal mucosa with acute and cable spooler mandi inflammation. Focal intestinal metaplasia (goblet cell [...] : IMMUNOHISTOCHEMISTRY See Note (Normal) Comments: [facility] [address] [place], [address] 00 Comments: Patient: FARHAD GLEZ : 1940 (77/F) Acct Num: [id number] Phys: Dora RAMON,Chaparro Unit Num: [id number] Loc: EN Specimen: [id number] Received: 01/15/181124 Spec Type: IMMUN O TISSUES TISSUES: A. Stomach, NOS B. Stomach, NOS SPECIMEN INFORMATION: Tissue Source: A Antral biopsy, B Cardia biopsy Clinical Info: GERD, epigast josee pain Specimen Number: [id number] A AND B CPT code: 57889 x2 METHODOLOGY: Deparaffinized sections of prefer/formalin-fixed tissue [...] and their performance characteristics determined by [facility]. They may not have been cleared or approved by the U.S. Food and Drug Adm inistration. The FDA has determined that such clearance or approval is not necessary. INTERPRETATION: A. Antral biopsy: Negative for Helicobacter pylori organisms. B. Cardia biopsy: Negati ve for Helicobacter pylori organisms. SJ:ebenezer 01/16/18 PHYSICIAN AND INSTITUTION [place] [address] Signed Jeovanny Stinson 01/16/18 <signature on file> 72-Tix-130576:19 HgA1C , Office (37862) HgA1C , Office 5.3 % (Normal) Range: 4.6 - 7.1 :56 METABOLIC PANEL, Comments: PATIENT WAS FASTINGPERFORMED BY: [facility] [address] [id number] BY: [facility] [id number] [facility] [id number] COMPREHENSIVE (39443) ALT (SGPT) 17 [iU]/L (Normal) Range: 0-32 [...] Glucose, Serum 107 mg/dL (Abnormal) Range: 65-99 37-Upx-54322:56 LIPOPROTEIN, BLD, BY NMR Comments: PATIENT WAS FASTINGPERFORMED BY: BN [facility] [address] [id number] BY: CB [facility] [id number] [facility] [id number] (97570) LP-IR Score <25 (Normal) Comments: INSULIN RESISTANCE MARKER <--Insulin Sensitive Insulin Resistant--> Percentile in Reference PopulationInsulin Resistance ScoreLP-IR Score Low 25th 50th 75th High <27 27 45 63 >63LP-IR Score is inaccurate if patient is non-fasting. .The LP-IR score is a laboratory developed i [facility] that has beenassociated with insulin resistance and [...] were developed and their performance characteristicsdetermined by [employer]. These assays have not been cleared by [...] 1600 - 2000 Very High > 2000 63-Xot-74270:56 CALCIUM, IONIZED (93634) Comments: PATIENT WAS FASTINGPERFORMED BY: BN [facility] [address] [id number] BY: CB [facility] [id number] [facility] [id number] Calcium, Ionized, Serum 5.2 mg/dL (Normal) Range: 4.5-5.6 Plan of Care Name Dates Details Instructions Current nonsmoker (Renamed from Current non-smoker) : Eprescribed prescriptions (G8553) Indication: Current nonsmoker (Renamed from Current non-smoker) Planned Observations CBC, Platelets & Auto Diff (36258)Indication: Tachycardia On: 09-Yiz-83266:51 Request Metabolic Panel, Basic (64530)Indication: Tachycardia On: 63-Bst-29205:51 Request TSH (19548)Indication: Tachycardia On: 83-Dgg-89399:51 Request D-Dimer (65319)Indication: Tachycardia On: 28-Wml-09391:50 Request Troponin I (92401)Indication: Tachycardia On: 94-Kqo-52184:50 Request LIPOPROTEIN, BLD, BY NMR (20618)Indication: Hypertension On: 45-Jvd-005301:53 Request CBC W/AUTO DIFF WBC (96079)Indication: Hypertension On: 72-Vdb-830666:53 Request METABOLIC PANEL, COMPREHENSIVE (13504)Indication: Hypertension On: 04-Lbl-768480:53 Request HGB A1C (00483)Indication: Abnormal glucose (Renamed from Abnormal glucose level) On: 40-Bcy-020702:42 Request Planned Encounters Medical; [facility] Pre Wellness Exam (DB Nurse) - On: 09-Oct-2018 11:00 [facility] LATONIA Casanova; [facility] Wellness Exam (Doctor) - On: 22-Oct-2018 8:00 [facility] Xiomara Do MD, MD, Dana M Planned Procedures Flu Vaccine (Quadrivalent) On: 05-Sep-2018 Intent 73641Qf: Xiomara Do MD Comments: Lot #[id number]/2019Site-L dltd, IMDose prefilled syringegiven by: TLOCKLEAR,LPNVIS reviewed and ABN signed Xiomara Do MD SCREENING DIGITAL On: 25-Jun-2018 Intent TOMOSYNTHESIS OF BREAST (43292)By: Xiomara Do MD, MD, Dana M Nuclear Stress Test/Stress On: 17-May-2018 Intent SPECT/TreadmillBy: Hi Comments: plan mid june Xiomara RAMON MD, Dana M 24 HOUR HOLTER MONITORING On: 03-Apr-2018 Intent WITH INTERPRETATION AND REPORT BY PHYSICIAN (50148)By: Xiomara Do MD, MD, Dana M CTA CHEST W/W/O CONTRAST On: 03-Apr-2018 Intent (39703)By: Xiomara Do MD Comments: STAT STAT STAT STAT!! Xiomara Do MD ELECTROCARDIOGRAM, COMPLETE On: 03-Apr-2018 Intent (ECG) (54460)By: Hi RAMON, Comments: see scanned document of test done to see results reviewed today with patient Xiomara Parker MD CT - Brain/Head (Without On: 15-Mar-2018 Intent Contrast)By: Xiomara Do MD, MD, Dana M CT - Brain/Head (Without On: 15-Mar-2018 Intent Contrast)By: Xiomara Do MD Comments: daughter will call to set up Xiomara Jara MD Ear Irrigation (84727)By: On: 15-Sep-2017 Intent Xiomara Do MD Comments: irrigated left ear without difficult, mild amount of yellow/brown was expelled from the ear, wax currette Xiomara monahan MD DEXA SCAN AXIAL SKELETON On: 15-Sep-2017 Intent (21977)By: Xiomara Do MD, MD, Dana M Flu Vaccine (Quadrivalent) On: 22-Aug-2017 Intent 71190Yr: Xiomara Do MD Comments: QUAD flu shotlot number: [id number]: 02/2018L Deltoid IMAD 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 The patient has noticed [...]
--- OUTSIDE RECORDS SUMMARY | 2019-01-27 04:43 | XMS RPT_ITS ---
:1940 Author Organization [facility] Support Name Relationship Address Phone FONSECAMARIA LUISAALEX NaturalDaughter [address] + [place] [address] KIESEL, WILLIAM M NaturalDaughter [address] + [place] [address] R Unknown Unavailable Unavailable FONSECAALEX NaturalDaughter [address] [place] [address] DR + [place] [address] KIESEL, WILLIAM M NaturalDaughter [address] + [place] [address] R Unknown Unavailable Unavailable ALEX FONSECA NaturalDaughter [address] + [place] [address] KIESEL, WILLIAM M NaturalDaughter [address] + [place] [address] R Unknown Unavailable Unavailable ALEX FONSECA NaturalDaughter [address] + [place] [address] KIESEL, WILLIAM M NaturalDaughter [address] + [place] [address] R Unknown Unavailable Unavailable RAYMUNDO ALEX NaturalDaughter [address] + [place] [address] KIESEL, WILLIAM M NaturalDaughter [address] + [place] [address] R Unknown Unavailable Unavailable ALEX FONSECA NaturalDaughter [address] + [place] [address] KIESEL, WILLIAM M NaturalDaughter [address] + [place] [address] R Unknown Unavailable Unavailable ALEX FONSECA NaturalDaughter [address] + [place] [address] KIESEL, WILLIAM M NaturalDaughter [address] + [place] [address] R Unknown Unavailable Unavailable ALEX FONSECA NaturalDaughter [address] [place] [address] DR + [place] [address] KIESEL, WILLIAM M NaturalDaughter [address] + [place] [address] R Unknown Unavailable Unavailable GIUSEPPE FONSECAFER NaturalDaughter [address] [place] [address] DR + [place] [address] KIESEL, WILLIAM M NaturalDaughter [address] + [place] [address] R Unknown Unavailable Unavailable GIUSEPPE FONSECAFER NaturalDaughter [address] [place] [address] DR + [place] [address] KIESEL, WILLIAM M NaturalDaughter [address] + [place] [address] R Unknown Unavailable Unavailable ALEX FONSECA NaturalDaughter [address] [place] [address] DR + [place] [address] KIESEL, WILLIAM M NaturalDaughter [address] + [place] [address] R Unknown Unavailable Unavailable ALEX FONSECA NaturalDaughter [address] [place] [address] DR + [place] [address] KIESEL, WILLIAM M NaturalDaughter [address] + [place] [address] R Unknown Unavailable Unavailable ALEX [facility]CA [facility] Charlotte[facility] [address] [place] [address] DR + [place] [address] KIESEL, WILLIAM M NaturalDaughter [address] + [place] [address] R Unknown Unavailable Unavailable ALEX FONSECA NaturalDaughter [address] [place] [address] DR + [place] [address] ANITA, WILLIAM Mcdonald NaturalDaughter [address] + [place] [address] R Unknown Unavailable Unavailable ALEX FONSECA NaturalDaughter [address] [place] [address] DR + [place] [address] KISHERITA, WILLIAM Mcdonald NaturalDaughter [address] + [place] [address] R Unknown Unavailable Unavailable ALEX FONSECA NaturalDaughter [address] [place] [address] DR + [place] [address] KIFADUMOL, WILLIAM Mcdonald NaturalDaughter [address] + [place] [address] R Unknown Unavailable Unavailable ALEX FONSECA NaturalDaughter [address] [place] [address] DR + [place] [address] KIFADUMOL, WILLIAM Mcdonald NaturalDaughter [address] + [place] [address] R Unknown Unavailable Unavailable ALEX FONSECA NaturalDaughter [address] [place] [address] DR + [place] [address] R Unknown Unavailable Unavailable ALEX FONSECA NaturalDaughter [address] [place] [address] DR + [place] [address] R Unknown Unavailable Unavailable ALEX FONSECADaughter [address] [place] [address] DR + [place] [address] R Unknown Unavailable Unavailable ALEX FONSECA NaturalDaughter [address] [place] [address] DR + [place] [address] R Unknown Unavailable Unavailable ALEX FONSECA NaturalDaughter [address] [place] [address] DR + [place] [address] R Unknown Unavailable Unavailable Care Team Providers Name Role Phone Xiomara Do Attending Unavailable Bonearjuni Xiomara Referring Unavailable Bonezzi, Xiomara Primary Care Unavailable Xiomara Do Attending Unavailable Hi Xiomara Referring Unavailable Bonedanilo, Xiomara Primary Care Unavailable Chaparro John Attending Unavailable Pato Doa Referring Unavailable Bonezzi, Xiomara Primary Care Unavailable Cebul, Chaparro Attending Unavailable Cebul, Chaparro Referring Unavailable Bonezzi, Xiomara Primary Care Unavailable Chepe Albarado Attending Unavailable Bonezzi, Xiomara Referring Unavailable Bonezzi, Xiomara Primary Care Unavailable Bonezzi, Xiomara Consulting Unavailable Bonezzi, Xiomara Attending Unavailable Bonezzi, Xiomara Primary Care Unavailable Bonezzi, Xiomara Attending Unavailable Bonezzi, Xiomara Primary Care Unavailable Cebul, Chaparro Attending Unavailable Cebul, Chaparro Referring Unavailable Bonezzi, Xiomara Primary Care Unavailable Cebul, Chaparro Attending Unavailable Cebul, Chaparro Referring Unavailable Bonezzi, Xiomara Primary Care Unavailable Cebul, Chaparro Consulting Unavailable Bonezzi, Xiomara Attending Unavailable Bonezzi, Xiomara Referring Unavailable Bonezzi, Xiomara Primary Care Unavailable Bonezzi, Xiomara Attending Unavailable Bonezzi, Xiomara Referring Unavailable Bonezzi, Xiomara Primary Care Unavailable Bonezzi, Xiomara Attending Unavailable Bonezzi, Xiomara Referring Unavailable Bonezzi, Xiomara Primary Care Unavailable Bonezzi, Xiomara Attending Unavailable Bonezzi, Xiomara Referring Unavailable Bonezzi, Xiomara Primary Care Unavailable Chepe Albarado Attending Unavailable Bonezzi, Xiomara Attending Unavailable Bonezzi, Xiomara Primary Care Unavailable Nae Kumar Attending Unavailable Bonezzi, Xiomara Referring Unavailable Bonezzi, Xiomara Primary Care Unavailable Nae Kumar Attending Unavailable Bonezzi, Xiomara Primary Care Unavailable Johnson Bird Attending Unavailable Bonezzi, Xiomara Referring Unavailable Bonezzi, Xiomara Primary Care Unavailable Referred, Thad Attending Unavailable Bonezzi, Xiomara Attending Unavailable Bonezzi, Xiomara Primary Care Unavailable Nae Kumar Attending Unavailable Bonezzi, Xiomara Referring Unavailable Cebul, Chaparro Attending Unavailable Bonezzi, Xiomara Referring Unavailable ORALIA MCKEON (PA) Attending Unavailable ORALIA MCKEON (PA) Attending Unavailable ZEHRA LARKIN Attending Unavailable Bonezzi Xiomara RAMON Attending Unavailable Bonezzi Xiomara RAMON Referring Unavailable Bonezzi Xiomara RAMON Consulting Unavailable Purpose Purpose PROBLEMS PROBLEMS DATE TYPE CONDITION / CODE ATTENDING STATUS SOURCE 11/27/2018 Unknown E78.5 - Chepe Albarado Active [place] Hyperlipidemia, Community unspecified / Hospital E78.5(ICD-10) Repository 08/13/2018 Active Unknown / UNK(Unknown) ORALIA MCKEON Active [place] [facility] (PA) [facility] [place] Repository 06/21/2018 Unknown R06.02 - Shortness of Xiomara Do Active [place] breath / Community R06.02(ICD-10) Hospital Repository 06/19/2018 Unknown M54.16 - Nae Kumar Active [place] Radiculopathy, lumbar Community region / Hospital M54.16(ICD-10) Repository 05/30/2018 Unknown S32.019D - Unspecified Xiomara Do Active [place] fracture of first Community lumbar vertebra, Hospital subsequent encounter Repository for fracture with routine healing / S32.019D(ICD-10) 05/03/2018 Unknown R94.31 - Abnormal Chepe Albarado Active [place] electrocardiogram Community [ECG] [EKG] / Hospital R94.31(ICD-10) Repository 04/03/2018 Unknown R00.0 - Tachycardia, Xiomara Do Active [place] unspecified / Community R00.0(ICD-10) Hospital Repository 03/11/2018 Unknown K21.9 - CebuChaparro walker Active [place] Gastro-esophageal Community reflux disease without Hospital esophagitis / Repository K21.9(ICD-10) 12/14/2017 Unknown Z86.010 - Personal CeChaparro moar Active [place] history of colonic Community polyps / Hospital Z86.010(ICD-10) Repository 12/14/2017 Unknown Z80.0 - Family history Chaparro John Active [place] of malignant neoplasm Community of digestive organs / Hospital Z80.0(ICD-10) Repository PROCEDURES PROCEDURES No Procedure Records FoundVITAL SIGNS VITAL SIGNS No Vital Signs Records FoundRESULTS RESULTS OPERATIVE REPORT - Observed: 11/28/2018 Status: F Source: [place] ENDOSCOPY 12:47 PM [facility] REPOSITORY [facility] Medical Records Department [address] [place] [address] Operative Report - Endoscopy MR#: [id number] Acct: [id number] Name: FARHAD GLEZ Rep #: [id number] : 1940 78 From: Chaparro John MD PCP: Xiomara Do MD Status: DEP [facility] Patient Name: Farhad Glez Procedure Date: 11/28/2018 6:08 AM Date of : 1940 Age: 78 Procedure: Upper GI endoscopy Indications: Iron deficiency anemia Providers: Chaparro John MD Referring MD: Chaparro John MD Medicines: Midazolam 2 mg IV, Fentanyl 75 micrograms IV Complications: No immediate complications. Procedure: Pre-Anesthesia Assessment: - Prior to the procedure, a History and Physical was performed, and patient medications and allergies were reviewed. The patient's tolerance of previous anesthesia was also reviewed. The risks and benefits of the procedure and the sedation options and risks were discussed with the patient. All questions were answered, and informed consent was obtained. Prior Anticoagulants: The patient has taken no previous anticoagulant or antiplatelet agents. ASA Grade Assessment: II - A patient with mild systemic disease. After reviewing the risks and benefits, the patient was deemed in satisfactory condition to undergo the procedure. After obtaining informed consent, the endoscope was passed under direct vision. Throughout the procedure, the patient's blood pressure, pulse, and oxygen saturations were monitored continuously. The gastroscope was introduced through the mouth, and advanced to the second part of duodenum. The upper GI endoscopy was accomplished without difficulty. The patient tolerated the procedure well. Moderate Sedation: Moderate (conscious) sedation was personally administered by the endoscopist. The following parameters were monitored: oxygen saturation, heart rate, blood pressure, and response to care. Total physician intraservice time was 12 minutes. Scope In: 6:35:54 AM Scope Out: 6:45:43 AM Total Procedure Duration Time 0 hours 9 minutes 49 seconds Findings: The Z-line was irregular and was found 30 cm from the incisors. Biopsies were taken with a cold forceps for histology. An 8 cm hiatal hernia was present. Diffuse moderately erythematous mucosa without bleeding was found in the gastric antrum. Biopsies were taken with a cold forceps for histology. The examined duodenum was normal. A few sessile polyps with no bleeding and no stigmata of recent bleeding were found in the gastric fundus. The polyp was removed with a cold biopsy forceps. Resection and retrieval were complete. Impression: - Z-line irregular, 30 cm from the incisors. Biopsied. - 8 cm hiatal hernia. Mid esophagus grossly normal. Cold biopsied obtained - Erythematous mucosa in the antrum. Biopsied. - Normal examined duodenum. - A few gastric polyps. One Resected and retrieved. Recommendation: - Resume previous diet. - Continue present medications. - Telephone my office for pathology results in 1 week. - Discharge patient to home (with escort). Consider tertiary consultation for hiatal hernia repair Procedure Code(s): --- Professional --- 89441, Esophagogastroduodenoscopy, flexible, transoral; with biopsy, single or multiple 61349, 59, Moderate sedation services provided by the same physician or other qualified health pet care technician performing the diagnostic or therapeutic service that the sedation supports, requiring the presence of an independent trained observer to assist in the monitoring of the patient's level of consciousness and physiological status; initial 15 minutes of intraservice time, patient age 5 years or older Diagnosis Code(s): --- Professional --- K22.8, Other specified diseases of esophagus K44.9, Diaphragmatic hernia without obstruction or gangrene K31.89, Other diseases of stomach and duodenum K31.7, Polyp of stomach and duodenum D50.9, Iron deficiency anemia, unspecified CPT copyright 2017 [employer] [place] [employer]. All rights reserved. The codes documented in this report are preliminary and upon data coder operator review may be revised to meet current compliance requirements. Chaparro John MD 11/28/2018 6:54:10 AM This report has been signed electronically. Number of Addenda: 0 Note Initiated On: 11/28/2018 6:08 AM 11/28/18 1246 Date Chaparro John MD Cosigner Signature: Date (if indicated) CC: Xiomara Do MD; Chaparro John MD Date Dictated: 11/28/18 0608 Date Transcribed: Machine Gun Mechanic: RIKI Signed HISTORY AND PHYSICAL Observed: 11/28/2018 Status: F Source: [place] EXAM 7:12 AM [facility] REPOSITORY [facility] Medical Records Department [address] [place] [address] History and Physical 11/28/18 0557 MR#: [id number] Acct: [id number] Name: FARHAD GLEZ Rep #: [id number] : 1940 78 From: Chaparro John MD PCP: Xiomara Do MD Status: REG [facility] Y Location: [place] [address] Problem List (1) Acute blood loss anemia Status: Acute (2) GERD (gastroesophageal reflux disease) Status: Acute History of Present Illness Date of Admission: 11/28/18 The patient is a 78 year old F who I saw in the office on October 13, 2018. She was hospitalized at [facility] in [place]. She was found to have a very large hiatal hernia and grade C erosive esophagitis and GI blood loss anemia. Her BUN at that time was normal. Her EG junction was said to be at 33 cm. On September 28, [address] scan the abdomen pelvis showed a large hiatal hernia liver cysts and L1 compression. After her initial bleed it was recommended that she have a follow-up EEG G at 2 months. She is presenting for that examination at this time. She was converted from H2 elkin therapy ranitidine to omeprazole therapy. She did receive 2 units of blood transfusion while she was in [place] and at that point prior to discharge achieved a high hemoglobin of 8. Recent laboratory of this demonstrated a hemoglobin that has increased to 11. She has no current complaints. It was offered to her that she consider tertiary referral for consideration of repair of her large hiatal hernia. Past Medical History Medical History: Medical History (Last Updated 10/13/18 @ 09:32 by Geeta Anguiano) Acute blood loss anemia (Acute) D62 Acid reflux K21.9 Anemia D64.9 Hemorrhoids K64.9 Hiatal hernia K44.9 History of hysterectomy Z98.890, Z90.710 Hyperlipidemia E78.5 Hypertension I10 Allergies bacitracin [From Polysporin] Allergy (Intermediate, Verified 10/13/18 09:29) rash Latex, Natural Rubber Allergy (Intermediate, Verified 10/13/18 09:29) rash polymyxin B [From Polysporin] Allergy (Intermediate, Verified 10/13/18 09:29) rash neomycin [From Neosporin ([id number])] Allergy (Verified 11/28/18 05:54) Rash Home Medications: Ambulatory Orders Medication Instructions Recorded amlodipine 2.5 mg tablet 5 mg PO QDAY 12/14/17 ascorbate calcium 500 mg tablet 500 mg PO QDAY 12/14/17 Surgical History: Surgical History (Last Updated 10/13/18 @ 09:17 by Geeta Anguiano) History of colonoscopy Onset Date: 06/2013 Z98.890 History of esophagogastroduodenoscopy (EGD) Z98.890 Smoking Status: Never smoker Review of Systems Constitutional: Denies: Anorexia Cardiovascular: Denies: Chest Pain Respiratory: Denies: Cough Gastrointestinal: Denies: Abdominal Pain Neurological: Denies: Balance problems Endocrine: Denies: Change in Body Habitus VTE Information - Inpt Only VTE Present on Admission: No - Physical Exam General: Alert, Oriented x3, Cooperative, No apparent distress HEENT: Atraumatic Oral: Moist Mucosa Neck: Supple Lungs: Clear to auscultation Cardiovascular: Regular rate, Regular Rhythm Abdomen: Bowel Sounds Present, Soft, Non Tender Neurological: Cranial nerves II-XII grossly intact Psych/Mental Status: Normal Affect Vital Signs Temp Pulse Resp BP Pulse Ox 97.7 F L 91 20 H 120/85 H 100 11/28/18 05:45 11/28/18 05:45 11/28/18 05:45 11/28/18 05:45 11/28/18 05:45 Oxygen Delivery Method Room Air Weight: 165 lb Body Mass Index (BMI) 27.8 Assessment/Plan All Active Problems (Last Updated 10/13/18 @ 09:32 by Geeta Anguiano) Acute blood loss anemia (Acute) GERD (gastroesophageal reflux disease) (Acute) Personal history of colonic polyps (Acute) Family history of colon cancer in mother (Acute) 78-year-old female with a significant GI blood loss anemia requiring 2 units of blood transfusion and is slowly improved her hemoglobin from a [place] discharge at 8 to currently 11. I do recommend a follow-up esophagogastroduodenoscopy with possible biopsy if indicated. She is aware of the technique, benefits, risks, alternatives. We have scheduled we will proceed as noted. Chaparro John M.D., F.A.C.S. 11/28/18 0712 <Electronically signed by Chaparro John MD> Date Chaparro John MD Cosign Signature: Date (if applicable) CC: Xiomara Do MD; Chaparro John MD Signed IMMUNOHISTOCHEMISTRY Observed: 11/28/2018 Status: F Source: [place] 6:30 AM [facility] REPOSITORY Patient: FARHAD GLEZ : 1940 (78/F) Acct Num: [id number] Phys: Dora RAMON,Chaparro Unit Num: [id number] Loc: EN Specimen: [id number] Received: 11/28/18 - 1302 Spec Type: IMMUNO TISSUES 1 TISSUES: A. Stomach, NOS SPECIMEN INFORMATION: Tissue Source: A - Antral biopsy Clinical Info: Acute blood loss anemia Specimen Number: [id number] CPT code: 88081 METHODOLOGY: Deparaffinized sections of prefer/formalin-fixed tissue or PAP/DQ stained slides are incubated with monoclonal/polyclonal antibodies/oligonucleotide probes. Localization is made via biotin free immunoperoxidase method. Appropriate controls are performed and reacted as expected. Results on target cell population are indicated in the following table: RESULTS: ANTIBODY / CLONE RESULT Block A H Pylori (polyclonal) negative These tests were developed and their performance characteristics determined by [facility]. They may not have been cleared or approved by the U.S. Food and Drug Administration. The FDA has determined that such clearance or approval is not necessary. INTERPRETATION: A. Antral biopsy: Negative for Helicobacter pylori organisms. AM:ebenezer 11/29/18 PHYSICIAN AND INSTITUTION [address] [address] Signed [place], 11/29/18 <signature on file> Performed By: #### PIMM #### [facility] [address] [place] [address]. [place], [address] EGD ([facility] SITE) Observed: 11/28/2018 Status: F Source: [place] 6:30 AM [facility] REPOSITORY Patient: FARHAD GLEZ : 1940 (78/F) Acct Num: [id number] Phys: Dora RAMON,Chaparro Unit Num: [id number] Loc: EN Specimen: [id number] Received: 11/28/18 - 0934 Spec Type: EGD BIOPSY TISSUES 1 TISSUES: A. Gastric mucous membrane B. Esophageal mucous membrane C. Gastric mucous membrane D. Esophageal mucous membrane COMMENT A. The results of immunohistochemistry for Helicobacter pylori will be reported separately ([id number]). GROSS DESCRIPTION A - Received in fixative is one container labeled with the patient's name and designated antral biopsy. The specimen consists of one irregular fragment of light edmonds soft tissue that measures 0.5 x 0.2 x 0.1 cm. The specimen is totally submitted in one cassette. B - Received in fixative is one container labeled with the patient's name and designated distal esophagus. The specimen consists of multiple irregular fragments of light edmonds soft tissue that in aggregate measure 0.6 x 0.6 x 0.1 cm. The specimen is totally submitted in one cassette. C - Received in fixative is one container labeled with the patient's name and designated fundic polyp biopsy. The specimen consists of one irregular fragment of light edmonds soft tissue that measures 0.6 x 0.2 x 0.1 cm. The specimen is totally submitted in one cassette. D - Received in fixative is one container labeled with the patient's name and designated mid esophagus biopsy. The specimen consists of one irregular fragment of light edmonds soft tissue that measures 0.3 x 0.2 x 0.1 cm. The specimen is totally submitted in one cassette. / AM:rg 11/28/18 TC:3 CPT: 82056 x4 HEADER OPERATION: EGD PRE-OP DIAGNOSIS: Acute blood loss anemia TISSUE SUBMITTED: A - Antral biopsy histo and H. pylori, B - Distal esophagus biopsy, C - Fundic polyp biopsy, D - Mid esophagus biopsy MICROSCOPIC DESCRIPTION Slides are reviewed. MICROSCOPIC DIAGNOSIS A. Gastric antrum, biopsy: Minimal chronic inflammation. See comment. B. Distal esophagus, biopsy: Fragments of squamous mucosa with no pathologic change. Gastroesophageal junctional mucosa with mild chronic inflammation. C. Fundic gland polyp, biopsy: Consistent with fundic gland polyp. D. Mid esophagus, biopsy: Fragments of benign squamous mucosa. No evidence of inflammation. AM:ebenezer 11/29/18 Signed [place], DO 11/29/18 <signature on file> Performed By: #### PEGD #### [facility] [address] [place], [address] ECHOCARDIOGRAM COMPLETE Observed: 11/27/2018 Status: F Source: [place] 7:53 PM [facility] REPOSITORY [facility] Cardiovascular Services [address] [place] [address] Echo Complete 11/27/18 0759 MR#: [id number] Acct: [id number] Name: FARHAD GLEZ Rep #: [id number] : 1940 78 From: Johnson Bird MD Attending Dr: Xiomara Do MD Status: REG CLI Ordering Dr: Xiomara Do MD Date: 11/27/18 Location: [facility] Sex: F C Admitted: Reason For Study: TACHYCARDIA Procedure This was a 2D Doppler, Color Flow transthoracic echocardiogram. The exam was of adequate technical quality. Exam performed in department. Left Ventricle Normal LV size. Segmental dysfunction with preserved ejection fraction (see wall motion). The estimated ejection fraction is 55 %. Diastolic function is indeterminate. Infero-Basal: Hypokinetic. Mid-Posterior: Hypokinetic. Mid-Inferior: Hypokinetic. Right Ventricle Normal RV size. Normal systolic function. Atria The left atrium is mildly enlarged. Normal right atrium. No doppler evidence for ASD. Mitral Valve There is no mitral annular calcification. Mild focal mitral valve calcification of the anterior leaflet. Trivial mitral valve insufficiency. Tricuspid Valve Normal tricuspid valve. Mild tricuspid valve insufficiency. Right ventricular systolic pressure estimated to be 28 mmHg. Aortic Valve Trisinus/trileaflet aortic valve. Mild diffuse aortic valve thickening. Pulmonic Valve The pulmonic valve is not well visualized. Trivial pulmonic valve insufficiency. Great Vessels Normal sized aortic root. Pericardium/Pleural No pericardial effusion. MMode/2D Measurements AND Calculations LVIDd: 4.3 cm IVSd: 0.88 cm Ao root diam: 3.3 cm LVIDs: 3.1 cm LVPWd: 1.0 cm RVDd: 3.2 cm FS: 28.4 % LAV(MOD-bp): 50.8 ml EDV(MOD-sp4): 97.6 ml SV(MOD-sp4): 44.1 ml LAV(MOD-bp) Indexed: 28.1 ml/m2 ESV(MOD-sp4): 53.5 ml LAV(MOD-sp2): 37.9 ml EF(MOD-sp4): 45.1 % LAV(MOD-sp4): 65.0 ml LA dimension(2D): 3.7 cm LA A4 area: 20.8 cm2 RA A4 area: 20.8 cm2 Time Measurements MV dec time: 0.13 sec Doppler Measurements AND Calculations MV E max chris: 119.0 cm/sec Lat Peak E' Chris: 7.6 cm/sec Med Peak E' Chris: 9.3 cm/sec MV A max chris: 51.4 cm/sec E/E' lat: 15.6 E/E' med: 12.8 MV E/A: 2.3 Ao V2 max: 122.8 cm/sec AI max chris: 478.0 cm/sec LV V1 max: 78.3 cm/sec Ao max P.0 mmHg AI max P.5 mmHg LV V1 max P.5 mmHg AI dec slope: 578.3 cm/sec2 AI P1/2t: 242.1 msec PA V2 max: 83.3 cm/sec TR max chris: 251.4 cm/sec TR max P.3 mmHg Interpretation Summary Segmental dysfunction with preserved ejection fraction (see wall motion). The estimated ejection fraction is 55 %. The left atrium is mildly enlarged. Mild focal mitral valve calcification of the anterior leaflet. Trivial mitral valve insufficiency. Mild tricuspid valve insufficiency. Mild diffuse aortic valve thickening. Trivial pulmonic valve insufficiency. Right ventricular systolic pressure estimated to be 28 mmHg. Diastolic function is indeterminate. Ordering Physician: Xiomara Do Referring Physician: Xiomara Do Performed By: Halina Goodman, RDCS, RVT 11/27/181951 Date Johnson Bird MD CC: Xiomara Do MD Date Dictated: 11/27/18 0759 Date Transcribed: 11/27/181951 Machine Gun Mechanic: Signed TXT - BLOOD FLOW Observed: 11/27/2018 Status: F Source: [place] SCREENING 4:41 PM [facility] REPOSITORY [facility] Cardiovascular Services [address] [place] [address] 11/27/18 0841 MR#: [id number] Acct: [id number] Name: FARHAD GLEZ Rep #: [id number] : 1940 78 From: Eris Mclain MD Attending Dr: Xiomara Do MD Status: REG REF Ordering Dr: Date: 11/27/18 Location: [facility] Sex: F C Admitted: Reason For Study: Screening Carotid Duplex Ultrasound Abdominal Aorta The right maximum ICA velocity is 73.1/30.3 cm/s. The maximal outside diameter of the proximal aorta The left maximum ICA velocity is 63.3/18.2 cm/s. measures 1.60 x 1.55 cm in the cross-sectional The right ECA velocity is less than 125 cm/s. axis. The left ECA velocity is less than 125 cm/s. The maximal outside diameter of the proximal aorta There is insignificant plaque formation noted on measures 1.55 cm in the longitudinal axis. the right side. There is insignificant plaque formation noted on the left side. Ankle Brachial Index The right ankle/ brachial index is 1.25. The left ankle/ brachial index is 1.19. Medical History and Assessment The client presents with a history of high blood pressure. The heart rate is 120 beats per minute. The heart rhythm is regularly irregular. The right blood pressure is 122/90. The left blood pressure is 126/90. The assessment was performed by Lidya Nunn RVT. Interpretation Summary Normal carotid artery screening (0 to 15% narrowing). Normal aortic ultrasound exam. The ankle/brachial index is normal (1.0 or greater). Ordering Physician: Xiomara Do M.D. 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 Calcium scoring examination. This is a radiology over read examination. RADIATION DOSAGE (If Supplied By Facility): CTDIvol = ( 12.19 ) mGy, DLP = ( 195.04 ) mGycm TECHNIQUE: Transaxial imaging was performed without the administration of intravenous contrast material. Individualized dose optimization techniques were used for this CT. COMPARISON: Comparison is made with prior study dated April 03, 2018. FINDINGS: Stable mild increased markings at the left lung base suggestive of scarring. There is no demonstrated pleural abnormality. There are calcifications of the coronary arteries. There are multiple small lymph nodes within the mediastinum, which are normal in size and morphology most compatible with reactive lymph hyperplasia. Normal hilar regions. Normal unenhanced pulmonary arteries. Normal aorta arch and descending thoracic aorta. There are degenerative changes of the thoracic spine. Moderate sized hiatal hernia. CT/Limited Chest CT w/CCTA IMPRESSION: Findings suggestive scarring at the left lung base. Coronary artery calcification. Moderate hiatal hernia. 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 Reports was seen in ER in [facility] - anemia possible from Hiatal hernia s/p Transfusion x 2. Denies Vaginal bleeding or discharge. Postmenopausal: Yes HRT use: No. History of abnormal pap: No Last mammogram: 2017 normal History of abnormal mammogram: No Sexually active: Yes History of STDS: None Patient concerns for STD exposure: No. Pain with intercourse: No Postcoital bleeding: No Vaginal dryness: No Exercise:routine Diet: balanced Obstetric History T0 L4 SAB0 TAB0 Ectopic0 Multiple0 Live Births0 PAST MEDICAL HISTORY Diagnosis Date - Basal cell carcinoma 2016 Neck - Closed fracture of one or more phalanges of foot 04/20/2010 - Cystocele, midline 06/17/2009 - Diaphragmatic hernia without mention of obstruction or gangrene - Disorders of bursae and tendons in shoulder region, unspecified 02/20/2014 - Diverticulosis of colon (without mention of hemorrhage) - Esophageal reflux Gastroesophageal reflux - Esophagitis, unspecified - Hyperlipidemia 11/30/2015 - Other and unspecified hyperlipidemia tx Rx - Other malignant neoplasm of other specified sites of skin back - Pain in joint, shoulder region 02/20/2014 - Palpitations h/o Irregular irregularity --- asymptomatic - PMH - PAST MEDICAL HISTORY OF livedoid vasculopathy h/o ulcer left ankle 10/10 - Postmenopausal atrophic vaginitis - Postmenopausal atrophic vaginitis 06/17/2009 - SCC (squamous cell carcinoma) 2002 midback - SCC (squamous cell carcinoma), arm 03/2011 left arm - Squamous cell carcinoma 2016 right arm - Unspecified essential hypertension Essential hypertension - Unspecified venous (peripheral) insufficiency - VARICOSE ULCER (FOR VEIN-SEE VARICOS LEG 12/23/2005 - Varicose veins of other sites 1969's started with pregnancies with increased severity since 1995 - Venous insufficiency (chronic) (peripheral) 06/25/2015 PAST SURGICAL HISTORY Procedure Laterality Date - APPENDECTOMY - BX OF BREAST; INCISIONAL Bx of breast, incisional - COLONOSCOP W/ OR W/O [facility] SPEC 04/2003 Colonoscopy - COLONOSCOP W/ OR W/O [facility] SPEC 05/05/2008 Colonoscopy - COLONOSCOP W/ OR W/O [facility] SPEC 07/02/13 Colonoscopy - DANDC, DIAG AND/OR THERAPEUTIC Dilation AND curettage - EGD W/O OR W/BRUSH/WASH 05/05/2008 EGD - EGD W/O OR W/BRUSH/WASH 07/02/13 EGD - PAST SURGICAL HISTORY OF 09-13 LVNUS/stabs left - PAST SURGICAL HISTORY OF 05/2011 skin cancer removed left arm - REVISE SECONDARY VARICOSITY 11/2008 Rt Varicose Vein Surgery removed saphenous vein - TOTAL ABDOM HYSTERECTOMY 1998 Hysterectomy, AGA BSO FAMILY HISTORY Problem Relation Age of Onset - Alzheimer's Disease Mother - Colon Cancer Mother - Heart Father - Diabetes Maternal Grandmother - Diabetes Paternal Uncle - Cancer Sister Melanoma x 2 SOCIAL HISTORY Social History Substance Use Topics - Smoking status: Never Smoker - Smokeless tobacco: Never Used - Alcohol use 3.0 oz/week 2 Glasses of Wine (5oz) per week Comment: wine occasionally, 2 glasses of wine daily REVIEW OF SYSTEMS Abdomen: No abdominal pain, nausea, vomiting, diarrhea, or constipation. No bloating, early satiety, indigestion, or increased flatulence. Bladder: No dysuria, gross hematuria, urinary frequency, urinary urgency, or incontinence Breast: No breast lumps, nipple d/c, overlying skin changes, redness or skin retraction Allergies and current medication updated:Yes EXAM: BP 144/82 Ht 5' 4.25 (1.63m) Wt 173 lb (78.5kg) BMI 29.46 kg/(m2). GENERAL: pleasant, female in no apparent distress HEENT: Normocephalic, atraumatic and mucus membranes moist NECK: Supple, full range of motion, no adenopathy and thyroid normal DERMATOLOGY: Normal, without lesions, non-icteric and non-hirsute BREAST: soft, non-tender, symmetric, no dominant mass, normal nipple-areolar complex, no lymphadenopathy and no nipple discharge ABDOMEN: soft, non-tender and no masses PELVIC: external genitalia normal, normal Bartholin's glands, urethra, Cazadero's glands, no vulvar lesions, good vaginal support, physiologic discharge present, normal appearing perineal body and perianal region, cervix surgically absent BIMANUAL: no adnexal masses and non-tender RECTOVAGINAL: deferred. NEURO: alert and oriented x3,exam grossly non-focal EXTREMITIES: normal ASSESSMENT/PLAN: 1) Health maintenance: Pap/HPV screening no longer needed Mammogram ordered Mammogram up to date Nutrition, exercise and routine health maintenance exams reviewed. Calcium/Vitamin D supplementation information provided. Colon cancer screening: up to date with screening BMD: up to date 2) Follow up one year or sooner as needed Zehra Clarke MD CNOV Observed: 11/12/2018 Status: COMPLETED Source: [place] 9:50 AM [facility] REPOSITORY Office Visit (WOOB) FARHAD GLEZ ([id number]) 1940 F Date Time Provider Department 11/12/18 9:50 AM ZEHRA LARKIN WOTYSON During your visit today, we recorded the following information about you: Blood pressure Weight Height 144/82 78.5 kg 1.632 m Fern Sherwood Ma 11/12/2018 10:[address] Reporter offered: Patient declines. Zehra Clarke MD 11/12/2018 10:36 AM Signed Farhad Glez is a 78 year old who presents for her annual gynecologic exam without complaints. Reports was seen in ER in [facility] - anemia possible from Hiatal hernia s/p Transfusion x 2. Denies Vaginal bleeding or discharge. Postmenopausal: Yes HRT use: No. History of abnormal pap: No Last mammogram: 2017 normal History of abnormal mammogram: No Sexually active: Yes History of STDS: None Patient concerns for STD exposure: No. Pain with intercourse: No Postcoital bleeding: No Vaginal dryness: No Exercise:routine Diet: balanced Obstetric History T0 L4 SAB0 TAB0 Ectopic0 Multiple0 Live Births0 PAST MEDICAL HISTORY Diagnosis Date - Basal cell carcinoma 2016 Neck - Closed fracture of one or more phalanges of foot 04/20/2010 - Cystocele, midline 06/17/2009 - Diaphragmatic hernia without mention of obstruction or gangrene - Disorders of bursae and tendons in shoulder region, unspecified 02/20/2014 - Diverticulosis of colon (without mention of hemorrhage) - Esophageal reflux Gastroesophageal reflux - Esophagitis, unspecified - Hyperlipidemia 11/30/2015 - Other and unspecified hyperlipidemia tx Rx - Other malignant neoplasm of other specified sites of skin back - Pain in joint, shoulder region 02/20/2014 - Palpitations h/o Irregular irregularity --- asymptomatic - PMH - PAST MEDICAL HISTORY OF livedoid vasculopathy h/o ulcer left ankle 10/10 - Postmenopausal atrophic vaginitis - Postmenopausal atrophic vaginitis 06/17/2009 - SCC (squamous cell carcinoma) 2001 midback - SCC (squamous cell carcinoma), arm 03/2011 left arm - Squamous cell carcinoma 2016 right arm - Unspecified essential hypertension Essential hypertension - Unspecified venous (peripheral) insufficiency - VARICOSE ULCER (FOR VEIN-SEE VARICOS LEG 12/23/2005 - Varicose veins of other sites 1970's started with pregnancies with increased severity since 1995 - Venous insufficiency (chronic) (peripheral) 06/25/2015 PAST SURGICAL HISTORY Procedure Laterality Date - APPENDECTOMY - BX OF BREAST; INCISIONAL Bx of breast, incisional - COLONOSCOP W/ OR W/O [facility] SPEC 04/2003 Colonoscopy - COLONOSCOP W/ OR W/O [facility] SPEC 05/05/2008 Colonoscopy - COLONOSCOP W/ OR W/O [facility] SPEC 07/02/13 Colonoscopy - DANDC, DIAG AND/OR THERAPEUTIC Dilation AND curettage - EGD W/O OR W/BRUSH/WASH 05/05/2008 EGD - EGD W/O OR W/BRUSH/WASH 07/02/13 EGD - PAST SURGICAL HISTORY OF 09-13 LVNUS/stabs left - PAST SURGICAL HISTORY OF 05/2011 skin cancer removed left arm - REVISE SECONDARY VARICOSITY 11/2008 Rt Varicose Vein Surgery removed saphenous vein - TOTAL ABDOM HYSTERECTOMY 1998 Hysterectomy, AGA BSO FAMILY HISTORY Problem Relation Age of Onset - Alzheimer's Disease Mother - Colon Cancer Mother - Heart Father - Diabetes Maternal Grandmother - Diabetes Paternal Uncle - Cancer Sister Melanoma x 2 SOCIAL HISTORY Social History Substance Use Topics - Smoking status: Never Smoker - Smokeless tobacco: Never Used - Alcohol use 3.0 oz/week 2 Glasses of Wine (5oz) per week Comment: wine occasionally, 2 glasses of wine daily REVIEW OF SYSTEMS Abdomen: No abdominal pain, nausea, vomiting, diarrhea, or constipation. No bloating, early satiety, indigestion, or increased flatulence. Bladder: No dysuria, gross hematuria, urinary frequency, urinary urgency, or incontinence Breast: No breast lumps, nipple d/c, overlying skin changes, redness or skin retraction Allergies and current medication updated:Yes EXAM: BP 144/82 Ht 5' 4.25 (1.63m) Wt 173 lb (78.5kg) BMI 29.46 kg/(m2). GENERAL: pleasant, female in no apparent distress HEENT: Normocephalic, atraumatic and mucus membranes moist NECK: Supple, full range of motion, no adenopathy and thyroid normal DERMATOLOGY: Normal, without lesions, non-icteric and non-hirsute BREAST: soft, non-tender, symmetric, no dominant mass, normal nipple-areolar complex, no lymphadenopathy and no nipple discharge ABDOMEN: soft, non-tender and no masses PELVIC: external genitalia normal, normal Bartholin's glands, urethra, Cazadero's glands, no vulvar lesions, good vaginal support, physiologic discharge present, normal appearing perineal body and perianal region, cervix surgically absent BIMANUAL: no adnexal masses and non-tender RECTOVAGINAL: deferred. NEURO: alert and oriented x3,exam grossly non-focal EXTREMITIES: normal ASSESSMENT/PLAN: 1) Health maintenance: Pap/HPV screening no longer needed Mammogram ordered Mammogram up to date Nutrition, exercise and routine health maintenance exams reviewed. Calcium/Vitamin D supplementation information provided. Colon cancer screening: up to date with screening BMD: up to date 2) Follow up one year or sooner as needed MD Zehra Murillo MD 11/12/2018 10:19 AM Signed Calcium and Vitamin D Supplementation (from the National Institutes of Health Office of Dietary Supplements 2010) Calcium is required by the body for blood vessel, muscle, hormone and nerve functioning. Most of the body's calcium is stored in the bones and teeth where it supports structure and function. Bone is continuously broken down and reformed. When bone breakdown exceeds formation, especially in postmenopausal women, bone loss can increase the risk of osteoporosis and fractures. In addition to low calcium intake, women who smoke, have a family history of osteoporosis, are thin, or , or who take certain medications such as cancer chemotherapy, seizure mediations and steroids are at increased risk of osteoporosis. The calcium requirements in women change with age. The National Institutes of Health (NIH) recommends: 1000mg elemental calcium for premenopausal women age 19-50 1200mg elemental calcium for postmenopausal women and all women over 50 Milk, yogurt, and cheese are rich natural sources of calcium and are the major food contributors in the [place]. For example, 8oz of milk (whole, lowfat or skim) contains about 300mg calcium, 8oz of yogurt contains 415mg. Nondairy sources include salmon and sardines and vegetables, such as [place] cabbage, kale, and broccoli. Foods fortified with calcium include many fruit juices, tofu and cereals. For more food calcium content information, visit http://ods.od.nih.gov/factsheets/calcium. Calcium supplements come in several different forms. Remember that the recommendations are for millgrams (mg) of elemental calcium which may be less than the total weight of the supplement. The amount of elemental calcium is required to be printed on the label. Calcium carbonate is the least expensive form. It must be taken on a full stomach to be properly absorbed. Some patients may experience gas or constipation. Calcium phosphate and calcium citrate may be taken either with or without food and tend to have less side effects but are generally more expensive. Because of its ability to neutralize stomach acid, calcium carbonate is found in some caan-zpb-jkxjvju antacid products, such as Tums? and Rolaids?. Depending on its strength, each chewable pill or softchew provides 200 to 400 mg of elemental calcium. The percentage of calcium absorbed depends on the total amount of elemental calcium consumed at one time. Absorption is highest in doses <500mg. So a woman who takes 1,000mg/day of calcium from supplements should split the dose and take 500mg at two separate times during the day. Too much calcium can cause kidney stones, constipation, difficulty absorbing other nutrients and calcium buildup in blood vessels. Women under 50 should not exceed 2500mg/day (2000mg/day for women over 50) of calcium from food and supplements. Excessive alcohol and caffeine intake can inhibit absorption of calcium. Calcium can reduce the absorption of some medications if taken at the same time of day (bisphosphonates, thyroid medication, Phenytoin and other seizure medications, some antibiotics and iron supplements). Vitamin D promotes calcium absorption in the gut and maintains adequate blood levels of calcium and phosphate for normal bone growth and bone remodeling. Vitamin D also helps regulate cell growth as well as nerve, muscle and immune system function. Vitamin D is produced in the skin as a result of ultraviolet sunlight rays and must be altered in the liver and kidney to become its active form. Recommended intake according to the National Institutes of Health is 600 International Units (IU) for girls and women ages 1-70 and 800 IU for women over 70. Very few foods in nature contain vitamin D. The flesh of fatty fish (such as salmon, tuna, and mackerel) and fish liver oils are among the best sources. Small amounts of vitamin D are found in beef liver, cheese, mushrooms and egg yolks. Most people meet at least some of their vitamin D needs through exposure to sunlight. Season, time of day, length of day, cloud cover, smog, skin melanin content, and sunscreen are among the factors that affect UV radiation exposure and vitamin D synthesis. Despite the importance of the sun for vitamin D synthesis, it is prudent to limit exposure of skin to sunlight and avoid tanning beds. UV radiation is a carcinogen responsible for most of the estimated 1.5 million skin cancers that occur annually in the [place]. Lifetime cumulative UV damage to skin is also responsible for some age-associated dryness and other cosmetic changes. In supplements and fortified foods, vitamin D is available in two forms, D2 (ergocalciferol) and D3 (cholecalciferol). The two are equivalent at normal supplement doses. For women who require high supplement doses because of vitamin D deficiency, D3 may work better to raise blood levels. Some medications can prevent proper absorption of Vitamin D. These include laxatives, corticosteroids like prednisone, the seizure drugs phenobarbital and phenytoin, the weight-loss drug orlistat ( Xenical? and AlliTM) and the cholesterol-lowering drug cholestyramine (Questran?, LoCholest?, and Prevalite?). Talk to your doctor about adjusting your recommended daily vitamin D dosage if you take these medications. You should not exceed 4000 mg of vitamin D supplementation daily unless specifically prescribed by your doctor. ACOG Screening Guidelines (2015) The following health screening schedule is recommended by the [employer] [place] [employer] (ACOG). Some of these tests may be ordered or performed by your primary care doctor. Pap test screening The pap test looks at cells on the cervix (the opening from the vagina to the uterus) to look for cancer or pre-cancerous changes. These changes are caused by the human papillomavirus (HPV). Studies estimate that half of all women will test positive for this virus within 3 years of starting sexual activity. For young women with a normal immune system, 90% of HPV infections will resolve within 2 years. There is a vaccine available against some forms of HPV. This is recommended for girls and women age 9-26 and is a series of 3 injections over 6 months. Because this vaccine does not protect against all HPV types which can cause cervical cancer, women who received the vaccine still need pap tests. Pap smear screening should be started at age 21. The pap test should be done every 3 years from age 21-29. From age 30-65, pap smears can be done every 5 years if HPV test is negative or every 3 years if HPV testing is not done. For women over the age of 65, ACOG recommends against screening women who have had adequate prior screening and are not otherwise at high risk for cervical cancer. Women who have had a hysterectomy also do not need routine pap smear screening unless the pap smear was done for a cervical cancer or moderate to severe dysplasia. Breast cancer screening Mammogram should be performed every 1-2 years starting at age 40 and every year starting at age 50. Screening may be started earlier depending on family history. Cholesterol screening Lipid panel (cholesterol test) should be checked every 5 years starting at age 45. Diabetes screening Fasting glucose (blood sugar) test should be performed every 3 years starting at age 45. Colorectal cancer screening Starting at age 50, women should have a screening colonoscopy at least every 10 years. Screening may be started earlier depending on family history. Thyroid screening Thyroid function test (TSH) should be checked every 5 years starting at age 50. Bone mineral density screening All postmenopausal women age 65 and over and postmenopausal women with risk factors for osteoporosis should have a bone mineral density test performed. Risk factors include race, family history of osteoporosis, personal history of fractures, poor nutrition, smoking, heavy alcohol use, early menopause, low calcium intake and low body weight. Certain medical conditions and long-term use of some medications may also increase risk. Referring Provider: SELF [[id number]] Allergies As of Date: 11/12/2018 Noted Allergy Reaction ADHESIVE TAPE (ROSINS) 09/21/2004 2 - Rash Comments: Bandaids are okay short term LATEX 06/23/2011 2 - Rash 9 - Itching NEOSPORIN ([id number]*12/06/2005 2 - Rash SEASONAL ALLERGIES 03/22/2017 14 - Other: See Comments Date Reviewed: 11/12/2018 Reviewed by: Fern Sherwood Ma - Fully Assessed Reason for Visit: Yearly Exam [187] Primary Visit Diagnosis:Encounter for gynecological examination without abnormal finding [Z01.419] Other Visit Diagnosis:Encounter for screening mammogram for malignant neoplasm of breast [Z12.31] Order(s):omeprazole (PRILOSEC) 20 mg capsuleTake 1 capsule by mouth once daily.Disp: 90 capsuleRfl: 3 ARNEL SCREENING W LEORA [[id number]] Order #: [id number] FUTURE Prescriptions as of 11/12/2018 Sig: OMEPRAZOLE 20 MG CAPSULE,GABBY* Take 1 capsule by mouth once * SPIRONOLACTONE 50 MG TABLET take 1 tablet by mouth once d* AMLODIPINE 5 MG TABLET take 1 tablet by mouth once d* COENZYME Q10 100 MG CAPSULE take 1 capsule by mouth twice* LOSARTAN 100 MG-HYDROCHLOROTH* Take 1 tablet by mouth once d* FLUTICASONE 50 MCG/ACTUATION * Use 2 Sprays in each nostril * LIPITOR 10 MG TABLET take 1 tablet by mouth once d* * CALCIUM 600 WITH VITAMIN D3 6* Take one(1) tablet two(2) herb* * MULTIVITAMIN TABLET Take one(1) tablet daily. Problem List As Of Date 11/12/2018 Noted Resolved Squamous cell skin cancer [C44.92] INVALID FOR* More... Basal cell carcinoma of back [C44.519] More... Mixed hyperlipidemia [E78.2] More... HEMORRHOIDS NOS [K64.9] More... VARICOSE ULCER (FOR VEIN-SEE VARICOS LEG [I83.0*INVALID FOR*06/27/2017 Disorder of bone and cartilage, unspecified [M8*INVALID FOR*07/29/2011 Esophageal reflux [K21.9] INVALID FOR* More... Symptomatic menopausal or female climacteric st*INVALID FOR*07/29/2011 Obesity, unspecified [E66.9] INVALID FOR*06/25/2015 More... SCIATICA [M54.30] INVALID FOR* More... Routine general medical examination at a health*INVALID FOR*08/06/2012 More... ABNORMAL LIVER FUNCTION STUDY [R94.5] INVALID FOR* More... VARICOS LEG ULCER/INFLAM [I83.229, I83.219, L97*INVALID FOR* More... HYPERTENSION NOS [I10] INVALID FOR*08/14/2015 More... LEG VARICOSITY W OTHER COMPLICATION [I83.893] INVALID FOR* Impaired fasting glucose [R68.89] INVALID FOR* Postmenopausal atrophic vaginitis [N95.2] INVALID FOR*06/27/2017 Female stress incontinence [N39.3] INVALID FOR*07/29/2011 Cystocele, midline [N81.11] INVALID FOR*06/27/2017 Closed fracture of one or more phalanges of mary*INVALID FOR*06/27/2017 Open Wnd Knee/Leg/Ankle [S81.009A, S81.809A, S9*INVALID FOR* Actinic keratosis [L57.0] INVALID FOR*06/21/2015 Dermatitis [L30.9] INVALID FOR* Personal History of Other Malignant Neoplasm of*INVALID FOR* Leg wound, left [S81.802A] INVALID FOR*11/30/2015 Family history of melanoma [Z80.8] INVALID FOR* Pain in joint, shoulder region [M25.519] INVALID FOR*06/27/2017 Disorders of bursae and tendons in shoulder reg*INVALID FOR*06/27/2017 Venous insufficiency (chronic) (peripheral) [I8*INVALID FOR*06/27/2017 Essential hypertension [I10] INVALID FOR* More... Hyperlipidemia [E78.5] INVALID FOR*06/27/2017 Elevated AST (SGOT) [R74.0] INVALID FOR* More... Lymphopenia [D72.810] INVALID FOR* More... History of nonmelanoma skin cancer [Z85.828] INVALID FOR* Other instructions from your clinician: Calcium and Vitamin D Supplementation (from the National Institutes of Health Office of Dietary Supplements 2010) Calcium is required by the body for blood vessel, muscle, hormone and nerve functioning. Most of the body's calcium is stored in the bones and teeth where it supports structure and function. Bone is continuously broken down and reformed. When bone breakdown exceeds formation, especially in postmenopausal women, bone loss can increase the risk of osteoporosis and fractures. In addition to low calcium intake, women who smoke, have a family history of osteoporosis, are thin, or , or who take certain medications such as cancer chemotherapy, seizure mediations and steroids are at increased risk of osteoporosis. The calcium requirements in women change with age. The National Institutes of Health (NIH) recommends: 1000mg elemental calcium for premenopausal women age 19-50 1200mg elemental calcium for postmenopausal women and all women over 50 Milk, yogurt, and cheese are rich natural sources of calcium and are the major food contributors in the [place]. For example, 8oz of milk (whole, lowfat or skim) contains about 300mg calcium, 8oz of yogurt contains 415mg. Nondairy sources include salmon and sardines and vegetables, such as [place] cabbage, kale, and broccoli. Foods fortified with calcium include many fruit juices, tofu and cereals. For more food calcium content information, visit http://ods.od.nih.gov/factsheets/calcium. Calcium supplements come in several different forms. Remember that the recommendations are for millgrams (mg) of elemental calcium which may be less than the total weight of the supplement. The amount of elemental calcium is required to be printed on the label. Calcium carbonate is the least expensive form. It must be taken on a full stomach to be properly absorbed. Some patients may experience gas or constipation. Calcium phosphate and calcium citrate may be taken either with or without food and tend to have less side effects but are generally more expensive. Because of its ability to neutralize stomach acid, calcium carbonate is found in some mmic-tot-ybbpoby antacid products, such as Tums? and Rolaids?. Depending on its strength, each chewable pill or softchew provides 200 to 400 mg of elemental calcium. The percentage of calcium absorbed depends on the total amount of elemental calcium consumed at one time. Absorption is highest in doses <500mg. So a woman who takes 1,000mg/day of calcium from supplements should split the dose and take 500mg at two separate times during the day. Too much calcium can cause kidney stones, constipation, difficulty absorbing other nutrients and calcium buildup in blood vessels. Women under 50 should not exceed 2500mg/day (2000mg/day for women over 50) of calcium from food and supplements. Excessive alcohol and caffeine intake can inhibit absorption of calcium. Calcium can reduce the absorption of some medications if taken at the same time of day (bisphosphonates, thyroid medication, Phenytoin and other seizure medications, some antibiotics and iron supplements). Vitamin D promotes calcium absorption in the gut and maintains adequate blood levels of calcium and phosphate for normal bone growth and bone remodeling. Vitamin D also helps regulate cell growth as well as nerve, muscle and immune system function. Vitamin D is produced in the skin as a result of ultraviolet sunlight rays and must be altered in the liver and kidney to become its active form. Recommended intake according to the National Institutes of Health is 600 International Units (IU) for girls and women ages 1-70 and 800 IU for women over 70. Very few foods in nature contain vitamin D. The flesh of fatty fish (such as salmon, tuna, and mackerel) and fish liver oils are among the best sources. Small amounts of vitamin D are found in beef liver, cheese, mushrooms and egg yolks. Most people meet at least some of their vitamin D needs through exposure to sunlight. Season, time of day, length of day, cloud cover, smog, skin melanin content, and sunscreen are among the factors that affect UV radiation exposure and vitamin D synthesis. Despite the importance of the sun for vitamin D synthesis, it is prudent to limit exposure of skin to sunlight and avoid tanning beds. UV radiation is a carcinogen responsible for most of the estimated 1.5 million skin cancers that occur annually in the [place]. Lifetime cumulative UV damage to skin is also responsible for some age-associated dryness and other cosmetic changes. In supplements and fortified foods, vitamin D is available in two forms, D2 (ergocalciferol) and D3 (cholecalciferol). The two are equivalent at normal supplement doses. For women who require high supplement doses because of vitamin D deficiency, D3 may work better to raise blood levels. Some medications can prevent proper absorption of Vitamin D. These include laxatives, corticosteroids like prednisone, the seizure drugs phenobarbital and phenytoin, the weight-loss drug orlistat ( Xenical? and AlliTM) and the cholesterol-lowering drug cholestyramine (Questran?, LoCholest?, and Prevalite?). Talk to your doctor about adjusting your recommended daily vitamin D dosage if you take these medications. You should not exceed 4000 mg of vitamin D supplementation daily unless specifically prescribed by your doctor. ACOG Screening Guidelines (2015) The following health screening schedule is recommended by the [employer] [place] [employer] (ACOG). Some of these tests may be ordered or performed by your primary care doctor. Pap test screening The pap test looks at cells on the cervix (the opening from the vagina to the uterus) to look for cancer or pre-cancerous changes. These changes are caused by the human papillomavirus (HPV). Studies estimate that half of all women will test positive for this virus within 3 years of starting sexual activity. For young women with a normal immune system, 90% of HPV infections will resolve within 2 years. There is a vaccine available against some forms of HPV. This is recommended for girls and women age 9-26 and is a series of 3 injections over 6 months. Because this vaccine does not protect against all HPV types which can cause cervical cancer, women who received the vaccine still need pap tests. Pap smear screening should be started at age 21. The pap test should be done every 3 years from age 21-29. From age 30-65, pap smears can be done every 5 years if HPV test is negative or every 3 years if HPV testing is not done. For women over the age of 65, ACOG recommends against screening women who have had adequate prior screening and are not otherwise at high risk for cervical cancer. Women who have had a hysterectomy also do not need routine pap smear screening unless the pap smear was done for a cervical cancer or moderate to severe dysplasia. Breast cancer screening Mammogram should be performed every 1-2 years starting at age 40 and every year starting at age 50. Screening may be started earlier depending on family history. Cholesterol screening Lipid panel (cholesterol test) should be checked every 5 years starting at age 45. Diabetes screening Fasting glucose (blood sugar) test should be performed every 3 years starting at age 45. Colorectal cancer screening Starting at age 50, women should have a screening colonoscopy at least every 10 years. Screening may be started earlier depending on family history. Thyroid screening Thyroid function test (TSH) should be checked every 5 years starting at age 50. Bone mineral density screening All postmenopausal women age 65 and over and postmenopausal women with risk factors for osteoporosis should have a bone mineral density test performed. Risk factors include race, family history of osteoporosis, personal history of fractures, poor nutrition, smoking, heavy alcohol use, early menopause, low calcium intake and low body weight. Certain medical conditions and long-term use of some medications may also increase risk. Prescriptions ordered this encounter Disp Refills Start End OMEPRAZOLE 20 MG CAPSULE,DELAYED REL* 90 c* 3 11/12/2018 Class: Med Update Route: ORAL Sig: Take 1 capsule by mouth once daily. Medications Discontinued During This Encounter Fluorouracil (EFUDEX) 5 % cream 40 g 1 09/13/2017 11/12/2018 Sig: Apply to chest twice daily for 4 weeks Patient not taking: Reported on 11/12/2018 Disc: Reason for discontinue is not on file. omeprazole (PRILOSEC) 20 mg capsule 90 c* 3 02/26/2018 11/12/2018 Sig: take 1 capsule by mouth once daily Disc: Reason for discontinue is not on file. RANITIDINE HCL ORAL 11/12/2018 Class: Historical Med Route: ORAL Sig: Take by mouth. Disc: Reason for discontinue is not on file. triamcinolone acetonide (KENALOG) 0.* 454 g 1 06/27/2017 11/12/2018 Sig: Apply to affected areas twice daily (neck and back) for 2-3 weeks Patient not taking: Reported on 11/12/2018 Disc: Reason for discontinue is not on file. Disposition: Return in 1 year (on 11/12/2019) for Annual Exam. Follow-up and Disposition History Recorded Encounter Status:Closed by ZEHRA ALEXANDRA MD on 11/12/18 PROGRESS Observed: 11/12/2018 Status: COMPLETED Source: [place] 9:49 AM [facility] REPOSITORY HNO ID: [id number] Author: Fern Sherwood Ma Service: (none) Author Type: (none) Type: Progress Notes Filed: 11/12/2018 10:36 AM Note Text: [address] Reporter offered: Patient declines. SURGERY VISIT REPORT Observed: 10/18/2018 Status: F Source: [place] 3:31 PM [facility] REPOSITORY [facility] [address] [place] [address] OFFICE VISIT Date of Service: 10/13/18 MR#: [id number] Acct: [id number] Name: FARHAD GLEZ Rep #: [id number] : 1940 Provider: Chaparro John MD Age/Sex: 78/F Location: [facility] Status: Signed with Addenda ADDENDUM by Cahparro John MD on 10/18/18 at 1531 Addendum entered and electronically signed [...] of 8. Her upper endoscopy performed at [facility] in [place] it suggested grade C erosive esophagitis and a large hiatal hernia. It was felt likely that this was the source of her blood loss. Follow-up endoscopy at 2 months was recommended. The patient was placed on a proton pump inhibitor. The biopsies obtained at the time of that EGD however demonstrates normal mucosa. I can only hypothesize that the actual area of inflammation was not sampled. My recommendations remain consistent with previously discussed in my note. I would consider follow-up upper endoscopy in 2 months. The patient may additionally consider tertiary referral for repair of her large hiatal hernia. Chaparro John M.D., F.A.C.S. Intake Chief Complaint: anemia Allergies bacitracin [From Polysporin] Allergy (Intermediate, Verified [...] DAILY #60 capsule. 01/12/18 [Rx Confirmed 10/13/18] Assessment AND Plan Problems 1. Acute blood loss anemia D62 Plan - Chaparro John MD 78-year-old female who was briefly hospitalized in [place] with what appeared to be an acute [...] note regarding her a esophagogastroduodenoscopy performed in [place]. Then with that information at hand I [...] Visit Reasons: Hiatal Hernia Chief Complaint: anemia Nail Puller Required: No Is patient in pain?: No [...] period known: No Post menopausal: Yes Patient : No [facility] Medical History Acute blood loss anemia (Acute) Acid reflux (Acute) Anemia (Acute) Hemorrhoids (Acute) Hiatal hernia (Acute) History of hysterectomy (Acute) Hyperlipidemia (Acute) Hypertension (Chronic) Surgical History History of colonoscopy (Acute 06/2013) History of esophagogastroduodenoscopy (EGD) (Acute) Family History Mother Colon cancer Father Heart disease Sister Skin cancer Social History Smoking Status: Never smoker alcohol intake: current alcohol intake frequency: a few times a month substance use type: does not use HPI HPI HPI: FARHAD GLEZ, is a 78 F who presents to the office today for surgical consultation regarding a recent episode of severe anemia. The patient claims that the etiology to her anemia was not determined. She was hospitalized overnight in [facility]. She presented with shortness of breath. BUN was 8 and creatinine 0.82. Folate was 66. Vitamin B12 was 433. Her lowest hemoglobin was 6.6 with an hematocrit of 21.2. MCV was 78 low normal. MCH 24.2 low. MCHC 31.1 low. Platelet count 377,000. [...] suspected liver cysts. There is L1 compression deformity 75% loss of height. The discharge summary suggests that the patient was hospitalized because of back pain and low hemoglobin related to esophagitis. The patient however presents today stating that there was not a clear etiology to her anemia. On October 03, 2018 she received a note from Dr Bruce Blackman from [place] [facility] suggesting that the results of [...] endoscopy surgical report that was performed and [place]. I previously saw the patient in the [...] and colonoscopy with operative note to follow: [facility] Medical Records Department [address] [place] [address] Operative Report 01/12/18 0848 MR#: [id number] Name: FARHAD GLEZ #:[id number] : [id number]: Chaparro John MD PCP:Xiomara Do MD Status:[facility] Location: [place] [address] Problem List (1) GERD (gastroesophageal reflux disease) Status: Acute (2) Personal history of colonic polyps Status: Acute (3) Family history of colon cancer in mother Status: Acute Report of Operation Date of Procedure: 01/12/18 Pre-Operative Diagnosis: GERD, personal history of colon polyps, family history of colon cancer in her mother Post-Operative Diagnosis: Large hiatal hernia with severe reflux esophagitis, antral gastritis, gastric polyps, pancolonic diverticulosis Surgery/Procedure Performed:: Esophagogastroduodenoscopy with antral and cardia and distal esophageal biopsies and gastric polyp biopsy. Colonoscopy Description of Surgical Findings:: Timeout and informed [...] withdrawn from the ascending transverse descending and sigmoid [...] Pancolonic diverticulosis. No evidence of recurrent polyps. Previous [...] is negative for organisms. H pylori: Negative [facility] Cardiovascular Services [address] [place] [id number] MR#: [id number]:[id number] Name: FARHAD GLEZ #:[id number] : 1940 78From: Johnson Bird MD Primary Care: Hi RAMON,[place]: REG CLI Ordering Dr: Sex: FC Stress Test Report Date: 06/21/2018 Procedure: Exercise tolerance test/imaging study Indications: Premature ventricular contractions [...] capacity was considered good. There was no complaint of chest discomfort during exercise or recovery. The examination was discontinued secondary to dyspnea. Impression: 1. Technically adequate (percent predicted maximal heart rate greater than 85%) exercise [...] and myocardial perfusion appearing within normal limits. There is [...] 57 %. This note was generated with Feifei.comation software. It may contain incorrect words, spelling, and punctuation that were not noted in checking the note before signing. 06/21/18 1904<Electronically signed by Johnson Bird MD> Date Johnson [...] clots Neuro Neurologic: No weakness Exam Chest Breast Palpation: No nipple discharge Cardio Heart Sounds: no murmurs Assessment AND Plan Problems 1. Acute blood loss anemia D62 Plan 78-year-old female who was briefly hospitalized in [place] with what appeared to be an acute [...] note regarding her a esophagogastroduodenoscopy performed in [place]. Then with that information at hand I [...] Low Diagnoses Acute blood loss anemia D62 Comment 25min 10/13/18 1111 <Electronically signed by Chaparro John MD> Date Chaparro John MD Cosigner Signature: Date (if applicable) CC: Xiomara Do MD ORTHOPEDIC VISIT Observed: 09/21/2018 Status: F Source: [place] REPORT 4:02 PM [facility] REPOSITORY [facility] [address] [place] [address] OFFICE VISIT Date of Service: 09/18/18 MR#: [id number] Acct: [id number] Name: FARHAD GLEZ Rep #: [id number] : 1940 Provider: Nae Kumar MD Age/Sex: 78/F Location: [facility] Status: Signed Intake Intake Visit Reasons: Back pain Is patient in pain?: No Allergies bacitracin [From Polysporin] Allergy (Intermediate, Verified 09/18/18 11:08) rash Latex, Natural Rubber Allergy (Intermediate, Verified 09/18/18 11:08) rash polymyxin B [From Polysporin] Allergy (Intermediate, Verified 09/18/18 11:08) rash Medications amlodipine 2.5 mg tablet 2.5 mg PO QDAY 12/14/17 [History Confirmed 12/14/17] ascorbate calcium 500 mg tablet 500 mg PO QDAY 12/14/17 [History Confirmed 12/14/17] atorvastatin 10 mg tablet 10 mg PO QDAY 12/14/17 [History Confirmed 12/14/17] coenzyme Q10 100 mg capsule 100 mg PO QDAY 12/14/17 [History Confirmed 12/14/17] losartan 100 mg-hydrochlorothiazide 25 mg tablet 1 tab PO QDAY 12/14/17 [History Confirmed 12/14/17] multivitamin capsule 1 cap PO QDAY 12/14/17 [History Confirmed 12/14/17] spironolactone 50 mg tablet 50 mg PO QDAY 12/14/17 [History Confirmed 12/14/17] Omeprazole 40 mg PO DAILY #60 capsule. 01/12/18 [Rx] [facility] Medical History Acid reflux (Acute) Hemorrhoids (Acute) [...] a followup on her low back compression fracture at L1 on 03/14/2018 after she fell off a ladder. Patient notes that she is doing well. She has been participating in a stretch and tone class. She has pain when she does sit ups. She has completed physical therapy. Patient does a lot of walking, [...] complaints, except as docu Reports system reviewed and no additional complaints, except as docu Musc Reports back pain Skin/Breast Reports system reviewed and no additional complaints, except as docu Neuro Yes system reviewed and no additional complaints, except as docu Psych Reports system reviewed and no additional complaints, except as docu Endo Reports system reviewed and no additional complaints, except as docu Ortho Exam Spine Neuro: Yes Straight Leg Raise (negative bilaterally) and Martino's (negative bilaterally) General: alert, oriented x3 Capillary Refill <2sec: Yes Gait: normal gait, other (heel and toe walk intact) Motor: strength 5/5 throughout Sensory Exam: no sensory deficits noted DTR's: Rt Patellar: 2+, Lt Patellar: 2+, Rt Ankle: 2+, Lt Ankle: 2+ Coordination: tandem gait normal, Romberg test normal SPINE TESTING CERVICAL THORACIC LUMBAR SLR: Negative Musculoskeletal General: Yes normal gait Thoracic/Lumbar Spine: thoraco-lumbar ROM normal, straight leg raise negative bilaterally, other (no significant tenderness throughout the lumbar spine) Strength 0=absent - 5=normal [...] Compression fracture of L1 lumbar vertebra with routine healing S32.010D Plan I/R/P: 1. L1 compression fracture 03/14/2018 2. bilateral calf pain, resolved Ms. Glez is doing well. She has completed physical therapy and has been increasing her activities as tolerated. Follow up as needed. Plan of care discussed. All questions answered. She is in understanding. Coding Level of Care Code Off vis,est,level 4 Diagnoses Compression fracture of L1 lumbar vertebra with routine healing S32.010D 09/21/18 1602 <Electronically signed by Nae Kumar MD> Date Nae Kumar MD Cosigner Signature: Date (if applicable) CC: Xiomara Do MD SCREENING MAMM (CAD), Observed: 09/12/2018 Status: F Source: [place] 8:16 AM [facility] REPOSITORY [facility] Imaging Services [address] [place] [address] SCREENING MAMM (CAD), BILAT MR#: [id number] Acct: [id number] Name: FARHAD GLEZ Rep #: [id number] : 1940 F 78 From: Chad Wilkins MD PCP: Xiomara Do MD Status: REG CLI Study: SCREENING MAMM (CAD), BILAT Date of Exam: 09/12/18 Exam# [id number] Ordering Dr: Xiomara Do MD MAMMOGRAPHY - BILATERAL SCREENING REASON FOR EXAM: Female, 78 years old. Routine annual screening examination. PERTINENT HISTORY: Non-contributory. Remote right excisional breast biopsy. TECHNIQUE: Digital bilateral breast leora (3D mammographic acquisition) in the CC and MLO projections. 2-D mediolateral oblique (MLO) and craniocaudad (CC) views of both breasts were obtained. CAD: Full Field Digital Mammography with Computer Added Detection was performed. COMPARISON: Comparison is made with prior outside examination dated August 16, 2017. FINDINGS: Breast Composition: There are scattered areas of fibroglandular density. There are no dominant masses or suspicious calcifications. Stable small bilateral axillary lymph nodes. No other significant abnormalities are identified. There has been no significant change since the prior study. BI/SCREENING MAMM (CAD), BILAT IMPRESSION: Stable bilateral screening mammogram. Yearly follow-up mammogram recommended. (A) ASSESSMENT CATEGORY: BIRADS Category 2: Benign. A letter regarding these results will be sent to the patient by the facility within 30 days. Approximately 10% of breast cancers are not detected by mammography. A normal mammogram should not delay biopsy of a clinically suspicious abnormality. [id number] Electronically Signed: Chad Wilkins MD at 11:12 EST Tel [phone], Service support , CC: Xiomara Do MD Machine Gun Mechanic: Signed CNOV Observed: 08/22/2018 Status: COMPLETED Source: [place] 10:40 AM [facility] REPOSITORY Office Visit (DERMBD) FARHAD GLEZ ([id number]) 1940 F Date Time Provider Department 08/22/18 10:40 AM ORALIA MCKEON) DERMBD During your visit today, we recorded the following information about you: Oralia Mckeon PA-C 08/22/2018 12:57 PM Signed FOLLOW UP SUBJECTIVE: This patient is a 78 year old female. CC Patient returns for removal of three (3) epidermal inclusion cysts -found on exam 08/13/2018 She arrives today to say that all of the lesions have resolved. She has a new red scaly nonhealing lesion on her right dorsal foot MEDS: Current Outpatient Prescriptions: RANITIDINE HCL ORAL Take by mouth. spironolactone (ALDACTONE) 50 mg tablet take 1 tablet by mouth once daily omeprazole (PRILOSEC) 20 mg capsule take 1 capsule by mouth once daily (Patient not taking: Reported on 08/13/2018) amLODIPine (NORVASC) 5 mg tablet take 1 tablet by mouth once daily coenzyme Q10 (COENZYME Q-10) 100 mg cap capsule take 1 capsule by mouth twice a day Fluorouracil (EFUDEX) 5 % cream Apply to chest twice daily for 4 weeks losartan-hydrochlorothiazide (HYZAAR) 100-25 mg per tablet Take 1 tablet by mouth once daily. triamcinolone acetonide (KENALOG) 0.1 % cream Apply to affected areas twice daily (neck and back) for 2-3 weeks fluticasone (FLONASE) 50 mcg/actuation nasal spray Use 2 Sprays in each nostril once daily. Rinse mouth after use. LIPITOR 10 mg tablet take 1 tablet by mouth once daily CALCIUM 600 WITH VITAMIN D3 600 MG-200 UNIT TAB Take one(1) tablet two(2) times daily. MULTIVITAMIN TABLET Take one(1) tablet daily. No current facility-administered medications for this visit. ALLERGY: Adhesive Tape (Rosins); Latex; Neosporin [Eguifhoo-Hpjqvwzdpd-Akwoqgqii]; Seasonal Allergies REVIEW OF SYSTEMS: Patient feels well and denies any recent fevers, chills, or nightsweats. PHYSICAL EXAM: The patient is a pleasant female in no distress. Patient appears healthy, well developed, well nourished and in otherwise good health. She is alert and oriented x 3. A skin exam was done of the face and feet. No lymphadenopathy detected. No s/s residual cysts on the face or right clavicle + actinic keratosis on the right dorsal foot A/P: Actinic keratosis Recommend treatment with LIQUID NITROGEN today Risks, benefits, alternatives and personnel required for LN2 reviewed with patient. Pt verbalizes understanding and wishes to proceed. LN2 performed on Actinic Keratosis. Wound care instructions given verbally and in writing. No s/s residual cysts. Reassurance given to patient. Follow up in 6 months and PRN Oralia Mckeon PA-C Attending MD: Aubrey Brunson MD Referring Provider: SELF [200] Allergies As of Date: 08/22/2018 Noted Allergy Reaction ADHESIVE TAPE (ROSINS) 09/21/2004 2 - Rash Comments: Bandaids are okay short term LATEX 06/23/2011 2 - Rash 9 - Itching NEOSPORIN ([id number]-LS*12/06/2005 2 - Rash SEASONAL ALLERGIES 03/22/2017 14 - Other: See Comments Date Reviewed: 08/22/2018 Reviewed by: Marybeth Bagley Ma - Fully Assessed Reason for Visit: Follow Up [171] Primary Visit Diagnosis:Actinic keratosis [L57.0] Prescriptions as of 08/22/2018 Sig: RANITIDINE HCL ORAL Take by mouth. SPIRONOLACTONE 50 MG TABLET take 1 tablet by mouth once d* OMEPRAZOLE 20 MG CAPSULE,GABBY* take 1 capsule by mouth once * Patient not taking: Reported on 08/13/2018 AMLODIPINE 5 MG TABLET take 1 tablet by mouth once d* COENZYME Q10 100 MG CAPSULE take 1 capsule by mouth twice* FLUOROURACIL 5 % TOPICAL CREAM Apply to chest twice daily fo* LOSARTAN 100 MG-HYDROCHLOROTH* Take 1 tablet by mouth once d* TRIAMCINOLONE ACETONIDE 0.1 %* Apply to affected areas twice* FLUTICASONE 50 MCG/ACTUATION * Use 2 Sprays in each nostril * LIPITOR 10 MG TABLET take 1 tablet by mouth once d* * CALCIUM 600 WITH VITAMIN D3 6* Take one(1) tablet two(2) herb* * MULTIVITAMIN TABLET Take one(1) tablet daily. Problem List As Of Date 08/22/2018 Noted Resolved Squamous cell skin cancer [C44.92] INVALID FOR* More... Basal cell carcinoma of back [C44.519] More... Mixed hyperlipidemia [E78.2] More... HEMORRHOIDS NOS [K64.9] More... VARICOSE ULCER (FOR VEIN-SEE VARICOS LEG [I83.0*INVALID FOR*06/27/2017 Disorder of bone and cartilage, unspecified [M8*INVALID FOR*07/29/2011 Esophageal reflux [K21.9] INVALID FOR* More... Symptomatic menopausal or female climacteric st*INVALID FOR*07/29/2011 Obesity, unspecified [E66.9] INVALID FOR*06/25/2015 More... SCIATICA [M54.30] INVALID FOR* More... Routine general medical examination at a health*INVALID FOR*08/06/2012 More... ABNORMAL LIVER FUNCTION STUDY [R94.5] INVALID FOR* More... VARICOS LEG ULCER/INFLAM [I83.229, I83.219, L97*INVALID FOR* More... HYPERTENSION NOS [I10] INVALID FOR*08/14/2015 More... LEG VARICOSITY W OTHER COMPLICATION [I83.893] INVALID FOR* Impaired fasting glucose [R68.89] INVALID FOR* Postmenopausal atrophic vaginitis [N95.2] INVALID FOR*06/27/2017 Female stress incontinence [N39.3] INVALID FOR*07/29/2011 Cystocele, midline [N81.11] INVALID FOR*06/27/2017 Closed fracture of one or more phalanges of mary*INVALID FOR*06/27/2017 Open Wnd Knee/Leg/Ankle [S81.009A, S81.809A, S9*INVALID FOR* Actinic keratosis [L57.0] INVALID FOR*06/21/2015 Dermatitis [L30.9] INVALID FOR* Personal History of Other Malignant Neoplasm of*INVALID FOR* Leg wound, left [S81.802A] INVALID FOR*11/30/2015 Family history of melanoma [Z80.8] INVALID FOR* Pain in joint, shoulder region [M25.519] INVALID FOR*06/27/2017 Disorders of bursae and tendons in shoulder reg*INVALID FOR*06/27/2017 Venous insufficiency (chronic) (peripheral) [I8*INVALID FOR*06/27/2017 Essential hypertension [I10] INVALID FOR* More... Hyperlipidemia [E78.5] INVALID FOR*06/27/2017 Elevated AST (SGOT) [R74.0] INVALID FOR* More... Lymphopenia [D72.810] INVALID FOR* More... History of nonmelanoma skin cancer [Z85.828] INVALID FOR* Encounter Status:Closed by ORALIA MCKEON PA-C on 08/22/18 PROGRESS Observed: 08/22/2018 Status: COMPLETED Source: [place] 8:38 AM [facility] REPOSITORY O ID: [id number] Author: Oralia Mckeon (Pa) Service: (none) Author Type: Physician Java Websphere Developer Type: Progress Notes Filed: 08/22/2018 12:57 PM Note Text: FOLLOW UP SUBJECTIVE: This patient is a 78 year old female. CC Patient returns for removal of three (3) epidermal inclusion cysts -found on exam 08/13/2018 She arrives today to say that all of the lesions have resolved. She has a new red scaly nonhealing lesion on her right dorsal foot MEDS: Current Outpatient Prescriptions: RANITIDINE HCL ORAL Take by mouth. spironolactone (ALDACTONE) 50 mg tablet take 1 tablet by mouth once daily omeprazole (PRILOSEC) 20 mg capsule take 1 capsule by mouth once daily (Patient not taking: Reported on 08/13/2018) amLODIPine (NORVASC) 5 mg tablet take 1 tablet by mouth once daily coenzyme Q10 (COENZYME Q-10) 100 mg cap capsule take 1 capsule by mouth twice a day Fluorouracil (EFUDEX) 5 % cream Apply to chest twice daily for 4 weeks losartan-hydrochlorothiazide (HYZAAR) 100-25 mg per tablet Take 1 tablet by mouth once daily. triamcinolone acetonide (KENALOG) 0.1 % cream Apply to affected areas twice daily (neck and back) for 2-3 weeks fluticasone (FLONASE) 50 mcg/actuation nasal spray Use 2 Sprays in each nostril once daily. Rinse mouth after use. LIPITOR 10 mg tablet take 1 tablet by mouth once daily CALCIUM 600 WITH VITAMIN D3 600 MG-200 UNIT TAB Take one(1) tablet two(2) times daily. MULTIVITAMIN TABLET Take one(1) tablet daily. No current facility-administered medications for this visit. ALLERGY: Adhesive Tape (Rosins); Latex; Neosporin [Qiimnvqy-Vyezqonkfh-Rgodoncip]; Seasonal Allergies REVIEW OF SYSTEMS: Patient feels well and denies any recent fevers, chills, or nightsweats. PHYSICAL EXAM: The patient is a pleasant female in no distress. Patient appears healthy, well developed, well nourished and in otherwise good health. She is alert and oriented x 3. A skin exam was done of the face and feet. No lymphadenopathy detected. No s/s residual cysts on the face or right clavicle + actinic keratosis on the right dorsal foot A/P: Actinic keratosis Recommend treatment with LIQUID NITROGEN today Risks, benefits, alternatives and personnel required for LN2 reviewed with patient. Pt verbalizes understanding and wishes to proceed. LN2 performed on Actinic Keratosis. Wound care instructions given verbally and in writing. No s/s residual cysts. Reassurance given to patient. Follow up in 6 months and PRN Oralia Mckeon PA-C Attending MD: Aubrey Brunson MD CNOV Observed: 08/13/2018 Status: COMPLETED Source: [place] 1:15 PM [facility] REPOSITORY Office Visit (DERMBD) FARHAD GLEZ ([id number]) 1940 F Date Time Provider Department 08/13/18 1:15 PM ORALIA MCKEON) DERMBD During your visit today, we recorded the following information about you: Oralia Mckeon PA-C 08/13/2018 1:45 PM Signed FULL SKIN EXAM FOLLOWUP SUBJECTIVE: This patient is a 78 year old female presenting for a full skin exam CC Patient is new to me Multiple rough patches on both sides of jaw and upper right cheek Lesion near left eyelid H/o non-melanoma skin cancer. 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 Family Hx MM: sister From [place], [place] Came to us after a bad experience with a local Derm -saw Dr. Elmore originally in 2003 MEDS: Current Outpatient Prescriptions: spironolactone (ALDACTONE) 50 mg tablet take 1 tablet by mouth once daily omeprazole (PRILOSEC) 20 mg capsule take 1 capsule by mouth once daily amLODIPine (NORVASC) 5 mg tablet take 1 tablet by mouth once daily coenzyme Q10 (COENZYME Q-10) 100 mg cap capsule take 1 capsule by mouth twice a day Fluorouracil (EFUDEX) 5 % cream Apply to chest twice daily for 4 weeks losartan-hydrochlorothiazide (HYZAAR) 100-25 mg per tablet Take 1 tablet by mouth once daily. triamcinolone acetonide (KENALOG) 0.1 % cream Apply to affected areas twice daily (neck and back) for 2-3 weeks fluticasone (FLONASE) 50 mcg/actuation nasal spray Use 2 Sprays in each nostril once daily. Rinse mouth after use. LIPITOR 10 mg tablet take 1 tablet by mouth once daily CALCIUM 600 WITH VITAMIN D3 600 MG-200 UNIT TAB Take one(1) tablet two(2) times daily. MULTIVITAMIN TABLET Take one(1) tablet daily. No current facility-administered medications for this visit. ALLERGY: Adhesive Tape (Rosins); Latex; Neosporin [Qedufmfs-Dpsyhtiwok-Dhbfckwrt]; Seasonal Allergies REVIEW OF SYSTEMS: Patient feels well and denies any recent fevers, chills, or nightsweats. PHYSICAL EXAM: The patient is a pleasant female in no distress. Patient appears healthy, well developed, well nourished and in otherwise good health. She is alert and oriented x 3. A skin exam was done of the Scalp, face, ears, neck, chest, back, abdomen, bilateral upper extremities, bilateral lower extremities, buttocks, hands, feet, nails and hair. No lymphadenopathy detected. Gardner Skin Type II Scattered solar lentigines on the sun exposed areas Benign appearing nevi on the head, trunk and extremities Scattered angiomas on the trunk Few scattered seborrheic keratoses on the trunk New Lesions: (4) white papules on the face and right clavicle -left lateral upper eyelid -right NLF -left lateral cheek -right medial calvicle A/P: Well healed MOHS site. No s/s of primary or recurrent skin CA. Milia vs EIC X 4 Recommend nicking with #11 blade and extruding the contents whether milia or EIC Risks, benefits, alternatives and personnel required for extrusion of milia reviewed with patient. Pt verbalizes understanding and wishes to proceed. (4) areas prepped with alcohol and each lesion nicked with #11 blade -most of the contents were extruded but each was an EIC so they were not cleared completely. Recommend monitoring and then recommend punch biopsy on each except for the one on the left eyelid which would need excision. Patient agrees with the plan. Wound care instructions given verbally and in writing. Solar lentigines Recommend high SPF sunscreens and reapplication after 1-2 hours out of doors. Angiomas. Reassurance given to patient for these benign lesions. No treatment unless symptomatic. Seborrheic keratoses. Reassurance about the benign nature of these lesions given to patient. No treatment needed. Clinically benign appearing nevi. Recommend monthly self skin checks. I counseled the patient after the exam about the ABCDEs of nevus evaluation, pre-cancer,skin cancer surveillance with monthly self skin exams. Sunscreen / sunblock protection reviewed. Follow up in 6 months and PRN Oralia Mckeon PA-C Attending MD: Aubrey Brunson MD Referring Provider: SELF [200] Allergies As of Date: 08/13/2018 Noted Allergy Reaction ADHESIVE TAPE (ROSINS) 09/21/2004 2 - Rash Comments: Bandaids are okay short term LATEX 06/23/2011 2 - Rash 9 - Itching NEOSPORIN ([id number]-VG*12/06/2005 2 - Rash SEASONAL ALLERGIES 03/22/2017 14 - Other: See Comments Date Reviewed: 08/13/2018 Reviewed by: Brianna Chu Ma - Fully Assessed Reason for Visit: Full Body Skin Check [1445] Primary Visit Diagnosis:Scar conditions and fibrosis of skin [L90.5] Other Visit Diagnoses:History of nonmelanoma skin cancer [Z85.828] Epidermal inclusion cyst [L72.0] Solar lentiginosis [L81.4] Multiple nevi [D22.9] Family history of melanoma [Z80.8] Angioma of skin [D18.01] Seborrheic keratosis [L82.1] Prescriptions as of 08/13/2018 Sig: RANITIDINE HCL ORAL Take by mouth. SPIRONOLACTONE 50 MG TABLET take 1 tablet by mouth once d* AMLODIPINE 5 MG TABLET take 1 tablet by mouth once d* COENZYME Q10 100 MG CAPSULE take 1 capsule by mouth twice* FLUOROURACIL 5 % TOPICAL CREAM Apply to chest twice daily fo* LOSARTAN 100 MG-HYDROCHLOROTH* Take 1 tablet by mouth once d* TRIAMCINOLONE ACETONIDE 0.1 %* Apply to affected areas twice* FLUTICASONE 50 MCG/ACTUATION * Use 2 Sprays in each nostril * LIPITOR 10 MG TABLET take 1 tablet by mouth once d* * CALCIUM 600 WITH VITAMIN D3 6* Take one(1) tablet two(2) herb* * MULTIVITAMIN TABLET Take one(1) tablet daily. OMEPRAZOLE 20 MG CAPSULE,GABBY* take 1 capsule by mouth once * Patient not taking: Reported on 08/13/2018 Problem List As Of Date 08/13/2018 Noted Resolved Squamous cell skin cancer [C44.92] INVALID FOR* More... Basal cell carcinoma of back [C44.519] More... Mixed hyperlipidemia [E78.2] More... HEMORRHOIDS NOS [K64.9] More... VARICOSE ULCER (FOR VEIN-SEE VARICOS LEG [I83.0*INVALID FOR*06/27/2017 Disorder of bone and cartilage, unspecified [M8*INVALID FOR*07/29/2011 Esophageal reflux [K21.9] INVALID FOR* More... Symptomatic menopausal or female climacteric st*INVALID FOR*07/29/2011 Obesity, unspecified [E66.9] INVALID FOR*06/25/2015 More... SCIATICA [M54.30] INVALID FOR* More... Routine general medical examination at a [facility]*INVALID FOR*08/06/2012 More... ABNORMAL LIVER FUNCTION STUDY [R94.5] INVALID FOR* More... VARICOS LEG ULCER/INFLAM [I83.229, I83.219, L97*INVALID FOR* More... HYPERTENSION NOS [I10] INVALID FOR*08/14/2015 More... LEG VARICOSITY W OTHER COMPLICATION [I83.893] INVALID FOR* Impaired fasting glucose [R68.89] INVALID FOR* Postmenopausal atrophic vaginitis [N95.2] INVALID FOR*06/27/2017 Female stress incontinence [N39.3] INVALID FOR*07/29/2011 Cystocele, midline [N81.11] INVALID FOR*06/27/2017 Closed fracture of one or more phalanges of mary*INVALID FOR*06/27/2017 Open Wnd Knee/Leg/Ankle [S81.009A, S81.809A, S9*INVALID FOR* Actinic keratosis [L57.0] INVALID FOR*06/21/2015 Dermatitis [L30.9] INVALID FOR* Personal History of Other Malignant Neoplasm of*INVALID FOR* Leg wound, left [S81.802A] INVALID FOR*11/30/2015 Family history of melanoma [Z80.8] INVALID FOR* Pain in joint, shoulder region [M25.519] INVALID FOR*06/27/2017 Disorders of bursae and tendons in shoulder reg*INVALID FOR*06/27/2017 Venous insufficiency (chronic) (peripheral) [I8*INVALID FOR*06/27/2017 Essential hypertension [I10] INVALID FOR* More... Hyperlipidemia [E78.5] INVALID FOR*06/27/2017 Elevated AST (SGOT) [R74.0] INVALID FOR* More... Lymphopenia [D72.810] INVALID FOR* More... History of nonmelanoma skin cancer [Z85.828] INVALID FOR* Encounter Status:Closed by ORALIA MCKEON PA-C on 08/13/18 PROGRESS Observed: 08/10/2018 Status: COMPLETED Source: [place] 10:39 AM [facility] REPOSITORY HNO ID: [id number] Author: Oralia Mckeon (Pa) Service: (none) Author Type: Physician Java Websphere Developer Type: Progress Notes Filed: 08/13/2018 1:45 PM Note Text: FULL SKIN EXAM FOLLOWUP SUBJECTIVE: This patient is a 78 year old female presenting for a full skin exam CC Patient is new to me Multiple rough patches on both sides of jaw and upper right cheek Lesion near left eyelid H/o non-melanoma skin cancer. 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 Family Hx MM: sister From [place], [place] Came to us after a bad experience with a local Derm -saw Dr. Elmore originally in 2003 MEDS: Current Outpatient Prescriptions: spironolactone (ALDACTONE) 50 mg tablet take 1 tablet by mouth once daily omeprazole (PRILOSEC) 20 mg capsule take 1 capsule by mouth once daily amLODIPine (NORVASC) 5 mg tablet take 1 tablet by mouth once daily coenzyme Q10 (COENZYME Q-10) 100 mg cap capsule take 1 capsule by mouth twice a day Fluorouracil (EFUDEX) 5 % cream Apply to chest twice daily for 4 weeks losartan-hydrochlorothiazide (HYZAAR) 100-25 mg per tablet Take 1 tablet by mouth once daily. triamcinolone acetonide (KENALOG) 0.1 % cream Apply to affected areas twice daily (neck and back) for 2-3 weeks fluticasone (FLONASE) 50 mcg/actuation nasal spray Use 2 Sprays in each nostril once daily. Rinse mouth after use. LIPITOR 10 mg tablet take 1 tablet by mouth once daily CALCIUM 600 WITH VITAMIN D3 600 MG-200 UNIT TAB Take one(1) tablet two(2) times daily. MULTIVITAMIN TABLET Take one(1) tablet daily. No current facility-administered medications for this visit. ALLERGY: Adhesive Tape (Rosins); Latex; Neosporin [Foiauqga-Iamoyvaitp-Pdbykxees]; Seasonal Allergies REVIEW OF SYSTEMS: Patient feels well and denies any recent fevers, chills, or nightsweats. PHYSICAL EXAM: The patient is a pleasant female in no distress. Patient appears healthy, well developed, well nourished and in otherwise good health. She is alert and oriented x 3. A skin exam was done of the Scalp, face, ears, neck, chest, back, abdomen, bilateral upper extremities, bilateral lower extremities, buttocks, hands, feet, nails and hair. No lymphadenopathy detected. Gardner Skin Type II Scattered solar lentigines on the sun exposed areas Benign appearing nevi on the head, trunk and extremities Scattered angiomas on the trunk Few scattered seborrheic keratoses on the trunk New Lesions: (4) white papules on the face and right clavicle -left lateral upper eyelid -right NLF -left lateral cheek -right medial calvicle A/P: Well healed MOHS site. No s/s of primary or recurrent skin CA. Milia vs EIC X 4 Recommend nicking with #11 blade and extruding the contents whether milia or EIC Risks, benefits, alternatives and personnel required for extrusion of milia reviewed with patient. Pt verbalizes understanding and wishes to proceed. (4) areas prepped with alcohol and each lesion nicked with #11 blade -most of the contents were extruded but each was an EIC so they were not cleared completely. Recommend monitoring and then recommend punch biopsy on each except for the one on the left eyelid which would need excision. Patient agrees with the plan. Wound care instructions given verbally and in writing. Solar lentigines Recommend high SPF sunscreens and reapplication after 1-2 hours out of doors. Angiomas. Reassurance given to patient for these benign lesions. No treatment unless symptomatic. Seborrheic keratoses. Reassurance about the benign nature of these lesions given to patient. No treatment needed. Clinically benign appearing nevi. Recommend monthly self skin checks. I counseled the patient after the exam about the ABCDEs of nevus evaluation, pre-cancer,skin cancer surveillance with monthly self skin exams. Sunscreen / sunblock protection reviewed. Follow up in 6 months and PRN Oralia Mckeon PA-C Attending MD: Aubrey Brunson MD STRESS REPORT Observed: 06/21/2018 Status: F Source: [place] 7:04 PM [facility] REPOSITORY [facility] Cardiovascular Services [address] [place] [address] MR#: [id number] Acct: [id number] Name: FARHAD GLEZ Rep #: [id number] : 1940 78 From: Johnson Bird MD Primary Care: Xiomara Do MD Status: REG CLI Ordering Dr: Sex: F C Stress Test Report Date: 06/21/2018 Procedure: Exercise tolerance test/imaging study Indications: Premature ventricular contractions [...] capacity was considered good. There was no complaint of chest discomfort during exercise or recovery. The examination was discontinued secondary to dyspnea. Impression: 1. Technically adequate (percent predicted maximal heart rate greater than 85%) exercise [...] and myocardial perfusion appearing within normal limits. There is [...] 57 %. This note was generated with [employer] Know Best software. It may contain incorrect words, spelling, and punctuation that were not noted in checking the note before signing. 06/21/181903 <Electronically signed by Johnson Bird MD> Date Johnson Bird MD CC: Xiomara Do MD Date Dictated: 06/21/181899 Date Transcribed: 06/21/181899 Machine Gun Mechanic: PM Signed ORTHOPEDIC VISIT Observed: 06/20/2018 Status: F Source: [place] RE[place] 12:40 PM [facility] REPOSITORY [facility] Orthopaedics AND Sports Medicine [address] [place] [address] OFFICE VISIT Date of Service: 06/19/18 MR#: [id number] Acct: [id number] Name: FARHAD GLEZ Rep #: [id number] : 1940 Provider: Nae Kumar MD Age/Sex: 78/F [place] [facility] [place] [facility] [place] [place] Status: Signed Intake Intake Visit Reasons: low back Is patient in pain?: Yes Pain scale (1-10): 1 Allergies bacitracin [From Polysporin] Allergy [...] QDAY 12/14/17 [History Confirmed 12/14/17] losartan 100 mg-hydrochlorothiazide 25 mg tablet 1 tab PO QDAY 12/14/17 [History Confirmed 12/14/17] multivitamin capsule 1 cap PO QDAY 12/14/17 [History Confirmed 12/14/17] spironolactone 50 mg tablet 50 mg PO QDAY 12/14/17 [History Confirmed 12/14/17] Omeprazole 40 mg PO DAILY #60 capsule. 01/12/18 [Rx] [facility] Medical History Acid reflux (Acute) Hemorrhoids (Acute) [...] RHD F referred by Dr. Do for follow up of L1 compression fracture sustained on [...] She was treated by a physician at [facility] with a brace. She wore the brace for 6 weeks and was then cleared to start physical therapy and [...] program. This helps. She recently flown to [place] as well. She has HTN, h/o skin cancer without metastasis. She takes calcium and vit D and had a DEXA scan last year, which she states was normal. She is retired. She does not smoke. Ortho Exam Spine Neuro: Yes Clonus (none bilaterally), Martino's (negative bilaterally), Babinski (downgoing bilaterally) and Straight Leg Raise (negative bilaterally) General: alert, oriented x3 Skin: Yes dysraphism (none) Capillary Refill <2sec: Yes Palpable Pulses: 2+ dp/pt pulses Gait: normal gait, other (heel and toe walk intact. ) Motor: strength 5/5 throughout Sensory Exam: no sensory deficits noted DTR's: Rt Triceps: 2+, Lt Triceps: 2+, Rt Biceps: 2+, Lt Biceps: 2+, Rt Brachioradialis: 2+, Lt Brachioradialis: 2+, Rt Patellar: 2+, Lt Patellar: 2+, Rt Ankle: 2+, Lt Ankle: 2+ Plantar Reflexes: Downgoing: bilateral Coordination: tandem gait normal, Romberg test normal SPINE TESTING CERVICAL THORACIC LUMBAR SLR: Negative Musculoskeletal General: Yes normal gait and normal posture Cervical Spine: cervical ROM normal Thoracic/Lumbar Spine: thoraco-lumbar ROM normal, other (no tenderness to palpation throughout the thoracolumbar spine) Strength [...] Plan Imaging: XR lumbar spine 06/19/2018 L1 compression fracture, diffuse spondylosis CT lumbar spine 03/14/2018 CD L1 compression fracture, stable from printed XR L spine pictures 03/16/2018 I/R/P: 1. L1 compression fracture 2. bilateral calf pain Ms. Glez presents with a healed L1 compression fracture. She has nondermatomal bilateral calf pain that is improving with physical therapy. Recommend continued therapy. Follow up in 4-6 weeks for reevaluation or sooner if issues arise. Plan of care discussed. All questions answered. She is in understanding. Orders Orders: Coding Level of Care Code Off vis,new,level 4 Diagnoses Closed compression fracture of first lumbar vertebra, initial encounter S32.010A Encounter type: initial encounter Fracture type: closed 06/20/18 1240 <Electronically signed by Nae Kumar MD> Date Nae Kumar MD Cosigner Signature: Date (if applicable) CC: Xiomara Do MD L/S SPINE W BEND Observed: 06/19/2018 Status: F Source: [place] MIN 6 VW 8:30 AM [facility] REPOSITORY [facility] Imaging Services [address] [place] [id number] L/S Spine w Bend Min 6 Vw MR#: [id number] Acct: [id number] Name: FARHAD GLEZ Rep #: [id number] : 1940 F 78 From: Luis Jefferson MD PCP: Xiomara Do MD Status: REG CLI Study: L/S Spine w Bend Min 6 Vw Date of Exam: 06/19/18 Exam# [id number] Ordering Dr: Nae Kumar MD STUDY: X-RAY - LUMBOSACRAL SPINE REASON FOR EXAM: Female, 78 years old. History of L1 fracture x3-4 months, low back pain TECHNIQUE: 6 view(s) of the lumbosacral spine were obtained. COMPARISON: None FINDINGS: Normal lumbar lordosis. There is no substantial scoliosis. There is normal alignment of the vertebrae. The bones are osteopenic. There is diffuse endplate spondylosis. There is severe compression deformity with anterior wedging of L1, appearing old. There is multi-level degenerative disc disease with multi- level disc space narrowing. Normal bilateral sacral ala, sacroiliac joints, and visualized sacrum. Normal visualized soft tissue structures. RAD/L/S Spine w Bend Min 6 Vw IMPRESSION: Old severe compression deformity with anterior wedging of L1. No prior studies are available for comparison. Generalized osteopenia. Diffuse endplate spondylosis. Multilevel degenerative disc disease with multilevel disc space narrowing. There is no evidence of acute fracture, spondylolysis, or spondylolisthesis. Electronically Signed: Luis Jefferson MD at 19:45 EDT , Service support , CC: Xiomara Do MD; Nae Kumar MD Machine Gun Mechanic: Signed PT D/C SUMMARY (1) Observed: 05/30/2018 Status: F Source: [place] 7:17 AM [facility] REPOSITORY [facility] [address] [place], [place] [address] Fax REHABILITATION SERVICES DISCHARGE SUMMARY MR#: [id number] Acct: [id number] Name: FARHAD GLEZ Rep #: [id number] : 1940 78 From: Roberto Oliveros DPT, OCS, CSCS Referring Dr.: Xiomara Do MD Status: REG RCR Insurance: MEDICARE PART A B CIGNA HP - PT D/C Summary It has been my pleasure to treat FARHAD GLEZ under orders from Xiomara Do, for the diagnosis of L1 compression fracture for a total of 10 visit(s). Discharge Date: 05/29/18 Please see the following information for a summary of their discharge status. - Subjective Subjective: Going the right way. Stretching has helped LE especially gastroc. Plan is to join now and continue with current exercises which are helping. Back is stronger and gets no pain. Tired at end of day. Will continue stretches before getting out of bed in the morning. Getting on and off floor for yoga stretches OK, getting up is not easy but doable and improving. Activities are normal, has modified gardening. To doctor Do in one week and to Dr. Kumar next week. - Overall Improvement % Improvement: 95 - Objective Objective/Function: ext mod limited and slightly centrally oainful, SB are hesitant but decent motion , flexion is full and painfree. Walking is normal and balance is good with VOR and ec. OVERALL PT HAPPY [...] Met Goal 4:: Walk 3 miles without increased pain or fatigue in back. Goal Progress: Goal Met - Plan Plan: D/C - D/C Information Discharge Comments: Doing great. Will f/u with doctors next week. Will continue HEP of strength, stretch and pool ex. I have educated her on weaning back to golfing. If there are questions or concerns regarding this patient's physical therapy, please feel free to call me at [phone]. Thank you for the referral of this patient. Sincerely, Roberto Oliveros, DPT, OC <Electronically signed by Roberto Oliveros DPT, OCS, CSCS> 05/30/18 0716 CC: Xiomara Do MD EBTodd Signed INITAL EVALUATION (1) Observed: 04/26/2018 Status: F Source: [place] - [place] 9:07 AM [facility] REPOSITORY [facility] [address] [place] [address]. [address] [place] [address] Fax REHABILITATION SERVICES INITIAL EVALUATION MR#: [id number] Acct: [id number] Name: FARHAD GLEZ Rep #: [id number] : 1940 77 From: Roberto Oliveros DPT, OCS, CSCS Referring Dr.: Xiomara Do MD Status: REG RCR Insurance: MEDICARE PART A B CIGNA Patient's Visit Information FARHAD GLEZ is a 77 year old F referred to Physical Therapy by Xiomara Do with a diagnosis of L1 compression fracture. Date of Evaluation: 04/24/18 Physical Therapist: Roberto Oliveros DPT, OC - Visit Plan Frequency: 2x /Week Duration: 4-6 Weeks Plan: 2x/week x 2 weeks in pool to teach hip flexor and quad stretching, core strength and general strength program that patient can do in her friends pool with pics. Then 2x/week for 2 weeks for land based hip flexor stretches, quad stretches andcore strength and return to machine based exercises. Will need to work on L/S flexion at some point. - Subjective Subjective: Wants to get back into activity. Fractured vertebrae(compression) March 16. 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 MRI showed this. Ortho surgeon the next day and given brace which she is now weaning out of, still sleeps with it. No bending or twisting allowed. saw doc last Monday in [place] and released to [facility] and sent for outpatient as she has been doing HEP sink exercises at home(home health). Pain is very little at this point. Back gets tired if stands still for too long. Can walk without discomfort. Sleeps without pain. Is tight in the mroning but can walk that off. Can do all basic ADLs but is avoiding carrying heavy things. Had someone with her the last 5 weeks but is now on her own. 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 Careful bending forward but does all ADLs, has repositioned things int he house. Is not gardening. Checked for bone density prior and it was fine, was just hard a fall. Wants to get back to walk 2-3 miles and is currently at one mile. wears brace for that. Back gets tired with too much work. Needs to be stronger. Wants to get back to water aerobics. Enjoys the pool. Wants to get back to regular ex program to lose weight. - Objective Walking well and I, trasnfers are I on mat and chair without pain. VOR walking is slow but safe. LE AROM WFL, hip ext mod limited with hip flexor tightness mod(8 degrees) and Min quad tightness. LB AROM Mod limited in extension anensation LE WNL to gross light touch.d SB and flexion NT today. LE strength 4+/5 without pain except hip flexion gives slight transient LBP. Hip abductiona nd rotators are 4-/5 as is extension. reflexes 2/3 in ppatella and achilles - Balance Scores Functional Gait Assessment Score: 27 % Disability: 10.0000 - Goals Goal 1:: [...] without increased pain or fatigue in back. Goal Time Frame: 4-6 Weeks - Rehabilitation Potential Physical Therapy Diagnosis: Compression fracture Rehabilitation Potential: Good - Anticipated Interventions Patient/Client Instruction: Educate patient on: Condition, Plan of Care For the Purpose of:: To increase ROM, To improve muscle performance and motor function, To improve ability of physical actions for home/community/work/leisure Therapeutic Exercise to Include: Strength training, Endurance training, Flexibilty training, Passive ROM, Active ROM For the Purpose of:: To increase ROM, To improve nutrient delivery to tissue, To increase oxygenation perfusion, To improve muscle performance and motor function, To improve ability of physical actions for home/community/work/leisure, To improve gait and locomotor functions Thank you for the opportunity to evaluate your patient. For Medicare and Medicare HMO plans, please review the plan of care and approve it. It will need to be FAXED BACK to us at [phone] for Medicare purposes. Please let me know if there are questions or concerns regarding this plan of care. Physician Signature: Date: <Electronically signed by Roberto Oliveros DPT, OCS, CSCS> 04/26/18 0907 CC: Xiomara Do MD EBG Signed For Medicare only, by signing this I certify the plan of care. Physicians Signature Date CHEST W/WO CONTRAST Observed: 04/03/2018 Status: F Source: [place] 2:58 PM [facility] REPOSITORY [facility] Imaging Services [address] [place] [address] Chest W/WO Contrast MR#: [id number] Acct: [id number] Name: FARHAD GLEZ Rep #: [id number] : 1940 F 77 From: Chad Wilkins MD PCP: Xiomara Do MD Status: REG CLI Study: Chest W/WO Contrast Date of Exam: 04/03/18 Exam# [id number] Ordering Dr: Xiomara Do MD STUDY: CTA CHEST REASON FOR EXAM: Female, 77 years old. Elevated d-dimer. Tachycardia. RADIATION DOSAGE (If Supplied By Facility): CTDIvol = ( 9.47 ) mGy, DLP = ( 418.77 ) mGycm TECHNIQUE: The examination was performed with the intravenous administration of 75 ml of Isovue 370 contrast material. Post-processing of the angiographic images was performed, with multiplanar reformation and 3D reconstruction. Individualized dose optimization techniques were used for this CT. COMPARISON: None. FINDINGS: Normal enhancement of the main pulmonary artery and right and left pulmonary arteries. Normal enhancement of the bilateral peripheral pulmonary arteries. There is no demonstrated pulmonary embolism. Normal thoracic aorta and visualized great vessels. There is no demonstrated aortic dissection. Normal heart and pericardium. Normal mediastinum. Normal hilar regions. Normal visualized trachea and bronchi. The lungs are well expanded. Mild degree of increased markings in the left lower lobe with areas of bronchiectasis and scarring in the medial aspect of the left lower lobe. Mild increased markings in the right lower lobe. Normal pleura. Normal chest wall structures. There are degenerative changes of thoracic spine. Moderate sized hiatal hernia. CT/Chest W/WO Contrast IMPRESSION: No evidence of pulmonary. Findings suggestive of scarring in the lower lobes more prominent on the left side. Hiatal hernia. Electronically Signed: Chad Wilkins MD at 15:45 EDT Tel [phone], Service support , CC: Xiomara oD MD Machine Gun Mechanic: Signed D-DIMER QUANTITATIVE Collected: 04/03/2018 Status: F Source: [place] (DVT/PE) 9:52 AM [facility] REPOSITORY Order Comment: Order Date: 04/03/18 Order Info: [id number] - D-DIMER TYPE CODE TESTS RESULT OUT OF RANGE REFERENCE UNITS LAB L300.8000 0.27-0.49 FEU/ug/m High alert D-DIMER 1.52 QUANT Result Comment: D-Dimer ELEVATED (>0.49): Additional studies and clinical assessments are indicated to conclude diagnosis of: Deep Vein Thrombosis (DVT) or Pulmonary Embolism (PE) CRITICAL VALUE VERIFIED. CALLED TO [facility] 04/03/18 Renetta Wyatt. RESULTS READ BACK BY SAME . Performed By: #### L300.8000, L500.2500, L501.4010, L501.9520, L506.0400 #### [place] [facility] [address] [place], [place], [id number] BASIC METABOLIC Collected: 04/03/2018 Status: F Source: [place] PROFILE (BMP) 9:52 AM [facility] REPOSITORY Order Comment: Order Date: 04/03/18 Order Info: 0667-1 - BMP Order Info: [id number] - TROP Order Info: 3016-3 - TSH Order Info: 3024-7 - T4F 'TROP' Serial specimen #1, #2, #3, or #4: 1 TYPE CODE TESTS RESULT OUT OF RANGE REFERENCE UNITS LAB L501.0100 74-106 mg/dL Normal GLU 95 Result Comment: Please note revised GLUCOSE reference range effective 2017. LAB L501.1000 7-18 mg/dL Normal BUN 13 LAB L501.1100 0.55-1.02 mg/dL Normal CREAT,SERUM 0.72 Result Comment: The validity of the calculated GFR AND GFRAA in patients over 70 years has not been determined. Clinical correlation is essential. LAB L501.1110 >60 mL/min Normal EST GFR 83 Result Comment: Non- GFR Calc LAB L501.1115 >60 mL/min Normal EST GFR - AA 100 Result Comment: GFR Calc LAB L501.1300 10-20 RATIO Normal BUN/CRE 18.1 LAB L501.2200 8.5-10.1 mg/dL CA Normal 9.6 LAB L501.5300 136-145 mmol/L NA Normal 140 LAB L501.5600 3.5-5.1 mmol/L K Normal 4.0 LAB L501.5900 98-107 mmol/L CL Normal 102 LAB L501.6100 21.0-32.0 mmol/L Normal CO2 26.0 LAB L501.6200 5-15 Normal GAP 12 Performed By: #### L300.8000, L500.2500, L501.4010, L501.9520, L506.0400 #### [facility] [address] [place], [place], [address] TROPONIN-I Collected: 04/03/2018 Status: F Source: [place] 9:52 AM [facility] REPOSITORY Order Comment: Order Date: 04/03/18 Order Info: 0667-1 - BMP Order Info: [id number] - TROP Order Info: 3016-3 - TSH Order Info: 3024-7 - T4F 'TROP' Serial specimen #1, #2, #3, or #4: 1 TYPE CODE TESTS RESULT OUT OF RANGE REFERENCE UNITS LAB L501.4010 <0.045 ng/mL Normal < 0.015 TROPONIN-I Result Comment: TROPONIN-I EXPECTED VALUES <0.045 Negative 0.045 - 0.590 Consistent with Cardiac Damage > OR = 0.600 Critical Value Not every elevated troponin is indicative of AL. These values should be used with clinical judgement in examining the patient's clinical picture for diagnosis. To establish a diagnosis of AL versus myocardial injury, there must be a demonstrated rise and/or fall in the troponin values, in addition to ischemic symptoms, EKG changes, new regional wall motion abnormality, and/or angiographical evidence. PLEASE NOTE: REFERENCE RANGES EDITED 18 Performed By: #### L300.8000, L500.2500, L501.4010, L501.9520, L506.0400 #### [facility] [address] [place], [address] THYROID STIM HORMONE Collected: 04/03/2018 Status: F Source: [place] (TSH) 9:52 AM [facility] REPOSITORY Order Comment: Order Date: 04/03/18 Order Info: 0667-1 - BMP Order Info: [id number] - TROP Order Info: 3016-3 - TSH Order Info: 3024-7 - T4F 'TROP' Serial specimen #1, #2, #3, or #4: 1 TYPE CODE TESTS RESULT OUT OF RANGE REFERENCE UNITS LAB L501.9520 0.358-3.74 uIU/mL Normal TSH 2.45 Performed By: #### L300.8000, L500.2500, L501.4010, L501.9520, L506.0400 #### [facility] [address] [place], [address] T4 FREE DIRECT Collected: 04/03/2018 Status: F Source: [place] 9:52 AM [facility] REPOSITORY Order Comment: Order Date: 04/03/18 Order Info: 0667-1 - BMP Order Info: 12684-6 - TROP Order Info: 3016-3 - TSH Order Info: 3024-7 - T4F 'TROP' Serial specimen #1, #2, #3, or #4: 1 TYPE CODE TESTS RESULT OUT OF RANGE REFERENCE UNITS LAB L506.0400 0.76-1.46 ng/dL Normal T4 FREE 1.09 DIRECT Performed By: #### L300.8000, L500.2500, L501.4010, L501.9520, L506.0400 #### [facility] [place] [address] [place], [address] PROGRESS Observed: 01/19/2018 Status: COMPLETED Source: [place] 10:42 AM [facility] REPOSITORY HNO ID: [id number] Author: Lore Richey Cleaning Validation Consultant Service: (none) Author Type: (none) Type: Progress Notes Filed: 01/19/2018 10:44 AM Note Text: Switched physicians. Russell didn't get enough time and/or couldn't get in for appointments same day/soon enough when she needed an appointment. Wanted Dr. Espinal to know it's not personal. Dr. Espinal removed as PCP. PROGRESS Observed: 01/19/2018 Status: COMPLETED Source: [place] 10:39 AM [facility] REPOSITORY HNO ID: [id number] Author: Lore Richey Cleaning Validation Consultant Service: (none) Author Type: (none) Type: Progress Notes Filed: 01/19/2018 10:44 AM Note Text: [facility] CARE GAP REGISTRY DOCUMENTATION (OUTSIDE TEAMLET) Provider Action/FYI: PSR Action/FYI: Patient identified by name and date of . Last BP/Labs: Blood Pressure: Last 3 Encounter BP Readings: Date: BP: 08/16/2017 142/82 07/28/2017 145/81 06/27/2017 124/72 Lipids: Cholesterol, Total (mg/dL) Date Value 02/08/2017 193 06/10/2016 194 HDL Cholesterol (mg/dL) Date Value 02/08/2017 77 06/10/2016 103 LDL Cholesterol (mg/dL) Date Value 02/08/2017 98 06/10/2016 80 Triglyceride (mg/dL) Date Value 02/08/2017 90 06/10/2016 55 HGB A1C: Lab Results Component Value Date HBA1C 5.7 05/31/2016 HBA1C 5.2 08/12/2015 HBA1C 6.3 08/14/2014 TSH: No results found for: TSH) ? Patient has the following care gap registry disease diagnosis:HTN ? Patient has the following open care gaps:HTN - Last BP NOT under 140/90 ? Last office visit: 06/27/2017 ? Future office visit:Follow-up HTN/Hyperlipidemia with labs prior next available (didn't come to 12/2017 appointment) with Provider pcp or NURSERYMAN ASSISTANT Health Maintenance Due: INFLUENZA(1) due on 07/07/2017 Lore Richey Cma CNPTOUTREACH Observed: 01/19/2018 Status: COMPLETED Source: [place] 12:00 AM [facility] REPOSITORY Patient Outreach (INTMWS) FARHAD GLEZ ([id number]) 1940 F Date Time Provider Department 01/19/18 LORE RICHEY ([facility]) INTMWS During your visit today, we recorded the following information about you: Lore Kaiden [facility] 01/19/2018 10:44 AM Signed [facility] CARE GAP REGISTRY DOCUMENTATION (OUTSIDE TEAMLET) Provider Action/FYI: PSR Action/FYI: Patient identified by name and date of . Last BP/Labs: Blood Pressure: Last 3 Encounter BP Readings: Date: BP: 08/16/2017 142/82 07/28/2017 145/81 06/27/2017 124/72 Lipids: Cholesterol, Total (mg/dL) Date Value 02/08/2017 193 06/10/2016 194 HDL Cholesterol (mg/dL) Date Value 02/08/2017 77 06/10/2016 103 LDL Cholesterol (mg/dL) Date Value 02/08/2017 98 06/10/2016 80 Triglyceride (mg/dL) Date Value 02/08/2017 90 06/10/2016 55 HGB A1C: Lab Results Component Value Date HBA1C 5.7 05/31/2016 HBA1C 5.2 08/12/2015 HBA1C 6.3 08/14/2014 TSH: No results found for: TSH) ? Patient has the following care gap registry disease diagnosis:HTN ? Patient has the following open care gaps:HTN - Last BP NOT under 140/90 ? Last office visit: 06/27/2017 ? Future office visit:Follow-up HTN/Hyperlipidemia with labs prior next available (didn't come to 12/2017 appointment) with Provider pcp or NURSERYMAN ASSISTANT Health Maintenance Due: INFLUENZA(1) due on 07/07/2017 Lore Richey Cleaning Validation Consultant Lore Richey Cleaning Validation Consultant 01/19/2018 10:44 AM Signed Switched physicians. Russell didn't get enough time and/or couldn't get in for appointments same day/soon enough when she needed an appointment. Wanted Dr. Espinal to know it's not personal. Dr. Espinal removed as PCP. Allergies As of Date: 01/19/2018 Noted Allergy Reaction ADHESIVE TAPE (ROSINS) 09/21/2004 2 - Rash Comments: Bandaids are okay short term LATEX 06/23/2011 2 - Rash 9 - Itching NEOSPORIN ([id number]*12/06/2005 2 - Rash SEASONAL ALLERGIES 03/22/2017 14 - Other: See Comments Date Reviewed: 09/13/2017 Reviewed by: Olivia (Rn) JERRY Mcclain - Fully Assessed Reason for Visit: PHMA/Care Gap Outreach [4100] Prescriptions as of 01/19/2018 Sig: FLUOROURACIL 5 % TOPICAL CREAM Apply to chest twice daily fo* LOSARTAN 100 MG-HYDROCHLOROTH* Take 1 tablet by mouth once d* TRIAMCINOLONE ACETONIDE 0.1 %* Apply to affected areas twice* SPIRONOLACTONE 50 MG TABLET Take 1 tablet by mouth once d* AMLODIPINE 5 MG TABLET Take 1 tablet by mouth once d* COENZYME Q10 100 MG CAPSULE Take 1 capsule by mouth twice* FLUTICASONE 50 MCG/ACTUATION * Use 2 Sprays in each nostril * OMEPRAZOLE 20 MG CAPSULE,GABBY* Take 1 capsule by mouth once * LIPITOR 10 MG TABLET take 1 tablet by mouth once d* * CALCIUM 600 WITH VITAMIN D3 6* Take one(1) tablet two(2) herb* * MULTIVITAMIN TABLET Take one(1) tablet daily. Problem List As Of Date 01/19/2018 Noted Resolved Squamous cell skin cancer [C44.92] INVALID FOR* More... Basal cell carcinoma of back [C44.519] More... Mixed hyperlipidemia [E78.2] More... HEMORRHOIDS NOS [K64.9] More... VARICOSE ULCER (FOR VEIN-SEE VARICOS LEG [I83.0*INVALID FOR*06/27/2017 Disorder of bone and cartilage, unspecified [M8*INVALID FOR*07/29/2011 Esophageal reflux [K21.9] INVALID FOR* More... Symptomatic menopausal or female climacteric st*INVALID FOR*07/29/2011 Obesity, unspecified [E66.9] INVALID FOR*06/25/2015 More... SCIATICA [M54.30] INVALID FOR* More... Routine general medical examination at a [facility]*INVALID FOR*08/06/2012 More... ABNORMAL LIVER FUNCTION STUDY [R94.5] INVALID FOR* More... VARICOS LEG ULCER/INFLAM [I83.229, I83.219, L97*INVALID FOR* More... HYPERTENSION NOS [I10] INVALID FOR*08/14/2015 More... LEG VARICOSITY W OTHER COMPLICATION [I83.893] INVALID FOR* Impaired fasting glucose [R68.89] INVALID FOR* Postmenopausal atrophic vaginitis [N95.2] INVALID FOR*06/27/2017 Female stress incontinence [N39.3] INVALID FOR*07/29/2011 Cystocele, midline [N81.11] INVALID FOR*06/27/2017 Closed fracture of one or more phalanges of mary*INVALID FOR*06/27/2017 Open Wnd Knee/Leg/Ankle [S81.009A, S81.809A, S9*INVALID FOR* Actinic keratosis [L57.0] INVALID FOR*06/21/2015 Dermatitis [L30.9] INVALID FOR* Personal History of Other Malignant Neoplasm of*INVALID FOR* Leg wound, left [S81.802A] INVALID FOR*11/30/2015 Family history of melanoma [Z80.8] INVALID FOR* Pain in joint, shoulder region [M25.519] INVALID FOR*06/27/2017 Disorders of bursae and tendons in shoulder reg*INVALID FOR*06/27/2017 Venous insufficiency (chronic) (peripheral) [I8*INVALID FOR*06/27/2017 Essential hypertension [I10] INVALID FOR* More... Hyperlipidemia [E78.5] INVALID FOR*06/27/2017 Elevated AST (SGOT) [R74.0] INVALID FOR* More... Lymphopenia [D72.810] INVALID FOR* More... History of nonmelanoma skin cancer [Z85.828] INVALID FOR* Encounter Status:Closed by LORE RICHEY CMA on 01/19/18 OPERATIVE REPORT Observed: 01/12/2018 Status: F Source: [place] 8:55 AM [facility] REPOSITORY [facility] Medical Records Department [address] [place] [address] Operative Report 01/12/18 0848 MR#: [id number] Acct: [id number] Name: FARHAD GLEZ Rep #: [id number] : 1940 77 From: Chaparro John MD PCP: Xiomara Do MD Status: REG [facility] Y Location: [place] [address] Problem List (1) GERD (gastroesophageal reflux disease) Status: Acute (2) Personal history of colonic polyps Status: Acute (3) Family history of colon cancer in mother Status: Acute Report of Operation Date of Procedure: 01/12/18 Pre-Operative Diagnosis: GERD, personal history of colon polyps, family history of colon cancer in her mother Post-Operative Diagnosis: Large hiatal hernia with severe reflux esophagitis, antral gastritis, gastric polyps, pancolonic diverticulosis Surgery/Procedure Performed:: Esophagogastroduodenoscopy with antral and cardia and distal esophageal biopsies and gastric polyp biopsy. Colonoscopy Description of Surgical Findings:: Timeout and informed [...] withdrawn from the ascending transverse descending and sigmoid [...] Pancolonic diverticulosis. No evidence of recurrent polyps. Previous [...] 01/12/18 0855 <Electronically signed by Chaparro John MD> Date Chaparro John MD CC: Xiomara Do MD; Chaparro John MD Signed GASTRIC BIOPSY Observed: 01/12/2018 Status: F Source: [place] 8:20 AM [facility] REPOSITORY Patient: FARHAD GLEZ : 1940 (77/F) Acct Num: [id number] Phys: Dora RAMON,Chaparro Unit Num: [id number] Loc: EN Specimen: [id number] Received: 01/12/18 - 1121 Spec Type: Gastric Bx TISSUES TISSUES: A. Gastric mucous membrane B. Cardioesophageal junction C. Gastric mucous membrane D. Esophageal mucous membrane COMMENT A AND B. The results of immunohistochemistry for Helicobacter pylori will be reported separately ([id number]). B. Alcian blue/PAS stain with matched control is used in the evaluation of the specimen. GROSS DESCRIPTION A - Received in fixative is one container labeled with the patient's name and designated antral biopsy. The specimen consists of one irregular fragment of light edmonds soft tissue that measures 0.3 x 0.2 x 0.1 cm. The specimen is totally submitted in one cassette. B - Received in fixative is one container labeled with the patient's name and designated cardia biopsy. The specimen consists of two irregular fragments of light edmonds soft tissue that in aggregate measure 0.3 x 0.2 x 0.1 cm. The specimen is totally submitted in one cassette. C - Received in fixative is one container labeled with the patient's name and designated gastric polyp. The specimen consists of one irregular fragment of light edmonds soft tissue that measures 0.4 x 0.2 x 0.1 cm. The specimen is totally submitted in one cassette. D - Received in fixative is one container labeled with the patient's name and designated distal esophagus. The specimen consists of multiple irregular fragments of light edmonds soft tissue that in aggregate measure 0.5 x 0.5 x 0.1 cm. The specimen is totally submitted in one cassette. / AM:rg 01/12/18 TC:2 CPT: 13635 x4, 42702 x2, 41502 HEADER OPERATION: EGD with biopsy PRE-OP DIAGNOSIS: GERD, epigastric [...] Fragments of gastroesophageal mucosa with acute and chronic inflammation. Focal intestinal metaplasia (goblet cell metaplasia) is noted. Special stain for fungi is negative for organisms; matched control is appropriate. C. Gastric polyp, biopsy: Fundic gland polyp. D. Distal esophagus, biopsy: Fragments of squamous epithelium with mild acute and chronic inflammation. Special stain for fungi is negative for organisms; matched control is appropriate. SJ:ebenezer 01/15/18 Signed Jeovanny Stinson 01/16/18 <signature on file> Performed By: #### PGASB #### [facility] [address] [place], [address] IMMUNOHISTOCHEMISTRY Observed: 01/12/2018 Status: F Source: [place] 12:00 [facility] REPOSITORY Patient: FARHAD GLEZ : 1940 (77/F) Acct Num: [id number] Phys: Dora RAMON,Chaparro Unit Num: [id number] Loc: EN Specimen: [id number] Received: 01/15/181124 Spec Type: IMMUNO TISSUES TISSUES: A. Stomach, NOS B. Stomach, NOS SPECIMEN INFORMATION: Tissue Source: A Antral biopsy, B Cardia biopsy Clinical Info: GERD, epigastric pain Specimen Number: [id number] A AND B CPT code: 88549 x2 METHODOLOGY: Deparaffinized sections of prefer/formalin-fixed tissue or PAP/DQ stained slides are incubated with monoclonal/polyclonal antibodies/oligonucleotide probes. Localization is made via biotin free immunoperoxidase method. Appropriate controls are performed and reacted as expected. Results on target cell population are indicated in the following table: RESULTS: ANTIBODY / CLONE RESULT Block A H Pylori (polyclonal) negative Block B H Pylori (polyclonal) negative These tests were developed and their performance characteristics determined by [facility]. They may not have been cleared or approved by the U.S. Food and Drug Administration. The FDA has determined that such clearance or approval is not necessary. INTERPRETATION: A. Antral biopsy: Negative for Helicobacter pylori organisms. B. Cardia biopsy: Negative for Helicobacter pylori organisms. SJ:ebenezer 01/16/18 PHYSICIAN AND INSTITUTION [facility] [address] [place] [address] Signed Jeovanny Stinson 01/16/18 <signature on file> Performed By: #### PIMM #### [facility] [address] [place] [address]. [place], [address] DEXA BONE DENSITY Observed: 12/19/2017 Status: F Source: [place] STUDY () 9:38 AM [facility] REPOSITORY [facility] Imaging Services [address] [place] [address] [place] [address] Dexa Bone Density Study () MR#: [id number] Acct: [id number] Name: FARHAD GLEZ Rep #: [id number] : 1940 F 77 From: Chad Wilkins MD PCP: Xiomara Do MD Status: REG CLI Study: Dexa Bone Density Study () Date of Exam: 12/19/17 Exam# [id number] Ordering Dr: Xiomara Do MD STUDY: DUAL ENERGY X-RAY ABSORPTIOMETRY / DXA REASON FOR EXAM: Female, 77 years old. The patient is postmenopausal. Loss of height. TECHNIQUE: Bone Mineral Density (BMD) measurements of lumbar spine and bilateral hips were obtained. COMPARISON: None. FINDINGS: Lumbar Spine (L1-L4): g/cm2 (1.072) / T-score (-0.8) / Z-score (1.0) Findings are suggestive of normal bone density with a low fracture risk. Left Femur Total: g/cm2 (0.995) / T-score (-0.1) / Z- score (1.9) Left Femoral Neck: g/cm2 (0.841) / T-score (-1.4) / Z- score (0.7) Right Femur Total: g/cm2 (0.965) / T-score (-0.3) / Z- score (1.6) Right Femoral Neck: g/cm2 (0.889) / T-score (-1.1) / Z-score (1.1) HPBD/Dexa Bone Density Study (HP) IMPRESSION: The patient is considered osteopenic as outlined below according to World Carlos Alberto Organization (WHO) criteria with a moderate fracture risk. Reference Information: The T-score is the number of standard [...] may be graded as follows: Mild -1 through -1.5 Moderate -1.6 through -2.0 Severe -2.1 through -2.4 The Z-score is the number of standard deviations above or below age-matched controls. A Z-score of less than -1.5 would be considered abnormal. References: 1. NIH Osteoporosis and Related Bone Diseases http://www.osteo.org 2. International Society for Clinical Densitometry http://www.iscd.org 3. 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: Signed SURGERY VISIT REPORT Observed: 12/14/2017 Status: F Source: [place] 4:14 PM [facility] REPOSITORY [facility] [address] [place] [address] OFFICE VISIT Date of Service: 12/14/17 MR#: [id number] Acct: [id number] Name: FARHAD GLEZ Rep #: [id number] : 1940 Provider: Chaparro John MD Age/Sex: 77/F Location: [facility] Status: Signed Intake Vital Signs12/14/17 Height 5 ft 5 in 12/14/17 Weight: 178 lb Intake Visit Reasons: FAMILY HX OF COLON CA Nail Puller Required: No Is patient in pain?: No [...] QDAY 12/14/17 [History Confirmed 12/14/17] losartan 100 mg-hydrochlorothiazide 25 mg tablet 1 tab PO QDAY 12/14/17 [History Confirmed 12/14/17] multivitamin capsule 1 cap PO QDAY 12/14/17 [History Confirmed 12/14/17] spironolactone 50 mg tablet 50 mg PO QDAY 12/14/17 [History Confirmed 12/14/17] PFSH Medical History Acid reflux (Acute) Hemorrhoids [...] No abnormal walking, No abnormal hearing, No abnormal movements, No abnormal speech, No behavioral changes, No burning sensations, No confusion, No seizure-like activity, No unsteadiness, No dizziness, No localized weakness, No frequent falls, No headache(s), No lack of coordination, No loss of vision, No memory loss, No numbness, No other visual disturbances, No radiating pain, No restless legs, No sensory deficit, No fainting, No tingling, No tremor(s), No weakness, No other Exam Const General: healthy appearing [facility] Head: normal to inspection Eyes General: appearance normal, both eyes and all related structures Neck Neck: normal visual inspection Chest Chest palpation AND inspection: normal inspection of the chest Breast Palpation: No nipple discharge Resp Auscultation: clear to auscultation bilaterally Cardio Rate: regular rate Rhythm: regular rhythm Heart Sounds: no murmurs GI Palpation: soft, no hepatosplenomegaly Neuro Cranial Nerves: CN's II-XI intact bilaterally Extrem General: no calf tenderness Psych Affect: normal affect Assessment AND Plan 1. Personal history of colonic polyps Z86.010 2. Family history of colon cancer in mother Z80.0 Plan 77-year-old female who enjoys a very high quality of life. She has a personal history of tubular adenoma of the colon and she has a family history in her mother who had colon cancer. I am recommending to the patient a colonoscopy with possible biopsy or polypectomy is indicated. Patient has had an opportunity to ask and have questions answered. We will plan for MiraLAX split prep. We will proceed at her discretion. Cc: Dr. Hi John M.D., F.A.C.S. Coding Level of Care Code Off vis,new,level 2 Diagnoses Personal history of colonic polyps Z86.010 Family history of colon cancer in mother Z80.0 12/14/17 5607 <Electronically signed by Chaparro John MD> Date Chaparro John MD Cosigner Signature: Date (if applicable) CC: Xiomara Do MD ALLERGIES ALLERGIES DATE TYPE / CODE NAME / CODE REACTION SEVERITY SOURCE 11/28/2018 Drug neomycin/R213975 Rash Unknown [place] [facility] All[facility]/416 775(RXNORM) Hospital 587700(SNOM Repository ED CT) 10/13/2018 Drug Latex, Natural Rash [place] [facility] Allergy/416 Rubber/[id number] Hospital 918654(SNOM 6(RXNORM) Repository ED CT) 10/13/2018 Drug bacitracin/F0060 Rash [place] [facility] Allergy/416 66148(RXNORM) Hospital 851765(SNOM Repository ED CT) 10/13/2018 Drug polymyxin Rash [place] [facility] Allergy/416 B/P964798337(RXN Hospital 050236(SNOM ORM) Repository ED CT) 03/22/2017 Environ/420 SEASONAL OTHER: SEE C [facility] 785559(SNOM ALLERGIES [place] ED CT) Repository 06/23/2011 DRUG LATEX RASH [facility] INGREDI/419 [place] 505751(SNOM Repository ED CT) 12/06/2005 DRUG/938470 NEOMYCIN-BACITRA RASH [facility] 003(SNOMED OMAR-POLYMYXIN [place] CT) Repository 09/21/2004 Chemical/42 ADHESIVE TAPE RASH [facility] 7039942(SNO (ROSINS) [facility] [place] MED CT) Repository ENCOUNTERS ENCOUNTERS ADMIT/DISCHARGE ACCOUNT ADMITTING ENCOUNTER LOCATION SOURCE NUMBER CLASS 11/29/2018 [id number] Ambulatory Building:[facility] [place] Practices Repository 11/28/2018/11/28/[id number] ing:ENRoom: Repository AC10 11/27/2018 [id number] [facility] ing:[facility] Repository 11/27/2018 [id number] Ambulatory BMSBuilding:B [place].CF.[facility] Repository 11/27/2018 [id number] Ambulatory [facility] ing:[facility] Repository 11/22/2018 [id number] Ambulatory [facility] ing:CT Repository 11/12/2018/11/13/19 [id number] Ambulatory [address] Repository 10/13/2018/10/13/20 [id number] Ambulatory BMSBuilding:B [place] 18 [place].[facility] Repository 09/18/2018/09/18/20 [id number] Ambulatory BMSBuilding:B [place] 18 MS.[facility] Repository 09/12/2018 [id number] Ambulatory [facility] HospitalBuild Hospital ing:OPBI Repository 08/22/2018/08/22/20 [id number] Ambulatory [address] Repository 08/13/2018/08/14/20 [id number] Ambulatory [address] Repository 07/25/2018 [id number] Ambulatory [facility] HospitalBuild Hospital ing:MASS Repository 06/21/2018 [id number] Ambulatory [facility] HospitalBuild Hospital ing:CVS Repository 06/21/2018 [id number] Ambulatory BMSBuilding:W [facility] Hospital Repository 06/19/2018 [id number] Ambulatory [facility] HospitalBuild Hospital ing:HPRAD Repository 06/19/2018/06/19/20 [id number] Ambulatory BMSBuilding:B [place] 18 [place].[facility] Hospital Repository 05/29/2018/05/29/20 [id number] Ambulatory [address] HospitalBuild Hospital ing:PT Repository 04/04/2018 [id number] Ambulatory [facility] HospitalBuild Hospital ing:PSN Repository 04/04/2018 [id number] Ambulatory BMSBuilding:W [facility] Hospital Repository 04/03/2018 [id number] Ambulatory [facility] HospitalBuild Hospital ing:CT Repository 04/03/2018 [id number] Ambulatory [facility] HospitalBuild Hospital ing:LABSPEC Repository 01/12/2018/01/13/20 [id number] Ambulatory [address] HospitalBuild Hospital ing:EN Repository 01/12/2018 [id number] Ambulatory BMSBuilding:B [place].CF.[facility] Repository 12/19/2017 [id number] Ambulatory [facility] HospitalBuild Hospital ing:BD Repository 12/14/2017/12/14/19 [id number] Ambulatory BMSBuilding:B [place] 18 [place].[facility] Repository FUNCTIONAL STATUS FUNCTIONAL STATUS No Functional Status Records FoundEQUIPMENT EQUIPMENT No Equipment Records FoundPAYERS PAYERS ENCOUNTER GUARANTOR PAYER SUBSCRIBER SOURCE 11/29/2018 FARHAD T Primary FARHAD T OHIP Practices CROPPDOB: Insurance:MedicarePol CROPPDOB: Repository [id number] icy Number: [id number] [place] [id number] [address] [place], [place] Date:5623-34-30[place]dsvFairfield, [place] [address]Mab: 330) Name:SENIOR J2EE 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 Munoz [address] [address]Hat: [phone] 146651Zywhseurajg, [place] [phone] () [address]IO: 11/28/2018 FARHAD Madelaine Primary FARHAD Burkett [place] [id number] Insurance:MEDICARE CROPPDOB: [facility] PART A olic [id number], [place] Number: Repository [address]Tjy: 330 [id number] [phone] () Date:2018-10-22 11/28/2018 Secondary FARHAD T [place] Insurance:CIGNAPolicy CROPPDOB: Community Number: [id number] Hospital [id number] Repository Date:3786-61-34ZH [address]HNIBAIIFSPC, [place] [address]CV: 11/28/2018 Tertiary NOT GIVENUNK [place] Insurance:SELF PAY [facility] Number: Effective Repository Date:2018-10-22 11/27/2018 FARHAD T Primary NOT GIVENUNK [place] [id number] Insurance:SELF PAY [place] Number: Effective Repository 9112[address]Ggu: (330) Date:2018-10-22 [phone] () 11/27/2018 FARHAD Burkett Primary Insurance:[facility] FARHAD Burkett [place] [id number] PACKAGE PLANPolicy CROPPDOB: [facility] [place] RUN Number: [id number], [place] [id number] Repository [address]Enq: (330) Date:[phone] () 11/27/2018 Secondary NOT GIVENUNK [place] Insurance:SELF PAY [facility] Number: Effective Repository Date:2018-11-27 11/27/2018 FARHAD Burkett Primary FARHAD Burkett [place] [id number] Insurance:MEDICARE CROPPDOB: [facility] [place] RUN PART A [facility] [id number], [place] Number: Repository [address]Eyz: [phone] [id number] [phone] () Date:2018-10-22 11/27/2018 Secondary FARHAD Burkett [place] Insurance:CIGNAPolicy CROPPDOB: Community Number: [id number] Hospital [id number] Repository Date:2318-57-92ZI NIKHIL 042473CLMHZYTOKCG, [place] [address]EQ: 11/27/2018 Tertiary NOT GIVENUNK [place] Insurance:SELF PAY [facility] Number: Effective Repository Date:2018-10-22 11/22/2018 FARHAD Burkett Primary Insurance:[facility] FARHAD Riveraoster [id number] PACKAGE PLANPolicy CROPPDOB: [facility] [place] RUN Number: [id number], [place] [id number] Repository [address]Zrb: (330) Date:2018-10-22 [phone] () 11/22/2018 Secondary NOT GIVENUNK [place] Insurance:SELF PAY [facility] Number: Effective Repository Date:2018-10-22 10/13/2018 FARHAD Burkett Primary FARHAD Burkett [place] [id number] Insurance:MEDICARE CROPPDOB: [facility] [place] RUN PART A [facility] [id number] [place] Number: Repository [address]Tce: (330 [id number] [phone] () Date:2018-10-09 10/13/2018 Secondary FARHAD Burkett [place] Insurance:CIGNAPolicy CROPPDOB: Community Number: [id number] Hospital [id number] Repository Date:5523-02-66LB [address]EUPRDEICVFY, [place] [address]CD: 10/13/2018 Tertiary NOT GIVENUNK [place] Insurance:SELF PAY [facility] Number: Effective Repository Date:2018-10-13 09/18/2018 FARHAD Burkett Primary FARHAD Burkett [place] [id number] Insurance:MEDICARE CROPPDOB: Community [address] PART A [facility] [id number], [place] Number: Repository [address]Szi: 330 [id number] [phone] () Date:2018-06-19 09/18/2018 Secondary FARHAD Burkett [place] Insurance:CIGNAPolicy CROPPDOB: Community Number: [id number] Hospital [id number] Repository Date:3632-15-32PI [address]AMXTFBYSTMQ, [place] [address]ON: 09/18/2018 Tertiary NOT GIVENUNK [place] Insurance:SELF PAY [facility] Number: Effective Repository Date:2018-09-18 09/12/2018 FARHAD Burkett Primary FARHAD Burkett [place] [id number] Insurance:MEDICARE [facility]OPPDOB[facility] [id number] [place] Number: Repository [address]Hev: 330 [id number] [phone] () Date:2018-06-26 09/12/2018 Secondary FARHAD Burkett [place] Insurance:CIGNAPolicy CROPPDOB: Community Number: [id number] Hospital [id number] Repository Date:6337-24-08SO [address]HJQUFAMJCOS, [place] [address]QA: 09/12/2018 Tertiary NOT GIVENUNK [place] Insurance:SELF PAY [facility] Number: Effective Repository Date:2018-06-26 07/25/2018 FARHAD Burkett Primary NOT GIVENUNK [place] [id number] Insurance:SELF PAY [facility], [place] Number: Effective Repository [address]Emi: (330) Date:2018-06-25 [phone] () 06/21/2018 FARHAD Burkett Primary FARHAD Burkett [place] [id number] Insurance:MEDICARE CROPPDOB: [facility] [id number] Medical Center of [place] Number: Repository [address]Jlk: 330 [id number] [phone] () Date:2018-05-17 06/21/2018 Secondary FARHAD Madelaine [place] Insurance:CIGNAPolicy CROPPDOB: Community Number: [id number] Hospital [id number] Repository Date:6027-13-88EW [address]TCPLCAQZLWZ, [place] [address]TW: 06/21/2018 Tertiary NOT GIVENUNK [place] Insurance:SELF PAY [facility] Number: Effective Repository Date:2018-05-17 06/21/2018 FARHAD Burkett Primary FARHAD Burkett [place] [id number] Insurance:MEDICARE CROPPDOB: [facility] [id number] Medical Center of [place] Number: Repository [address]Jgi: 330 [id number] [phone] () Date:2018-05-17 06/21/2018 Secondary FARHAD Madelaine [place] Insurance:CIGNAPolicy CROPPDOB: Community Number: [id number] Hospital [id number] Repository Date:0717-24-15[address]HRDCTLUFTPG, [place] [address]LO: 06/21/2018 Tertiary NOT GIVENUNK [place] Insurance:SELF PAY [facility] Number: Effective Repository Date:2018-06-21 06/19/2018 FARHAD Madelaine Primary FARHAD Burkett [place] [id number] Insurance:MEDICARE CROPPDOB: Community [address] PART A [facility] [id number] Medical Center of [place] Number: Repository [address]Gdj: 330 [id number] [phone] () Date:2018-06-19 06/19/2018 Secondary FARHAD Burkett [place] Insurance:CIGNAPolicy CROPPDOB: Community Number: [id number] Hospital [id number] Repository Date:1422-65-10VP [address]GKGGMSEAMGA, [place] [address]TJ: 06/19/2018 Tertiary NOT GIVENUNK [place] Insurance:SELF PAY [facility] Number: Effective Repository Date:2018-06-19 06/19/2018 FARHAD Burkett Primary FARHAD Burkett [place] [id number] Insurance:MEDICARE CROPPDOB: [facility] [id number] Medical Center of [place] Number: Repository [address]Afw: 330 [id number] [phone] () Date:2018-03-30 06/19/2018 Secondary FARHAD Burkett [place] Insurance:CIGNAPolicy CROPPDOB: Community Number: [id number] Hospital [id number] Repository Date:6665-73-31DA [address]PEDYNXVAWGS, [place] [address]WV: 06/19/2018 Tertiary NOT GIV[place]UNK [place] Insurance:SELF PAY [facility] Number: Effective Repository Date:2018-06-19 05/29/2018 FARHAD Burkett Primary FARHAD Burkett [place] [id number] Insurance:MEDICARE CROPPDOB: [facility] A [facility] [id number] Medical Center of [place] Number: Repository [address]Swm: 330 [id number] [phone] () Date:2003-05-06 05/29/2018 Secondary FARHAD Burkett [place] Insurance:CIGNAPolicy CROPPDOB: Community Number: [id number] Hospital [id number] Repository Date:0213-16-89OB [address]UDMIIAHBGPA, [place] [address]RI: 05/29/2018 Tertiary NOT GIV[place]UNK [place] Insurance:SELF PAY [facility] Number: Effective Repository Date:2018-04-23 04/04/2018 FARHAD Burkett Primary FARHAD Burkett [place] [id number] Insurance:MEDICARE CROPPDOB: Community [address] [place] PART A [facility] [id number] Medical Center of [place] Number: Repository [address]Uhi: [id number] [phone] Date:2018-04-03 () 04/04/2018 Secondary FARHAD Burkett [place] Insurance:CIGNAPolicy CROPPDOB: Community Number: [id number] Hospital [id number] Repository Date:4794-98-81FY [address] [address]WZ: 04/04/2018 Tertiary NOT GIVENUNK [place] Insurance:SELF PAY [facility] Number: Effective Repository Date:2018-04-03 04/04/2018 FARHAD Burkett Primary FARHAD Burkett [place] [id number] Insurance:MEDICARE CROPPDOB: [facility] [place] RUN PART A [facility] [id number] Medical Center of [place] Number: Repository [address]Htw: 330 [id number] [phone] () Date:2018-04-03 04/04/2018 Secondary FARHAD Burkett [place] Insurance:CIGNAPolicy CROPPDOB: Community Number: [id number] Hospital [id number] Repository Date:7242-00-96SR [address]YYNMBYORLUJ, [place] [address]GO: 04/04/2018 Tertiary NOT GIVENUNK [place] Insurance:SELF PAY [facility] [place] [facility] Number: Effective Repository Date:2018-04-04 04/03/2018 FARHAD Burkett Primary FARHAD Burkett [place] [id number] Insurance:MEDICARE CROPPDOB: Community [address] PART A [facility] [id number] Medical Center of [place] Number: Repository [address]Vgc: [id number] [phone] Date:2018-04-03 () 04/03/2018 Secondary FARHAD Burkett [place] Insurance:CIGNAPolicy CROPPDOB: Community Number: [id number] Hospital [id number] Repository Date:8767-37-62FM [address]BUGRUGEKCIU, [place] [address]KP: 04/03/2018 Tertiary NOT GIVENUNK [place] Insurance:SELF PAY Community [facility] Number: Effective Repository Date:2018-04-03 04/03/2018 FARHAD Burkett Primary FARHAD Burkett [place] [id number] Insurance:MEDICARE CROPPDOB: Community SOHAM PART A [facility] [id number] [facility] [place] Number: Repository [address]Vcx: [id number] [phone] Date:2018-04-03 () 04/03/2018 Secondary FARHAD Burkett [place] Insurance:CIGNAPolicy CROPPDOB: Community Number: [id number] Hospital [id number] Repository Date:0610-25-51SY [address]OXGQSPYUWTZ, [place] [address]ZP: 04/03/2018 Tertiary NOT GIVENUNK [place] Insurance:SELF PAY [facility] Number: Effective Repository Date:2018-04-03 01/12/2018 FARHAD Burkett Primary FARHAD Burkett [place] [id number] Insurance:MEDICARE CROPPDOB: Community SOHAM PART A [facility] [id number] General Hospital [place] Number: Repository [address]Lrs: [id number] [phone] Date:2017-12-14 () 01/12/2018 Secondary FARHAD Burkett [place] Insurance:CIGNAPolicy CROPPDOB: Community Number: [id number] Hospital [id number] Repository Date:5767-69-66BZ [address]PGAHCZARGIS, [place] [address]BV: 01/12/2018 Tertiary NOT [place]UNK [place] Insurance:SELF PAY Community [facility] Number: Effective Repository Date:2017-12-14 01/12/2018 FARHAD Burkett Primary FARHAD Burkett [place] [id number] Insurance:MEDICARE CROPPDOB: Community SOHAM PART A [facility] [id number] [place] Number: Repository [address]Xwz: [id number] [phone] Date:2017-12-144 (HP) 01/12/2018 Secondary FARHAD Burkett [place] Insurance:CIGNAPolicy CROPPDOB: Community Number: [id number] Hospital [id number] Repository Date:7201-13-61FN [address] [address]BQ: 01/12/2018 Tertiary NOT GIVENUNK [place] Insurance:SELF PAY [facility] Number: Effective Repository Date:2018-01-12 12/19/2017 FARHAD Burkett Primary NOT GIVENUNK [place] [id number] Insurance:SELF PAY [facility] Number: Effective Repository [address]Wna: Date:2017-11-13 ~330 -4 () 12/14/2017 FARHAD Burkett Primary FARHAD Burkett [place] [id number] Insurance:MEDICARE CROPPDOB: [facility] [place] PART A [facility] [id number] Community [facility], [place] Number: Repository [address]Mwv: 330 [id number] [phone] () Date:2017-11-13 12/14/2017 Secondary FARHAD Madelaine [place] Insurance:CIGNAPolicy CROPPDOB: Community Number: [id number] Hospital [id number] Repository Date:5363-27-57DO [address]ZDUBSUKAIRD, [place] [address]IG: 12/14/2017 Tertiary NOT GIVENUNK [place] Insurance:SELF PAY [facility] Number: Effective Repository Date:2017-11-13 SOCIAL HISTORY SOCIAL HISTORY No Social History Records FoundFAMILY HISTORY FAMILY HISTORY No Family History Records FoundADVANCE DIRECTIVES ADVANCE DIRECTIVES No Advanced Directives Records FoundINFORMATION SOURCE INFORMATION SOURCE DATE CREATED AUTHOR AUTHOR'S ORGANIZATION 12/02/2018 [place]
== END ==
PROVIDERS: Family Provider Internal Medicine; PCP Internal Medicine; Referring Provider Internal Medicine; Visit Provider Internal Medicine
DX: E78.5 Hyperlipidemia, unspecified (principal)
CPT/HCPCS: 75571; 76380

== ENCOUNTER → 2018-11-27 07:43 | Outpatient (CLI) | payer MEDICARE, OTHER, SELFPAY ==
[2018-10-13 10:08] VITALS: BMI 29.6
[2018-11-22 12:52] VITALS: BMI 27.6
--- NOTE | 2018-11-27 07:48 | ECHOD_ITS ---
Reason For Study: TACHYCARDIA Procedure This was a 2D Doppler, Color Flow transthoracic echocardiogram. The exam was of adequate technical quality. Exam performed in department. Left Ventricle Normal LV size. Segmental dysfunction with preserved ejection fraction (see wall motion). The estimated ejection fraction is 55 %. Diastolic function is indeterminate. Infero-Basal: Hypokinetic. Mid-Posterior: Hypokinetic. Mid-Inferior: Hypokinetic. Right Ventricle Normal RV size. Normal systolic function. Atria The left atrium is mildly enlarged. Normal right atrium. No doppler evidence for ASD. Mitral Valve There is no mitral annular calcification. Mild focal mitral valve calcification of the anterior leaflet. Trivial mitral valve insufficiency. Tricuspid Valve Normal tricuspid valve. Mild tricuspid valve insufficiency. Right ventricular systolic pressure estimated to be 28 mmHg. Aortic Valve Trisinus/trileaflet aortic valve. Mild diffuse aortic valve thickening. Pulmonic Valve The pulmonic valve is not well visualized. Trivial pulmonic valve insufficiency. Great Vessels Normal sized aortic root. Pericardium/Pleural No pericardial effusion. MMode/2D Measurements & Calculations LVIDd: 4.3 cm IVSd: 0.88 cm Ao root diam: 3.3 cm LVIDs: 3.1 cm LVPWd: 1.0 cm RVDd: 3.2 cm FS: 28.4 % LAV(MOD-bp): 50.8 ml EDV(MOD-sp4): 97.6 ml SV(MOD-sp4): 44.1 ml LAV(MOD-bp) Indexed: 28.1 ml/m2 ESV(MOD-sp4): 53.5 ml LAV(MOD-sp2): 37.9 ml EF(MOD-sp4): 45.1 % LAV(MOD-sp4): 65.0 ml LA dimension(2D): 3.7 cm LA A4 area: 20.8 cm2 RA A4 area: 20.8 cm2 Time Measurements MV dec time: 0.13 sec Doppler Measurements & Calculations MV E max ronald: 119.0 cm/sec Lat Peak E' Ronald: 7.6 cm/sec Med Peak E' Ronald: 9.3 cm/sec MV A max ronald: 51.4 cm/sec E/E' lat: 15.6 E/E' med: 12.8 MV E/A: 2.3 Ao V2 max: 122.8 cm/sec AI max ronald: 478.0 cm/sec LV V1 max: 78.3 cm/sec Ao max P.0 mmHg AI max P.5 mmHg LV V1 max P.5 mmHg AI dec slope: 578.3 cm/sec2 AI P1/2t: 242.1 msec PA V2 max: 83.3 cm/sec TR max ronald: 251.4 cm/sec TR max P.3 mmHg Interpretation Summary Segmental dysfunction with preserved ejection fraction (see wall motion). The estimated ejection fraction is 55 %. The left atrium is mildly enlarged. Mild focal mitral valve calcification of the anterior leaflet. Trivial mitral valve insufficiency. Mild tricuspid valve insufficiency. Mild diffuse aortic valve thickening. Trivial pulmonic valve insufficiency. Right ventricular systolic pressure estimated to be 28 mmHg. Diastolic function is indeterminate. Ordering Physician: Xiomara Do Referring Physician: Xiomara Do Performed By: Halina Goodman, NEO, RVT
--- OUTSIDE RECORDS SUMMARY | 2019-01-29 07:55 | XMS RPT_ITS ---
:1940 Author Organization [facility] Support Name Relationship Address Phone FONSECAMARIA LUISAALEX NaturalDaughter [address] + [place] [address] KIESEL, WILLIAM M NaturalDaughter [address] + [place] [address] R Unknown Unavailable Unavailable FONSECAALEX NaturalDaughter [address] [place] [address] DR + [place] [address] KIESEL, WILLIAM M NaturalDaughter [address] + [place] [address] R Unknown Unavailable Unavailable ALEX FONSECA NaturalDaughter [address] + [place] [address] KIESEL, WILLIAM M NaturalDaughter [address] + [place] [address] R Unknown Unavailable Unavailable ALEX FONSECA NaturalDaughter [address] + [place] [address] KIESEL, WILLIAM M NaturalDaughter [address] + [place] [address] R Unknown Unavailable Unavailable RAYMUNDO ALEX NaturalDaughter [address] + [place] [address] KIESEL, WILLIAM M NaturalDaughter [address] + [place] [address] R Unknown Unavailable Unavailable ALEX FONSECA NaturalDaughter [address] + [place] [address] KIESEL, WILLIAM M NaturalDaughter [address] + [place] [address] R Unknown Unavailable Unavailable ALEX FONSECA NaturalDaughter [address] + [place] [address] KIESEL, WILLIAM M NaturalDaughter [address] + [place] [address] R Unknown Unavailable Unavailable ALEX FONSECA NaturalDaughter [address] [place] [address] DR + [place] [address] KIESEL, WILLIAM M NaturalDaughter [address] + [place] [address] R Unknown Unavailable Unavailable GIUSEPPE OFNSECAFER NaturalDaughter [address] [place] [address] DR + [place] [address] KIESEL, WILLIAM M NaturalDaughter [address] + [place] [address] R Unknown Unavailable Unavailable GIUSEPPE FONSECAFER NaturalDaughter [address] [place] [address] DR + [place] [address] KIESEL, WILLIAM M NaturalDaughter [address] + [place] [address] R Unknown Unavailable Unavailable ALEX FONSECA NaturalDaughter [address] [place] [address] DR + [place] [address] KIESEL, WILLIAM M NaturalDaughter [address] + [place] [address] R Unknown Unavailable Unavailable ALEX FONSECA NaturalDaughter [address] [place] [address] DR + [place] [address] KIESEL, WILLIAM M NaturalDaughter [address] + [place] [address] R Unknown Unavailable Unavailable [facility]LEX [facility] [address] [place] [address] DR + [place] [address] KIESEL, WILLIAM M NaturalDaughter [address] + [place] [address] R Unknown Unavailable Unavailable ALEX FONSECA NaturalDaughter [address] [place] [address] DR + [place] [address] KIFADUMOL, WILLIAM Mcdonald NaturalDaughter [address] + [place] [address] R Unknown Unavailable Unavailable ALEX FONSECA NaturalDaughter [address] + [place] [address] KIFADUMOL, WILLIAM Mcdonald NaturalDaughter [address] + [place] [address] R Unknown Unavailable Unavailable ALEX FONSECA NaturalDaughter [address] + [place] [address] KIESEL, WILLIAM M NaturalDaughter [address] + [place] [address] R Unknown Unavailable Unavailable ALEX FONSECA NaturalDaughter [address] + [place] [address] KIFADUMOL, WILLIAM M NaturalDaughter [address] + [place] [address] R Unknown Unavailable Unavailable ALEX FONSECA NaturalDaughter [address] + [place] [address] R Unknown Unavailable Unavailable ALEX FONSECA NaturalDaughter [address] + [place] [address] R Unknown Unavailable Unavailable ALEX FONSECA NaturalDaughter [address] [place] [address] DR + [place] [address] R Unknown Unavailable Unavailable ALEX FONSECA NaturalDaughter [address] + [place] [address] R Unknown Unavailable Unavailable ALEX FONSECA NaturalDaughter [address] + [place] [address] R Unknown Unavailable Unavailable Care Team Providers Name Role Phone ZEHRA LARKIN Attending Unavailable ORALIA MCKEON (PA) Attending Unavailable ORALIA MCKEON (PA) Attending Unavailable Xiomara Do MD Attending Unavailable Xiomara Do MD Referring Unavailable Xiomara Do MD Consulting Unavailable Xiomara Do Attending Unavailable Bonezzi, Xiomara Referring Unavailable Bonezzi, Xiomara Primary Care Unavailable Bonezzi, Xiomara Attending Unavailable Bonezzi, Xiomara Referring Unavailable Bonezzi, Xiomara Primary Care Unavailable Cebul, Chaparro Attending Unavailable Bonezzi, Xiomara Referring Unavailable Bonezzi, [...] Chaparro Attending Unavailable Bonezzi, Xiomara Referring Unavailable Purpose Purpose PROBLEMS PROBLEMS DATE TYPE CONDITION / CODE ATTENDING STATUS SOURCE 11/27/2018 Unknown E78.5 - Chepe Albarado Active [place] Hyperlipidemia, Community unspecified / Hospital E78.5(ICD-10) Repository 08/13/2018 Active Unknown / UNK(Unknown) ORALIA MCKEON Active [facility] ([facility]) [facility] [place] Repository 06/21/2018 Unknown R06.02 - Shortness of Xiomara Do Active [facility] breath / Community R06.02(ICD-10) Hospital Repository 06/19/2018 Unknown M54.16 - Nae Kumar Active [place] Radiculopathy, lumbar Community region / Hospital M54.16(ICD-10) Repository 05/30/2018 Unknown S32.019D - Unspecified Xiomara Do Active [facility] fracture of first Community lumbar vertebra, Hospital subsequent encounter Repository for fracture with routine healing / S32.019D(ICD-10) 05/03/2018 Unknown R94.31 - Abnormal Chepe Albarado Active [facility] electrocardiogram Community [ECG] [EKG] / Hospital R94.31(ICD-10) Repository 04/03/2018 Unknown R00.0 - Tachycardia, Xiomara Do Active [facility] unspecified / Community R00.0(ICD-10) Hospital Repository 03/11/2018 Unknown K21.9 - CebuChaparro walker Active [place] Gastro-esophageal Community reflux disease without Hospital esophagitis / Repository K21.9(ICD-10) 12/14/2017 Unknown Z86.010 - Personal CeChaparro mora Active [facility] history of colonic Community polyps / Hospital Z86.010(ICD-10) Repository 12/14/2017 Unknown Z80.0 - Family history Chaparro John Active [facility] of malignant neoplasm Community of digestive organs / Hospital Z80.0(ICD-10) Repository PROCEDURES PROCEDURES No Procedure Records FoundVITAL SIGNS VITAL SIGNS No Vital Signs Records FoundRESULTS RESULTS OPERATIVE REPORT - Observed: 11/28/2018 Status: F Source: [place] ENDOSCOPY 12:47 PM [facility] REPOSITORY [facility] Medical Records Department [address] [place] [address] Operative Report - Endoscopy MR#: [id number] Acct: [id number] Name: FARHAD GLEZ Rep #: [id number] : 1940 78 From: Chaparro John MD PCP: Xiomara Do MD Status: DEP [facility] Patient Name: Farhad Glez Procedure Date: 11/28/2018 [...] hernia repair Procedure Code(s): --- Professional --- 06176, Esophagogastroduodenoscopy, flexible, transoral; with biopsy, single or multiple 00953, 59, Moderate sedation services provided by the same physician or other qualified health auto care center manager performing the diagnostic or therapeutic service that [...] Iron deficiency anemia, unspecified CPT copyright 2017 [employer]. All rights reserved. The codes documented in this report are preliminary and upon personal lines sales executive review may be revised to meet current compliance requirements. Chaparro John MD 11/28/2018 6:54:10 AM This report has been signed electronically. Number of Addenda: 0 Note Initiated On: 11/28/2018 6:08 AM 11/28/18 1246 Date Chaparro John MD Cosigner Signature: Date (if indicated) CC: Xiomara Do MD; Chaparro John MD Date Dictated: 11/28/18 0608 Date Transcribed: Gas Meter Repair Supervisor: RIKI Signed HISTORY AND PHYSICAL Observed: 11/28/2018 Status: F Source: [place] EXAM 7:12 AM [facility] REPOSITORY [facility] Medical Records Department [address] [place] [address] History and Physical 11/28/18 0557 MR#: [id number] Acct: [id number] Name: FARHAD GLEZ Rep #: [id number] : 1940 78 From: Chaparro John MD PCP: Xiomara Do MD Status: REG [facility] Y Location: [place] [address] Problem List (1) Acute blood loss anemia Status: Acute (2) GERD (gastroesophageal reflux disease) Status: Acute History of Present Illness Date of Admission: 11/28/18 The patient is a 78 year old F who I saw in the office on October 13, 2018. She was hospitalized at [facility] in [place]. She was found to have a very [...] of blood transfusion while she was in [place] and at that point prior to discharge [...] Verified 10/13/18 09:29) rash neomycin [From Neosporin (fnq-otb-aoyfd)] Allergy (Verified 11/28/18 05:54) Rash Home Medications: [...] is slowly improved her hemoglobin from a [place] discharge at 8 to currently 11. I [...] Signed IMMUNOHISTOCHEMISTRY Observed: 11/28/2018 Status: F Source: [place] 6:30 AM [facility] REPOSITORY Patient: FARHAD GLEZ : 1940 (78/F) Acct Num: [id number] Phys: Dora RAMON,Chaparro Unit Num: [id number] Loc: EN Specimen: [id number] Received: 11/28/18 - 1302 Spec Type: IMMUNO TISSUES 1 TISSUES: A. Stomach, NOS SPECIMEN INFORMATION: Tissue Source: A - Antral biopsy Clinical Info: Acute blood loss anemia Specimen Number: [id number] A CPT code: 84951 METHODOLOGY: Deparaffinized sections of prefer/formalin-fixed tissue or [...] developed and their performance characteristics determined by [facility]. They may not have been cleared or approved by the U.S. Food and Drug Administration. The FDA has determined that such clearance or approval is not necessary. INTERPRETATION: A. Antral biopsy: Negative for Helicobacter pylori organisms. AM:ebenezer 11/29/18 PHYSICIAN AND INSTITUTION [address] [address] Signed [place], 11/29/18 <signature on file> Performed By: #### PIMM #### [facility] [address] [place] [address]. [place], [address] EGD ([facility]) Observed: 11/28/2018 Status: F Source: [place] 6:30 AM [facility] REPOSITORY Patient: FARHAD GLEZ : 1940 (78/F) Acct Num: [id number] Phys: Dora RAMON,Chaparro Unit Num: [id number] Loc: EN Specimen: [id number] Received: 11/28/18 - [...] one cassette. / AM:rg 11/28/18 TC:3 CPT: 94357 x4 HEADER OPERATION: EGD PRE-OP DIAGNOSIS: Acute [...] on file> Performed By: #### PEGD #### [facility] [address] [place], [address] ECHOCARDIOGRAM COMPLETE Observed: 11/27/2018 Status: F Source: [place] 7:53 PM [facility] REPOSITORY [facility] Cardiovascular Services [address] [place] [address] Echo Complete 11/27/18 0759 MR#: [id number] Acct: [id number] Name: FARHAD GLEZ Rep #: [id number] : 1940 78 From: Johnson Bird MD Attending Dr: Xiomara Do MD Status: REG CLI Ordering Dr: Xiomara Do MD Date: 11/27/18 Location: [facility] Sex: F C Admitted: Reason For [...] Date Dictated: 11/27/18 0759 Date Transcribed: 11/27/181951 Gas Meter Repair Supervisor: Signed TXT - BLOOD FLOW Observed: 11/27/2018 Status: F Source: [place] SCREENING 4:41 PM [facility] REPOSITORY [facility] Cardiovascular Services [address] [place] [address] 11/27/18 0841 MR#: [id number] Acct: [id number] Name: FARHAD GLEZ Rep #: [id number] : 1940 78 From: Eris Mclian MD Attending Dr: Xiomara Do MD Status: [...] Date Dictated: 11/27/18 0841 Date Transcribed: 11/27/181640 Gas Meter Repair Supervisor: Signed LIMITED CHEST CT Observed: 11/22/2018 Status: F Source: [place] W/CCTA 12:45 PM [facility] REPOSITORY [facility] Imaging Services [address] [place] [address] w/CCTA MR#: [id number] Acct: [id number] Name: FARHAD GLEZ Rep #: [id number] : 1940 F 78 From: Chad Wilkins MD PCP: Xiomara Do MD Status: REG CLI Study: Limited Chest CT w/CCTA Date of Exam: 11/22/18 Exam# [id number] Ordering Dr: Xiomara Do MD STUDY: CT [...] Chad Wilkins MD at 13:04 EST Tel [phone], Service support , CC: Xiomara Do MD Gas Meter Repair Supervisor: Signed PROGRESS Observed: 11/12/2018 Status: COMPLETED Source: [place] 10:19 AM [facility] REPOSITORY HNO ID: [id number] Author: Zehra Alexandra Service: (none) Author Type: Physician Type: Progress Notes Filed: 11/12/2018 10:36 AM Note Text: Farhad Glez is a 78 year old who presents for her annual gynecologic exam without complaints. Reports was seen in ER in [facility] - anemia possible from Hiatal hernia s/p [...] breast, incisional - COLONOSCOP W/ OR W/O [facility] SPEC 04/2003 Colonoscopy - COLONOSCOP W/ OR W/O [facility] SPEC 05/05/2008 Colonoscopy - COLONOSCOP W/ OR W/O [facility] SPEC 07/02/13 Colonoscopy - DANDC, DIAG AND/OR [...] external genitalia normal, normal Bartholin's glands, urethra, Carver's glands, no vulvar lesions, good vaginal support, [...] MD CNOV Observed: 11/12/2018 Status: COMPLETED Source: [place] 9:50 AM [facility] REPOSITORY Office Visit (WOOB) FARHAD GLEZ ([id number]) 1940 F Date Time Provider Department 11/12/18 9:50 AM ZEHRA LARKIN WOTYSON During your visit today, we recorded the following information about you: Blood pressure Weight Height 144/82 78.5 kg 1.632 m Fern Sherwood Ma 11/12/2018 10:36 AM Signed Pin Chaser offered: Patient declines. Zehra Clarke MD 11/12/2018 10:36 AM Signed Farhad Glez is a 78 year old who presents for her annual gynecologic exam without complaints. Reports was seen in ER in [facility] - anemia possible from Hiatal hernia s/p [...] breast, incisional - COLONOSCOP W/ OR W/O [facility] SPEC 04/2003 Colonoscopy - COLONOSCOP W/ OR [...] external genitalia normal, normal Bartholin's glands, urethra, Carver's glands, no vulvar lesions, good vaginal support, [...] acid, calcium carbonate is found in some vasu-jnd-fgljkfu antacid products, such as Tums? and Rolaids?. [...] health screening schedule is recommended by the [place] (ACOG). Some [...] 2 - Rash 9 - Itching NEOSPORIN (MXNLZLEY-EXZICAOKVZ-MZ*12/06/2005 2 - Rash SEASONAL ALLERGIES 03/22/2017 14 [...] 90 capsuleRfl: 3 ARNEL SCREENING W LEORA [[id number]] Order #: [id number] FUTURE Prescriptions as of 11/12/2018 Sig: OMEPRAZOLE [...] acid, calcium carbonate is found in some usoh-svg-fkhposq antacid products, such as Tums? and Rolaids?. [...] health screening schedule is recommended by the [place] [employer] (ACOG). Some [...] 11/12/18 PROGRESS Observed: 11/12/2018 Status: COMPLETED Source: [place] 9:49 AM [facility] REPOSITORY HNO ID: [id number] Author: Fern Sherwood Ma Service: (none) Author Type: (none) Type: Progress Notes Filed: 11/12/2018 10:36 AM Note Text: Pin Chaser offered: Patient declines. SURGERY VISIT REPORT Observed: 10/18/2018 Status: F Source: [place] 3:31 PM [facility] REPOSITORY [facility] [address] [place] [address] OFFICE VISIT Date of Service: 10/13/18 MR#: [id number] Acct: [id number] Name: FARHAD GLEZ Rep #: [id number] : 1940 Provider: Chaparro John MD Age/Sex: 78/F Location: [facility] Status: Signed with Addenda ADDENDUM by Chaparro John MD on 10/18/18 at 1531 Addendum [...] of 8. Her upper endoscopy performed at [facility] in [place] it suggested grade C erosive esophagitis and [...] 78-year-old female who was briefly hospitalized in [place] with what appeared to be an acute [...] note regarding her a esophagogastroduodenoscopy performed in [place]. Then with that information at hand I [...] Visit Reasons: Hiatal Hernia Chief Complaint: anemia Electron Beam Operator Required: No Is patient in pain?: [...] No Post menopausal: Yes Patient : No [facility] Medical History Acute blood loss [...] not determined. She was hospitalized overnight in [facility]. She presented with shortness [...] a note from Dr Bruce Blackman from [place] [facility] suggesting that the results of [...] colonoscopy with operative note to follow: [facility] Medical Records Department [address] [place] [address] Operative Report 01/12/18 0848 MR#: [id number] Name: FARHAD GLEZ #:[id number] : [id number]: Chaparro John MD PCP:Xiomara Do MD Status:[facility] Location: [place] [address] Problem List (1) GERD (gastroesophageal reflux disease) [...] negative for organisms. H pylori: Negative [facility] Cardiovascular Services [address] [place] [address] MR#: [id number]:[id number] Name: FARHAD GLEZ #:[id number] : 1940 78From: Johnson Bird MD Primary [...] 57 %. This note was generated with [employer] software. It may contain incorrect words, spelling, [...] 78-year-old female who was briefly hospitalized in [place] with what appeared to be an acute [...] note regarding her a esophagogastroduodenoscopy performed in [place]. Then with that information at hand I [...] ORTHOPEDIC VISIT Observed: 09/21/2018 Status: F Source: [place] REPORT 4:02 PM [facility] REPOSITORY [facility] Orthopaedics AND Sports Medicine [address] [place] [address] OFFICE VISIT Date of Service: 09/18/18 MR#: [id number] Acct: [id number] Name: FARHAD GLEZ Rep #: [id number] : 1940 Provider: Nae Kumar MD Age/Sex: 78/F Location: [facility] Status: Signed Intake [...] mg PO DAILY #60 capsule. 01/12/18 [Rx] [facility] Medical History Acid reflux (Acute) [...] Status: F Source: [place] BILAT 8:16 AM [facility] REPOSITORY [facility] Imaging Services [address] [place] [address] SCREENING MAMM (CAD), BILAT MR#: [id number] Acct: [id number] Name: FARHAD GLEZ Rep #: [id number] : 1940 F 78 From: Chad Wilkins MD PCP: Xiomara Do MD Status: REG CLI Study: SCREENING MAMM (CAD), BILAT Date of Exam: 09/12/18 Exam# [id number] Ordering Dr: Xiomara Do MD MAMMOGRAPHY - [...] delay biopsy of a clinically suspicious abnormality. [id number] Electronically Signed: Chad Wilkins MD at 11:12 EST Tel [phone], Service support , CC: Xiomara Do MD Gas Meter Repair Supervisor: Signed CNOV Observed: 08/22/2018 Status: COMPLETED Source: [place] 10:40 AM [facility] REPOSITORY Office Visit (DERMBD) FARHAD GLEZ ([id number]) 1940 F Date Time Provider Department 08/22/18 [...] visit. ALLERGY: Adhesive Tape (Rosins); Latex; Neosporin [Wvccbrwp-Byypuddumr-Fhcpglegk]; Seasonal Allergies REVIEW OF SYSTEMS: Patient feels [...] 2 - Rash 9 - Itching NEOSPORIN (FQOMXRFG-QWRGBZXOSJ-HX*12/06/2005 2 - Rash SEASONAL ALLERGIES 03/22/2017 14 [...] 08/22/18 PROGRESS Observed: 08/22/2018 Status: COMPLETED Source: [place] 8:38 AM [facility] REPOSITORY O ID: [id number] Author: Oralia Mckeon (Pa) Service: (none) Author Type: Physician Clerical Support Type: Progress Notes Filed: 08/22/2018 12:57 PM [...] visit. ALLERGY: Adhesive Tape (Rosins); Latex; Neosporin [Akopipbs-Spqtiyxnib-Zmakcfyne]; Seasonal Allergies REVIEW OF SYSTEMS: Patient feels [...] MD CNOV Observed: 08/13/2018 Status: COMPLETED Source: [place] 1:15 PM [facility] REPOSITORY Office Visit (DERMBD) FARHAD GLEZ ([id number]) 1940 F Date Time Provider Department 08/13/18 [...] hands, forearms. Family Hx MM: sister From [place], [place] Came to us after a bad [...] visit. ALLERGY: Adhesive Tape (Rosins); Latex; Neosporin [Qjazbsmi-Lmvivqcxcl-Yuhozwqit]; Seasonal Allergies REVIEW OF SYSTEMS: Patient feels [...] 2 - Rash 9 - Itching NEOSPORIN (FHINJZMS-THCXFKJCOQ-XW*12/06/2005 2 - Rash SEASONAL ALLERGIES 03/22/2017 14 [...] More... Routine general medical examination at a [facility]*INVALID FOR*08/06/2012 More... ABNORMAL LIVER FUNCTION STUDY [...] 08/13/18 PROGRESS Observed: 08/10/2018 Status: COMPLETED Source: [place] 10:39 AM [facility] REPOSITORY HNO ID: [id number] Author: Oralia Mckeon (Pa) Service: (none) Author Type: Physician Clerical Support Type: Progress Notes Filed: 08/13/2018 1:45 PM [...] hands, forearms. Family Hx MM: sister From [place], [place] Came to us after a bad [...] visit. ALLERGY: Adhesive Tape (Rosins); Latex; Neosporin [Mbhscwks-Dydthhxuuq-Akqolxljq]; Seasonal Allergies REVIEW OF SYSTEMS: Patient feels [...] STRESS REPORT Observed: 06/21/2018 Status: F Source: [place] 7:04 PM [facility] REPOSITORY [facility] Cardiovascular Services [address] [place] [address] MR#: [id number] Acct: [id number] Name: FARHAD GLEZ Rep #: [id number] : 1940 78 From: Johnson Bird MD [...] 57 %. This note was generated with [employer] software. It may contain incorrect words, spelling, and punctuation that were not noted in checking the note before signing. 06/21/181903 <Electronically signed by Johnson Bird MD> Date Johnson Bird MD CC: Xiomara Do MD Date Dictated: 06/21/181899 Date Transcribed: 06/21/181899 Gas Meter Repair Supervisor: PM Signed ORTHOPEDIC VISIT Observed: 06/20/2018 Status: F Source: [place] REPORT 12:40 PM [facility] REPOSITORY [facility] Orthopa[facility]ics AND Sports Medicine [address] [place] [address] OFFICE VISIT Date of Service: 06/19/18 MR#: [id number] Acct: [id number] Name: FARHAD GLEZ Rep #: [id number] : 1940 Provider: Nae Kumar MD Age/Sex: 78/F Location: [facility] Status: Signed Intake Intake Visit Reasons: low [...] mg PO DAILY #60 capsule. 01/12/18 [Rx] [facility] Medical History Acid reflux (Acute) [...] She was treated by a physician at [place] with a brace. She wore the brace [...] program. This helps. [place] recently flown [place] as [place]. She has HTN, h/o skin [...] W BEND Observed: 06/19/2018 Status: F Source: [place] MIN 6 VW 8:30 AM [facility] REPOSITORY [facility] Imaging Services [address] [place] [address] L/S Spine w Bend Min 6 Vw MR#: [id number] Acct: [id number] Name: FARHAD GLEZ Rep #: [id number] : 1940 F 78 From: Luis Jefferson MD PCP: Xiomara Do MD Status: REG CLI Study: L/S Spine w Bend Min 6 Vw Date of Exam: 06/19/18 Exam# [id number] Ordering Dr: Nae Kumar MD STUDY: X-RAY [...] CC: Xiomara Do MD; Nae Kumar MD Gas Meter Repair Supervisor: Signed PT D/C SUMMARY (1) Observed: 05/30/2018 Status: F Source: [place] 7:17 AM [facility] REPOSITORY [facility] Physical Therapy [address] [place], [place] [address] Fax REHABILITATION SERVICES DISCHARGE SUMMARY MR#: [id number] Acct: [id number] Name: FARHAD GLEZ Rep #: [id number] : 1940 78 From: Roberto Oliveros DPT, [...] please feel free to call me at [phone]. Thank you for the referral of this patient. Sincerely, Roberto Oliveros, DPT, OC <Electronically signed by Roberto Oliveros DPT, OCS, CSCS> 05/30/18 0716 CC: Xiomara Do MD EBTodd Signed INITAL EVALUATION (1) Observed: 04/26/2018 Status: F Source: [place] - PT 9:07 AM [facility] REPOSITORY [facility] Physical Therapy [facility] [address] [place] [address]. [address] [place] [address] Fax REHABILITATION SERVICES INITIAL EVALUATION MR#: [id number] Acct: [id number] Name: FARHAD GLEZ Rep #: [id number] : 1940 77 From: Roberto Oliveros DPT, [...] twisting allowed. saw doc last Monday in [place] and released to [facility] and sent for outpatient as she [...] to be FAXED BACK to us at [phone] for Medicare purposes. Please let me know if there are questions or concerns regarding this plan of care. Physician Signature: Date: <Electronically signed by Roberto Oliveros DPT, OCS, CSCS> 04/26/18 0907 CC: Xiomara Do MD EBG Signed For Medicare only, by signing this I certify the plan of care. Physicians Signature Date CHEST W/WO CONTRAST Observed: 04/03/2018 Status: F Source: CAL 2:58 PM [facility] REPOSITORY [facility] Imaging Services [address] [place] [address] 33315 Chest W/WO Contrast MR#: [id number] Acct: [id number] Name: FARHAD GLEZ Rep #: [id number] : 1940 F 77 From: Chad Wilkins MD PCP: Xiomara Do MD Status: REG CLI Study: Chest W/WO Contrast Date of Exam: 04/03/18 Exam# [id number] Ordering Dr: Xiomara Do MD STUDY: CTA [...] Chad Wilkins MD at 15:45 EDT Tel [phone], Service support , CC: Xiomara Do MD Gas Meter Repair Supervisor: Signed D-DIMER QUANTITATIVE Collected: 04/03/2018 Status: F Source: CAL (DVT/PE) 9:52 AM [facility] REPOSITORY Order Comment: Order Date: 04/03/18 Order Info: 47858-6 - D-DIMER TYPE CODE TESTS RESULT OUT OF RANGE REFERENCE UNITS LAB L300.8000 0.27-0.49 FEU/ug/m High alert D-DIMER 1.52 QUANT Result Comment: D-Dimer ELEVATED (>0.49): Additional studies and clinical assessments are indicated to conclude diagnosis of: Deep Vein Thrombosis (DVT) or Pulmonary Embolism (PE) CRITICAL VALUE VERIFIED. CALLED TO [facility] 04/03/18 Renetta Wyatt. RESULTS READ BACK BY SAME . Performed By: #### L300.8000, L500.2500, L501.4010, L501.9520, L506.0400 #### Cal [facility] [address] [place], [place], [address] BASIC METABOLIC Collected: 04/03/2018 Status: F Source: CAL PROFILE (BMP) 9:52 AM [facility] REPOSITORY Order Comment: Order Date: 04/03/18 Order Info: 0667-1 - BMP Order Info: 82880-9 - TROP Order Info: 3016-3 - TSH [...] #### L300.8000, L500.2500, L501.4010, L501.9520, L506.0400 #### [facility] [address] [place], [place], [address] TROPONIN-I Collected: 04/03/2018 Status: F Source: CAL 9:52 AM [facility] REPOSITORY Order Comment: Order Date: 04/03/18 Order Info: 0667-1 - BMP Order Info: 68303-8 - TROP Order Info: 3016-3 - TSH [...] Not every elevated troponin is indicative of UT. These values should be used with clinical judgement in examining the patient's clinical picture for diagnosis. To establish a diagnosis of UT versus myocardial injury, there must be a demonstrated rise and/or fall in the troponin values, in addition to ischemic symptoms, EKG changes, new regional wall motion abnormality, and/or angiographical evidence. PLEASE NOTE: REFERENCE RANGES EDITED 18 Performed By: #### L300.8000, L500.2500, L501.4010, L501.9520, L506.0400 #### [facility] [address] [place], [address] THYROID STIM HORMONE Collected: 04/03/2018 Status: F Source: CAL (TSH) 9:52 AM [facility] REPOSITORY Order Comment: Order Date: 04/03/18 Order Info: 0667-1 - BMP Order Info: 91098-1 - TROP Order Info: 3016-3 - TSH Order Info: 3024-7 - T4F 'TROP' Serial specimen #1, #2, #3, or #4: 1 TYPE CODE TESTS RESULT OUT OF RANGE REFERENCE UNITS LAB L501.9520 0.358-3.74 uIU/mL Normal TSH 2.45 Performed By: #### L300.8000, L500.2500, L501.4010, L501.9520, L506.0400 #### [facility] [address] [place], [address] T4 FREE DIRECT Collected: 04/03/2018 Status: F Source: CAL 9:52 AM [facility] REPOSITORY Order Comment: Order Date: 04/03/18 Order Info: 0667-1 - BMP Order Info: 01010-8 - TROP Order Info: 3016-3 - TSH Order Info: 3024-7 - T4F 'TROP' Serial specimen #1, #2, #3, or #4: 1 TYPE CODE TESTS RESULT OUT OF RANGE REFERENCE UNITS LAB L506.0400 0.76-1.46 ng/dL Normal T4 FREE 1.09 DIRECT Performed By: #### L300.8000, L500.2500, L501.4010, L501.9520, L506.0400 #### [facility] [place], [address] PROGRESS Observed: 01/19/2018 Status: COMPLETED Source: [place] 10:42 AM [facility] REPOSITORY HNO ID: [id number] Author: Lore Richey Business Services Administrator Service: (none) Author Type: (none) Type: Progress Notes Filed: 01/19/2018 10:44 AM Note Text: Switched physicians. Shirley didn't get enough time and/or couldn't get in for appointments same day/soon enough when she needed an appointment. Wanted Dr. Espinal to know it's not personal. Dr. Espinal removed as PCP. PROGRESS Observed: 01/19/2018 Status: COMPLETED Source: [place] 10:39 AM [facility] REPOSITORY HNO ID: [id number] Author: Lore Richey Business Services Administrator Service: (none) Author Type: (none) Type: Progress Notes Filed: 01/19/2018 10:44 AM Note Text: [facility] G[facility] REGISTRY DOCUMENTATION (OUTSIDE TEAMLET) Provider [...] to 12/2017 appointment) with Provider pcp or PASSPORT APPLICATION EXAMINER Health Maintenance Due: INFLUENZA(1) due on 07/07/2017 Lore Richey Cma CNPTOUTREACH Observed: 01/19/2018 Status: COMPLETED Source: [place] 12:00 AM [facility] REPOSITORY Patient Outreach (INTMWS) FARHAD GLEZ ([id number]) 1940 F Date Time Provider Department 01/19/18 LORE RICHEY ([facility]) INTMWS During your visit today, we recorded the following information about you: Lore Kaiden [facility] 01/19/2018 10:44 AM Signed [facility] G[facility] REGISTRY DOCUMENTATION (OUTSIDE TEAMLET) Provider [...] to 12/2017 appointment) with Provider pcp or PASSPORT APPLICATION EXAMINER Health Maintenance Due: INFLUENZA(1) due on 07/07/2017 Lore Richey Business Services Administrator Lore Richey Business Services Administrator 01/19/2018 10:44 AM Signed Switched physicians. Shirley didn't get enough time and/or couldn't get in for appointments same day/soon enough when she needed an appointment. Wanted Dr. Espinal to know it's not personal. Dr. Espinal removed as PCP. Allergies As of Date: 01/19/2018 Noted Allergy Reaction ADHESIVE TAPE (ROSINS) 09/21/2004 2 - Rash Comments: Bandaids are okay short term LATEX 06/23/2011 2 - Rash 9 - Itching NEOSPORIN (DCFTXVOT-FRIMEYBDCY-YM*12/06/2005 2 - Rash SEASONAL ALLERGIES 03/22/2017 14 - Other: See Comments Date Reviewed: 09/13/2017 Reviewed by: Olivia (Rn) JERRY Mcclain - Fully Assessed Reason for Visit: PHMA/Care Gap Outreach [5498] Prescriptions as of 01/19/2018 Sig: FLUOROURACIL 5 [...] More... Routine general medical examination at a [facility]*INVALID FOR*08/06/2012 More... ABNORMAL LIVER FUNCTION STUDY [...] OPERATIVE REPORT Observed: 01/12/2018 Status: F Source: [place] 8:55 AM [facility] REPOSITORY [facility] Medical Records Department [address] [place] [address] Operative Report 01/12/18 0848 MR#: [id number] Acct: [id number] Name: FARHAD GLEZ Rep #: [id number] : 1940 77 From: Chaparro John MD PCP: Xiomara Do MD Status: REG [facility] Y Location: [place] [address] Problem List (1) GERD (gastroesophageal reflux disease) [...] 01/12/2018 Status: F Source: CAL 8:20 AM [facility] REPOSITORY Patient: FARHAD GLEZ : 1940 (77/F) Acct Num: [id number] Phys: Dora RAMON,Chaparro Unit Num: [id number] Loc: EN Specimen: [id number] Received: 01/12/18 - 1121 Spec Type: Gastric Bx TISSUES TISSUES: A. Gastric mucous membrane B. Cardioesophageal junction C. Gastric mucous membrane D. Esophageal mucous membrane COMMENT A AND B. The results of immunohistochemistry for Helicobacter pylori will be reported separately ([id number]). B. Alcian blue/PAS stain with matched control [...] one cassette. / AM:rg 01/12/18 TC:2 CPT: 59800 x4, 84386 x2, 07622 HEADER OPERATION: EGD with biopsy PRE-OP DIAGNOSIS: [...] on file> Performed By: #### PGASB #### [facility] [address] [place], [address] IMMUNOHISTOCHEMISTRY Observed: 01/12/2018 Status: F Source: [place] 12:00 [facility] REPOSITORY Patient: FARHAD GLEZ : 1940 (77/F) Acct Num: [id number] Phys: Dora RAMON,Chaparro Unit Num: [id number] Loc: EN Specimen: [id number] Received: 01/15/181124 Spec Type: IMMUNO TISSUES TISSUES: A. Stomach, NOS B. Stomach, NOS SPECIMEN INFORMATION: Tissue Source: A Antral biopsy, B Cardia biopsy Clinical Info: GERD, epigastric pain Specimen Number: [id number] A AND B CPT code: 91436 x2 METHODOLOGY: Deparaffinized sections of prefer/formalin-fixed tissue [...] developed and their performance characteristics determined by [facility]. They may not have been cleared or approved by the U.S. Food and Drug Administration. The FDA has determined that such clearance or approval is not necessary. INTERPRETATION: A. Antral biopsy: Negative for Helicobacter pylori organisms. B. Cardia biopsy: Negative for Helicobacter pylori organisms. SJ:ebenezer 01/16/18 PHYSICIAN AND INSTITUTION [facility] [address] [place] [address] Signed Jeovanny Stinson 01/16/18 <signature on file> Performed By: #### PIMM #### [facility] [address] [place] [address]. [place], [address] DEXA BONE DENSITY Observed: 12/19/2017 Status: F Source: [place] STUDY () 9:38 AM [facility] REPOSITORY [facility] Imaging Services [address] [place] [address] [place] [address] Dexa Bone Density Study () MR#: [id number] Acct: [id number] Name: FARHAD GLEZ Rep #: [id number] : 1940 F 77 From: Chad Wilkins MD PCP: Xiomara Do MD Status: REG CLI Study: Dexa Bone Density Study () Date of Exam: 12/19/17 Exam# [id number] Ordering Dr: Xiomara Do MD STUDY: DUAL [...] Chad Wilkins MD at 15:25 EST Tel [phone], Service support , CC: Xiomara Do MD 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 Iggy eBy with some biopsy showing melanosis coli. More [...] No other Exam Const General: healthy appearing [facility] Head: normal to inspection Eyes General: appearance [...] of colon cancer in mother Z80.0 12/14/17 0608 <Electronically signed by Chaparro John MD> Date Chaparro John MD Cosigner Signature: Date (if applicable) CC: Xiomara Do MD ALLERGIES ALLERGIES DATE TYPE / CODE NAME / CODE REACTION SEVERITY SOURCE 11/28/2018 Drug neomycin/B331326 Rash Unknown [facility]416 775(RXNORM) Hospital 223223(SNOM Repository ED CT) 10/13/2018 Drug Latex, Natural Rash [place] [facility] Allergy/416 Rubber/M50115270 Hospital 846664(SNOM 6(RXNORM) Repository ED CT) 10/13/2018 Drug bacitracin/F0060 Rash MO [facility] Allergy/416 31452(RXNORM) Hospital 650426(SNOM Repository ED CT) 10/13/2018 Drug polymyxin Rash [place] [facility] Allergy/416 B/Q321406934(RXN Hospital 880965(SNOM ORM) Repository ED CT) 03/22/2017 Environ/420 SEASONAL OTHER: SEE C [facility] 364638(SNOM ALLERGIES [facility]) Repository 06/23/2011 DRUG LATEX RASH [facility] INGREDI/419 [facility] 047247(SNOM Repository ED CT) 12/06/2005 DRUG/273110 NEOMYCIN-BACITRA RASH [facility] 003(SNOMED OMAR-POLYMYXIN [facility]) Repository 09/21/2004 Chemical/42 ADHESIVE TAPE RASH [facility] 3701901(SNO (ROSINS) [facility] MED [facility]) Repository ENCOUNTERS ENCOUNTERS ADMIT/DISCHARGE ACCOUNT ADMITTING ENCOUNTER LOCATION SOURCE NUMBER CLASS 11/29/2018 [id number] Ambulatory Building:[facility] [place] Practices Repository 11/28/2018/11/28/[id number] ing:ENRoom: Repository AC10 11/27/2018 [id number] [facility] ing:[facility] Repository 11/27/2018 [id number] Ambulatory BMSBuilding:B [place] MS.CF.[facility] Repository 11/27/2018 [id number] Ambulatory [facility] ing:[facility] Repository 11/22/2018 [id number] Ambulatory [facility] ing:CT Repository 11/12/2018/11/13/19 [id number] Ambulatory [address] Repository 10/13/2018/10/13/20 [id number] Ambulatory BMSBuilding:B [place] 18 MS.WSA [facility] Repository 09/18/2018/09/18/20 [id number] Ambulatory BMSBuilding:B [facility] 18 MS.[facility] Hospital Repository 09/12/2018 [id number] Ambulatory [facility] HospitalBuild Hospital ing:OPBI Repository 08/22/2018/08/22/20 [id number] Ambulatory [address] Repository 08/13/2018/08/14/20 [id number] Ambulatory [address] Repository 07/25/2018 [id number] Ambulatory [facility] HospitalBuild Hospital ing:MASS Repository 06/21/2018 [id number] Ambulatory [facility] Hospital[facility] Hospital ing:CVS Repository 06/21/2018 [id number] Ambulatory BMSBuilding:W [facility] Repository 06/19/2018 [id number] Ambulatory [facility] Hospital[facility] Hospital ing:HPRAD Repository 06/19/2018/06/19/20 [id number] Ambulatory BMSBuilding:B [place] 18 MS.[facility] Hospital Repository 05/29/2018/05/29/20 [id number] Ambulatory [address] HospitalBuild Hospital ing:PT Repository 04/04/2018 [id number] Ambulatory [facility] Hospital[facility] Hospital ing:PSN Repository 04/04/2018 [id number] Ambulatory BMSBuilding:W [facility] Repository 04/03/2018 [id number] Ambulatory [facility] Hospital[facility] Hospital ing:CT Repository 04/03/2018 [id number] Ambulatory [facility] Hospital[facility] Hospital ing:LABSPEC Repository 01/12/2018/01/13/20 [id number] Ambulatory [address] HospitalBuild Hospital ing:EN Repository 01/12/2018 [id number] Ambulatory BMSBuilding:B [place] MS.CF.[facility] Hospital Repository 12/19/2017 [id number] Ambulatory [facility] HospitalBuild Hospital ing:BD Repository 12/14/2017/12/14/19 [id number] Ambulatory BMSBuilding:B [place] 18 MS.[facility] Hospital Repository FUNCTIONAL STATUS FUNCTIONAL STATUS No Functional Status Records FoundEQUIPMENT EQUIPMENT No Equipment Records FoundPAYERS PAYERS ENCOUNTER GUARANTOR PAYER SUBSCRIBER SOURCE 11/29/2018 FARHAD T Primary FARHAD T OHIP Practices CROPPDOB: Insurance:MedicarePol CROPPDOB: Repository [id number] icy Number: [id number] [id number] [address] [place], [place] Date:8775-30-86HgkgTrona, [place] [address]Kcb: 330) Name:IT INTERN [address] [address]Hjm: [id number], [place] [phone] () (HP)Tel: [phone]: () [phone] 11/29/2018 Secondary FARHAD T OHIP Practices Insurance:CignaPolicy CROPPDOB: Repository Number: [id number] [address] Date:7239-18-51QfvdTrona, [place] Name:FP. Mun[address] [address]Ubo: [phone], [place] [phone] () [address]DA: 11/28/2018 FARHAD Madelaine Primary FARHAD Burkett [facility] [id number] Insurance:MEDICARE CROPPDOB: [facility] PART A olic [id number], [place] Number: Repository [address]Xsd: 330 [id number] [phone] () Date:2018-10-22 11/28/2018 Secondary FARHAD T Cal Insurance:CIGNAPolicy CROPPDOB: Community Number: [id number] Hospital [id number] Repository Date:8016-05-60[address]EISZ[place], [place] [address]RX: 11/28/2018 Tertiary NOT GIVENUNK Cal Insurance:SELF PAY [facility] Number: Effective Repository Date:2018-10-22 11/27/2018 FARHAD T Primary NOT GIVENUNK Cal [id number] Insurance:SELF PAY [place] Number: Effective Repository 115[address]Dyt: (330) Date:2018-10-22 [phone] () 11/27/2018 FARHAD Burkett Primary Insurance:[facility] FARHAD Burkett Cal [id number] PACKAGE PLANPolicy CROPPDOB: [facility] RUN Number: [id number], [place] [id number] Repository [address]Tnt: (330) Date:2018-10-227517 () 11/27/2018 Secondary NOT GIVENUNK [place] Insurance:SELF PAY [facility] Number: Effective Repository Date:2018-11-27 11/27/2018 FARHAD Burkett Primary FARHAD Burkett Henry [id number] Insurance:MEDICARE CROPPDOB: [facility] RUN PART A [facility] [id number], [place] Number: Repository [address]Mgb: [phone] [id number] [phone] () Date:2018-10-22 11/27/2018 Secondary FARHAD Burkett Cal Insurance:CIGNAPolicy CROPPDOB: Community Number: [id number] Hospital [id number] Repository Date:7579-16-31MQ NIKHIL [address]48[address]FMITXNYANND, [place] [address]GS: 11/27/2018 Tertiary NOT GIVENUNK [place] Insurance:SELF PAY [facility] Number: Effective Repository Date:2018-10-22 11/22/2018 FARHAD Burkett Primary Insurance:[facility] FARHAD Riveraoster [id number] PACKAGE PLANPolicy CROPPDOB: [facility] RUN Number: [id number], [place] [id number] Repository [address]Zxc: (330) Date:2018-10-22 [phone] () 11/22/2018 Secondary NOT GIVENUNK Cal Insurance:SELF PAY [facility] Number: Effective Repository Date:2018-10-22 10/13/2018 FARHAD Burkett Primary FARHAD Burkett Cal [id number] Insurance:MEDICARE CROPPDOB: [facility] RUN PART A [facility] [id number] [place] Number: Repository [address]Cmj: (330 [id number] [phone] () Date:2018-10-09 10/13/2018 Secondary FARHAD Burkett [place] Insurance:CIGNAPolicy CROPPDOB: Community Number: [id number] Hospital [id number] Repository Date:5469-89-69LM [address], [place] [address]RE: 10/13/2018 Tertiary NOT GIVENUNK Cal Insurance:SELF PAY [facility] Number: Effective Repository Date:2018-10-13 09/18/2018 FARHAD Burkett Primary FARHAD Burkett Cal [id number] Insurance:MEDICARE CROPPDOB: Community [address] PART A [facility] [id number], [place] Number: Repository [address]Cov: 330 [id number] [phone] () Date:2018-06-19 09/18/2018 Secondary FARHAD Burkett Cal Insurance:CIGNAPolicy CROPPDOB: Community Number: [id number] Hospital [id number] Repository Date:5074-40-56[address]ALORAEMNFXH, [place] [address]YB: 09/18/2018 Tertiary NOT GIVENUNK Cal Insurance:SELF PAY [facility] Number: Effective Repository Date:2018-09-18 09/12/2018 FARHAD Burkett Primary FARHAD Burkett Henry [id number] Insurance:MEDICARE CROPPDOB: [facility] [id number] [facility] Number: Repository [address]Esx: 330 [id number] [phone] () Date:2018-06-26 09/12/2018 Secondary FARHAD Burkett Cal Insurance:CIGNAPolicy CROPPDOB: Community Number: [id number] Hospital [id number] Repository Date:7031-34-01LG [address]EOGJTIMZEKC, [place] [address]MH: 09/12/2018 Tertiary NOT GIVENUNK Cal Insurance:SELF PAY [facility] Number: Effective Repository Date:2018-06-26 07/25/2018 FARHAD Burkett Primary NOT GIVENUNK Cal [id number] Insurance:SELF PAY [facility], [place] Number: Effective Repository [address]Zda: (330) Date:2018-06-25 [phone] () 06/21/2018 FARHAD Burkett Primary FARHAD Burkett Cal [id number] Insurance:MEDICARE CROPPDOB: [facility] PART A [facility] [id number] [facility] Number: Repository [address]Cba: 330 [id number] [phone] () Date:2018-05-17 06/21/2018 Secondary FARHAD Madelaine Cal Insurance:CIGNAPolicy CROPPDOB: Community Number: [id number] Hospital [id number] Repository Date:9269-40-68[address]RPTBVIIJFKB, [place] [address]UB: 06/21/2018 Tertiary NOT GIVENUNK [place] Insurance:SELF PAY [facility] Number: Effective Repository Date:2018-05-17 06/21/2018 FARHAD Burkett Primary FARHAD Burkett Henry [id number] Insurance:MEDICARE CROPPDOB: [facility] PART A [facility] [id number] [facility] Number: Repository [address]Let: 330 [id number] [phone] () Date:2018-05-17 06/21/2018 Secondary FARHAD Madelaine Cal Insurance:CIGNAPolicy CROPPDOB: Community Number: [id number] Hospital [id number] Repository Date:3042-13-15[address]YPNSCHKPRPA, [place] [address]CW: 06/21/2018 Tertiary NOT GIVENUNK [place] Insurance:SELF PAY [facility] Number: Effective Repository Date:2018-06-21 06/19/2018 FARHAD Madelaine Primary FARHAD Burkett Henry [id number] Insurance:MEDICARE CROPPDOB: Community [address] PART A [facility] [id number] [facility] Number: Repository [address]Wdk: 330 [id number] [phone] () Date:2018-06-19 06/19/2018 Secondary FARHAD Burkett Cal Insurance:CIGNAPolicy CROPPDOB: Community Number: [id number] Hospital [id number] Repository Date:7034-30-88MB [address]VTNCWDBZDZX, [place] [address]RL: 06/19/2018 Tertiary NOT GIVENUNK Cal Insurance:SELF PAY [facility] Number: Effective Repository Date:2018-06-19 06/19/2018 FARHAD Burkett Primary FARHAD Burkett Cal [id number] Insurance:MEDICARE CROPPDOB: [facility] PART A [facility] [id number] [facility] Number: Repository [address]Vqa: 330 [id number] [phone] () Date:2018-03-30 06/19/2018 Secondary FARHAD Burkett Cal Insurance:CIGNAPolicy CROPPDOB: Community Number: [id number] Hospital [id number] Repository Date:4822-83-30[address]USWONDRUQKM, [place] [address]FB: 06/19/2018 Tertiary NOT GIVENUNK Cal Insurance:SELF PAY [facility] Number: Effective Repository Date:2018-06-19 05/29/2018 FARHAD Burkett Primary FARHAD Burkett Cal [id number] Insurance:MEDICARE CROPPDOB: [facility] PART A [facility] [id number] [facility] Number: Repository [address]Elg: 330 [id number] [phone] () Date:2003-05-06 05/29/2018 Secondary FARHAD Burkett Cal Insurance:CIGNAPolicy CROPPDOB: Community Number: [id number] Hospital [id number] Repository Date:9049-51-40LZ [address]FNCWQLYMYMI, [place] [address]NO: 05/29/2018 Tertiary NOT GIVENUNK Cal Insurance:SELF PAY [facility] Number: Effective Repository Date:2018-04-23 04/04/2018 FARHAD Burkett Primary FARHAD Burkett Cal [id number] Insurance:MEDICARE CROPPDOB: Community [address] PART A [facility] [id number] [facility] Number: Repository [address]Qxq: [id number] [phone] Date:2018-04-03 () 04/04/2018 Secondary FARHAD Burkett [place] Insurance:CIGNAPolicy CROPPDOB: Community Number: [id number] Hospital [id number] Repository Date:9988-53-79[address] [address]KJ: 04/04/2018 Tertiary NOT GIVENUNK [place] Insurance:SELF PAY [facility] Number: Effective Repository Date:2018-04-03 04/04/2018 FARHAD Burkett Primary FARHAD Burkett Cal [id number] Insurance:MEDICARE CROPPDOB: [facility] RUN PART A [facility] [id number] [facility] Number: Repository [address]Feb: 330 [id number] [phone] () Date:2018-04-03 04/04/2018 Secondary FARHAD Burkett [place] Insurance:CIGNAPolicy CROPPDOB: Community Number: [id number] Hospital [id number] Repository Date:2885-46-62ML [address], [place] [address]TA: 04/04/2018 Tertiary NOT GIVENUNK [place] Insurance:SELF PAY [facility] Number: Effective Repository Date:2018-04-04 04/03/2018 FARHAD Burkett Primary FARHAD Burkett [place] [id number] Insurance:MEDICARE CROPPDOB: Community [place] PART A [id number] [place] Number: Repository [id number]: [id number] [phone] Date:2018-04-03 () 04/03/2018 Secondary FARHAD Burkett [place] Insurance:CIGNAPolicy CROPPDOB: Community Number: [id number] Hospital [id number] Repository Date:9018-21-41ZT [address]QBX[address]TV, [place] [address]TP: 04/03/2018 Tertiary NOT GIVENUNK [place] Insurance:SELF PAY [facility] Effective Rep[facility] Date:2018-04-03 04/03/2018 FARHAD Burkett Primary FARHAD Burkett [place] [id number] Insurance:MEDICARE CROPPDOB: Community [place] PART A [facility] [id number] [place] Number[facility] Repository [id number]: [id number] [phone] Date:2018-04-03 () 04/03/2018 Secondary FARHAD Burkett [place] Insurance:CIGNAPolicy CROPPDOB: Community Number: [id number] Hospital [id number] Repository Date:0972-73-18QD [address]XHM[place]J[address], [place] [address]EW: 04/03/2018 Tertiary NOT GIVENUNK [place] Insurance:SELF PAY [facility]: Effective Repository Date:2018-04-03 01/12/2018 FARHAD Burkett Primary FARHAD Burkett [place] [id number] Insurance:MEDICARE CROPPDOB: Community [place] PART A [facility] [id number] [place] Number: Repository [id number]: [id number] [phone] Date:2017-12-14 () 01/12/2018 Secondary FARHAD Burkett [place] Insurance:CIGNAPolicy CROPPDOB: Community Number: [id number] Hospital [id number] Repository Date:2816-42-87[address]OSNRWEMSS[place], [place] [address]NR: 01/12/2018 Tertiary NOT GIVENUNK [place] Insurance:SELF PAY [facility] Number: Effective Repository Date:2017-12-14 01/12/2018 FARHAD Burkett Primary FARHAD Burkett [place] [id number] Insurance:MEDICARE CROPPDOB: Community [place] PART A [facility] [id number] [place] [facility] Repository [id number]: [id number] [phone] Date:2017-12-144 (HP) 01/12/2018 Secondary FARHAD Burkett [place] Insurance:CIGNAPolicy CROPPDOB: Community Number: [id number] Hospital [id number] Repository Date:5516-11-90CM [address] [address]CK: 01/12/2018 Tertiary NOT GIVENUNK [place] Insurance:SELF PAY [facility] Number: Effective Repository Date:2018-01-12 12/19/2017 FARHAD Burkett Primary NOT GIVENUNK [place] [id number] Insurance:SELF PAY [facility] Number: Effective Repository [id number]: Date:2017-11-13 ~330 -4 () 12/14/2017 FARHAD Burkett Primary FARHAD Burkett [place] [id number] Insurance:MEDICARE CROPPDOB: [facility] PART A [facility] [id number] Number: Repository [address]Myr: 330 [id number] [phone] () Date:2017-11-13 12/14/2017 Secondary FARHAD Madelaine [place] Insurance:CIGNAPolicy CROPPDOB: Community Number: [id number] Hospital [id number] Repository Date:7002-24-66[address], [place] [address]JO: 12/14/2017 Tertiary NOT GIVENUNK [place] Insurance:SELF PAY [facility] Number: Effective Repository Date:2017-11-13 SOCIAL HISTORY SOCIAL HISTORY No Social History Records FoundFAMILY HISTORY FAMILY HISTORY No Family History Records FoundADVANCE DIRECTIVES ADVANCE DIRECTIVES No Advanced Directives Records FoundINFORMATION SOURCE INFORMATION SOURCE DATE CREATED AUTHOR AUTHOR'S ORGANIZATION 12/02/2018 [place]
== END ==
PROVIDERS: Family Provider Internal Medicine; PCP Internal Medicine; Referring Provider Internal Medicine; Visit Provider Internal Medicine
DX: R00.0 Tachycardia, unspecified (principal); R06.02 Shortness of breath
CPT/HCPCS: 93306

== ENCOUNTER 2018-11-28 05:21 | Day surgery (SDC) | payer MEDICARE, OTHER, SELFPAY ==
[2018-10-13 10:08] VITALS: BMI 29.6
[2018-11-22 12:52] VITALS: BMI 27.6
[2018-11-28] VITALS (7 sets, daily range): BP systolic 120–154; BP diastolic 73–90; PULSE 75–91; RESP 16–20; TEMP 36.2–36.6; O2SAT 94–100; BMI 27.8
--- NOTE | 2018-11-28 05:57 | PCM.HP.STD ---
Problem List (1) Acute blood loss anemia Status: Acute (2) GERD (gastroesophageal reflux disease) Status: Acute History of Present Illness Date of Admission: 11/28/18 The patient is a 78 year old F who I saw in the office on October 13, 2018. She was hospitalized at [facility] in [place]. She was found to have a very large hiatal hernia and grade C erosive esophagitis and GI blood loss anemia. Her BUN at that time was normal. Her EG junction was said to be at 33 cm. On September 28, [address] scan the abdomen pelvis showed a large hiatal hernia liver cysts and L1 compression. After her initial bleed it was recommended that she have a follow-up EEG G at 2 months. She is presenting for that examination at this time. She was converted from H2 elkin therapy ranitidine to omeprazole therapy. She did receive 2 units of blood transfusion while she was in [place] and at that point prior to discharge achieved a high hemoglobin of 8. Recent laboratory of this demonstrated a hemoglobin that has increased to 11. She has no current complaints. It was offered to her that she consider tertiary referral for consideration of repair of her large hiatal hernia. Past Medical History Medical History: Medical History (Last Updated 10/13/18 @ 09:32 by Geeta Anguiano) Acute blood loss anemia (Acute) D62 Acid reflux K21.9 Anemia D64.9 Hemorrhoids K64.9 Hiatal hernia K44.9 History of hysterectomy Z98.890, Z90.710 Hyperlipidemia E78.5 Hypertension I10 Allergies bacitracin [From Polysporin] Allergy (Intermediate, Verified 10/13/18 09:29) rash Latex, Natural Rubber Allergy (Intermediate, Verified 10/13/18 09:29) rash polymyxin B [From Polysporin] Allergy (Intermediate, Verified 10/13/18 09:29) rash neomycin [From Neosporin ([id number])] Allergy (Verified 11/28/18 05:54) Rash Home Medications: Ambulatory Orders Medication Instructions Recorded amlodipine 2.5 mg tablet 5 mg PO QDAY 12/14/17 ascorbate calcium 500 mg tablet 500 mg PO QDAY 12/14/17 atorvastatin 10 mg tablet 10 mg PO QDAY 12/14/17 coenzyme Q10 100 mg capsule 100 mg PO QDAY 12/14/17 multivitamin capsule 1 cap PO QDAY 12/14/17 spironolactone 50 mg tablet 50 mg PO QDAY 12/14/17 Omeprazole 40 mg PO DAILY #60 capsule. 01/12/18 Ascorbic Acid [Vitamin C] 250 mg PO BIDCM 11/28/18 Ferrous Sulfate 325 mg PO BIDCM 11/28/18 Surgical History: Surgical History (Last Updated 10/13/18 @ 09:17 by Geeta Anguiano) History of colonoscopy Onset Date: ~06/2013 Z98.890 History of esophagogastroduodenoscopy (EGD) Z98.890 Smoking Status: Never smoker Review of Systems Constitutional: Denies: Anorexia Cardiovascular: Denies: Chest Pain Respiratory: Denies: Cough Gastrointestinal: Denies: Abdominal Pain Neurological: Denies: Balance problems Endocrine: Denies: Change in Body Habitus VTE Information - Inpt Only VTE Present on Admission: No - Physical Exam General: Alert, Oriented x3, Cooperative, No apparent distress HEENT: Atraumatic Oral: Moist Mucosa Neck: Supple Lungs: Clear to auscultation Cardiovascular: Regular rate, Regular Rhythm Abdomen: Bowel Sounds Present, Soft, Non Tender Neurological: Cranial nerves II-XII grossly intact Psych/Mental Status: Normal Affect Vital Signs Temp Pulse Resp BP Pulse Ox 97.7 F L 91 20 H 120/85 H 100 11/28/18 05:45 11/28/18 05:45 11/28/18 05:45 11/28/18 05:45 11/28/18 05:45 Oxygen Delivery Method Room Air Weight: 165 lb Body Mass Index (BMI) 27.8 Assessment/Plan All Active Problems (Last Updated 10/13/18 @ 09:32 by Geeta Anguiano) Acute blood loss anemia (Acute) GERD (gastroesophageal reflux disease) (Acute) Personal history of colonic polyps (Acute) Family history of colon cancer in mother (Acute) 78-year-old female with a significant GI blood loss anemia requiring 2 units of blood transfusion and is slowly improved her hemoglobin from a [place] discharge at 8 to currently 11. I do recommend a follow-up esophagogastroduodenoscopy with possible biopsy if indicated. She is aware of the technique, benefits, risks, alternatives. We have scheduled we will proceed as noted. Chaparro John M.D., F.A.C.S.
--- NOTE | 2018-11-28 06:03 | HP.PCM_ITS ---
Problem List (1) Acute blood loss anemia Status: Acute (2) GERD (gastroesophageal reflux disease) Status: Acute History of Present Illness Date of Admission: 11/28/18 The patient is a 78 year old F who I saw in the office on October 13, 2018. She was hospitalized at [facility] in [place]. She was found to have a very large hiatal hernia and grade C erosive esophagitis and GI blood loss anemia. Her BUN at that time was normal. Her EG junction was said to be at 33 cm. On September 28, [address] scan the abdomen pelvis showed a large hiatal hernia liver cysts and L1 compression. After her initial bleed it was recommended that she have a follow-up EEG G at 2 months. She is presenting for that examination at this time. She was converted from H2 elkin therapy ranitidine to omeprazole therapy. She did receive 2 units of blood transfusion while she was in [place] and at that point prior to discharge achieved a high hemoglobin of 8. Recent laboratory of this demonstrated a hemoglobin that has increased to 11. She has no current complaints. It was offered to her that she consider tertiary referral for consideration of repair of her large hiatal hernia. Past Medical History Medical History: Medical History (Last Updated 10/13/18 @ 09:32 by Geeta Anguiano) Acute blood loss anemia (Acute) D62 Acid reflux K21.9 Anemia D64.9 Hemorrhoids K64.9 Hiatal hernia K44.9 History of hysterectomy Z98.890, Z90.710 Hyperlipidemia E78.5 Hypertension I10 Allergies bacitracin [From Polysporin] Allergy (Intermediate, Verified 10/13/18 09:29) rash Latex, Natural Rubber Allergy (Intermediate, Verified 10/13/18 09:29) rash polymyxin B [From Polysporin] Allergy (Intermediate, Verified 10/13/18 09:29) rash neomycin [From Neosporin ([id number])] Allergy (Verified 11/28/18 05:54) Rash Home Medications: Ambulatory Orders Medication Instructions Recorded amlodipine 2.5 mg tablet 5 mg PO QDAY 12/14/17 ascorbate calcium 500 mg tablet 500 mg PO QDAY 12/14/17 atorvastatin 10 mg tablet 10 mg PO QDAY 12/14/17 coenzyme Q10 100 mg capsule 100 mg PO QDAY 12/14/17 multivitamin capsule 1 cap PO QDAY 12/14/17 spironolactone 50 mg tablet 50 mg PO QDAY 12/14/17 Omeprazole 40 mg PO DAILY #60 capsule. 01/12/18 Ascorbic Acid [Vitamin C] 250 mg PO BIDCM 11/28/18 Ferrous Sulfate 325 mg PO BIDCM 11/28/18 Surgical History: Surgical History (Last Updated 10/13/18 @ 09:17 by Geeta Anguiano) History of colonoscopy Onset Date: ~06/2013 Z98.890 History of esophagogastroduodenoscopy (EGD) Z98.890 Smoking Status: Never smoker Review of Systems Constitutional: Denies: Anorexia Cardiovascular: Denies: Chest Pain Respiratory: Denies: Cough Gastrointestinal: Denies: Abdominal Pain Neurological: Denies: Balance problems Endocrine: Denies: Change in Body Habitus VTE Information - Inpt Only VTE Present on Admission: No - Physical Exam General: Alert, Oriented x3, Cooperative, No apparent distress HEENT: Atraumatic Oral: Moist Mucosa Neck: Supple Lungs: Clear to auscultation Cardiovascular: Regular rate, Regular Rhythm Abdomen: Bowel Sounds Present, Soft, Non Tender Neurological: Cranial nerves II-XII grossly intact Psych/Mental Status: Normal Affect Vital Signs Temp Pulse Resp BP Pulse Ox 97.7 F L 91 20 H 120/85 H 100 11/28/18 05:45 11/28/18 05:45 11/28/18 05:45 11/28/18 05:45 11/28/18 05:45 Oxygen Delivery Method Room Air Weight: 165 lb Body Mass Index (BMI) 27.8 Assessment/Plan All Active Problems (Last Updated 10/13/18 @ 09:32 by Geeta Anguiano) Acute blood loss anemia (Acute) GERD (gastroesophageal reflux disease) (Acute) Personal history of colonic polyps (Acute) Family history of colon cancer in mother (Acute) 78-year-old female with a significant GI blood loss anemia requiring 2 units of blood transfusion and is slowly improved her hemoglobin from a [place] discharge at 8 to currently 11. I do recommend a follow-up esophagogastroduodenoscopy with possible biopsy if indicated. She is aware of the technique, benefits, risks, alternatives. We have scheduled we will proceed as noted. Chaparro John M.D., F.A.C.S.
--- NOTE | 2018-11-28 06:30 | IMM_PTH ---
PATIENT: FARHAD LOPEZ LOC: EN U#:[id number] AGE/SX: 78/F ROOM: RE11/28/[address]: Dr. Chaparro John MD : 1940 BED: DIS: 11/28/2018 SPEC #: [id number] RECD: 11/28/18 13:02 STATUS: BRITTANY REBECCA #: [id number] OTTO: 11/28/18 06:[address]: Chaparro John DEPT: IMMUNOHISTOCHEMISTRY RECD BY: Nathalie Stokes ENTERED: 11/28/18 13:03 SP TYPE: IMMUNO OTHR DR: Dr. Xiomara Do MD Tissues: A - Stomach, NOS Procedures: H Pylori (initial) PHYSICIAN & INSTITUTION [place] [id number] SPECIMEN INFORMATION: Tissue Source: A - Antral biopsy Clinical Info: Acute blood loss anemia Specimen Number: [id number] CPT code: 24292 METHODOLOGY: Deparaffinized sections of prefer/formalin-fixed tissue or PAP/DQ stained slides are incubated with monoclonal/polyclonal antibodies/oligonucleotide probes. Localization is made via biotin free immunoperoxidase method. Appropriate controls are performed and reacted as expected. Results on target cell population are indicated in the following table: RESULTS: ANTIBODY / CLONE RESULT Block A H Pylori (polyclonal) negative These tests were developed and their performance characteristics determined by [facility]. They may not have been cleared or approved by the U.S. Food and Drug Administration. The FDA has determined that such clearance or approval is not necessary. INTERPRETATION: A. Antral biopsy: Negative for Helicobacter pylori organisms. AM:ebenezer 11/29/18
--- NOTE | 2018-11-28 06:30 | EGD_PTH ---
PATIENT: FARHAD LOPEZ LOC: EN U#:[id number] AGE/SX: 78/F ROOM: RE11/28/[address]: Dr. Chaparro John MD : 1940 BED: DIS: 11/28/2018 SPEC #: [id number] RECD: 11/28/18 09:34 STATUS: BRITTANY REBECCA #: [id number] OTTO: 11/28/18 06:[address]: Chaparro John DEPT: SURGICAL PATHOLOGY RECD BY: Dharmesh Schumacher ENTERED: 11/28/18 10:55 SP TYPE: EGD BIOPSY SADIE DR: Dr. Xiomara Do MD Tissues: A - Gastric mucous membrane B - Esophageal mucous membrane C - Gastric mucous membrane D - Esophageal mucous membrane Procedures: Surgery Specimen Level IV HEADER OPERATION: EGD PRE-OP DIAGNOSIS: Acute blood loss anemia TISSUE SUBMITTED: A - Antral biopsy histo and H. pylori, B - Distal esophagus biopsy, C - Fundic polyp biopsy, D - Mid esophagus biopsy MICROSCOPIC DIAGNOSIS A. Gastric antrum, biopsy: Minimal chronic inflammation. See comment. B. Distal esophagus, biopsy: Fragments of squamous mucosa with no pathologic change. Gastroesophageal junctional mucosa with mild chronic inflammation. C. Fundic gland polyp, biopsy: Consistent with fundic gland polyp. D. Mid esophagus, biopsy: Fragments of benign squamous mucosa. No evidence of inflammation. AM:ebenezer 11/29/18 COMMENT A. The results of immunohistochemistry for Helicobacter pylori will be reported separately ([id number]). MICROSCOPIC DESCRIPTION Slides are reviewed. GROSS DESCRIPTION A - Received in fixative is one container labeled with the patient's name and designated antral biopsy. The specimen consists of one irregular fragment of light edmonds soft tissue that measures 0.5 x 0.2 x 0.1 cm. The specimen is totally submitted in one cassette. B - Received in fixative is one container labeled with the patient's name and designated distal esophagus. The specimen consists of multiple irregular fragments of light edmonds soft tissue that in aggregate measure 0.6 x 0.6 x 0.1 cm. The specimen is totally submitted in one cassette. C - Received in fixative is one container labeled with the patient's name and designated fundic polyp biopsy. The specimen consists of one irregular fragment of light edmonds soft tissue that measures 0.6 x 0.2 x 0.1 cm. The specimen is totally submitted in one cassette. D - Received in fixative is one container labeled with the patient's name and designated mid esophagus biopsy. The specimen consists of one irregular fragment of light edmonds soft tissue that measures 0.3 x 0.2 x 0.1 cm. The specimen is totally submitted in one cassette. / AM:ebenezer 11/28/18 TC:3 CPT: 29146 x4
--- NOTE | 2018-11-28 12:47 | OP.ENDO_ITS ---
Patient Name: Sandie Glez Procedure Date: 11/28/2018 6:08 AM Date of : 1940 Age: 78 Procedure: Upper GI endoscopy Indications: Iron deficiency anemia Providers: Chaparro John MD Referring MD: Chaparro John MD Medicines: Midazolam 2 mg IV, Fentanyl 75 micrograms IV Complications: No immediate complications. Procedure: Pre-Anesthesia Assessment: - Prior to the procedure, a History and Physical was performed, and patient medications and allergies were reviewed. The patient's tolerance of previous anesthesia was also reviewed. The risks and benefits of the procedure and the sedation options and risks were discussed with the patient. All questions were answered, and informed consent was obtained. Prior Anticoagulants: The patient has taken no previous anticoagulant or antiplatelet agents. ASA Grade Assessment: II - A patient with mild systemic disease. After reviewing the risks and benefits, the patient was deemed in satisfactory condition to undergo the procedure. After obtaining informed consent, the endoscope was passed under direct vision. Throughout the procedure, the patient's blood pressure, pulse, and oxygen saturations were monitored continuously. The gastroscope was introduced through the mouth, and advanced to the second part of duodenum. The upper GI endoscopy was accomplished without difficulty. The patient tolerated the procedure well. Moderate Sedation: Moderate (conscious) sedation was personally administered by the endoscopist. The following parameters were monitored: oxygen saturation, heart rate, blood pressure, and response to care. Total physician intraservice time was 12 minutes. Scope In: 6:35:54 AM Scope Out: 6:45:43 AM Total Procedure Duration Time 0 hours 9 minutes 49 seconds Findings: The Z-line was irregular and was found 30 cm from the incisors. Biopsies were taken with a cold forceps for histology. An 8 cm hiatal hernia was present. Diffuse moderately erythematous mucosa without bleeding was found in the gastric antrum. Biopsies were taken with a cold forceps for histology. The examined duodenum was normal. A few sessile polyps with no bleeding and no stigmata of recent bleeding were found in the gastric fundus. The polyp was removed with a cold biopsy forceps. Resection and retrieval were complete. Impression: - Z-line irregular, 30 cm from the incisors. Biopsied. - 8 cm hiatal hernia. Mid esophagus grossly normal. Cold biopsied obtained - Erythematous mucosa in the antrum. Biopsied. - Normal examined duodenum. - A few gastric polyps. One Resected and retrieved. Recommendation: - Resume previous diet. - Continue present medications. - Telephone my office for pathology results in 1 week. - Discharge patient to home (with escort). Consider tertiary consultation for hiatal hernia repair Procedure Code(s): --- Professional --- 77484, Esophagogastroduodenoscopy, flexible, transoral; with biopsy, single or multiple 11941, 59, Moderate sedation services provided by the same physician or other qualified health adult care provider performing the diagnostic or therapeutic service that the sedation supports, requiring the presence of an independent trained observer to assist in the monitoring of the patient's level of consciousness and physiological status; initial 15 minutes of intraservice time, patient age 5 years or older Diagnosis Code(s): --- Professional --- K22.8, Other specified diseases of esophagus K44.9, Diaphragmatic hernia without obstruction or gangrene K31.89, Other diseases of stomach and duodenum K31.7, Polyp of stomach and duodenum D50.9, Iron deficiency anemia, unspecified CPT copyright 2017 [employer]. All rights reserved. The codes documented in this report are preliminary and upon scratch finisher review may be revised to meet current compliance requirements. Chaparro John MD 11/28/2018 6:54:10 AM This report has been signed electronically. Number of Addenda: 0 Note Initiated On: 11/28/2018 6:08 AM
--- OUTSIDE RECORDS SUMMARY | 2019-01-30 01:23 | XMS RPT_ITS ---
:1940 Author Organization [facility] Support Name Relationship Address Phone FONSECAMARIA LUISAALEX NaturalDaughter [address] + [place] [address] KIESEL, WILLIAM M NaturalDaughter [address] + [place] [address] R Unknown Unavailable Unavailable FONSECAALEX NaturalDaughter [address] [place] [address] DR + [place] [address] KIESEL, WILLIAM M NaturalDaughter [address] + [place] [address] R Unknown Unavailable Unavailable ALEX FONSECA NaturalDaughter [address] + [place] [address] KIESEL, WILLIAM M NaturalDaughter [address] + [place] [address] R Unknown Unavailable Unavailable ALEX FONSECA NaturalDaughter [address] + [place] [address] KIESEL, WILLIAM M NaturalDaughter [address] + [place] [address] R Unknown Unavailable Unavailable RAYMUNDO ALEX NaturalDaughter [address] + [place] [address] KIESEL, WILLIAM M NaturalDaughter [address] + [place] [address] R Unknown Unavailable Unavailable ALEX FONSECA NaturalDaughter [address] + [place] [address] KIESEL, WILLIAM M NaturalDaughter [address] + [place] [address] R Unknown Unavailable Unavailable ALEX FONSECA NaturalDaughter [address] + [place] [address] KIESEL, WILLIAM M NaturalDaughter [address] + [place] [address] R Unknown Unavailable Unavailable ALEX FONSECA NaturalDaughter [address] [place] [address] DR + [place] [address] KIESEL, WILLIAM M NaturalDaughter [address] + [place] [address] R Unknown Unavailable Unavailable GIUSEPPE FONSECAFER NaturalDaughter [address] [place] [address] DR + [place] [address] KIESEL, WILLIAM M NaturalDaughter [address] + [place] [address] R Unknown Unavailable Unavailable GIUSEPPE FONSECAFER NaturalDaughter [address] [place] [address] DR + [place] [address] KIESEL, WILLIAM M NaturalDaughter [address] + [place] [address] R Unknown Unavailable Unavailable ALEX FONSECA NaturalDaughter [address] [place] [address] DR + [place] [address] KIESEL, WILLIAM M NaturalDaughter [address] + [place] [address] R Unknown Unavailable Unavailable ALEX FONSECA NaturalDaughter [address] [place] [address] DR + [place] [address] KIESEL, WILLIAM M NaturalDaughter [address] + [place] [address] R Unknown Unavailable Unavailable ALEX [facility] [address] [place] [address] DR + [place] [address] KIESEL, WILLIAM M NaturalDaughter [address] + [place] [address] R Unknown Unavailable Unavailable ALEX FONSECA NaturalDaughter [address] [place] [address] DR + [place] [address] KIFADUMOL, WILLIAM Mcdonald NaturalDaughter [address] + [place] [address] R Unknown Unavailable Unavailable ALEX FONSECA NaturalDaughter [address] + [place] [address] KIFADUMOL, WILLIAM Mcdonald NaturalDaughter [address] + [place] [address] R Unknown Unavailable Unavailable ALEX FONSECA NaturalDaughter [address] + [place] [address] KIESEL, WILLIAM M NaturalDaughter [address] + [place] [address] R Unknown Unavailable Unavailable ALEX FONSECA NaturalDaughter [address] + [place] [address] KIFADUMOL, WILLIAM Mcdonald NaturalDaughter [address] + [place] [address] R Unknown Unavailable Unavailable ALEX FONSECA NaturalDaughter [address] + [place] [address] R Unknown Unavailable Unavailable ALEX FONSECA NaturalDaughter [address] + [place] [address] R Unknown Unavailable Unavailable ALEX FONSECA NaturalDaughter [address] [place] [address] DR + [place] [address] R Unknown Unavailable Unavailable ALEX FONSECA NaturalDaughter [address] + [place] [address] R Unknown Unavailable Unavailable ALEX FONSECA NaturalDaughter [address] + [place] [address] R Unknown Unavailable Unavailable Care Team Providers Name Role Phone ORALIA MCKEON (PA) Attending Unavailable ORALIA MCKEON (PA) Attending Unavailable ZEHRA LARKIN Attending Unavailable Xiomara Do MD Attending Unavailable [...] Active Unknown / UNK(Unknown) ORALIA MCKEON Active [place] B (PA) [facility] [place] Repository 06/21/2018 Unknown R06.02 - Shortness of Xiomara Do Active [place] breath / Community R06.02(ICD-10) Hospital Repository 06/19/2018 Unknown M54.16 - Nae Kumar Active [place] Radiculopathy, lumbar Community region / Hospital M54.16(ICD-10) Repository 05/30/2018 Unknown S32.019D - Unspecified Xiomara Do Active [place] fracture of first Community lumbar vertebra, Hospital subsequent encounter Repository for fracture with routine healing / S32.019D(ICD-10) 05/03/2018 Unknown R94.31 - Abnormal Chepe Albarado Active [place] electrocardiogram Community [ECG] [EKG] / Hospital R94.31(ICD-10) Repository 04/03/2018 Unknown R00.0 - Tachycardia, Xiomara Do Active [place] unspecified / Community R00.0(ICD-10) Hospital Repository 03/11/2018 Unknown K21.9 - CebuChaparro walker Active [place] Gastro-esophageal Community reflux disease without Hospital esophagitis / Repository K21.9(ICD-10) 12/14/2017 Unknown Z86.010 - Personal CeChaparro mora Active [place] history of colonic Community polyps / Hospital Z86.010(ICD-10) Repository 12/14/2017 Unknown Z80.0 - Family history Chaparro John Active [place] of malignant neoplasm Community of digestive organs / Hospital Z80.0(ICD-10) Repository PROCEDURES PROCEDURES No Procedure Records FoundVITAL SIGNS VITAL SIGNS No Vital Signs Records FoundRESULTS RESULTS OPERATIVE REPORT - Observed: 11/28/2018 Status: F Source: [place] ENDOSCOPY 12:47 PM [facility] REPOSITORY [facility] Medical Records Department [address] [place] [address] Operative Report - Endoscopy MR#: [id number] Acct: [id number] Name: FARHAD GLEZ Rep #: [id number] : 1940 78 From: Chaparro John MD PCP: Xiomara Do MD Status: DEP [facility] Patient Name: Farhad Glez Procedure Date: 11/28/2018 [...] hernia repair Procedure Code(s): --- Professional --- 98397, Esophagogastroduodenoscopy, flexible, transoral; with biopsy, single or multiple 79663, 59, Moderate sedation services provided by the same physician or other qualified health child care center administrator performing the diagnostic or therapeutic service that [...] Iron deficiency anemia, unspecified CPT copyright 2017 [place] [employer]. All rights reserved. The codes documented in this report are preliminary and upon dairy cattle farm manager review may be revised to meet current compliance requirements. Chaparro John MD 11/28/2018 6:54:10 AM This report has been signed electronically. Number of Addenda: 0 Note Initiated On: 11/28/2018 6:08 AM 11/28/18 1246 Date Chaparro John MD Cosigner Signature: Date (if indicated) CC: Xiomara Do MD; Chaparro John MD Date Dictated: 11/28/18 0608 Date Transcribed: Operator Maintainer: RIKI Signed HISTORY AND PHYSICAL Observed: 11/28/2018 Status: F Source: [place] EXAM 7:12 AM [facility] REPOSITORY [facility] Medical Records Department [address] [place] [address] History and Physical 11/28/18 0557 MR#: [id number] Acct: [id number] Name: FARHAD GLEZ Rep #: [id number] : 1940 78 From: Chaparro John MD PCP: Xiomara Do MD Status: REG [facility] Y Location: [place] [address] Problem List (1) Acute blood loss anemia Status: Acute (2) GERD (gastroesophageal reflux disease) Status: Acute History of Present Illness Date of Admission: 11/28/18 The patient is a 78 year old F who I saw in the office on October 13, 2018. She was hospitalized at [facility] in [place]. She was found to have a very [...] of blood transfusion while she was in [place] and at that point prior to discharge [...] Verified 10/13/18 09:29) rash neomycin [From Neosporin (jyu-dki-tyvyt)] Allergy (Verified 11/28/18 05:54) Rash Home Medications: [...] is slowly improved her hemoglobin from a [place] discharge at 8 to currently 11. I [...] Signed IMMUNOHISTOCHEMISTRY Observed: 11/28/2018 Status: F Source: [place] 6:30 AM [facility] REPOSITORY Patient: FARHAD GLEZ : 1940 (78/F) Acct Num: [id number] Phys: Dora RAMON,Chaparro Unit Num: [id number] Loc: EN Specimen: [id number] Received: 11/28/18 - 1302 Spec Type: IMMUNO TISSUES 1 TISSUES: A. Stomach, NOS SPECIMEN INFORMATION: Tissue Source: A - Antral biopsy Clinical Info: Acute blood loss anemia Specimen Number: [id number] A CPT code: 89540 METHODOLOGY: Deparaffinized sections of prefer/formalin-fixed tissue or [...] developed and their performance characteristics determined by [facility]. They may not have been cleared or approved by the U.S. Food and Drug Administration. The FDA has determined that such clearance or approval is not necessary. INTERPRETATION: A. Antral biopsy: Negative for Helicobacter pylori organisms. AM:ebenezer 11/29/18 PHYSICIAN AND INSTITUTION [address] [address] Signed [place], 11/29/18 <signature on file> Performed By: #### PIMM #### [facility] [address] [place] [address]. [place], [address] EGD ([facility] SITE) Observed: 11/28/2018 Status: F Source: [place] 6:30 AM [facility] REPOSITORY Patient: FARHAD GLEZ : 1940 (78/F) Acct Num: [id number] Phys: Dora RAMON,Chaparro Unit Num: [id number] Loc: EN Specimen: [id number] Received: 11/28/18 - [...] one cassette. / AM:rg 11/28/18 TC:3 CPT: 26835 x4 HEADER OPERATION: EGD PRE-OP DIAGNOSIS: Acute [...] on file> Performed By: #### PEGD #### [facility] [address] [place], [address] ECHOCARDIOGRAM COMPLETE Observed: 11/27/2018 Status: F Source: [place] 7:53 PM [facility] REPOSITORY [facility] Cardiovascular Services [address] [place] [address] Echo Complete 11/27/18 0759 MR#: [id number] Acct: [id number] Name: FARHAD GLEZ Rep #: [id number] : 1940 78 From: Johnson Bird MD Attending Dr: Xiomara Do MD Status: REG CLI Ordering Dr: Xiomara Do MD Date: 11/27/18 Location: [facility] Sex: F C Admitted: Reason For Study: [...] Date Dictated: 11/27/18 0759 Date Transcribed: 11/27/181951 Operator Maintainer: Signed TXT - BLOOD FLOW Observed: 11/27/2018 Status: F Source: [place] SCREENING 4:41 PM [facility] REPOSITORY [facility] Cardiovascular Services [address] [place] [address] 11/27/18 0841 MR#: [id number] Acct: [id number] Name: FARHAD GLEZ Rep #: [id number] : 1940 78 From: Eris Mclain MD [...] Date Dictated: 11/27/18 0841 Date Transcribed: 11/27/181640 Operator Maintainer: Signed LIMITED CHEST CT Observed: 11/22/2018 Status: F Source: [place] W/CCTA 12:45 PM [facility] REPOSITORY [facility] Imaging Services [address] [place] [address] w/CCTA MR#: [id number] Acct: [id number] Name: FARHAD GLEZ Rep #: [id number] : 1940 F 78 From: Chad Wilkins MD PCP: Xiomara Do MD Status: REG CLI Study: Limited Chest CT w/CCTA Date of Exam: 11/22/18 Exam# [id number] Ordering Dr: Xiomara Do MD STUDY: CT [...] Chad Wilkins MD at 13:04 EST Tel [phone], Service support , CC: Xiomara Do MD Operator Maintainer: Signed PROGRESS Observed: 11/12/2018 Status: COMPLETED Source: [place] 10:[address] [facility] [place] REPOSITORY HNO ID: [id number] Author: Zehra Alexandra Service: (none) Author Type: Physician Type: Progress Notes Filed: 11/12/2018 10:36 AM Note Text: Farhad Glez is a 78 year old who presents for her annual gynecologic exam without complaints. Reports was seen in ER in [facility] - anemia possible from Hiatal hernia [...] breast, incisional - COLONOSCOP W/ OR W/O [facility] SPEC 04/2003 Colonoscopy - COLONOSCOP W/ OR W/O [facility] SPEC 05/05/2008 Colonoscopy - COLONOSCOP W/ OR W/O [facility] SPEC 07/02/13 Colonoscopy - DANDC, DIAG AND/OR [...] external genitalia normal, normal Bartholin's glands, urethra, New Llano's glands, no vulvar lesions, good vaginal support, [...] MD CNOV Observed: 11/12/2018 Status: COMPLETED Source: [place] 9:50 AM [facility] REPOSITORY Office Visit (WOOB) FARHAD GLEZ ([id number]) 1940 F Date Time Provider Department 11/12/18 9:50 AM ZEHRA LARKIN WOTYSON During your visit today, we recorded the following information about you: Blood pressure Weight Height 144/82 78.5 kg 1.632 m Fern Sherwood Ma 11/12/2018 10:36 AM Signed Financial Officer offered: Patient declines. Zehra Clarke MD 11/12/2018 10:36 AM Signed Farhad Glez is a 78 year old who presents for her annual gynecologic exam without complaints. Reports was seen in ER in [facility] - anemia possible from Hiatal hernia [...] breast, incisional - COLONOSCOP W/ OR W/O [facility] SPEC 04/2003 Colonoscopy - COLONOSCOP W/ OR [...] external genitalia normal, normal Bartholin's glands, urethra, New Llano's glands, no vulvar lesions, good vaginal support, [...] salmon and sardines and vegetables, such as French cabbage, kale, and broccoli. Foods fortified with [...] acid, calcium carbonate is found in some knms-woc-tpmxome antacid products, such as Tums? and Rolaids?. [...] health screening schedule is recommended by the [place] [employer] (ACOG). Some [...] 2 - Rash 9 - Itching NEOSPORIN (ATEKEJSM-HPXVSDIKVF-WD*12/06/2005 2 - Rash SEASONAL ALLERGIES 03/22/2017 14 [...] 90 capsuleRfl: 3 ARNEL SCREENING W LEORA [[id number]] Order #: [id number] FUTURE Prescriptions as of 11/12/2018 Sig: OMEPRAZOLE [...] salmon and sardines and vegetables, such as French cabbage, kale, and broccoli. Foods fortified with [...] acid, calcium carbonate is found in some lgws-jtq-zlczmov antacid products, such as Tums? and Rolaids?. [...] health screening schedule is recommended by the [place] [employer] (ACOG). Some [...] 11/12/18 PROGRESS Observed: 11/12/2018 Status: COMPLETED Source: [place] 9:[address] [facility] [place] REPOSITORY HNO ID: [id number] Author: Fern Sherwood Ma Service: (none) Author Type: (none) Type: Progress Notes Filed: 11/12/2018 10:36 AM Note Text: Financial Officer offered: Patient declines. SURGERY VISIT REPORT Observed: 10/18/2018 Status: F Source: [place] 3:31 PM [facility] REPOSITORY [facility] [address] [place] [address] OFFICE VISIT Date of Service: 10/13/18 MR#: [id number] Acct: [id number] Name: FARHAD GLEZ Rep #: [id number] : 1940 Provider: Chaparro John MD Age/Sex: 78/F Location: [facility] Status: Signed with Addenda ADDENDUM by Chaparro [...] of 8. Her upper endoscopy performed at [facility] in [place] it suggested grade C erosive esophagitis and [...] 78-year-old female who was briefly hospitalized in [place] with what appeared to be an acute [...] note regarding her a esophagogastroduodenoscopy performed in [place]. Then with that information at hand I [...] Visit Reasons: Hiatal Hernia Chief Complaint: anemia Job Coaching Required: No Is patient in pain?: No [...] Post menopausal: Yes Patient : No [facility] Medical History Acute blood loss anemia (Acute) [...] not determined. She was hospitalized overnight in [facility]. She presented with shortness of breath. [...] a note from Dr Bruce Blackman from [facility] suggesting that the results of [...] and colonoscopy with operative note to follow: [facility] Medical Records Department [address] [place] [address] Operative Report 01/12/18 0848 MR#: [id number] Name: FARHAD GLEZ #:[id number] : 691638Khjn: Chaparro John MD PCP:Xiomara Do MD Status:[facility] Location: [place] [address] Problem List (1) GERD (gastroesophageal reflux disease) [...] is negative for organisms. H pylori: Negative [facility] Cardiovascular Services [address] [place] [address] MR#: [id number] Name: FARHAD GLEZ #:[id number] : 1940 78From: Johnson Bird MD Primary [...] 57 %. This note was generated with Entrecardation software. It may contain incorrect words, spelling, and punctuation that were not noted in checking the note before signing. 06/21/18 1904<Electronically signed by Johnson Bird MD> Date Johnosn Bird MD ROS General General: No weight [...] 78-year-old female who was briefly hospitalized in [place] with what appeared to be an acute [...] note regarding her a esophagogastroduodenoscopy performed in [place]. Then with that information at hand I [...] ORTHOPEDIC VISIT Observed: 09/21/2018 Status: F Source: [place] REPORT 4:02 PM [facility] REPOSITORY [facility] [address] [place] [address] OFFICE VISIT Date of Service: 09/18/18 MR#: [id number] Acct: [id number] Name: FARHAD GLEZ Rep #: [id number] : 1940 Provider: Nae Kumar MD Age/Sex: 78/F [place] [facility] Status: Signed Intake Intake Visit Reasons: Back [...] PO DAILY #60 capsule. 01/12/18 [Rx] [facility] Medical History Acid reflux (Acute) Hemorrhoids (Acute) [...] Status: F Source: [place] 8:16 AM [facility] REPOSITORY [facility] Imaging Services [address] [place] [address] SCREENING MAMM (CAD), BILAT MR#: [id number] Acct: [id number] Name: FARHAD GLEZ Rep #: [id number] : 1940 F 78 From: Chad Wilkins MD PCP: Xiomara Do MD Status: REG CLI Study: SCREENING MAMM (CAD), BILAT Date of Exam: 09/12/18 Exam# [id number] Ordering Dr: Xiomara Do MD MAMMOGRAPHY - [...] delay biopsy of a clinically suspicious abnormality. [id number] Electronically Signed: Chad Wilkins MD at 11:12 EST Tel [phone], Service support , CC: Xiomara Do MD Operator Maintainer: Signed CNOV Observed: 08/22/2018 Status: COMPLETED Source: [place] 10:40 AM [facility] REPOSITORY Office Visit (DERMBD) FARHAD GLEZ ([id number]) 1940 F Date Time Provider Department 08/22/18 [...] visit. ALLERGY: Adhesive Tape (Rosins); Latex; Neosporin [Dqzhegmq-Fribyqcyaq-Ocfoqkagm]; Seasonal Allergies REVIEW OF SYSTEMS: Patient feels [...] 2 - Rash 9 - Itching NEOSPORIN (BYZAGQAT-CUHJLKCUPL-PF*12/06/2005 2 - Rash SEASONAL ALLERGIES 03/22/2017 14 [...] 08/22/18 PROGRESS Observed: 08/22/2018 Status: COMPLETED Source: [place] 8:38 AM [facility] REPOSITORY O ID: [id number] Author: Oralia Mckeon (Pa) Service: (none) Author Type: Physician Work Order Detailer Type: Progress Notes Filed: 08/22/2018 12:57 PM [...] visit. ALLERGY: Adhesive Tape (Rosins); Latex; Neosporin [Nflkaawd-Yulrbtqywf-Shuzmigpp]; Seasonal Allergies REVIEW OF SYSTEMS: Patient feels [...] MD CNOV Observed: 08/13/2018 Status: COMPLETED Source: [place] 1:[address] [facility] REPOSITORY Office Visit (DERMBD) FARHAD GLEZ ([id number]) 1940 F Date Time Provider Department 08/13/18 [...] hands, forearms. Family Hx MM: sister From [place], [place] Came to us after a bad [...] visit. ALLERGY: Adhesive Tape (Rosins); Latex; Neosporin [Lsiqfwoi-Ufviloegkv-Qeevkdsxb]; Seasonal Allergies REVIEW OF SYSTEMS: Patient feels [...] 2 - Rash 9 - Itching NEOSPORIN (HEWMBCEG-QCXZZPSKBG-PW*12/06/2005 2 - Rash SEASONAL ALLERGIES 03/22/2017 14 [...] More... Routine general medical examination at a [facility]*INVALID FOR*08/06/2012 More... ABNORMAL LIVER FUNCTION STUDY [R94.5] [...] 08/13/18 PROGRESS Observed: 08/10/2018 Status: COMPLETED Source: [place] 10:39 AM [facility] REPOSITORY HNO ID: [id number] Author: Oralia Mckeon (Pa) Service: (none) Author Type: Physician Work Order Detailer Type: Progress Notes Filed: 08/13/2018 1:45 PM [...] hands, forearms. Family Hx MM: sister From [place], [place] Came to us after a bad [...] visit. ALLERGY: Adhesive Tape (Rosins); Latex; Neosporin [Cgxjixvf-Ilmjpedxbo-Hdltbutxr]; Seasonal Allergies REVIEW OF SYSTEMS: Patient feels [...] STRESS REPORT Observed: 06/21/2018 Status: F Source: [place] 7:04 PM [facility] REPOSITORY [facility] Cardiovascular Services [address] [place] [address] MR#: [id number] Acct: [id number] Name: FARHAD GLEZ Rep #: [id number] : 1940 78 From: Johnson Bird MD [...] 57 %. This note was generated with i-drive software. It may contain incorrect words, spelling, and punctuation that were not noted in checking the note before signing. 06/21/181903 <Electronically signed by Johnson Bird MD> Date Johnson Bird MD CC: Xiomara Do MD Date Dictated: 06/21/181899 Date Transcribed: 06/21/181899 Operator Maintainer: PM Signed ORTHOPEDIC VISIT Observed: 06/20/2018 Status: F Source: [place] REPORT 12:40 PM [facility] REPOSITORY [facility] [address] [place] [address] OFFICE VISIT Date of Service: 06/19/18 MR#: [id number] Acct: [id number] Name: FARHAD GLEZ Rep #: [id number] : 1940 Provider: Nae Kumar MD Age/Sex: 78/F Location[place] [facility] [place]: Signed Intake Intake Visit Reasons: low [...] PO DAILY #60 capsule. 01/12/18 [Rx] [facility] Medical History Acid reflux (Acute) Hemorrhoids (Acute) [...] She was treated by a physician at [facility] with a brace. She wore the brace [...] program. This helps. She recently flown to [place] as well. She has HTN, h/o skin [...] W BEND Observed: 06/19/2018 Status: F Source: [place] MIN 6 VW 8:30 AM [facility] REPOSITORY [facility] Imaging Services [address] [place] [address] L/S Spine w Bend Min 6 Vw MR#: [id number] Acct: [id number] Name: FARHAD GLEZ Rep #: [id number] : 1940 F 78 From: Luis Jefferson MD PCP: Xiomara Do MD Status: REG CLI Study: L/S Spine w Bend Min 6 Vw Date of Exam: 06/19/18 Exam# [id number] Ordering Dr: Nae Kumar MD STUDY: X-RAY [...] CC: Xiomara Do MD; Nae Kumar MD Operator Maintainer: Signed PT D/C SUMMARY (1) Observed: 05/30/2018 Status: F Source: [place] 7:17 AM [facility] REPOSITORY [facility] Therapy [address] [place], [place] [address] Fax REHABILITATION SERVICES DISCHARGE SUMMARY MR#: [id number] Acct: [id number] Name: FARHAD GLEZ Rep #: [id number] : 1940 78 From: Roberto Oliveros DPT, [...] please feel free to call me at [phone]. Thank you for the referral of this patient. Sincerely, Roberto Oliveros, DPT, OC <Electronically signed by Roberto Oliveros DPT, OCS, CSCS> 05/30/18 0716 CC: Xiomara Do MD EBTodd Signed INITAL EVALUATION (1) Observed: 04/26/2018 Status: F Source: [place] - PT 9:07 AM [facility] REPOSITORY [facility] [address] [place] [address]. [address] [place] [address] Fax REHABILITATION SERVICES INITIAL EVALUATION MR#: [id number] Acct: [id number] Name: FARHAD GLEZ Rep #: [id number] : 1940 77 From: Roberto Oliveros DPT, [...] twisting allowed. saw doc last Monday in [place] and [facility] [place] [facility] [place] and sent for outpatient as she has [...] to be FAXED BACK to us at [phone] for Medicare purposes. Please let me know if there are questions or concerns regarding this plan of care. Physician Signature: Date: <Electronically signed by Roberto Oliveros DPT, OCS, CSCS> 04/26/18 0907 CC: Xiomara Do MD EBG Signed For Medicare only, by signing this I certify the plan of care. Physicians Signature Date CHEST W/WO CONTRAST Observed: 04/03/2018 Status: F Source: CAL 2:58 PM [facility] REPOSITORY [facility] Imaging Services [address] [place] [address] 64617 Chest W/WO Contrast MR#: [id number] Acct: [id number] Name: FARHAD GLEZ Rep #: [id number] : 1940 F 77 From: Chad Wilkins MD PCP: Xiomara Do MD Status: REG CLI Study: Chest W/WO Contrast Date of Exam: 04/03/18 Exam# [id number] Ordering Dr: Xiomara Do MD STUDY: CTA [...] Chad Wilkins MD at 15:45 EDT Tel [phone], Service support , CC: Xiomara Do MD Operator Maintainer: Signed D-DIMER QUANTITATIVE Collected: 04/03/2018 Status: F Source: CAL (DVT/PE) 9:52 AM [facility] REPOSITORY Order Comment: Order Date: 04/03/18 Order Info: 49755-4 - D-DIMER TYPE CODE TESTS RESULT OUT OF RANGE REFERENCE UNITS LAB L300.8000 0.27-0.49 FEU/ug/m High alert D-DIMER 1.52 QUANT Result Comment: D-Dimer ELEVATED (>0.49): Additional studies and clinical assessments are indicated to conclude diagnosis of: Deep Vein Thrombosis (DVT) or Pulmonary Embolism (PE) CRITICAL VALUE VERIFIED. CALLED TO [facility] 04/03/18 Renetta Wyatt. RESULTS READ BACK BY SAME . Performed By: #### L300.8000, L500.2500, L501.4010, L501.9520, L506.0400 #### Cal [facility] [address] [place], [place], [address] BASIC METABOLIC Collected: 04/03/2018 Status: F Source: CAL PROFILE (BMP) 9:52 AM [facility] REPOSITORY Order Comment: Order Date: 04/03/18 Order Info: 0667-1 - BMP Order Info: 29929-4 - TROP Order Info: 3016-3 - TSH [...] #### L300.8000, L500.2500, L501.4010, L501.9520, L506.0400 #### [facility] [address] [place], [place], [address] TROPONIN-I Collected: 04/03/2018 Status: F Source: CAL 9:52 AM [facility] REPOSITORY Order Comment: Order Date: 04/03/18 Order Info: 0667-1 - BMP Order Info: 64502-8 - TROP Order Info: 3016-3 - TSH [...] every elevated troponin is indicative of VT. These values should be used with clinical judgement in examining the patient's clinical picture for diagnosis. To establish a diagnosis of VT versus myocardial injury, there must be a demonstrated rise and/or fall in the troponin values, in addition to ischemic symptoms, EKG changes, new regional wall motion abnormality, and/or angiographical evidence. PLEASE NOTE: REFERENCE RANGES EDITED 18 Performed By: #### L300.8000, L500.2500, L501.4010, L501.9520, L506.0400 #### [facility] [address] [place], [address] THYROID STIM HORMONE Collected: 04/03/2018 Status: F Source: CAL (TSH) 9:52 AM [facility] REPOSITORY Order Comment: Order Date: 04/03/18 Order Info: 0667-1 - BMP Order Info: 21408-5 - TROP Order Info: 3016-3 - TSH Order Info: 3024-7 - T4F 'TROP' Serial specimen #1, #2, #3, or #4: 1 TYPE CODE TESTS RESULT OUT OF RANGE REFERENCE UNITS LAB L501.9520 0.358-3.74 uIU/mL Normal TSH 2.45 Performed By: #### L300.8000, L500.2500, L501.4010, L501.9520, L506.0400 #### [facility] [address] [place], [address] T4 FREE DIRECT Collected: 04/03/2018 Status: F Source: CAL 9:52 AM [facility] REPOSITORY Order Comment: Order Date: 04/03/18 Order Info: 0667-1 - BMP Order Info: 81605-0 - TROP Order Info: 3016-3 - TSH Order Info: 3024-7 - T4F 'TROP' Serial specimen #1, #2, #3, or #4: 1 TYPE CODE TESTS RESULT OUT OF RANGE REFERENCE UNITS LAB L506.0400 0.76-1.46 ng/dL Normal T4 FREE 1.09 DIRECT Performed By: #### L300.8000, L500.2500, L501.4010, L501.9520, L506.0400 #### [facility] [place], [address] PROGRESS Observed: 01/19/2018 Status: COMPLETED Source: [place] 10:42 AM [facility] REPOSITORY HNO ID: [id number] Author: Lore Richey Production Control Scheduler Service: (none) Author Type: (none) Type: Progress Notes Filed: 01/19/2018 10:44 AM Note Text: Switched physicians. [place] didn't get enough time and/or couldn't get in for appointments same day/soon enough when she needed an appointment. Wanted Dr. Espinal to know it's not personal. Dr. Espinal removed as PCP. PROGRESS Observed: 01/19/2018 Status: COMPLETED Source: [place] 10:39 AM [facility] REPOSITORY HNO ID: [id number] Author: Lore Richey Production Control Scheduler Service: (none) Author Type: (none) Type: Progress Notes Filed: 01/19/2018 10:44 AM Note Text: [facility] CARE GAP REGISTRY DOCUMENTATION (OUTSIDE TEAMLET) Provider [...] to 12/2017 appointment) with Provider pcp or [facility] Health Maintenance Due: INFLUENZA(1) due on 07/07/2017 Lore Richey Cma CNPTOUTREACH Observed: 01/19/2018 Status: COMPLETED Source: [place] 12:00 AM [facility] REPOSITORY Patient Outreach (INTMWS) FARHAD GLEZ ([id number]) 1940 F Date Time Provider Department 01/19/18 LORE RICHEY ([facility]) INTMWS During your visit today, we recorded the following information about you: Lore Kaiden [facility] 01/19/2018 10:44 AM Signed [facility] CARE GAP REGISTRY DOCUMENTATION (OUTSIDE TEAMLET) Provider [...] to 12/2017 appointment) with Provider pcp or [facility] Health Maintenance Due: INFLUENZA(1) due on 07/07/2017 Lore Richey Production Control Scheduler Lore Richey Production Control Scheduler 01/19/2018 10:44 AM Signed Switched physicians. [place] didn't get enough time and/or couldn't get in for appointments same day/soon enough when she needed an appointment. Wanted Dr. Espinal to know it's not personal. Dr. Espinal removed as PCP. Allergies As of Date: 01/19/2018 Noted Allergy Reaction ADHESIVE TAPE (ROSINS) 09/21/2004 2 - Rash Comments: Bandaids are okay short term LATEX 06/23/2011 2 - Rash 9 - Itching NEOSPORIN ([id number]-[id number]*12/06/2005 2 - Rash SEASONAL ALLERGIES 03/22/2017 14 - Other: See Comments Date Reviewed: 09/13/2017 Reviewed by: Olivia (Rn) JERYR Mcclain - Fully Assessed Reason for Visit: PHMA/Care Gap Outreach [7954] Prescriptions as of 01/19/2018 Sig: FLUOROURACIL 5 [...] More... Routine general medical examination at a [facility]*INVALID FOR*08/06/2012 More... ABNORMAL LIVER FUNCTION STUDY [R94.5] [...] OPERATIVE REPORT Observed: 01/12/2018 Status: F Source: [place] 8:55 AM [facility] REPOSITORY [facility] Medical Records Department [address] [place] [address] Operative Report 01/12/18 0848 MR#: [id number] Acct: [id number] Name: FARHAD GLEZ Rep #: [id number] : 1940 77 From: Chaparro John MD PCP: Xiomara Do MD Status: REG [facility] Location: [place] [address] Problem List (1) GERD (gastroesophageal reflux disease) [...] 01/12/2018 Status: F Source: CAL 8:20 AM [facility] REPOSITORY Patient: FARHAD GLEZ : 1940 (77/F) Acct Num: [id number] Phys: Dora RAMON,Chaparro Unit Num: [id number] Loc: EN Specimen: [id number] Received: 01/12/18 - 1121 Spec Type: Gastric Bx TISSUES TISSUES: A. Gastric mucous membrane B. Cardioesophageal junction C. Gastric mucous membrane D. Esophageal mucous membrane COMMENT A AND B. The results of immunohistochemistry for Helicobacter pylori will be reported separately ([id number]). B. Alcian blue/PAS stain with matched control [...] one cassette. / AM:rg 01/12/18 TC:2 CPT: 29800 x4, 22501 x2, 79367 HEADER OPERATION: EGD with biopsy PRE-OP DIAGNOSIS: [...] on file> Performed By: #### PGASB #### [facility] [address] [place], [address] IMMUNOHISTOCHEMISTRY Observed: 01/12/2018 Status: F Source: [place] 12:00 [facility] REPOSITORY Patient: FARHAD GLEZ : 1940 (77/F) Acct Num: [id number] Phys: Dora RAMON,Chaparro Unit Num: [id number] Loc: EN Specimen: [id number] Received: 01/15/181124 Spec Type: IMMUNO TISSUES TISSUES: A. Stomach, NOS B. Stomach, NOS SPECIMEN INFORMATION: Tissue Source: A Antral biopsy, B Cardia biopsy Clinical Info: GERD, epigastric pain Specimen Number: [id number] A AND B CPT code: 35175 x2 METHODOLOGY: Deparaffinized sections of prefer/formalin-fixed tissue [...] developed and their performance characteristics determined by [facility]. They may not have been cleared or approved by the U.S. Food and Drug Administration. The FDA has determined that such clearance or approval is not necessary. INTERPRETATION: A. Antral biopsy: Negative for Helicobacter pylori organisms. B. Cardia biopsy: Negative for Helicobacter pylori organisms. SJ:ebenezer 01/16/18 PHYSICIAN AND INSTITUTION [facility] [address] [place] [address] Signed Jeovanny Stinson 01/16/18 <signature on file> Performed By: #### PIMM #### [facility] [address] [place] [address]. [place], [address] DEXA BONE DENSITY Observed: 12/19/2017 Status: F Source: [place] STUDY () 9:38 AM [facility] REPOSITORY [facility] Imaging Services [address] [place] [address] [place] [address] Dexa Bone Density Study () MR#: [id number] Acct: [id number] Name: FARHAD GLEZ Rep #: [id number] : 1940 F 77 From: Chad Wilkins MD PCP: Xiomara Do MD Status: REG CLI Study: Dexa Bone Density Study () Date of Exam: 12/19/17 Exam# [id number] Ordering Dr: Xiomara Do MD STUDY: DUAL [...] Chad Wilkins MD at 15:25 EST Tel [phone], Service support , CC: Xiomara Do MD Operator Maintainer: Signed SURGERY VISIT REPORT Observed: 12/14/2017 Status: F Source: CAL 4:14 PM [facility] REPOSITORY [facility] [address] [place] [address] OFFICE VISIT Date of Service: 12/14/17 MR#: [id number] Acct: [id number] Name: FARHAD GLEZ Rep #: [id number] : 1940 Provider: Chaparro John MD Age/Sex: 77/F Location: [facility] Status: Signed Intake Vital Signs12/14/17 Height 5 ft 5 in 12/14/17 Weight: 178 lb Intake Visit Reasons: FAMILY HX OF COLON CA Job Coaching Required: No Is patient in pain?: No [...] No other Exam Const General: healthy appearing [facility] Head: normal to inspection Eyes [...] proceed at her discretion. Cc: Dr. Hi Jonh M.D., F.A.C.S. Coding Level of Care Code Off vis,new,level 2 Diagnoses Personal history of colonic polyps Z86.010 Family history of colon cancer in mother Z80.0 12/14/17 7016 <Electronically signed by Chaparro John MD> Date Chaparro John MD Cosigner Signature: Date (if applicable) CC: Xiomara Do MD ALLERGIES ALLERGIES DATE TYPE / CODE NAME / CODE REACTION SEVERITY SOURCE 11/28/2018 Drug neomycin/O191788 Rash Unknown [facility]416 775(RXNORM) Hospital 032409(SNOM Repository ED CT) 10/13/2018 Drug Latex, Natural Rash [place] [facility]/416 Rubber/M38809667 Hospital 907005(SNOM 6(RXNORM) Repository ED CT) 10/13/2018 Drug bacitracin/F0060 Rash [place] [facility]/416 76313(RXNORM) Hospital 028140(SNOM Repository ED CT) 10/13/2018 Drug polymyxin Rash [place] [facility] Allergy/416 B/B104895080(RXN Hospital 626328(SNOM ORM) Repository ED CT) 03/22/2017 Environ/420 SEASONAL OTHER: SEE C [facility] 903525(SNOM ALLERGIES [facility] [place] [facility]) Repository 06/23/2011 DRUG LATEX RASH [facility] INGREDI/419 [facility] [place] 307230(SNOM Repository ED CT) 12/06/2005 DRUG/176231 NEOMYCIN-BACITRA RASH [facility] 003(SNOMED OMAR-POLYMYXIN [facility] [place] [facility]) Repository 09/21/2004 Chemical/42 ADHESIVE TAPE RASH [facility] 7896980(SNO (ROSINS) [facility] [place] MED [facility]) Repository ENCOUNTERS ENCOUNTERS ADMIT/DISCHARGE ACCOUNT ADMITTING ENCOUNTER LOCATION SOURCE NUMBER CLASS 11/29/2018 [id number] Ambulatory Building:[facility] [place] Practices Repository 11/28/2018/11/28/[id number] ing:ENRoom: Repository AC10 11/27/2018 [id number] [facility] ing:[facility] Repository 11/27/2018 [id number] Ambulatory BMSBuilding:B [place].CF.[facility] Repository 11/27/2018 [id number] Ambulatory [facility] ing:[facility] Repository 11/22/2018 [id number] Ambulatory [facility] ing:CT Repository 11/12/2018/11/13/19 [id number] Ambulatory [address] Repository 10/13/2018/10/13/20 [id number] Ambulatory BMSBuilding:B [place] [address] [facility] Repository 09/18/2018/09/18/20 [id number] Ambulatory BMSBuilding:B [place] 18 MS.[facility] Hospital Repository 09/12/2018 [id number] [facility] Repository 08/22/2018/08/22/20 [id number] Ambulatory [address] Repository 08/13/2018/08/14/20 [id number] Ambulatory [address] Repository 07/25/2018 [id number] [facility] ing[facility]MASS Repository 06/21/2018 [id number] [facility] ing:[facility]S Repository 06/21/2018 [id number] Ambulatory BMSBuilding:W [facility] Repository 06/19/2018 [id number] [facility] ing:HPRAD Repository 06/19/2018/06/19/20 [id number] Ambulatory BMSBuilding:B [place] 18 MS.[facility] Hospital Repository 05/29/2018/05/29/20 [id number] Ambulatory [address] HospitalBuild Hospital ing:PT Repository 04/04/2018 [id number] [facility] ing:PSN Repository 04/04/2018 [id number] Ambulatory BMSBuilding:W [facility] Repository 04/03/2018 [id number] [facility] ing:CT Repository 04/03/2018 [id number] [facility] ing:LABSPEC Repository 01/12/2018/01/13/20 [id number] Ambulatory [address] HospitalBuild Hospital ing:EN Repository 01/12/2018 [id number] Ambulatory BMSBuilding:B [place] MS.CF.[facility] Repository 12/19/2017 [id number] [facility] ing:BD Repository 12/14/2017/12/14/19 [id number] Ambulatory BMSBuilding:B [place] 18 MS.[facility] Repository FUNCTIONAL STATUS FUNCTIONAL STATUS No Functional Status Records FoundEQUIPMENT EQUIPMENT No Equipment Records FoundPAYERS PAYERS ENCOUNTER GUARANTOR PAYER SUBSCRIBER SOURCE 11/29/2018 FARHAD T Primary FARHAD T OHIP Practices CROPPDOB: Insurance:MedicarePol CROPPDOB: Repository [id number] icy Number: [id number] [id number] [address] [place], [place] Date:1021-78-65PrfjHolland, [place] [address]Ntm: 330) Name:CHEF INSTRUCTOR [address] [address]Evl: 442740O[place], [place] [phone] () (HP)Tel: [phone]: () [phone] 11/29/2018 Secondary FARHAD T OHIP Practices Insurance:CignaPolicy CROPPDOB: Repository Number: [id number] [address] Date:2474-57-82[place]uoc[place], [place] Name:FP. Munoz [address] [address]Isa: ([phone]) 011313Euvswmvbeod, [place] [phone] () [address]RJ: 11/28/2018 FARHAD Madelaine Primary FARHAD [place] [id number] Insurance:MEDICARE CROPPDOB: [facility] PART A olic [id number], [place] Number: Repository [address]Kwa: 330 [id number] [phone] () Date:2018-10-22 11/28/2018 Secondary FARHAD T [place] Insurance:CIGNAPolicy CROPPDOB: Community Number: [id number] Hospital [id number] Repository Date:5291-58-50[address]QVFAVITYKQP, [place] [address]UR: 11/28/2018 Tertiary NOT GIVENUNK [place] Insurance:SELF PAY [facility] Number: Effective Repository Date:2018-10-22 11/27/2018 FARHAD T Primary NOT GIVENUNK [place] [id number] Insurance:SELF PAY [place] Number: Effective Repository [address]Wgs: (330) Date:2018-10-22 [phone] () 11/27/2018 FARHAD [place] Primary Insurance:[facility] FARHAD [place] [id number] PACKAGE PLANPolicy CROPPDOB: [facility] RUN Number: [id number], [place] [id number] Repository [address]Wfr: (330) Date:2018-10-225712 () 11/27/2018 Secondary NOT GIVENUNK [place] Insurance:SELF PAY [facility] Number: Effective Repository Date:2018-11-27 11/27/2018 FARHAD [place] Primary FARHAD [place] [id number] Insurance:MEDICARE CROPPDOB: [facility] RUN PART A [facility] [id number], [place] Number: Repository [address]Icd: [phone] [id number] [phone] () Date:2018-10-22 11/27/2018 Secondary FARHAD [place] Insurance:CIGNAPolicy CROPPDOB: Community Number: [id number] Hospital [id number] Repository Date:2973-29-00JW NIKHIL 1227[address]IZOQUOTVERS, [place] [address]NA: 11/27/2018 Tertiary NOT GIVENUNK [place] Insurance:SELF PAY [facility] Number: Effective Repository Date:2018-10-22 11/22/2018 FARHAD [place] Primary Insurance:[facility] FARHAD [place]oster [id number] PACKAGE PLANPolicy CROPPDOB: [facility] RUN Number: [id number], [place] [id number] Repository [address]Agv: (330) Date:2018-10-22 [phone] () 11/22/2018 Secondary NOT GIVENUNK [place] Insurance:SELF PAY [facility] Number: Effective Repository Date:2018-10-22 10/13/2018 FARHAD [place] Primary FARHAD [place] [id number] Insurance:MEDICARE CROPPDOB: [facility] RUN PART A [facility] [id number] [place] Number: Repository [address]Xqo: (330 [id number] [phone] () Date:2018-10-09 10/13/2018 Secondary FARHAD [place] Insurance:CIGNAPolicy CROPPDOB: Community Number: [id number] Hospital [id number] Repository Date:0175-10-46[address]BMMVUPFAWNB, [place] [address]DC: 10/13/2018 Tertiary NOT GIVENUNK [place] Insurance:SELF PAY [facility] Number: Effective Repository Date:2018-10-13 09/18/2018 FARHAD [place] Primary FARHAD [place] [id number] Insurance:MEDICARE CROPPDOB: Community [address] PART A [facility] [id number], [place] Number: Repository [address]Jxk: 330 [id number] [phone] () Date:2018-06-19 09/18/2018 Secondary FARHAD [place] Insurance:CIGNAPolicy CROPPDOB: Community Number: [id number] Hospital [id number] Repository Date:8675-61-63[address]WOYRVAFNYHN, [place] [address]IJ: 09/18/2018 Tertiary NOT GIVENUNK [place] Insurance:SELF PAY [facility] Number: Effective Repository Date:2018-09-18 09/12/2018 FARHAD [place] Primary FARHAD [place] [id number] Insurance:MEDICARE CROPPDOB: [facility] A [facility] [id number] Number: Repository [address]Dgm: 330 [id number] [phone] () Date:2018-06-26 09/12/2018 Secondary FARHAD [place] Insurance:CIGNAPolicy CROPPDOB: Community Number: [id number] Hospital [id number] Repository Date:2207-84-81[address]UNCZJKFGUMY, [place] [address]RM: 09/12/2018 Tertiary NOT GIVENUNK [place] Insurance:SELF PAY [facility] Number: Effective Repository Date:2018-06-26 07/25/2018 FARHAD [place] Primary NOT GIVENUNK [place] [id number] Insurance:SELF PAY [facility] Number: Effective Repository [address]Icl: (330) Date:2018-06-25 [phone] () 06/21/2018 FARHAD [place] Primary FARHAD [place] [id number] Insurance:MEDICARE CROPPDOB: [facility] A [facility] [id number] Peak [facility] Number: Repository [address]Pul: 330 [id number] [phone] () Date:2018-05-17 06/21/2018 Secondary FARHAD Madelaine [place] Insurance:CIGNAPolicy CROPPDOB: Community Number: [id number] Hospital [id number] Repository Date:8155-32-69[address]SKRUCJXZBNB, [place] [address]YD: 06/21/2018 Tertiary NOT GIVENUNK [place] Insurance:SELF PAY [facility] Number: Effective Repository Date:2018-05-17 06/21/2018 FARHAD [place] Primary FARHAD [place] [id number] Insurance:MEDICARE CROPPDOB: [facility] A [facility] [id number] Peak [facility] Number: Repository [address]Yeo: 330 [id number] [phone] () Date:2018-05-17 06/21/2018 Secondary FARHAD Madelaine [place] Insurance:CIGNAPolicy CROPPDOB: Community Number: [id number] Hospital [id number] Repository Date:9629-72-22[address]YJOHOHELJXQ, [place] [address]KM: 06/21/2018 Tertiary NOT GIVENUNK [place] Insurance:SELF PAY [facility] Number: Effective Repository Date:2018-06-21 06/19/2018 FARHAD Madelaine Primary FARHAD [place] [id number] Insurance:MEDICARE CROPPDOB: Community [address] PART A [facility] [id number] Peak Regional [facility] Number: Repository [address]Mdu: 330 [id number] [phone] () Date:2018-06-19 06/19/2018 Secondary FARHAD [place] Insurance:CIGNAPolicy CROPPDOB: Community Number: [id number] Hospital [id number] Repository Date:7968-97-41[address]TAMWPTFWGWZ, [place] [address]YA: 06/19/2018 Tertiary NOT GIVENUNK [place] Insurance:SELF PAY [facility] Number: Effective Repository Date:2018-06-19 06/19/2018 FARHAD [place] Primary FARHAD [place] [id number] Insurance:MEDICARE CROPPDOB: [facility] A [facility] [id number] Peak Regional [facility] Number: Repository [address]Qgj: 330 [id number] [phone] () Date:2018-03-30 06/19/2018 Secondary FARHAD [place] Insurance:CIGNAPolicy CROPPDOB: Community Number: [id number] Hospital [id number] Repository Date:4347-98-75[address]KJEYQXLVPKO, [place] [address]FF: 06/19/2018 Tertiary NOT GIVENUNK [place] Insurance:SELF PAY [facility] Number: Effective Repository Date:2018-06-19 05/29/2018 FARHAD [place] Primary FARHAD [place] [id number] Insurance:MEDICARE CROPPDOB: [facility] A [facility] [id number] Peak Regional [facility] Number: Repository [address]Wbh: 330 [id number] [phone] () Date:2003-05-06 05/29/2018 Secondary FARHAD [place] Insurance:CIGNAPolicy CROPPDOB: Community Number: [id number] Hospital [id number] Repository Date:3250-06-15[address]JMJPANHLFPC, [place] [address]DP: 05/29/2018 Tertiary NOT GIVENUNK [place] Insurance:SELF PAY [facility] Number: Effective Repository Date:2018-04-23 04/04/2018 FARHAD [place] Primary FARHAD [place] [id number] Insurance:MEDICARE CROPPDOB: Community [address] PART A [facility] [id number] Peak Regional Hospital[place] Number: Repository [address]Qaf: [id number] [phone] Date:2018-04-03 () 04/04/2018 Secondary FARHAD [place] Insurance:CIGNAPolicy CROPPDOB: Community Number: [id number] Hospital [id number] Repository Date:4495-53-63[address] [address]SM: 04/04/2018 Tertiary NOT GIVENUNK [place] Insurance:SELF PAY [facility] Number: Effective Repository Date:2018-04-03 04/04/2018 FARHAD [place] Primary FARHAD [place] [id number] Insurance:MEDICARE CROPPDOB: [facility] RUN PART A [facility] [id number] Peak Regional [facility] Number: Repository [address]Xtc: 330 [id number] [phone] () Date:2018-04-03 04/04/2018 Secondary FARHAD [place] Insurance:CIGNAPolicy CROPPDOB: Community Number: [id number] Hospital [id number] Repository Date:2203-10-66[address]RBLZDITBWEQ, [place] [address]BJ: 04/04/2018 Tertiary NOT GIVENUNK [place] Insurance:SELF PAY [facility] Number: Effective Repository Date:2018-04-04 04/03/2018 FARHAD [place] Primary FARHAD [place] [id number] Insurance:MEDICARE CROPPDOB: Community [place] PART A [id number] [place] Number[facility] Repository [id number]: [id number] [phone] Date:2018-04-03 () 04/03/2018 Secondary FARHAD [place] Insurance:CIGNAPolicy CROPPDOB: Community Number: [id number] Hospital [id number] Repository Date:0460-46-33[address], [place] [address]CI: 04/03/2018 Tertiary NOT [place]IV[place] Insurance:SELF PAY [facility] Number: Effective Repository Date:2018-04-03 04/03/2018 FARHAD Burkett Primary FARHAD [place] [id number] Insurance:MEDICARE CROPPDOB: Community [place]OH[place] PART A [id number] [place] Number[facility] Repository [id number]: [id number] [phone] Date:2018-04-03 () 04/03/2018 Secondary FARHAD Burkett [place] Insurance:CIGNAPolicy CROPPDOB: Community Number: [id number] Hospital [id number] Repository Date:8062-56-[address]BY[place]V, [place] [address]PH: 04/03/2018 Tertiary NOT GIVENUNK [place] Insurance:SELF PAY [facility] Number: Effective Repository Date:2018-04-03 01/12/2018 FARHAD Burkett Primary FARHAD [place] [id number] Insurance:MEDICARE CROPPDOB: Community [place] PART A [facility] [id number] [place] Number: Repository [id number]: [id number] [phone] Date:2017-12-14 () 01/12/2018 Secondary FARHAD [place] Insurance:CIGNAPolicy CROPPDOB: Community Number: [id number] Hospital [id number] Repository Date:[id number], [place] [address]VI: 01/12/2018 Tertiary [place] Insurance:SELF PAY [facility] Number: Effective Repository Date:2017-12-14 01/12/2018 FARHAD Burkett Primary FARHAD Burkett [place] [id number] Insurance:MEDICARE CROPPDOB: Community SOHAM PART A [id number] [place] Repository [id number]: [id number] [phone] Date:2017-12-144 (HP) 01/12/2018 Secondary FARHAD Burkett [place] Insurance:CIGNAPolicy CROPPDOB: Community Number: [id number] Hospital [id number] Repository Date:1154-78-[address] [address]ME: 01/12/2018 Tertiary NOT [place] Insurance:SELF PAY [facility] Number: Effective Repository Date:2018-01-12 12/19/2017 FARHAD Burkett Primary NOT GIVENUNK [place] [id number] Insurance:SELF PAY [facility] Number: Effective Repository [id number]: Date:2017-11-13 ~330 -4 () 12/14/2017 FARHAD Burkett Primary FARHAD Burkett [place] [id number] Insurance:MEDICARE CROPPDOB: [facility] PART A [facility] [id number] Number: Repository [address]Klo: 330 [id number] [phone] () Date:2017-11-13 12/14/2017 Secondary FARHAD Madelaine [place] Insurance:CIGNAPolicy CROPPDOB: Community Number: [id number] Hospital [id number] Repository Date:[id number]MRFQXMBXARM, [place] [address]QX: 12/14/2017 Tertiary NOT GIVENUNK [place] Insurance:SELF PAY [facility] Number: Effective Repository Date:2017-11-13 SOCIAL HISTORY SOCIAL HISTORY No Social History Records FoundFAMILY HISTORY FAMILY HISTORY No Family History Records FoundADVANCE DIRECTIVES ADVANCE DIRECTIVES No Advanced Directives Records FoundINFORMATION SOURCE INFORMATION SOURCE DATE CREATED AUTHOR AUTHOR'S ORGANIZATION 12/02/2018 [place]
== END 2018-11-28 07:28 | disposition home or self-care (01) ==
LOC: EN 05:21 → AC 05:22
PROVIDERS: Family Provider Internal Medicine; PCP Internal Medicine; Referring Provider Surgery; Visit Provider Surgery
PROC: (CPT 43239; principal; 2018-11-28 06:25)
DX: K31.7 Polyp of stomach and duodenum (principal); K21.9 Gastro-esophageal reflux disease without esophagitis; D62 Acute posthemorrhagic anemia; K31.89 Other diseases of stomach and duodenum; K22.8 Other specified diseases of esophagus; D50.9 Iron deficiency anemia, unspecified; E78.5 Hyperlipidemia, unspecified; I10 Essential (primary) hypertension; K44.9 Diaphragmatic hernia without obstruction or gangrene; Z86.010 Personal history of colon polyps; Z80.0 Family history of malignant neoplasm of digestive organs
CPT/HCPCS: 43239; 88305; 88342; 99152; 99153; J7120

== ENCOUNTER → 2019-01-16 06:27 | Outpatient (CLI) | payer MEDICARE, OTHER, SELFPAY ==
[2018-11-28 05:45] VITALS: BMI 27.8
--- NOTE | 2019-01-16 18:01 | STRESSREP ---
Stress Test Report Pharmacologic myocardial perfusion stress test. 78-year-old lady with a history of shortness of breath. : Medications: Amlodipine, spironolactone, Lipitor. Resting EKG demonstrates sinus tachycardia with a rate of 122 bpm resting blood pressure 162/96 mmHg. 0.4 mg of regadenoson was infused per usual protocol followed by rapid intravenous saline flush injection continuous EKG monitoring was performed. The maximum heart rate attained was 129 bpm which was 92% of maximum predicted heart rate the maximum workload was 1 metabolic equivalent. At rest there were no ST or T wave changes noted suggest ischemia peak exercise upsloping ST changes only were noted with no meet the criteria for ischemia. The resting blood pressure 162/96 with a final blood pressure 152/88. Myocardial perfusion protocol. 11.1 mCi of technetium 99m sestamibi was injected at rest. 0.4 mg of regadenoson was infused per usual protocol peak infusion 33.2 mCi of technetium 99 sestamibi was injected stress images were obtained stress and rest images were reconstructed and compared in the short axis vertical and horizontal long axis. Gated images were also obtained next Perfusion SPECT analysis: Review of the stress images demonstrate normal uptake of tracer noted in all areas of the myocardium. The resting images similarly demonstrate normal uptake of tracer noted in all areas of myocardium. The gated ejection fraction is noted to be 40%. Conclusion: Mild cardiomyopathy. Myocardial perfusion scan with no evidence of ischemia.
== END ==
PROVIDERS: Family Provider Internal Medicine; PCP Internal Medicine; Referring Provider Internal Medicine; Visit Provider Internal Medicine
DX: R06.02 Shortness of breath (principal)
CPT/HCPCS: 78452; 93017; A9500; A4216; J2785

== ENCOUNTER 2019-06-30 20:09 | Emergency (ER) | payer MEDICARE, OTHER, SELFPAY ==
[2018-11-28 05:45] VITALS: BMI 27.8
[2019-06-30 20:10] VITALS: BP 125/68; PULSE 89; RESP 15; TEMP 36.3; O2SAT 99; BMI 28.3
--- NOTE | 2019-06-30 20:58 | CT_ITS ---
STUDY: CT BRAIN WITHOUT CONTRAST REASON FOR EXAM: Female, 79 years old. Fall RADIATION DOSAGE (If Supplied By Facility): CTDIvol = ( 44.99 ) mGy, DLP = ( 812.98 ) mGycm TECHNIQUE: Transaxial CT imaging of the brain was performed without administration of intravenous contrast material. Individualized dose optimization techniques were used for this CT. COMPARISON: None. FINDINGS: There is no acute bleed or infarct. There are chronic ischemic and atrophic changes. The ventricles are normal in configuration. There is no hydrocephalus. The visualized paranasal sinuses are clear. The mastoid air cells are well aerated. There is no skull fracture. CT/Brain/Head without Contrast IMPRESSION: No acute intracranial abnormality. Chronic ischemic and atrophic changes. Electronically Signed: Darrell Gutierrez, at 21:27 EDT Tel , Service support ,
--- NOTE | 2019-06-30 21:35 | ED.VIS.INJ ---
History of Present Illness Chief Complaint: Head Injury Informant: Patient, Family Onset: Today - Around 5 or 6 hours prior to arrival Mechanism/Context: Blunt Injury, Fall Quality of Pain: Aching Location: Occipital head Current Severity: Mild Maximum Severity: Moderate Worsened by: Nothing Relieved by: Nothing Associated Symptoms: - - Patient does not think she lost consciousness but is not sure. Negative for: Parasthesias, Weakness, Loss of function, Inability to ambulate Narrative: Patient was at home alone, she states she went up the steps, at a landing she turned and hit the next step but fell backwards losing her balance, hitting her head on the wall behind her on the landing she was standing on, smashing a hole into the drywall. Her daughter says that she called her several hours after this and said I just fell. She is concerned she might have lost a period of time. Patient has been coherent and not confused since then, she has a headache but no nausea or vomiting, no focal neurologic symptoms or neck or back pain. No other injuries. She had no bleeding or lacerations. She takes no anticoagulants. - Past Medical History (1) GERD (gastroesophageal reflux disease) Status: Chronic Past Medical History - Allergies and Home Meds Allergies/Adverse Reactions: Allergies bacitracin [From Polysporin] Allergy (Intermediate, Verified 06/30/19 20:15) rash Latex, Natural Rubber Allergy (Intermediate, Verified 06/30/19 20:15) rash polymyxin B [From Polysporin] Allergy (Intermediate, Verified 06/30/19 20:15) rash neomycin [From Neosporin ([id number])] Allergy (Verified 06/30/19 20:15) Rash Primary Care Physician: Xiomara Do MD [Primary Care Provider] - Lives: Alone Smoking Status: Never smoker Review of Systems General: Denies: Chills, Fever, Sweats Eyes: Denies: Visual changes - bilaterally, Diplopia ENT: Denies: Rhinorrhea, Sore throat Cardiovascular: Denies: Chest pain, Palpitations Respiratory: Denies: Dyspnea, Cough, Dyspnea on exertion Gastrointestinal: Denies: Abdominal pain, Nausea, Vomiting, Diarrhea, Melena, Hematochezia Genitourinary: Denies: Dysuria, Hematuria, Frequency Musculoskeletal: Denies: Back pain, Extremity Pain Skin: Denies: Rash, Wounds Neurological: Reports: Headache. Denies: Weakness, Numbness Physical Exam Vital Signs/Narrative: Vital Signs Temp Pulse Resp BP Pulse Ox 06/30/19 20:10 97.4 F L 89 15 125/68 H 99 Inital Vital Signs reviewed: Yes General: Well nourished, Well developed Head: Normocephalic, Atraumatic. Negative for: Tenderness Eyes: Perrl, EOMI ENT: TM's clear, No hemotympanum or drainage - And no anthony sign or raccoon eyes, No trauma. Negative for: Nasal trauma Neck: Nontender, Full ROM. Negative for: Spinal Tenderness Cardiovascular: Regular rate, Regular rhythm, No murmurs Respiratory: No distress, CTA bilaterally, Chest nontender Abdomen: Soft, Nontender, Nondistended, Normal bowel sounds Back: Nontender. Negative for: Spinal Tenderness Skin: Normal color, No rash, No Trauma Neurological: Alert, Oriented x3, Cranial nerves II-XII grossly intact, Normal Strength, Normal Sensation, Normal Gait Psychological: Normal affect, Normal Mood - Glascow Coma Scale Eye Opening: Spontaneous Motor: Obeys Commands Verbal: Oriented Coma Scale Total: 15 Diagnostic/Tx/Re-eval Clinical Impression(s) from Imaging Studies Brain CT 06/30/19 20:58 IMPRESSION: No acute intracranial abnormality. Chronic ischemic and atrophic changes. Electronically Signed: Darrell Brownedaniel, at 21:27 EDT Tel , Service support , - Medical Decision Making CT obtained and negative. Patient is reassured. Supportive care, she declined an offer for Tylenol or ice pack. ED Disposition - Plan for ED Patient: Disposition: Home or Assisted Living Diagnosis: Closed head injury, Fall from slip, trip, or stumble Instructions: HEAD INJURY, No Wake-Up (Adult) Referrals: Xiomara Do MD [Primary Care Provider] - As Needed
[2019-06-30 21:46] VITALS: RESP 16
== END 2019-06-30 21:47 | disposition home or self-care (01) ==
PROVIDERS: Emergency Provider Emergency Medicine; Family Provider Internal Medicine; PCP Internal Medicine
DX: S09.90XA Unspecified injury of head, initial encounter (principal); W01.0XXA Fall on same level from slipping, tripping and stumbling without subsequent striking against object, initial encounter; K21.9 Gastro-esophageal reflux disease without esophagitis; Z91.040 Latex allergy status
CPT/HCPCS: 70450; 99282

== ENCOUNTER → 2019-09-16 09:59 | Outpatient (CLI) | payer MEDICARE, OTHER, SELFPAY ==
--- NOTE | 2019-09-16 10:01 | BI_ITS ---
MAMMOGRAPHY - BILATERAL SCREENING REASON FOR EXAM: Female, 79 years old. Routine annual screening examination. PERTINENT HISTORY: Non-contributory. TECHNIQUE: Digital bilateral breast leora (3D mammographic acquisition) in the CC and MLO projections. 2-D mediolateral oblique (MLO) and craniocaudad (CC) views of both breasts were obtained. CAD: Full Field Digital Mammography with Computer Added Detection was performed. COMPARISON: Comparison is made with prior study September 12, 2018. FINDINGS: Breast Composition: There are scattered areas of fibroglandular density. There are no dominant masses or suspicious calcifications. Stable small benign-appearing bilateral axillary lymph nodes. No other significant abnormalities are identified. There has been no significant change since the prior study. BI/SCREEN MAMM (CAD) W/LEORA BILAT IMPRESSION: Stable bilateral screening mammogram. Yearly follow-up mammogram recommended. (A) ASSESSMENT CATEGORY: BIRADS Category 2: Benign. A letter regarding these results will be sent to the patient by the facility within 30 days. Approximately 10% of breast cancers are not detected by mammography. A normal mammogram should not delay biopsy of a clinically suspicious abnormality. [id number] Electronically Signed: Chad Wilkins, at 11:25 EST , Service support ,
== END ==
PROVIDERS: Family Provider Internal Medicine; PCP Internal Medicine; Referring Provider Internal Medicine; Visit Provider Internal Medicine
DX: Z12.31 Encounter for screening mammogram for malignant neoplasm of breast (principal)
CPT/HCPCS: 77063; 77067

== ENCOUNTER → 2019-11-08 15:37 | Outpatient (CLI) | payer MEDICARE, OTHER, SELFPAY | PROVIDERS: Family Provider Internal Medicine; PCP Internal Medicine; Referring Provider Internal Medicine; Visit Provider Internal Medicine | DX: Z13.39 Encounter for screening examination for other mental health and behavioral disorders (principal) | CPT/HCPCS: 36415; 80320; G0480 ==

== ENCOUNTER → 2020-01-15 | Outpatient (CLI) | payer MEDICARE, OTHER, SELFPAY ==
--- NOTE | 2020-01-15 10:22 | BD_ITS ---
STUDY: DUAL ENERGY X-RAY ABSORPTIOMETRY / DXA REASON FOR EXAM: Female, 79 years old. 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 COMPARISON: Comparison is made with prior examination dated February 17, 2003. FINDINGS: Lumbar Spine (L1-L4): g/cm2 (1.236) / T-score (0.3) / Z-score (2.2) Findings are suggestive of normal bone density with a low fracture risk. There is almost complete collapse of the L1 vertebrae. Left Femur Total: g/cm2 (0.950) / T-score (-0.5) / Z-score (1.6) Left Femoral Neck: g/cm2 (0.836) / T-score (-1.5) / Z-score (0.8) Right Femur Total: g/cm2 (0.910) / T-score (-0.8) / Z-score (1.3) Right Femoral Neck: g/cm2 (0.842) / T-score (-1.4) / Z-score (0.8) The T-Scores on the most recent prior examination were: Lumbar Spine (L1-L4): There has been improvement of bone density since the previous examination. Left Femur Total: which represents a worsening of 4.5%. Right Femur Total: which represents a worsening of 5.7%. BD/Dexa Bone Density Study IMPRESSION: The patient is considered osteopenic as outlined below according to World Carlos Alberto Organization (WHO) criteria with a moderate fracture risk. There has been worsening of bone density since the previous examination. Reference Information: The T-score is the number of standard deviations above or below the standard which is normal for young adults at their peak bone mineral density. The World Health Organization (WHO) interprets the T-scores as follows: Above -1 Normal bone density Between -1 and -2.5 Osteopenia Equal to / or below -2.5 Osteoporosis As a practical clinical guideline, osteopenia may be graded as follows: Mild -1 through -1.5 Moderate -1.6 through -2.0 Severe -2.1 through -2.4 The Z-score is the number of standard deviations above or below age-matched controls. A Z-score of less than -1.5 would be considered abnormal. References: 1. NIH Osteoporosis and Related Bone Diseases http://www.osteo.org 2. International Society for Clinical Densitometry http://www.iscd.org 3. National Osteoporosis Foundation http://www.nof.org Electronically Signed: Chad Wilkins, at 15:57 EDT , Service support ,
== END | disposition home or self-care (01) ==
LOC: OPBD 10:08
PROVIDERS: PCP Internal Medicine; Referring Provider Internal Medicine; Visit Provider Internal Medicine
DX: Z78.0 Asymptomatic menopausal state (principal)
CPT/HCPCS: 77080

== ENCOUNTER 2020-01-16 10:30 | Outpatient (RCR) | payer MEDICARE, OTHER, SELFPAY ==
--- NOTE | 2019-12-26 11:51 | HP.PTEVAL_ITS ---
Patient's Visit Information FARHAD LOPEZ is a 79 year old F referred to Physical Therapy by Xiomara Do MD with a diagnosis of LBP AND RIGHT SCIATICA. Date of Evaluation: 12/26/19 Physical Therapist: Riya Kraft PT, Cert MDT - Visit Plan Frequency: 2-3x /Week Duration: 4-6 Weeks Plan: AQUATIC THERAPY FOR PAIN RELIEF, POSTURE CORRECTION/STRENGTHENING, INSTRUCTION IN APPROPRIATE BODY MECHANICS AND ACTIVITY MODIFICATIONS. DLS STARTING WITH A NEUTRAL SPINE PROGRESSING ROM TOLERATED. JOSEPH LE ROM, STRETCHING AND STRENGTHENING. HEP INSTRUCTION. - Subjective Findings: Work/Leisure: RETIRED. Disability: NO. Present symptoms: JOSEPH LOW BACK PAIN. NO LLE SX'S. RIGHT THIGH AND LEG PAIN. THE LEG PAIN IS LIKE A CRAMP. NOT REALLY NUMB OR TINGLY. Present since: SCIATICA STARTED ABOUT 4 WEEKS AGO. Pain Scale: WORST 7/10, LEAST 0/10. Currently: 0/10 - WORSENING. Commenced as a result of: NO APPARENT REASON. Symptoms at onset: LOW BACK PAIN. Worse: WALKING, SITTING IN THE WRONG CHAIR OR COUCH, STANDING TOO LONG, TRYING TO REACH UP TOO HIGH. GOING UP AND DOWN STEPS. GETTING OUT OF BED AT NIGHT. Better: TYLONOL, HEEL RAISES, SKTC. Disturbed sleep: NO. Previous history/Previous treatment: 2018 FELL OFF LADDER - L1 FX - PHYSICAL THERAPY - COMPLETE RECOVERY. Treatment this episode: HAS TRIED 3 CHIROPRACTIC SESSIONS BUT IT SEEMED TO EXACERBATE THINGS SO STOPPED GOING. TYLONOL. Coughi ng/sneezing/straining: NO. Gait: DISTANCE LIMITED, PAINFUL AND RIGHT LIMP. Difficulty initiating urinatin: NO. Accidents: FALL 2018. Unexplained weight loss: NO. Imaging: NONE RECENT. PMH: HTN, HIGH CHOLESTEROL. Recent major surgery: UNREMARKABLE - Objective Sitting/Standing Posture: POOR. Lordosis: REDUCED. Lateral shift: NO. Relevant shift: N/A. Active Correction of posture: WORSE. Other Observations: INDEP GAIT INTO PT LIMPING ON RIGHT LE. INDEP TRANSFER SIT TO STAND WITHOUT UE ASSIST. Motor deficit: JOSEPH LE'S 5/5 WITH MMT'ING EXCEPT HIPS 4/5. NO C/O INCREASED PAIN WITH MMT'ING. Sensory deficit: JOSEPH LE LIGHT TOUCH SENSATION IS INTACT AND SYMMETRICAL. ROM deficit: TIGHT JOSEPH HIP FLEXORS. Reflexes: NT. Dural Signs: NEGATIVE JOSEPH LE'S. Lumbar mvmt loss: flex - NIL - ABOLISHES. ext - CALVIN. R SG - M0D - ABOLISHES. L SG - M0D - ABOLISHES. Core strength: POOR. Palpation: TENDERNESS WITH PALPATION OF THE [id number], SACRAL AND JOSEPH BUTTOCK REGIONS. TREATMENT: NEUROMUSCULAR REEDUCATION - RETRAINING OF MVMT AND POSTURE FOR SITTING, LYING AND STANDING ACTIVITIES. - Goals Goal 1:: DECREASE C/O LOW BACK AND RIGHT LE SX'S. Goal Time Frame: 4-6 Weeks Goal 2:: IMPROVE LIFTING, WALKING, SITTING, STANDING, RECREATIONAL AND HOMEMAKING FUNCTION Goal Time Frame: 4-6 Weeks Goal 3:: INSTRUCT IN PROPHYLAXIS Goal Time Frame: 4-6 Weeks - Rehabilitation Potential Rehabilitation Potential: Fair - Anticipated Interventions Patient/Client Instruction: Educate patient on: Condition, Plan of Care, Risk Factors, Benefits of Fitness Program For the Purpose of:: To improve self management Therapeutic Exercise to Include: Strength training, Body mechanics, Postural training, Flexibilty training, Neuromotor development, In an aquatic setting, Dynamic Lumbar Stabilization For the Purpose of:: To decrease pain, To increase ROM, To improve muscle performance and motor function, To increase tolerance to activity/condition/position, To improve ability of physical actions for home/community/work/leisure, To improve gait and locomotor functions Thank you for the opportunity to evaluate your patient. For Medicare and Medicare HMO plans, please review the plan of care and approve it. It will need to be FAXED BACK to us at [phone] for Medicare purposes. For Medicare only, by signing this I certify the plan of care. Please let me know if there are questions or concerns regarding this plan of care. Physician Signature: Date:
== END 2020-01-16 19:00 | disposition home or self-care (01) ==
LOC: PT 10:30
PROVIDERS: PCP Internal Medicine; Referring Provider Internal Medicine; Visit Provider Internal Medicine
DX: M54.41 Lumbago with sciatica, right side (principal)
CPT/HCPCS: 97112; 97113; 97162

== ENCOUNTER → 2020-10-19 13:13 | Outpatient (CLI) | payer MEDICARE, OTHER, SELFPAY ==
--- NOTE | 2020-10-19 13:16 | BI_ITS ---
MAMMOGRAPHY - BILATERAL SCREENING REASON FOR EXAM: Female, 80 years old. Routine annual screening examination. PERTINENT HISTORY: Non-contributory. Remote right excisional breast biopsy. TECHNIQUE: Digital bilateral breast leora (3D mammographic acquisition) in the CC and MLO projections. 2-D mediolateral oblique (MLO) and craniocaudad (CC) views of both breasts were obtained. CAD: Full Field Digital Mammography with Computer Added Detection was performed. COMPARISON: Comparison is made with prior study dated 09/16/2019 and 09/12/2018. FINDINGS: Breast Composition: There are scattered areas of fibroglandular density. There are no dominant masses or suspicious calcifications. Stable small benign appearing axillary lymph nodes. No other significant abnormalities are identified. There has been no significant change since the prior study. BI/SCREEN MAMM (CAD) W/LEORA BILAT IMPRESSION: Stable bilateral screening mammogram. Yearly follow-up mammogram recommended. (A) ASSESSMENT CATEGORY: BIRADS Category 2: Benign. A letter regarding these results will be sent to the patient by the facility within 30 days. Approximately 10% of breast cancers are not detected by mammography. A normal mammogram should not delay biopsy of a clinically suspicious abnormality. [id number] Electronically Signed: Chad Wilkins, at 14:20 EST , Service support ,
== END ==
PROVIDERS: PCP Internal Medicine; Referring Provider Internal Medicine; Visit Provider Internal Medicine
DX: Z12.31 Encounter for screening mammogram for malignant neoplasm of breast (principal)
CPT/HCPCS: 77063; 77067

== ENCOUNTER 2021-11-17 13:34 | Outpatient (CLI) | payer MEDICARE, OTHER, SELFPAY ==
--- NOTE | 2021-11-17 13:39 | BI_ITS ---
MAMMOGRAPHY - BILATERAL SCREENING REASON FOR EXAM: Female, 81 years old. Routine annual screening examination. PERTINENT HISTORY: Non-contributory. Remote right excisional breast biopsy. TECHNIQUE: Digital bilateral breast leora (3D mammographic acquisition) in the CC and MLO projections. 2-D mediolateral oblique (MLO) and craniocaudad (CC) views of both breasts were obtained. CAD: Full Field Digital Mammography with Computer Added Detection was performed. COMPARISON: Comparison is made with prior examination dated 10/19/2020 and 09/16/2019. FINDINGS: Breast Composition: There are scattered areas of fibroglandular density. There are no dominant masses or suspicious calcifications. Stable small benign-appearing bilateral axillary nodes. No other significant abnormalities are identified. There has been no significant change since the prior study. BI/SCRN MAMM (CAD)W/LEORA BILAT IMPRESSION: Stable bilateral screening mammogram. Yearly follow-up mammogram recommended. (A) ASSESSMENT CATEGORY: BIRADS Category 2: Benign. A letter regarding these results will be sent to the patient by the facility within 30 days. Approximately 10% of breast cancers are not detected by mammography. A normal mammogram should not delay biopsy of a clinically suspicious abnormality. [id number] Electronically Signed: Chad Wilkins MD at 14:26 EST , Service support ,
== END 2021-11-17 23:59 | disposition short-term general hospital (02) ==
LOC: OPBI 13:36
PROVIDERS: PCP Internal Medicine; Referring Provider Internal Medicine; Visit Provider Internal Medicine
DX: Z12.31 Encounter for screening mammogram for malignant neoplasm of breast (principal)
CPT/HCPCS: 77063; 77067

== ENCOUNTER 2021-11-23 07:45 | Day surgery (SDC) | payer MEDICARE, OTHER, SELFPAY ==
[2021-11-23] VITALS (7 sets, daily range): BP systolic 122–141; BP diastolic 67–82; PULSE 63–89; RESP 16–18; TEMP 36.3–36.5; O2SAT 94–100; BMI 27.5
--- NOTE | 2021-11-23 08:06 | HP.PCM_ITS ---
History and Physical Date of Admission: 11/23/21 Intake Intake Visit Reasons: PPI, ANEMIA Chief Complaint: calcium scoring Allergies bacitracin [From Polysporin] Allergy (Intermediate, Verified 11/09/21 14:07) rash Latex, Natural Rubber Allergy (Intermediate, Verified 11/09/21 14:07) rash polymyxin B [From Polysporin] Allergy (Intermediate, Verified 11/09/21 14:07) rash neomycin [From Neosporin ([id number]-obh-cecxb)] Allergy (Verified 11/09/21 14:07) Rash Medications amlodipine 2.5 mg tablet 5 mg PO QDAY 12/14/17 [History Confirmed 11/09/21] ascorbate calcium (vitamin C) 500 mg tablet 500 mg PO QDAY 12/14/17 [History Confirmed 11/09/21] atorvastatin 10 mg tablet 10 mg PO QDAY 12/14/17 [History Confirmed 11/09/21] coenzyme Q10 100 mg capsule 100 mg PO QDAY 12/14/17 [History Confirmed 11/09/21] multivitamin 1 cap PO QDAY 12/14/17 [History Confirmed 11/09/21] spironolactone 50 mg tablet 50 mg PO QDAY 12/14/17 [History Confirmed 06/30/19] omeprazole 40 mg PO DAILY #60 capsule. 01/12/18 [Rx Confirmed 11/09/21] [facility] Medical History Acid reflux Acute blood loss anemia Anemia Hemorrhoids Hiatal hernia Hyperlipidemia Hypertension Surgical History History of colonoscopy (~06/2013) History of esophagogastroduodenoscopy (EGD) History of hysterectomy Family History Mother Colon cancer Father Heart disease Sister Skin cancer Social History Smoking Status: Never smoker alcohol intake: current alcohol intake frequency: a few times a month substance use type: does not use HPI HPI HPI: FARHAD LOPEZ, is a 81 F who presents to the office today for surgical consultation regarding anemia. The patient is referred by Dr. Xiomara Do and a written copy my surgical consult recommendations will be returned to her. Patient has a history of a large hiatal hernia. By report she was seen in consultation at [facility]. She has had previous iron deficiency anemia. She had an endoscopy September 2018 and then a repeat endoscopy November 2018. H. pyl thierry was negative. She is currently off of aspirin and off of NSAIDs and off of alcohol. The patient is being referred for consideration of stopping her proton pump inhibitor and following CBCs. As of October 12, 2021 her ferritin level was 10 which was abnormally low with normal being 15-150. Her reticulocyte count was 1.1 which was normal. Her iron binding capacity 371 normal and U IBC 313 normal and iron level 58 normal and iron saturation 16% very low normal. BUN was 16 creatinine 0.73. Liver function tests were normal. White blood cell count was 3.5 and RBC 3.63 which was low and hemoglobin 10.9 which is low and hematocrit 33.7 which is low and MCV 93 which is normal MCH 30 which is normal and MCHC 32.3 which is normal platelets 249,000 My upper endoscopy of November 28, 2018 demonstrated the Z-line was at 30 cm with an 8 cm hiatal hernia. Diffuse moderately erythematous mucosa without bleeding was found in the gastric antrum. The duodenum was normal. A few sessile polyps were seen in the gastric fundic. H. pylori was negative. Biopsies of the gastric antrum showed minimal chronic inflammation, the distal esophagus at the GE junction showed mild chronic inflammation. Fundic gland polyp was benign. Mid esophageal biopsy was not remarkable She has a family history of colon cancer in her mother. Most recent colonoscopy was January 2018. Fortunately no polyps at that time. The patient states that I placed her on omeprazole 40 mg daily at the time of her previous upper endoscopy. She subsequently weaned herself down to 20 mg a day. Then for several months that she completely went off of the omeprazole. She states that at that time she started having recurrent reflux symptoms. So after discussion with Dr. Xiomara Do she went back on taking 20 mg of omeprazole daily. The patient also was noted to have the lab work as quoted above. And so she has been recently started on iron replacement therapy 65 mg daily. ROS General General: Yes fatigue; No weight change, appetite, colon cancer, breast cancer or weakness HEENT HEENT: No difficulty swallowing, eye injury, eye surgery, swollen glands or hoarseness Endo Endocrine: No thyroid disease, diabetes mellitus, thyroid cancer, Hair loss, heat intolerance or cold intolerance Skin Skin: No rash or changing moles Musc Musculoskeletal: Yes arthritis; No back problems, rheumatoid arthritis, gout or joint pain Cardio Cardiovascular: Yes atrial fibrillation and high blood pressure; No murmur, pacemaker, heart disease, heart attack, heart stent, palpitations, shortness of breat with exertion or chest pain Psych Psychiatric: Yes anxiety; No depression or hearing voices Resp Respiratory: No shortness of breath, No sleep apnea, No cough, No COPD, No asthma, No emphysema and No wheezing Gastro Gastrointestinal: No abdominal pain, No nausea or vomiting, No diarrhea, No constipation, No blood in stool, No acid reflux, Yes hemorrhoids, No ulcers, No gallbladder problem and No black,tarry stools Hemal Hematologic: No blood thinners, No blood disorders, No bleeding, Yes anemia and No blood clots Neuro Neurologic: No system reviewed and no additional complaints, except as documented, No as per HPI, No abnormal gait, No abnormal hearing, No abnormal movements, No abnormal speech, No behavioral changes, No burning sensations, No confusion, No convulsions, No disequilibrium, No dizziness, No localized weaknes s, No frequent falls, No headache(s), No lack of coordination, No loss of vision, No memory loss, No numbness, No other visual disturbances, No radicular pain, No restless legs, No sensory deficit, No syncope, No tingling, No tremor(s), No weakness and No other Exam Const General: cooperative, healthy appearing, comfortable and no acute distress Nutritional Appearance: overweight Orientation: alert and awake [facility] Head: normal to inspection Eyes General: appearance normal, both eyes and all related structures Resp Effort & Inspection: normal respiratory effort Auscultation: clear to auscultation bilaterally Cardio Rate: regular rate Rhythm: regular rhythm GI Palpation: soft and no hepatosplenomegaly Musc Cervical Spine: normal cervical lordosis Skin General: no rashes or lesions noted Neuro General: patient alert and patient awake Extrem General: no calf tenderness Psych Appearance: grossly normal Assessment and Plan Assessment and Plan (1) GERD (gastroesophageal reflux disease): Status: Chronic Qualifiers: Esophagitis presence: with esophagitis Esophagitis bleeding: unspecified whether hemorrhage Qualified Code(s): K21.00 - Gastro-esophageal reflux disease with esophagitis, without bleeding (2) Personal history of colonic polyps: Status: Acute (3) Family history of colon cancer in mother: Status: Acute (4) Iron deficiency anemia: Status: Acute Qualifiers: Iron deficiency anemia type: unspecified iron deficiency Qualified Code(s): D50.9 - Iron deficiency anemia, unspecified Plan - Dr. Chaparro John MD: The patient was referred for possible consideration of being able to cease her proton pump inhibitor therapy. The patient on her own however realized that after stopping the 20 mg of omeprazole daily she had recurrent reflux symptoms. On her most recent investigation with upper endoscopy she had at least an 8 cm hiatal hernia at that time. Because of the personal history of colon polyps and a family history of colon cancer she is due early this year for colonoscopy. Based upon the patient's ongoing problems with iron deficiency and her mild anemia I think it is very pertinent to update her esophagogastroduodenoscopy and colonoscopy with possible biopsy or polypectomy as indicated. If absolutely no source for potential blood loss is identified and if possibly the patient does not respond to oral iron therapy then she might have to have further evaluation regarding absorption. She is 81 years of age. I believe that the risk benefit ratio is likely in her favor to continue on a low dose proton pump inhibitor omeprazole 20 mg daily particularly in light of her sizable hiatal hernia. At this point the duration of her hernia likely begets foreshortening of her esophagus and surgical guero atment would likely be of more risk than benefit She has had an opportunity to ask and have questions answered. She would like to schedule procedure at her discretion. I appreciate the opportunity of assisting with her surgical care. Copy: Dr. Xiomara John M.D., F.A.C.S. Coding Level of Care Code 47500 Diagnoses GERD (gastroesophageal reflux disease) K21.00 Esophagitis presence: with esophagitis Esophagitis bleeding: unspecified whether hemorrhage Personal history of colonic polyps Z86.010 Family history of colon cancer in mother Z80.0 Iron deficiency anemia D50.9 Iron deficiency anemia type: unspecified iron deficiency 11/09/21 1434<Electronically signed by Chaparro John MD>Date Chaparro John MD I have re-examined the patient. There are no clinical changes since date of exam.
[2021-11-23] MEDS: Lactated Ringers 1,000 ML 15 ML IV (08:16)
--- NOTE | 2021-11-23 09:00 | EGD_PTH ---
PATIENT: FARHAD LOPEZ LOC: EN U#:[id number] AGE/SX: 81/F ROOM: RE11/23/[address]: Dr. Chaparro John MD : 1940 BED: DIS: 11/23/2021 SPEC #: [id number] RECD: 11/23/21 11:15 STATUS: BRITTANY FERNANDEZ #: [id number] OTTO: 11/23/21 09:[address]: Chaparro John DEPT: SURGICAL PATHOLOGY RECD BY: Jeimy Shipman ENTERED: 11/23/21 12:48 SP TYPE: EGD BIOPSY OT DR: Dr. Xiomara Do MD Tissues: A - Duodenum, NOS B - Gastric mucous membrane C - Esophagus, NOS D - Sigmoid colon biopsy Procedures: Special Stain Group II Surgery Specimen Level IV Alcian Blue/PAS (control) HEADER OPERATION: Colonoscopy, EGD ([facility] [place]) PRE-OP DIAGNOSIS: GERD, history of colonic polyps TISSUE SUBMITTED: A ? Duodenum biopsy, B ? Antrum biopsy for histo and H. pylori, C - Distal esophagus biopsy, D ? Mild sigmoid polyp biopsy MICROSCOPIC DIAGNOSIS A. 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 B. Gastric antrum, biopsy: Chronic gastritis. See comment. C. Distal esophagus, biopsy: Gastroesophageal junctional mucosa. Focal changes of reflux. No evidence of goblet cell metaplasia. See comment. D. Mid sigmoid colon polyp, biopsy: Fragments of benign polypoid colonic mucosa. See comment. AM:ebenezer 11/24/2021 COMMENT B. The results of immunohistochemistry for Helicobacter pylori will be reported separately ([id number]). C. Alcian blue/PAS stain with matched control supports the above diagnosis. D. Neither hyperplastic nor adenomatous change is identified. Clinical correlation is suggested. MICROSCOPIC DESCRIPTION Slides are reviewed. GROSS DESCRIPTION A - Received in fixative is one container labeled with the patient's name and designated duodenum biopsy. The specimen consists of one irregular fragment of light edmonds soft tissue that measures 0.3 x 0.3 x 0.1 cm. The specimen is totally submitted in one cassette. B - Received in fixative is one container labeled with the patient's name and designated antrum biopsy. The specimen consists of one irregular fragment of light edmonds soft tissue that measures 0.3 x 0.3 x 0.1 cm. The specimen is totally submitted in one cassette. C - Received in fixative is one container labeled with the patient's name and designated distal esophagus biopsy. The specimen consists of multiple irregular fragments of light edmonds soft tissue that in aggregate measure 1.5 x 0.3 x 0.1 cm. The specimen is totally submitted in one cassette. D - Received in fixative is one container labeled with the patient's name and designated mid sigmoid polyp biopsy. The specimen consists of one irregular fragment of light edmonds soft tissue that measures 0.4 x 0.4 x 0.1 cm. The specimen is totally submitted in one cassette. / SJ:rg 11/23/2021 TC:3 CPT: 46307 x4, 32422
--- NOTE | 2021-11-23 09:00 | IMM_PTH ---
PATIENT: FARHAD LOPEZ LOC: ITA U#:[id number] AGE/SX: 81/F ROOM: RE11/23/[address]: Dr. Chaparro John MD : 1940 BED: DIS: 11/23/2021 SPEC #: [id number] RECD: 11/23/21 12:56 STATUS: BRITTANY REBECCA #: [id number] OTTO: 11/23/21 09:[address]: Chaparro John DEPT: IMMUNOHISTOCHEMISTRY RECD BY: Nathalie Stokes ENTERED: 11/23/21 12:57 SP TYPE: IMMUNO OTHR DR: Dr. Xiomara Do MD Tissues: B - Stomach, NOS Procedures: H Pylori (initial) PHYSICIAN & INSTITUTION [place] [id number] SPECIMEN INFORMATION: Tissue Source: B ? Antrum biopsy Clinical Info: GERD, history colonic polyps Specimen Number: [id number] CPT code: 17093 METHODOLOGY: Deparaffinized sections of prefer/formalin-fixed tissue or PAP/DQ stained slides are incubated with monoclonal/polyclonal antibodies/oligonucleotide probes. Localization is made via biotin free immunoperoxidase method. Appropriate controls are performed and reacted as expected. Results on target cell population are indicated in the following table: RESULTS: ANTIBODY / CLONE RESULT Block B H Pylori (polyclonal) negative These tests were developed and their performance characteristics determined by [facility]. They may not have been cleared or approved by the U.S. Food and Drug Administration. The FDA has determined that such clearance or approval is not necessary. INTERPRETATION: B. Antrum biopsy: Negative for Helicobacter pylori organisms. AM:ebenezer 11/24/2021
--- NOTE | 2021-11-23 09:53 | OP.EGD_ITS ---
Patient Name: Sandie Glez Procedure Date: 11/23/2021 8:59 AM Date of : 1940 Age: 81 Procedure: Upper GI endoscopy Indications: Iron deficiency anemia Providers: Chaparro John MD Medicines: See the Anesthesia note for documentation of the administered medications Complications: No immediate complications. Procedure: Pre-Anesthesia Assessment: - Prior to the procedure, a History and Physical was performed, and patient medications and allergies were reviewed. The patient's tolerance of previous anesthesia was also reviewed. The risks and benefits of the procedure and the sedation options and risks were discussed with the patient. All questions were answered, and informed consent was obtained. Prior Anticoagulants: The patient has taken no previous anticoagulant or antiplatelet agents. ASA Grade Assessment: II - A patient with mild systemic disease. After reviewing the risks and benefits, the patient was deemed in satisfactory condition to undergo the procedure. After obtaining informed consent, the endoscope was passed under direct vision. Throughout the procedure, the patient's blood pressure, pulse, and oxygen saturations were monitored continuously. The Endoscope was introduced through the mouth, and advanced to the second part of duodenum. The upper GI endoscopy was accomplished without difficulty. The patient tolerated the procedure well. Scope In: 9:14:44 AM Scope Out: 9:23:53 AM Total Procedure Duration Time 0 hours 9 minutes 9 seconds Findings: There were esophageal mucosal changes suspicious for short-segment Cochran's esophagus present in the lower third of the esophagus. Mucosa was biopsied with a cold forceps for histology in a targeted manner at the gastroesophageal junction. A large hiatal hernia was present. The Z-line was irregular and was found 34 cm from the incisors. Diffuse mildly erythematous mucosa without bleeding was found in the gastric antrum. Biopsies were taken with a cold forceps for histology. Diffuse moderately erythematous mucosa without active bleeding and with no stigmata of bleeding was found in the duodenal bulb. Biopsies were taken with a cold forceps for histology. Impression: - Esophageal mucosal changes suspicious for short-segment Cochran's esophagus. Biopsied. - Large hiatal hernia. - Z-line irregular, 34 cm from the incisors. - Erythematous mucosa in the antrum. Biopsied. - Erythematous duodenopathy. Biopsied. Recommendation: - Discharge patient to home. - Resume previous diet. - Continue present medications. - Telephone my office for pathology results in 1 week. At this point I would recommend maintaining her proton pump inhibitor therapy. Procedure Code(s): --- Professional --- 24642, Esophagogastroduodenoscopy, flexible, transoral; with biopsy, single or multiple Diagnosis Code(s): --- Professional --- K22.8, Other specified diseases of esophagus K44.9, Diaphragmatic hernia without obstruction or gangrene K31.89, Other diseases of stomach and duodenum D50.9, Iron deficiency anemia, unspecified CPT copyright 2017 [employer]. All rights reserved. The codes documented in this report are preliminary and upon certified coder review may be revised to meet current compliance requirements. Chaparro John MD 11/23/2021 9:53:05 AM This report has been signed electronically. Number of Addenda: 0 Note Initiated On: 11/23/2021 8:59 AM
--- NOTE | 2021-11-23 09:53 | OP.CCLET_ITS ---
11/23/2021 Xiomara Do Re : Upper GI endoscopy procedure for Sandie Glez Dear Hi This procedure was performed on Tuesday, November 23, 2021. My impressions and recommendations are as follows: Impressions : - Esophageal mucosal changes suspicious for short-segment Cochran's esophagus. Biopsied. - Large hiatal hernia. - Z-line irregular, 34 cm from the incisors. - Erythematous mucosa in the antrum. Biopsied. - Erythematous duodenopathy. Biopsied. Recommendations : - Discharge patient to home. - Resume previous diet. - Continue present medications. - Telephone my office for pathology results in 1 week. At this point I would recommend maintaining her proton pump inhibitor therapy. My findings are described in the full procedure note, which is enclosed. If I can be of further assistance, please feel free to contact me at Doctor phone number(s): Work: . Sincerely, Chaparro John MD 11/23/2021 9:53:05 AM This report has been signed electronically.
--- NOTE | 2021-11-23 09:57 | OP.CCLET_ITS ---
11/23/2021 Xiomara Do Re : Colonoscopy procedure for Sandie Glez Dear Hi This procedure was performed on Tuesday, November 23, 2021. My impressions and recommendations are as follows: Impressions : - Non-thrombosed external hemorrhoids, non-thrombosed internal hemorrhoids and internal hemorrhoids that prolapse with straining, but spontaneously regress to the resting position (Grade II) found on digital rectal exam. - One 4 mm polyp in the mid sigmoid colon, removed with a cold biopsy forceps. Resected and retrieved. - Diverticulosis in the sigmoid colon and in the descending colon. - The examination was otherwise normal. Recommendations : - Discharge patient to home. - Resume previous diet. - Continue present medications. - Repeat colonoscopy is not recommended due to current age (66 years or older) for screening purposes. - Telephone my office for pathology results in 1 week. My findings are described in the full procedure note, which is enclosed. If I can be of further assistance, please feel free to contact me at Doctor phone number(s): Work: . Sincerely, Chaparro John MD 11/23/2021 9:56:44 AM This report has been signed electronically.
--- NOTE | 2021-11-23 09:57 | OP.COLON_ITS ---
Patient Name: Sandie Glez Procedure Date: 11/23/2021 9:26 AM Date of : 1940 Age: 81 Procedure: Colonoscopy Indications: Iron deficiency anemia Providers: Chaparro John MD Medicines: See the Anesthesia note for documentation of the administered medications Patient Profile: Last Colonoscopy: January 2018. Complications: No immediate complications. Procedure: Pre-Anesthesia Assessment: - Prior to the procedure, a History and Physical was performed, and patient medications and allergies were reviewed. The patient's tolerance of previous anesthesia was also reviewed. The risks and benefits of the procedure and the sedation options and risks were discussed with the patient. All questions were answered, and informed consent was obtained. Prior Anticoagulants: The patient has taken no previous anticoagulant or antiplatelet agents. ASA Grade Assessment: II - A patient with mild systemic disease. After reviewing the risks and benefits, the patient was deemed in satisfactory condition to undergo the procedure. After I obtained informed consent, the scope was passed under direct vision. Throughout the procedure, the patient's blood pressure, pulse, and oxygen saturations were monitored continuously. The pediatric colonoscope was introduced through the anus and advanced to the cecum, identified by appendiceal orifice and ileocecal valve. The colonoscopy was somewhat difficult due to multiple diverticula in the colon. The patient tolerated the procedure well. The quality of the bowel preparation was good. The ileocecal valve and the appendiceal orifice were photographed. Scope In: 9:28:01 AM Scope Withdrawal Time 0 hours 9 minutes 19 seconds Scope Out: 9:47:41 AM Total Procedure Duration Time 0 hours 19 minutes 40 seconds Findings: The digital rectal exam findings include non-thrombosed external hemorrhoids, non-thrombosed internal hemorrhoids and internal hemorrhoids that prolapse with straining, but spontaneously regress to the resting position (Grade II). A 4 mm polyp was found in the mid sigmoid colon. The polyp was sessile. The polyp was removed with a cold biopsy forceps. Resection and retrieval were complete. Multiple diverticula were found in the sigmoid colon and descending colon. The exam was otherwise without abnormality. Impression: - Non-thrombosed external hemorrhoids, non-thrombosed internal hemorrhoids and internal hemorrhoids that prolapse with straining, but spontaneously regress to the resting position (Grade II) found on digital rectal exam. - One 4 mm polyp in the mid sigmoid colon, removed with a cold biopsy forceps. Resected and retrieved. - Diverticulosis in the sigmoid colon and in the descending colon. - The examination was otherwise normal. Recommendation: - Discharge patient to home. - Resume previous diet. - Continue present medications. - Repeat colonoscopy is not recommended due to current age (66 years or older) for screening purposes. - Telephone my office for pathology results in 1 week. Procedure Code(s): --- Professional --- 41251, Colonoscopy, flexible; with biopsy, single or multiple Diagnosis Code(s): --- Professional --- K64.1, Second degree hemorrhoids K64.4, Residual hemorrhoidal skin tags D12.5, Benign neoplasm of sigmoid colon D50.9, Iron deficiency anemia, unspecified K57.30, Diverticulosis of large intestine without perforation or abscess without bleeding CPT copyright 2017 [employer]. All rights reserved. The codes documented in this report are preliminary and upon remote medical coder review may be revised to meet current compliance requirements. Chaparro John MD 11/23/2021 9:56:44 AM This report has been signed electronically. Number of Addenda: 0 Note Initiated On: 11/23/2021 9:26 AM
== END 2021-11-23 23:59 | disposition home or self-care (01) ==
LOC: EN 07:47 → AC 07:48
PROVIDERS: PCP Internal Medicine; Referring Provider Internal Medicine; Visit Provider Surgery
PROC: 0DJD8ZZ Inspection of Lower Intestinal Tract, Via Natural or Artificial Opening Endoscopic (ICD-10-PCS; CPT 45378; principal; 2021-11-23 08:55)
DX: K29.50 Unspecified chronic gastritis without bleeding (principal); D50.9 Iron deficiency anemia, unspecified; K64.4 Residual hemorrhoidal skin tags; I10 Essential (primary) hypertension; K44.9 Diaphragmatic hernia without obstruction or gangrene; K64.1 Second degree hemorrhoids; K57.30 Diverticulosis of large intestine without perforation or abscess without bleeding; K21.00 Gastro-esophageal reflux disease with esophagitis, without bleeding; Z80.0 Family history of malignant neoplasm of digestive organs; D12.5 Benign neoplasm of sigmoid colon; Z86.010 Personal history of colon polyps; E78.5 Hyperlipidemia, unspecified; Z79.899 Other long term (current) drug therapy; Z78.0 Asymptomatic menopausal state; M19.90 Unspecified osteoarthritis, unspecified site
CPT/HCPCS: 43239; 45380; 88305; 88313; 88342; J7120; J2405